=== PATIENT | female | born 1970 | race Caucasian/White ===

== ENCOUNTER → 2017-04-24 | Outpatient (CLI) | payer OTHER, MEDICAID ==
[2015-10-19 09:44] VITALS: BP 140/92
--- NOTE | 2017-04-25 08:03 | MRI ---
MRI abdomen without contrast MRCP Indication: Abnormal liver function tests, autoimmune hepatitis and chronic kidney disease. Technique: Multiplanar, multi sequence imaging of the abdomen without IV contrast administration. 3 dimensional MRCP imaging was performed per departmental protocol. Findings: Liver demonstrates normal morphology. No focal hepatic lesion identified. No intrahepatic or extrahepatic bile duct dilatation. The gallbladder is absent. The spleen, pancreas and pancreatic ducts are normal. Adrenal glands are unremarkable. Both [place] kidneys are severely atrophic with a the exophytic T2 hyperintense lesion within the upper pole left kidney most consistent with cysts. Right lower quadrant transplant kidney is noted without evidence of hydronephrosis or mass. Upper GI tract is without evidence of mass or obstruction. No free fluid identified within the abdomen or pe lvis. Abdominal aorta is normal in caliber. Impression: 1.No acute inflammatory process identified within the abdomen. No evidence of a cirrhotic morphology of the liver or focal hepatic lesion. Bile ducts are normal in caliber with previous cholecystectom y. 2. Severe it atrophy of bilateral [place] kidneys with an exophytic cyst arising from the upper pole f the [place] left kidney. A right lower quadrant transplant kidney demonstrates no evidence of mass or hydronephrosis. Reported By:
== END | disposition home or self-care (01) | DRG 442 ==
LOC: RAD 09:28
PROVIDERS: ATTEND Internal Medicine
DX: K72.90 Hepatic failure, unspecified without coma (principal); Z94.0 Kidney transplant status; R10.11 Right upper quadrant pain; R10.13 Epigastric pain
CPT/HCPCS: 74181

== ENCOUNTER 2017-04-28 11:54 | Emergency (ER) | payer OTHER, MEDICAID ==
--- NOTE | 2017-04-28 12:29 | DR.GENAD ---
HPI - PCP Primary Care Physician: ALTAGRACIA - HPI Comment HPI Comment: SICK FOR SEVERALDAYS NOW AND IS GETTING WORSE. BP UP AND DOWN BUT LOW TODAY ALL THE TIME. PATIENT FEELING WEAK AND NAUSEATED. - Complaint/Symptoms Chief Complaint Doctors Comments: WEAKNESS, NAUSEA AND LOW BP TIMES 5 DAYS. BP LOW TODAY AT HOME. DIZZY. Chief Complaint:: HEART PROBLEMS, HIGH BLOOD PRESSURE BEEN MONITOR SINCE THE 04/23. WEAK AND NAUSEATED - Nurses notes reviewed Nurses Notes Review: Yes - Source History Provided: Patient, Family Member - Mode of Arrival Mode of Arrival: Ambulatory - Timing Onset of Chief Complaint: 04/23/17 Came on: Gradually - Duration Duration: Constant Duration: Days - Severity Severity: Moderate PMH - PMH Past Medical History: Yes Past Medical History: Angina, Anxiety, Hypertension Past Medical History Comment: KIDNEY TRANSPLANT IN 2010 Past Surgical History: Yes Surgical History: Appendectomy, Cholecystectomy, Hysterectomy Past Surgical History Comment: KIDNEY TRANSPLANT 2010 HAD DIALYSIS SHUNT IN LEFT ARM. - Family History History of Family Medical Conditions: Yes Family Medical History: Diabetes Mellitus - Social History Does any household member use tobacco: No Alcohol Use: None Do you use any recreational Drugs:: No Lives With: Family Lives Where: Home - infectious screening In the last 2 months have you had wt loss of >10#?: NO Have you had fever, night sweats or hemotysis?: No Have you traveled outside the country in the last 6 months?: No Isolation: Standard ROS - Review of Systems Constitutional: Weakness, Fatigue Eyes: No Symptoms Reported ENTM: No Symptoms Reported Respiratoy: No Symptoms Reported Cardiovascular: Chest Pain Gastrointestinal/Abdominal: No Symptoms Reported Genitourinary: Dysuria Neurological: Headache Musculoskeletal: No Symptoms Reported Integumentary: No Symptoms Reported Hematologic/Lymphatic: No Symptoms Reported Endocrine: No Symptoms Reported All Other Systems: Reviewed and Negative PE - Vital Signs Vitals: Temperature 98.5 F Pulse Rate 84 Respiratory Rate 20 Blood Pressure 168/76 O2 Sat by Pulse Oximetry 94 - General Limitations: No Limitations General Appearance: Alert - Head Head Exam: Normal Inspection - Eyes Eye exam: Normal Appearance - ENT ENT Exam: Normal External Ear Exam External Ear Exam: Normal External Inspection TM/Canal Exam: Bilateral Normal Mouth Exam: Normal Inspection Throat Exam: Normal Inspection - Neck Neck Exam: Trachea Midline - Chest Chest Inspection: Symmetric Chest Wall Rise - Respiratory Respiratory Exam: Normal Lung Sounds Bilat Respiratory Exam: Bilateral Clear to Auscultation - Cardiovascular Cardiovascular Exam: Regular Rate, Normal Rhythm, Normal Heart Sounds - Abdominal Exam Abdominal Exam: Normal Bowel Sounds, Soft. negative: Tenderness - Extremities Extremities Exam: Normal Inspection - Back Back Exam: Normal Inspection - Neurologic Neurological Exam: Alert, Oriented X3 - Psychiatric Psychiatric Exam: Normal Affect, Normal Mood - Skin Skin Exam: Normal Color MDM - Additional Information Additional Information Obtained From: Family - Differential Diagnosis Differential Diagnosis: HYPERTENSION WITH HYPOTENSIVE EPISODE, UTI, ELECTROLYTE IMBALANCE. Course - Treatment Treatment: SEE ORDERS. - Consultation Consultation Comments: DISCUSS PATIENT WITH DR. FRIAS. HE WILL ADMIT PATIENT. - Education/Counseling Education/Counseling: Patient, Family, Education Educated On: Diagnosis ROR - Labs Reviewed Result Diagrams: 04/30/17 04:03 04/30/17 04:03 Laboratory: 04/28/17 12:54 Urine,Clean Catch Urine Culture - Final WBC 2.8 X10^3/uL (3.6-10.0) L 04/30/17 04:03 RBC 3.59 X10^6/uL (3.5-5.4) 04/30/17 04:03 Hgb 12.0 g/dL (12.0-16.0) 04/30/17 04:03 Hct 35.1 % (36.0-47.0) L 04/30/17 04:03 MCV 97.6 fL (80.0-100.0) 04/30/17 04:03 MCH 33.5 pg (27.0-34.0) 04/30/17 04:03 MCHC 34.3 g/dL (33.0-35.0) 04/30/17 04:03 RDW 16.1 % (11.6-16.5) 04/30/17 04:03 Plt Count 142 X10^3/uL (150.0-450.0) L 04/30/17 04:03 MPV 9.6 fL (7.4-11.0) 04/30/17 04:03 Neut % 67.0 % (42.0-75.0) 04/30/17 04:03 Lymph % 19.5 % (21.0-51.0) L 04/30/17 04:03 [place] % 11.4 % (0.0-13.0) 04/30/17 04:03 Eos % 1.5 % (0.9-2.9) 04/30/17 04:03 Baso % 0.6 % (0.2-1.0) 04/30/17 04:03 Neut # 1.9 x10^3/uL (2.2-4.8) L 04/30/17 04:03 Lymph # 0.5 X10^3/uL (1.3-2.9) L 04/30/17 04:03 [place] # 0.3 x10^3/uL (0.3-0.8) 04/30/17 04:03 Eos # 0.0 x10^3/uL (0.0-0.2) 04/30/17 04:03 Baso # 0.0 X10^3/uL (0.0-0.1) 04/30/17 04:03 Absolute Nucleated RBC 0.2 /100WBC 04/30/17 04:03 Sodium 145 mmol/L (136-145) 04/30/17 04:03 Corrected Sodium TNP 04/30/17 04:03 Potassium 3.8 mmol/L (3.5-5.1) 04/30/17 04:03 Chloride 111 mmol/L (98-107) H 04/30/17 04:03 Carbon Dioxide 28.2 mmol/L (21-32) 04/30/17 04:03 BUN 11 mg/dL (7-18) 04/30/17 04:03 Creatinine 0.83 mg/dL (0.55-1.02) 04/30/17 04:03 Est GFR (MDRD) Af Amer > 60 (>60) 04/30/17 04:03 Est GFR (MDRD) Non-Af > 60 (>60) 04/30/17 04:03 Glucose 87 mg/dL (65-99) 04/30/17 04:03 Calcium 8.1 mg/dL (8.5-10.1) L 04/30/17 04:03 Corrected Calcium 9.0 mg/dL (8.5-10.1) 04/30/17 04:03 Magnesium 1.5 mg/dL (1.7-2.9) L 04/30/17 04:03 Total Bilirubin 0.30 mg/dL (0.2-1.0) 04/30/17 04:03 AST 52 Units/L (15-37) H 04/30/17 04:03 ALT 103 Units/L (12-78) H 04/30/17 04:03 Alkaline Phosphatase 79 Units/L (46-116) 04/30/17 04:03 Creatine Kinase 20 Units/L (26-192) L 04/29/17 01:40 CK-MB (CK-2) < 1.0 ng/mL (0-4.0) 04/29/17 01:40 CK/CKMB % Calc 5.0 % (<4) 04/29/17 01:40 Troponin I < 0.02 ng/mL (0-1.5) 04/29/17 01:40 Total Protein 6.5 g/dL (6.4-8.2) 04/30/17 04:03 Albumin 2.9 g/dL (3.4-5.0) L 04/30/17 04:03 Globulin 3.6 g/dL (2.5-4.5) 04/30/17 04:03 Albumin/Globulin Ratio 0.8 Ratio (1.1-2.1) L 04/30/17 04:03 Amylase 24 Units/L (25-115) L 04/28/17 12:40 Lipase 139 Units/L (73-393) 04/28/17 12:40 Specimen Type Clean catch urine 04/28/17 12:52 Urine Color [place] (YELLOW) 04/28/17 12:52 Urine Appearance Slightly hazy (CLEAR) 04/28/17 12:52 Urine pH 6.0 (5.0 - 8.0) 04/28/17 12:52 Ur Specific [place] 1.020 (1.000-1.030) 04/28/17 12:52 Urine Protein 1+ (NEGATIVE) 04/28/17 12:52 Urine Glucose (UA) Negative (NEGATIVE) 04/28/17 12:52 Urine Ketones Negative (NEGATIVE) 04/28/17 12:52 Urine Occult Blood Negative (NEGATIVE) 04/28/17 12:52 Urine Nitrite Positive (NEGATIVE) 04/28/17 12:52 Urine Bilirubin 2+ (NEGATIVE) 04/28/17 12:52 Urine Urobilinogen 2+ (NORMAL) 04/28/17 12:52 Ur Leukocyte Esterase 2+ (NEGATIVE) 04/28/17 12:52 Urine RBC 0 - 3 /HPF (NEGATIVE) 04/28/17 12:52 Urine WBC 12 - 15 /HPF (NEGATIVE) 04/28/17 12:52 Ur Squamous Epith Cells Few /HPF (NEGATIVE) 04/28/17 12:52 Urine Bacteria 1+ /HPF (NEGATIVE) 04/28/17 12:52 Ur Culture Indicated? Yes/culture set up 04/28/17 12:52 - EKG Rhythm: NSR (EKG NOTED) - Diagnosis Discharge Problem: Hypokalemia UTI (urinary tract infection) Qualifiers: Urinary tract infection type: acute cystitis Hematuria presence: without hematuria Qualified Code(s): N30.00 - Acute cystitis without hematuria HTN (hypertension) Qualifiers: Hypertension type: essential hypertension Qualified Code(s): I10 - Essential ( primary) hypertension - Discharge Plan Disposition: HOME, SELF-CARE Condition: Stable - Follow ups/Referrals - Instructions
[2017-04-28] MEDS ORDERED: ZOFRAN TAB 4 MG ONE (12:33)
[2017-04-28] MEDS ORDERED: ZOFRAN TAB 4 MG PO ONE (12:36)
[2017-04-28 12:54] LABS: BASOPHILS % (AUTO) 0.4 % (0.2-1.0); EOSINOPHILS % (AUTO) 0.3 % (0.9-2.9); HEMATOCRIT 39.6 % (36.0-47.0); HEMOGLOBIN 13.5 g/dL (12.0-16.0); LYMPHOCYTES # (AUTO) 0.4 X10^3/uL (1.3-2.9); LYMPHOCYTES % (AUTO) 5.5 % (21.0-51.0); MEAN CORPUSCULAR HEMOGLOBIN 32.9 pg (27.0-34.0); MEAN CORPUSCULAR HGB CONC 34.1 g/dL (33.0-35.0); MEAN CORPUSCULAR VOLUME 96.5 fL (80.0-100.0); MEAN PLATELET VOLUME 10.1 fL (7.4-11.0); MONOCYTES # (AUTO) 0.3 x10^3/uL (0.3-0.8); MONOCYTES % (AUTO) 5.2 % (0.0-13.0); NEUTROPHILS # (AUTO) 5.7 x10^3/uL (2.2-4.8); NEUTROPHILS % (AUTO) 88.6 % (42.0-75.0); PLATELET COUNT 212 X10^3/uL (150.0-450.0); WHITE BLOOD COUNT 6.5 X10^3/uL (3.6-10.0)
[2017-04-28 13:04] LABS: ALANINE AMINOTRANSFERASE 162 Units/L (12-78); ALBUMIN 3.5 g/dL (3.4-5.0); ALKALINE PHOSPHATASE 97 Units/L (46-116); ASPARTATE AMINO TRANSFERASE 111 Units/L (15-37); BLOOD UREA NITROGEN 17 mg/dL (7-18); CALCIUM 9.5 mg/dL (8.5-10.1); CARBON DIOXIDE 29.8 mmol/L (21-32); CHLORIDE 99 mmol/L (98-107); COR NA(FOR HYPERGLY) 137 mmol/L (136-145); CREATININE 1.23 mg/dL (0.55-1.02); GLUCOSE 149 mg/dL (65-99); SODIUM 136 mmol/L (136-145); TOTAL PROTEIN 7.8 g/dL (6.4-8.2); eGFR BLACK RACES > 60 (>60); eGFR NON BLACK RACES 50 (>60)
[2017-04-28 13:08] LABS: BILIRUBIN,URINE 2+ (NEGATIVE); BLOOD/HEMOGLOBIN,URINE NEGATIVE (NEGATIVE); GLUCOSE, URINE NEGATIVE (NEGATIVE); KETONES,URINE NEGATIVE (NEGATIVE); LEUKOCYTE ESTERASE ,URINE 2+ (NEGATIVE); NITRITES,URINE POSITIVE (NEGATIVE); PROTEIN,URINE 1+ (NEGATIVE); UROBILINOGEN,URINE 2+ (NORMAL)
[2017-04-28 13:16] LABS: COLOR,URINE ORANGE (YELLOW)
[2017-04-28 13:17] LABS: APPEARANCE,URINE SLIGHTLY HAZY (CLEAR)
[2017-04-28 13:18] LABS: AMYLASE 24 Units/L (25-115); LIPASE 139 Units/L (73-393)
[2017-04-28 13:18] LABS: BACTERIA,URINE 1+ /HPF (NEGATIVE); RBC,URINE 0 - 3 /HPF (NEGATIVE); SQUAMOUS EPITHELIAL CELL,UR FEW /HPF (NEGATIVE)
[2017-04-28] MEDS: NS 1000 ML 1,000 ML IV SCH (15:22)
[2017-04-28] MEDS: ROCEPHIN VIAL 1 GM 1 GM in NS 50 ML IV + SPIKE MINIBAG* 50 ML IV SCH (17:29)
[2017-04-28 19:28] LABS: CKMB % 4.4 % (<4); CREATINE KINASE 23 Units/L (26-192); CREATINE KINASE MB < 1.0 ng/mL (0-4.0); TROPONIN I < 0.02 ng/mL (0-1.5)
[2017-04-29 02:32] LABS: CREATINE KINASE 20 Units/L (26-192); CREATINE KINASE MB < 1.0 ng/mL (0-4.0); TROPONIN I < 0.02 ng/mL (0-1.5)
[2017-04-29] MEDS: NS 1000 ML 1,000 ML IV SCH ×4 (02:32→18:33)
[2017-04-29 05:28] LABS: ALANINE AMINOTRANSFERASE 126 Units/L (12-78); ALBUMIN 3.1 g/dL (3.4-5.0); ALKALINE PHOSPHATASE 84 Units/L (46-116); ASPARTATE AMINO TRANSFERASE 68 Units/L (15-37); BLOOD UREA NITROGEN 16 mg/dL (7-18); CALCIUM 8.9 mg/dL (8.5-10.1); CARBON DIOXIDE 27.5 mmol/L (21-32); CHLORIDE 105 mmol/L (98-107); COR CA(FOR HYPOALB) 9.6 mg/dL (8.5-10.1); CREATININE 1.02 mg/dL (0.55-1.02); GLUCOSE 107 mg/dL (65-99); SODIUM 140 mmol/L (136-145); eGFR BLACK RACES > 60 (>60); eGFR NON BLACK RACES > 60 (>60)
[2017-04-29 05:34] LABS: BASOPHILS % (AUTO) 0.4 % (0.2-1.0); EOSINOPHILS % (AUTO) 0.5 % (0.9-2.9); HEMATOCRIT 35.7 % (36.0-47.0); HEMOGLOBIN 12.3 g/dL (12.0-16.0); LYMPHOCYTES # (AUTO) 0.3 X10^3/uL (1.3-2.9); LYMPHOCYTES % (AUTO) 8.6 % (21.0-51.0); MEAN CORPUSCULAR HEMOGLOBIN 33.5 pg (27.0-34.0); MEAN CORPUSCULAR HGB CONC 34.5 g/dL (33.0-35.0); MEAN CORPUSCULAR VOLUME 97.1 fL (80.0-100.0); MEAN PLATELET VOLUME 9.7 fL (7.4-11.0); MONOCYTES # (AUTO) 0.4 x10^3/uL (0.3-0.8); MONOCYTES % (AUTO) 9.4 % (0.0-13.0); NEUTROPHILS # (AUTO) 3.2 x10^3/uL (2.2-4.8); NEUTROPHILS % (AUTO) 81.1 % (42.0-75.0); PLATELET COUNT 165 X10^3/uL (150.0-450.0); RED BLOOD COUNT 3.68 X10^6/uL (3.5-5.4)
[2017-04-29] MEDS: ROCEPHIN VIAL 1 GM 1 GM in NS 50 ML IV + SPIKE MINIBAG* 50 ML IV SCH (08:56)
[2017-04-29] MEDS ORDERED: LASIX PO PRN (10:58)
--- NOTE | 2017-04-29 11:25 | DR.H&P ---
H&P - History & Physical for Day of: H&P Date: 04/28/17 - Chief Complaint Chief Complaint: HYPOTENSION, WEAKNESS, NAUSEA - Allergies Allergies/Adverse Reactions: Allergies Allergy/AdvReac Type Severity Reaction Status Date / Time ciprofloxacin [From Cipro] AdvReac Verified 04/28/17 21:44 phenazopyridine AdvReac Verified 04/28/17 21:44 [From Pyridium] Sulfa (Sulfonamide AdvReac Verified 04/28/17 21:44 Antibiotics) [SULFA] - History of Present Illness History of Present Illness: MS. WATERMAN IS A 47 YEAR OLD PATIENT OF OURS WHO PRESENTED TO THE EMERGENCY ROOM WITH COMPLAINTS OF WEAKNESS, NAUSEA, AND LOW BLOOD PRESSURE. PATIENT REPORTS THAT SHE HAS A HISTORY OF HIGH BLOOD PRESSURE, BUT STATES THAT HER BLOOD PRESSURE HAS RAN LOWER THAN USUAL FOR THE PAST SEVERAL DAYS. ON ARRIVAL TO ER, VITALS WERE 98.5-84-20-94%-168/76. CBC WNL. CMP WNL EXCEPT CREATININE 1.23, GLUCOSE 149, AST 111, ALT 162, AMYLASE 24. CREAKINE KINASE 23. EKG REPORTS SINUS RHYTHM WITH RATE OF 84, LEFT VENTRICULAR HYPERTROPHY. SHE WAS GIVEN ZOFRAN 4MG PO IN ER. WE ADMITTED PATIENT FOR FURTHER TREATMENT AND EVALUATION. WE STARTED HER ON NS @75ML/HR AND ROCEPHIN 1GM IV DAILY. WE PLANNED TO RECHECK LABS AND FOLLOW UP WITH PATIENT IN AM. - Past Medical History Past Medical History: Angina, Anxiety, Arthritis, GERD, Hypertension, Renal Disease Additional Medical History: AUTOIMMUNE HEPATITIS, IBS, DIALYSIS [id number], URETER REPAIR, ENDOMETRIOSIS, OSTEOARTHRITIS - Past Surgical History Surgical History: Appendectomy, Cholecystectomy, Hysterectomy, Organ Transplant , Other Additional Surgical History: URETER REPAIR, DIALYSIS SHURNT PLACEMENT AND REMOVAL, KIDNEY TRANSPLANT - Family History Family Medical History: Diabetes Mellitus - Social History Does patient currently use any type of tobacco product: No Have you used tobacco products in the last 12 months: No Type of Tobacco Use: None Does any household member use tobacco: No Alcohol Use: None Drug Use: None - Medications Home Medications: Azathioprine [Imuran] 50 mg PO TID 04/28/17 [History Confirmed 04/28/17] Citalopram 20 mg Tab [CELEXA 20 MG *] 3 tab PO DAILY 04/28/17 [History Confirmed 04/28/17] Metoclopramide HCl [Metoclopramide HCl] 1 tab PO QID 04/28/17 [History Confirmed 04/28/17] Pramipexole Di-HCl [Pramipexole Dihydrochlori] 0.25 mg PO HS 04/28/17 [History Confirmed 04/28/17] Promethazine HCl [PHENERGAN TAB 25 MG *] 25 mg PO Q6H PRN 04/28/17 [History Confirmed 04/28/17] - Review of Systems Constitutional: See HPI, Weakness. denies: No Symptoms Reported, Fever, Chills , Sweats, Malaise, Other Eyes: No Symptoms Reported. denies: See HPI, Pain, Vision Change, Conjunctivae Inflammation, Eyelid Inflammation, Redness, Other ENT: No Symptoms Reported. denies: See HPI, Ear Pain, Ear Discharge, Nose Pain , Nose Discharge, Nose Congestion, Mouth Pain, Mouth Swelling, Throat Pain, Throat Swelling, Other Respiratory: No Symptoms Reported. denies: See HPI, Cough, Dry, Shortness of Breath, Hemoptysis, SOB with Excertion, Pleuritic Pain, Sputum, Wheezing, Other Cardiovascular: Chest Pain. denies: No Symptoms Reported, See HPI, Palpitations , Orthopnea, Paroxysmal Noc. Dyspnea, Edema, Light Headedness, Other Gastrointestinal: See HPI, Nausea. denies: No Symptoms Reported, Vomiting, Abdominal Pain, Diarrhea, Constipation, Melena, Hematochezia, Other Genitourinary: See HPI, Dysuria. denies: No Symptoms Reported, Frequency, Incontinence, Hematuria, Retention, Other Musculoskeletal: No Symptoms Reported. denies: See HPI, Shoulder Pain, Arm Pain , Back Pain, Hand Pain, Leg Pain, Foot Pain, Neck Pain, Other Skin: No Symptoms Reported. denies: See HPI, Rash, Lesions, Jaundice, Bruising , Wound, Ecchymosis, Other Neurological: Weakness. denies: No Symptoms Reported, See HPI, Numbness, Incoordination, Change in Speech, Confusion, Seizures, Other - Physical Exam Vital Signs: Temperature 98.0 F Pulse Rate [Left Brachial] 92 Respiratory Rate 20 Blood Pressure [Left Arm] 147/88 O2 Sat by Pulse Oximetry 96 Oriented: Normal. negative: Time, Person, Place, Not Oriented, Unable to test, Other Eyes: Normal. negative: Blurred Vision, Diplopia, Discharge, Pain, Redness, Photophobia, Other Ear: Normal. negative: Right, Left, Swelling, Ecchymosis, Hemotypanum, Abrasion , Laceration Nose: Normal. negative: Injected, Discharge, Blood, Other Throat: Normal. negative: Tonsillar Hypertrophy, Red, Exudate, Dry, Other Respiratory: Clear Throughout. negative: Diminished Throughout, Rhonchi Throughout, Rales Throughout, Wheezes Throughout, RUL Clear, RML Clear, RLL Clear, UBALDO Clear, LML Clear, LLL Clear, RUL Diminished, RML Diminished, RLL Diminished, UBALDO Diminished, LML Diminished, LLL Diminished, RUL Absent, RML Absent, RLL Absent, UBALDO Absent, LML Absent, LLL Absent, RUL Rhonchi, RML Rhonchi , RLL Rhonchi, UBALDO Rhonchi, LML Rhonchi, LLL Rhonchi, RUL Insp. Wheeze, RML Insp. Wheeze, RLL Insp. Wheeze, UBALDO Insp.Wheeze, LML Insp.Wheeze, LLL Insp.Wheeze, RUL Exp. Wheeze, RML Exp. Wheeze, RLL Exp. Wheeze, UBALDO Exp. Wheeze , LML Exp. Wheeze, LLL Exp. Wheeze, RUL Rales, RML Rales, RLL Rales, UBALDO Rales, LML Rales, LLL Rales, RUL Rub, RML Rub, RLL Rub, UBALDO Rub, LML Rub, LLL Rub, RUL Squeak, RML Squeak, RLL Squeak, UBALDO Squeak, LML Squeak, LLL Squeak Cardiovascular: Normal. negative: Tachycardia, Bradycardia, Irregular, S3, S4, Systolic, Diastolic, Murmur, Edema, Other : Dysuria. negative: Normal, Hematuria, Frequency, Discharge, Testicular Pain , Bleeding, , Other Auscultation: Bowel Sounds: Normal. negative: Bruit, Absent, Increased, Decreased, High Pitched, Other Palpation: Normal. negative: Spleen Enlarged, Liver Enlarged, Mass Pulsatile, Other Tenderness: Normal. negative: Diffuse, RUQ, RLQ, LUQ, LLQ, Epigastric, Periumbilical, Suprapubic, Mild, Moderate, Severe, Rebound, Guarding, Rigidity, Other Skin: Normal. negative: Decreased Turgur, Rash, Papular, Macular, Maculopapular , Vesicular, Pustular, Petechial, Red, Tender, Hot, Diaphoresis, Wound, Bruising , Ecchymosis, Other Musculoskeletal: Normal. negative: Right, Left, Shoulder, Clavicle, Arm, Elbow , Forearm, Wrist, Hand, Hip, Thigh, Knee, Leg, Ankle, Foot, Back:Thoracic, Back: Lumbar, Back:Midline, Back:Paraspinous, Pelvis, Swelling, Tender, Deformity, Pulse Deficit, Motor Deficit, Sensory Deficit, Instability, Crepitance Psychiatric: Normal. negative: Anxiety, Depression, Agitation, Other Mood Description: Calm. negative: Angry, Apathetic, Depressed, Fearful, Flat, Happy, Hostile, Sad, Suspicious, Withdrawn, Anxious, Appropriate, Labile Affect: Normal. negative: Angry, Anxious, Depressed, Flat, Hysterical, Quiet, Violent Speech Pattern: Clear. negative: Appropriate, Unclear, Inappropriate, Delayed, Slurred, Excessive, Aphasic, Artificially Ventilated - Assessment/Plan (1) Urinary tract infection Qualifiers: Urinary tract infection type: acute cystitis Hematuria presence: without hematuria Indwelling urinary catheter type: I Encounter type: E Qualified Code(s): N30.00 - Acute cystitis without hematuria Status: Acute Plan: IV FLUIDS, ROCEPHIN 1 GM IV DAILY, CONTINUE TO MONITOR (2) Hypotension Qualifiers: Hypotension type: unspecified hypotension type Trimester: T Qualified Code(s): I95.9 - Hypotension, unspecified Status: Acute Plan: IV FLUIDS, CONTINUE TO MONITOR
--- NOTE | 2017-04-29 11:40 | PCM.PROG ---
Progress Note - Progress Note for Day of Date: 04/29/17 - Subjective Subjective: IS ALERT AND ORIENTED, SITTING UP IN BED ON MORNING ROUNDS. SHE IS NOTED WITH COMPLAINTS OF WEAKNESS, SUPRAPUBIC PAIN, AND DYSURIA. VITALS THIS AM ARE 98.4-86-20-97%-124/77. CBC WNL EXCEPT HCT 35.7. CMP WNL EXCEPT GLUCOSE 107, AST 68, ALT 126. ALBUMIN 3.1. PATIENT REPORTS THAT HER OXYGEN SATURATIONS DROPPED DURING THE NIGHT. WE WILL ORDER A OVERNIGHT CONTINUOUS OXYGEN SATURATION TEST. WE WILL CONTINUE WITH CURRENT PLAN OF CARE, RECHECK LABS, AND FOLLOW UP WITH PATIENT IN AM. - Past Medical Family Social History Allergies: Allergies ciprofloxacin [From Cipro] Adverse Reaction (Verified 04/28/17 21:44) phenazopyridine [From Pyridium] Adverse Reaction (Verified 04/28/17 21:44) Sulfa (Sulfonamide Antibiotics) [SULFA] Adverse Reaction (Verified 04/28/17 21: 44) - Review of Systems ROS: No change since H&P - Vital Signs and I&O's Vital Signs: Temperature 98.0 F Pulse Rate [Left Brachial] 92 Respiratory Rate 20 Blood Pressure [Left Arm] 147/88 O2 Sat by Pulse Oximetry 96 Intake and Output: Intake & Output 04/26/17 04/27/17 04/28/17 04/29/17 11:59 11:59 11:59 11:59 Intake Total 506 Output Total 1100 Balance -594 - Physical Exam Oriented: Normal. negative: Time, Person, Place, Not Oriented, Unable to test, Other Eyes: Normal. negative: Blurred Vision, Diplopia, Discharge, Pain, Redness, Photophobia, Other Ear: Normal. negative: Right, Left, Swelling, Ecchymosis, Hemotypanum, Abrasion , Laceration Nose: Normal. negative: Injected, Discharge, Blood, Other Throat: Normal. negative: Tonsillar Hypertrophy, Red, Exudate, Dry, Other Respiratory: Normal Cardiovascular: Normal. negative: Tachycardia, Bradycardia, Irregular, S3, S4, Systolic, Diastolic, Murmur, Edema, Other : Dysuria. negative: Normal, Hematuria, Frequency, Discharge, Testicular Pain , Bleeding, , Other Auscultation: Bowel Sounds: Normal. negative: Bruit, Absent, Increased, Decreased, High Pitched, Other Palpation: Normal Tenderness: Normal. negative: Diffuse, RUQ, RLQ, LUQ, LLQ, Epigastric, Periumbilical, Suprapubic, Mild, Moderate, Severe, Rebound, Guarding, Rigidity, Other Skin: Normal. negative: Decreased Turgur, Rash, Papular, Macular, Maculopapular , Vesicular, Pustular, Petechial, Red, Tender, Hot, Diaphoresis, Wound, Bruising , Ecchymosis, Other Musculoskeletal: Normal. negative: Right, Left, Shoulder, Clavicle, Arm, Elbow , Forearm, Wrist, Hand, Hip, Thigh, Knee, Leg, Ankle, Foot, Back:Thoracic, Back: Lumbar, Back:Midline, Back:Paraspinous, Pelvis, Swelling, Tender, Deformity, Pulse Deficit, Motor Deficit, Sensory Deficit, Instability, Crepitance Psychiatric: Normal. negative: Anxiety, Depression, Agitation, Other Mood Description: Calm. negative: Angry, Apathetic, Depressed, Fearful, Flat, Happy, Hostile, Sad, Suspicious, Withdrawn, Anxious, Appropriate, Labile Affect: Normal. negative: Angry, Anxious, Depressed, Flat, Hysterical, Quiet, Violent Speech Pattern: Clear. negative: Appropriate, Unclear, Inappropriate, Delayed, Slurred, Excessive, Aphasic, Artificially Ventilated - Laboratory and Diagnostics Result Diagrams: 04/29/17 04:10 04/29/17 04:10 Labs: Laboratory WBC 4.0 X10^3/uL (3.6-10.0) 04/29/17 04:10 RBC 3.68 X10^6/uL (3.5-5.4) 04/29/17 04:10 Hgb 12.3 g/dL (12.0-16.0) 04/29/17 04:10 Hct 35.7 % (36.0-47.0) L 04/29/17 04:10 MCV 97.1 fL (80.0-100.0) 04/29/17 04:10 MCH 33.5 pg (27.0-34.0) 04/29/17 04:10 MCHC 34.5 g/dL (33.0-35.0) 04/29/17 04:10 RDW 16.0 % (11.6-16.5) 04/29/17 04:10 Plt Count 165 X10^3/uL (150.0-450.0) 04/29/17 04:10 MPV 9.7 fL (7.4-11.0) 04/29/17 04:10 Neut % 81.1 % (42.0-75.0) H 04/29/17 04:10 Lymph % 8.6 % (21.0-51.0) L 04/29/17 04:10 [place] % 9.4 % (0.0-13.0) 04/29/17 04:10 Eos % 0.5 % (0.9-2.9) L 04/29/17 04:10 Baso % 0.4 % (0.2-1.0) 04/29/17 04:10 Neut # 3.2 x10^3/uL (2.2-4.8) 04/29/17 04:10 Lymph # 0.3 X10^3/uL (1.3-2.9) L 04/29/17 04:10 [place] # 0.4 x10^3/uL (0.3-0.8) 04/29/17 04:10 Eos # 0.0 x10^3/uL (0.0-0.2) 04/29/17 04:10 Baso # 0.0 X10^3/uL (0.0-0.1) 04/29/17 04:10 Absolute Nucleated RBC 0.1 /100WBC 04/29/17 04:10 Sodium 140 mmol/L (136-145) 04/29/17 04:10 Corrected Sodium TNP 04/29/17 04:10 Potassium 4.7 mmol/L (3.5-5.1) 04/29/17 04:10 Chloride 105 mmol/L (98-107) 04/29/17 04:10 Carbon Dioxide 27.5 mmol/L (21-32) 04/29/17 04:10 BUN 16 mg/dL (7-18) 04/29/17 04:10 Creatinine 1.02 mg/dL (0.55-1.02) 04/29/17 04:10 Est GFR (MDRD) Af Amer > 60 (>60) 04/29/17 04:10 Est GFR (MDRD) Non-Af > 60 (>60) 04/29/17 04:10 Glucose 107 mg/dL (65-99) H 04/29/17 04:10 Calcium 8.9 mg/dL (8.5-10.1) 04/29/17 04:10 Corrected Calcium 9.6 mg/dL (8.5-10.1) 04/29/17 04:10 Total Bilirubin 0.30 mg/dL (0.2-1.0) 04/29/17 04:10 AST 68 Units/L (15-37) H 04/29/17 04:10 ALT 126 Units/L (12-78) H 04/29/17 04:10 Alkaline Phosphatase 84 Units/L (46-116) 04/29/17 04:10 Creatine Kinase 20 Units/L (26-192) L 04/29/17 01:40 CK-MB (CK-2) < 1.0 ng/mL (0-4.0) 04/29/17 01:40 CK/CKMB % Calc 5.0 % (<4) 04/29/17 01:40 Troponin I < 0.02 ng/mL (0-1.5) 04/29/17 01:40 Total Protein 7.0 g/dL (6.4-8.2) 04/29/17 04:10 Albumin 3.1 g/dL (3.4-5.0) L 04/29/17 04:10 Globulin 3.9 g/dL (2.5-4.5) 04/29/17 04:10 Albumin/Globulin Ratio 0.8 Ratio (1.1-2.1) L 04/29/17 04:10 Amylase 24 Units/L (25-115) L 04/28/17 12:40 Lipase 139 Units/L (73-393) 04/28/17 12:40 Specimen Type Clean catch urine 04/28/17 12:52 Urine Color [place] (YELLOW) 04/28/17 12:52 Urine Appearance Slightly hazy (CLEAR) 04/28/17 12:52 Urine pH 6.0 (5.0 - 8.0) 04/28/17 12:52 Ur Specific [place] 1.020 (1.000-1.030) 04/28/17 12:52 Urine Protein 1+ (NEGATIVE) 04/28/17 12:52 Urine Glucose (UA) Negative (NEGATIVE) 04/28/17 12:52 Urine Ketones Negative (NEGATIVE) 04/28/17 12:52 Urine Occult Blood Negative (NEGATIVE) 04/28/17 12:52 Urine Nitrite Positive (NEGATIVE) 04/28/17 12:52 Urine Bilirubin 2+ (NEGATIVE) 04/28/17 12:52 Urine Urobilinogen 2+ (NORMAL) 04/28/17 12:52 Ur Leukocyte Esterase 2+ (NEGATIVE) 04/28/17 12:52 Urine RBC 0 - 3 /HPF (NEGATIVE) 04/28/17 12:52 Urine WBC 12 - 15 /HPF (NEGATIVE) 04/28/17 12:52 Ur Squamous Epith Cells Few /HPF (NEGATIVE) 04/28/17 12:52 Urine Bacteria 1+ /HPF (NEGATIVE) 04/28/17 12:52 Ur Culture Indicated? Yes/culture set up 04/28/17 12:52 - Plan (1) Urinary tract infection Status: Acute Qualifiers: Urinary tract infection type: acute cystitis Hematuria presence: without hematuria Indwelling urinary catheter type: I Encounter type: E Qualified Code(s): N30.00 - Acute cystitis without hematuria Plan: IV FLUIDS, ROCEPHIN 1 GM IV DAILY, CONTINUE TO MONITOR (2) Hypotension Status: Acute Qualifiers: Hypotension type: unspecified hypotension type Trimester: T Qualified Code(s): I95.9 - Hypotension, unspecified Plan: IV FLUIDS, CONTINUE TO MONITOR
[2017-04-29] MEDS: IMURAN PO SCH ×3 (12:16→21:37)
[2017-04-29] MEDS: TACROLIMUS PO SCH ×2 (12:17→20:38)
[2017-04-29] MEDS: CELEXA PO SCH (12:25)
[2017-04-29] MEDS: NexIUM PO SCH ×2 (12:25→20:36)
[2017-04-29] MEDS: REGLAN TAB 10 MG PO SCH ×4 (12:25→20:36)
[2017-04-29] MEDS: PHENERGAN INJ 25 MG IV PRN ×2 (14:24→20:36)
[2017-04-29] MEDS: NORTRIPTYLINE HCL 100 MG PO SCH (20:37)
[2017-04-29] MEDS: MIRAPEX TAB 0.25 MG PO SCH (20:39)
[2017-04-29] MEDS ORDERED: PATIENT'S HOME MEDICATION (Ranitidine Hcl [Zantac] 300 MG) PO SCH (21:00)
[2017-04-30 05:39] LABS: BASOPHILS % (AUTO) 0.6 % (0.2-1.0); EOSINOPHILS % (AUTO) 1.5 % (0.9-2.9); HEMATOCRIT 35.1 % (36.0-47.0); LYMPHOCYTES # (AUTO) 0.5 X10^3/uL (1.3-2.9); LYMPHOCYTES % (AUTO) 19.5 % (21.0-51.0); MEAN CORPUSCULAR HEMOGLOBIN 33.5 pg (27.0-34.0); MEAN CORPUSCULAR HGB CONC 34.3 g/dL (33.0-35.0); MEAN CORPUSCULAR VOLUME 97.6 fL (80.0-100.0); MEAN PLATELET VOLUME 9.6 fL (7.4-11.0); MONOCYTES # (AUTO) 0.3 x10^3/uL (0.3-0.8); MONOCYTES % (AUTO) 11.4 % (0.0-13.0); NEUTROPHILS # (AUTO) 1.9 x10^3/uL (2.2-4.8); PLATELET COUNT 142 X10^3/uL (150.0-450.0); RED BLOOD COUNT 3.59 X10^6/uL (3.5-5.4); RED CELL DISTRIBUTION WIDTH 16.1 % (11.6-16.5); WHITE BLOOD COUNT 2.8 X10^3/uL (3.6-10.0)
[2017-04-30 05:41] LABS: ALANINE AMINOTRANSFERASE 103 Units/L (12-78); ALBUMIN 2.9 g/dL (3.4-5.0); ALKALINE PHOSPHATASE 79 Units/L (46-116); ASPARTATE AMINO TRANSFERASE 52 Units/L (15-37); BLOOD UREA NITROGEN 11 mg/dL (7-18); CALCIUM 8.1 mg/dL (8.5-10.1); CARBON DIOXIDE 28.2 mmol/L (21-32); CHLORIDE 111 mmol/L (98-107); CREATININE 0.83 mg/dL (0.55-1.02); GLUCOSE 87 mg/dL (65-99); SODIUM 145 mmol/L (136-145); TOTAL PROTEIN 6.5 g/dL (6.4-8.2); eGFR BLACK RACES > 60 (>60); eGFR NON BLACK RACES > 60 (>60)
[2017-04-30] MEDS: IMURAN PO SCH ×3 (05:45→21:20)
[2017-04-30] MEDS ORDERED: MAGNESIUM SULFATE 1 GM/100 mL PREMIX 1 GM/100 ML BAG IV ONE (07:03)
[2017-04-30 07:29] VITALS: BMI 37.6
[2017-04-30] MEDS: REGLAN TAB 10 MG PO SCH ×4 (08:56→21:16)
[2017-04-30] MEDS: ROCEPHIN VIAL 1 GM 1 GM in NS 50 ML IV + SPIKE MINIBAG* 50 ML IV SCH (08:56)
[2017-04-30] MEDS: CELEXA PO SCH (08:57)
[2017-04-30] MEDS: NexIUM PO SCH ×2 (08:57→21:15)
[2017-04-30] MEDS: NS 1000 ML 1,000 ML IV SCH ×3 (09:02→21:16)
[2017-04-30] MEDS: TACROLIMUS PO SCH ×2 (09:02→21:19)
[2017-04-30] MEDS: PROCARDIA XL PO SCH (10:55)
[2017-04-30] MEDS: ZESTRIL TAB 5 MG PO SCH (10:55)
--- NOTE | 2017-04-30 17:13 | PCM.PROG ---
Progress Note - Progress Note for Day of Date: 04/30/17 - Subjective Subjective: IS ALERT AND ORIENTED, SITTING UP IN BED ON MORNING ROUNDS. SHE REPORTS FEELING BETTER THAN YESTERDAY, BUT STILL WEAK AND PAINFUL URINATION. VITALS THIS AM ARE 97.9-115-18-96%-178/95. CBC WNL EXCEPT WBC 2.8, HCT 35.1. CMP WNL EXCEPT CHLORIDE 111, CALCIUM 8.1, AST 52, ALT 103, ALBUMIN 2.9 , MAGNESIUM 1.5. OVERNIGHT CONTINUOUS OXYGEN SATURATION TEST REPORTED THAT PATIENT'S OXYGEN SATURATION DROPPED TO 89 DURING THE NIGHT. WE WILL PLAN TO SCHEDULE HER FOR AN OUTPATIENT SLEEP STUDY AFTER DISCHARGE. WE WILL START PATIENT ON PROCARDIA XL 30MG DAILY AND LISINOPRIL 5 MG DAILY FOR ELEVATED BLOOD PRESSURE AND CONTINUE WITH CURRENT PLAN OF CARE. WE PLAN TO RECHECK LABS AND FOLLOW UP WITH PATIENT IN AM. - Past Medical Family Social History Past Med/Fam/Surg Hx: No changes since H&P Allergies: Allergies ciprofloxacin [From Cipro] Adverse Reaction (Verified 04/28/17 21:44) phenazopyridine [From Pyridium] Adverse Reaction (Verified 04/28/17 21:44) Sulfa (Sulfonamide Antibiotics) [SULFA] Adverse Reaction (Verified 04/28/17 21: 44) - Review of Systems ROS: No change since H&P - Vital Signs and I&O's Vital Signs: Temperature 99.0 F Pulse Rate [Left Brachial] 131 Respiratory Rate 18 Blood Pressure [Right Arm] 154/71 Blood Pressure [Left Arm] 147/88 O2 Sat by Pulse Oximetry 95 Intake and Output: Intake & Output 04/28/17 04/29/17 04/30/17 05/01/17 11:59 11:59 11:59 11:59 Intake Total 506 2150 1320 Output Total 1100 1525 1100 Balance -594 625 220 - Physical Exam Oriented: Normal. negative: Time, Person, Place, Not Oriented, Unable to test, Other Eyes: Normal. negative: Blurred Vision, Diplopia, Discharge, Pain, Redness, Photophobia, Other Ear: Normal. negative: Right, Left, Swelling, Ecchymosis, Hemotypanum, Abrasion , Laceration Nose: Normal. negative: Injected, Discharge, Blood, Other Throat: Normal. negative: Tonsillar Hypertrophy, Red, Exudate, Dry, Other Respiratory: Normal Cardiovascular: Normal. negative: Tachycardia, Bradycardia, Irregular, S3, S4, Systolic, Diastolic, Murmur, Edema, Other : Dysuria. negative: Normal, Hematuria, Frequency, Discharge, Testicular Pain , Bleeding, , Other Auscultation: Bowel Sounds: Normal. negative: Bruit, Absent, Increased, Decreased, High Pitched, Other Palpation: Normal Tenderness: Normal. negative: Diffuse, RUQ, RLQ, LUQ, LLQ, Epigastric, Periumbilical, Suprapubic, Mild, Moderate, Severe, Rebound, Guarding, Rigidity, Other Skin: Normal. negative: Decreased Turg[place], Rash, Papular, Macular, Maculopapular , Vesicular, Pustular, Petechial, Red, Tender, Hot, Diaphoresis, Wound, Bruising , Ecchymosis, Other Musculoskeletal: Normal. negative: Right, Left, Shoulder, Clavicle, Arm, Elbow , Forearm, Wrist, Hand, Hip, Thigh, Knee, Leg, Ankle, Foot, Back:Thoracic, Back: Lumbar, Back:Midline, Back:Paraspinous, Pelvis, Swelling, Tender, Deformity, Pulse Deficit, Motor Deficit, Sensory Deficit, Instability, Crepitance Psychiatric: Normal. negative: Anxiety, Depression, Agitation, Other Mood Description: Calm. negative: Angry, Apathetic, Depressed, Fearful, Flat, Happy, Hostile, Sad, Suspicious, Withdrawn, Anxious, Appropriate, Labile Affect: Normal. negative: Angry, Anxious, Depressed, Flat, Hysterical, Quiet, Violent Speech Pattern: Clear, Appropriate - Laboratory and Diagnostics Result Diagrams: 04/30/17 04:03 04/30/17 04:03 Labs: Laboratory WBC 2.8 X10^3/uL (3.6-10.0) L 04/30/17 04:03 RBC 3.59 X10^6/uL (3.5-5.4) 04/30/17 04:03 Hgb 12.0 g/dL (12.0-16.0) 04/30/17 04:03 Hct 35.1 % (36.0-47.0) L 04/30/17 04:03 MCV 97.6 fL (80.0-100.0) 04/30/17 04:03 MCH 33.5 pg (27.0-34.0) 04/30/17 04:03 MCHC 34.3 g/dL (33.0-35.0) 04/30/17 04:03 RDW 16.1 % (11.6-16.5) 04/30/17 04:03 Plt Count 142 X10^3/uL (150.0-450.0) L 04/30/17 04:03 MPV 9.6 fL (7.4-11.0) 04/30/17 04:03 Neut % 67.0 % (42.0-75.0) 04/30/17 04:03 Lymph % 19.5 % (21.0-51.0) L 04/30/17 04:03 [place] % 11.4 % (0.0-13.0) 04/30/17 04:03 Eos % 1.5 % (0.9-2.9) 04/30/17 04:03 Baso % 0.6 % (0.2-1.0) 04/30/17 04:03 Neut # 1.9 x10^3/uL (2.2-4.8) L 04/30/17 04:03 Lymph # 0.5 X10^3/uL (1.3-2.9) L 04/30/17 04:03 [place] # 0.3 x10^3/uL (0.3-0.8) 04/30/17 04:03 Eos # 0.0 x10^3/uL (0.0-0.2) 04/30/17 04:03 Baso # 0.0 X10^3/uL (0.0-0.1) 04/30/17 04:03 Absolute Nucleated RBC 0.2 /100WBC 04/30/17 04:03 Sodium 145 mmol/L (136-145) 04/30/17 04:03 Corrected Sodium TNP 04/30/17 04:03 Potassium 3.8 mmol/L (3.5-5.1) 04/30/17 04:03 Chloride 111 mmol/L (98-107) H 04/30/17 04:03 Carbon Dioxide 28.2 mmol/L (21-32) 04/30/17 04:03 BUN 11 mg/dL (7-18) 04/30/17 04:03 Creatinine 0.83 mg/dL (0.55-1.02) 04/30/17 04:03 Est GFR (MDRD) Af Amer > 60 (>60) 04/30/17 04:03 Est GFR (MDRD) Non-Af > 60 (>60) 04/30/17 04:03 Glucose 87 mg/dL (65-99) 04/30/17 04:03 Calcium 8.1 mg/dL (8.5-10.1) L 04/30/17 04:03 Corrected Calcium 9.0 mg/dL (8.5-10.1) 04/30/17 04:03 Magnesium 1.5 mg/dL (1.7-2.9) L 04/30/17 04:03 Total Bilirubin 0.30 mg/dL (0.2-1.0) 04/30/17 04:03 AST 52 Units/L (15-37) H 04/30/17 04:03 ALT 103 Units/L (12-78) H 04/30/17 04:03 Alkaline Phosphatase 79 Units/L (46-116) 04/30/17 04:03 Creatine Kinase 20 Units/L (26-192) L 04/29/17 01:40 CK-MB (CK-2) < 1.0 ng/mL (0-4.0) 04/29/17 01:40 CK/CKMB % Calc 5.0 % (<4) 04/29/17 01:40 Troponin I < 0.02 ng/mL (0-1.5) 04/29/17 01:40 Total Protein 6.5 g/dL (6.4-8.2) 04/30/17 04:03 Albumin 2.9 g/dL (3.4-5.0) L 04/30/17 04:03 Globulin 3.6 g/dL (2.5-4.5) 04/30/17 04:03 Albumin/Globulin Ratio 0.8 Ratio (1.1-2.1) L 04/30/17 04:03 Amylase 24 Units/L (25-115) L 04/28/17 12:40 Lipase 139 Units/L (73-393) 04/28/17 12:40 Specimen Type Clean catch urine 04/28/17 12:52 Urine Color [place] (YELLOW) 04/28/17 12:52 Urine Appearance Slightly hazy (CLEAR) 04/28/17 12:52 Urine pH 6.0 (5.0 - 8.0) 04/28/17 12:52 Ur Specific [place] 1.020 (1.000-1.030) 04/28/17 12:52 Urine Protein 1+ (NEGATIVE) 04/28/17 12:52 Urine Glucose (UA) Negative (NEGATIVE) 04/28/17 12:52 Urine Ketones Negative (NEGATIVE) 04/28/17 12:52 Urine Occult Blood Negative (NEGATIVE) 04/28/17 12:52 Urine Nitrite Positive (NEGATIVE) 04/28/17 12:52 Urine Bilirubin 2+ (NEGATIVE) 04/28/17 12:52 Urine Urobilinogen 2+ (NORMAL) 04/28/17 12:52 Ur Leukocyte Esterase 2+ (NEGATIVE) 04/28/17 12:52 Urine RBC 0 - 3 /HPF (NEGATIVE) 04/28/17 12:52 Urine WBC 12 - 15 /HPF (NEGATIVE) 04/28/17 12:52 Ur Squamous Epith Cells Few /HPF (NEGATIVE) 04/28/17 12:52 Urine Bacteria 1+ /HPF (NEGATIVE) 04/28/17 12:52 Ur Culture Indicated? Yes/culture set up 04/28/17 12:52 - Plan (1) Urinary tract infection Status: Acute Qualifiers: Urinary tract infection type: acute cystitis Hematuria presence: without hematuria Indwelling urinary catheter type: I Encounter type: E Qualified Code(s): N30.00 - Acute cystitis without hematuria Plan: IV FLUIDS, ROCEPHIN 1 GM IV DAILY, CONTINUE TO MONITOR (2) Hypotension Status: Resolved Qualifiers: Hypotension type: unspecified hypotension type Trimester: T Qualified Code(s): I95.9 - Hypotension, unspecified Plan: IV FLUIDS, CONTINUE TO MONITOR (3) HTN (hypertension) Status: Chronic Qualifiers: Hypertension type: essential hypertension Qualified Code(s): I10 - Essential (primary) hypertension Plan: PROCARDIA XL 30MG DAILY, LISINOPRIL 5MG PO DAILY, CONTINUE TO MONITOR
[2017-04-30] MEDS ORDERED: RESTORIL CAP 15 MG PO PRN (20:35)
[2017-04-30] MEDS: MIRAPEX TAB 0.25 MG PO SCH (21:16)
[2017-04-30] MEDS: NORTRIPTYLINE HCL 100 MG PO SCH (21:19)
[2017-05-01] MEDS: IMURAN PO SCH (05:22)
[2017-05-01 06:25] LABS: BASOPHILS % (AUTO) 0.7 % (0.2-1.0); EOSINOPHILS % (AUTO) 1.1 % (0.9-2.9); HEMATOCRIT 37.4 % (36.0-47.0); HEMOGLOBIN 12.7 g/dL (12.0-16.0); LYMPHOCYTES # (AUTO) 0.5 X10^3/uL (1.3-2.9); LYMPHOCYTES % (AUTO) 12.6 % (21.0-51.0); MEAN CORPUSCULAR HEMOGLOBIN 33.5 pg (27.0-34.0); MEAN CORPUSCULAR HGB CONC 34.1 g/dL (33.0-35.0); MEAN CORPUSCULAR VOLUME 98.3 fL (80.0-100.0); MEAN PLATELET VOLUME 9.6 fL (7.4-11.0); MONOCYTES # (AUTO) 0.3 x10^3/uL (0.3-0.8); MONOCYTES % (AUTO) 8.1 % (0.0-13.0); NEUTROPHILS # (AUTO) 2.8 x10^3/uL (2.2-4.8); NEUTROPHILS % (AUTO) 77.5 % (42.0-75.0); PLATELET COUNT 162 X10^3/uL (150.0-450.0); WHITE BLOOD COUNT 3.6 X10^3/uL (3.6-10.0)
[2017-05-01 06:40] LABS: ALANINE AMINOTRANSFERASE 107 Units/L (12-78); ALBUMIN 3.2 g/dL (3.4-5.0); ALKALINE PHOSPHATASE 80 Units/L (46-116); ASPARTATE AMINO TRANSFERASE 58 Units/L (15-37); BLOOD UREA NITROGEN 7 mg/dL (7-18); CALCIUM 8.3 mg/dL (8.5-10.1); CARBON DIOXIDE 24.7 mmol/L (21-32); CHLORIDE 111 mmol/L (98-107); COR CA(FOR HYPOALB) 8.9 mg/dL (8.5-10.1); CREATININE 0.81 mg/dL (0.55-1.02); GLUCOSE 93 mg/dL (65-99); SODIUM 144 mmol/L (136-145); eGFR BLACK RACES > 60 (>60); eGFR NON BLACK RACES > 60 (>60)
[2017-05-01] MEDS: ROCEPHIN VIAL 1 GM 1 GM in NS 50 ML IV + SPIKE MINIBAG* 50 ML IV SCH (08:06)
[2017-05-01] MEDS: ZESTRIL TAB 5 MG PO SCH (08:07)
[2017-05-01] MEDS: NexIUM PO SCH (08:07)
[2017-05-01] MEDS: PROCARDIA XL PO SCH (08:07)
[2017-05-01] MEDS: REGLAN TAB 10 MG PO SCH (08:07)
[2017-05-01] MEDS: CELEXA PO SCH (08:08)
[2017-05-01] MEDS: TACROLIMUS PO SCH (08:10)
[2017-05-01 09:21] VITALS: BP 157/74
--- NOTE | 2017-05-05 00:27 | DR.CARTERD ---
- Discharge Summary for: Discharge Summary for Date of:: 05/01/17 - Admission Date Date of Admission: 04/28/17 - Admission Diagnoses Admission Diagnosis: (1) Hypotension (2) Urinary tract infection - Discharge Date Discharge Date: 05/01/17 - Discharge Diagnoses Discharge Diagnosis: (1) Hypotension (2) Urinary tract infection (3) HTN (hypertension) - Hospital Course Hospital Course: ON DAY ONE OF HOSPITAL STAY, MS. WATERMAN IS A 47 YEAR OLD PATIENT OF OURS WHO PRESENTED TO THE EMERGENCY ROOM WITH COMPLAINTS OF WEAKNESS, NAUSEA, AND LOW BLOOD PRESSURE. PATIENT REPORTED A HISTORY OF HIGH BLOOD PRESSURE, BUT STATED THAT HER BLOOD PRESSURE HAS RAN LOWER THAN USUAL FOR THE PAST SEVERAL DAYS. ON ARRIVAL TO ER, VITALS WERE 98.5-84-20-94%-168/76. CBC WNL. CMP WNL EXCEPT CREATININE 1.23, GLUCOSE 149, AST 111, ALT 162, AMYLASE 24. CREAKINE KINASE 23. EKG REPORTED SINUS RHYTHM WITH RATE OF 84, LEFT VENTRICULAR HYPERTROPHY. SHE WAS GIVEN ZOFRAN 4MG PO IN ER. WE ADMITTED PATIENT FOR FURTHER TREATMENT AND EVALUATION. WE STARTED HER ON NS @75ML/HR AND ROCEPHIN 1GM IV DAILY. ON DAY TWO OF HOSPITAL STAY, WAS ALERT AND ORIENTED, SITTING UP IN BED ON MORNING ROUNDS. SHE WAS NOTED WITH COMPLAINTS OF WEAKNESS, SUPRAPUBIC PAIN, AND DYSURIA. VITALS WERE 98.4-86-20-97%-124/77. CBC WNL EXCEPT HCT 35.7. CMP WNL EXCEPT GLUCOSE 107, AST 68, ALT 126. ALBUMIN 3.1. PATIENT REPORTED THAT HER OXYGEN SATURATIONS DROPPED DURING THE NIGHT. WE PLANNED FOR AN OVERNIGHT CONTINUOUS OXYGEN SATURATION TEST. ON DAY THREE OF HOSPITAL STAY, WAS ALERT AND ORIENTED, SITTING UP IN BED ON MORNING ROUNDS. SHE REPORTED FEELING BETTER THAN YESTERDAY, BUT STILL WEAK AND PAINFUL URINATION. VITALS WERE 97.9-115-18-96%-178/95. CBC WNL EXCEPT WBC 2.8, HCT 35.1. CMP WNL EXCEPT CHLORIDE 111, CALCIUM 8.1, AST 52, ALT 103, ALBUMIN 2.9, MAGNESIUM 1.5. OVERNIGHT CONTINUOUS OXYGEN SATURATION TEST REPORTED THAT PATIENT'S OXYGEN SATURATION DROPPED TO 89 DURING THE NIGHT. WE PLANNED TO SCHEDULE HER FOR AN OUTPATIENT SLEEP STUDY AFTER DISCHARGE. WE STARTED PATIENT ON PROCARDIA XL 30MG DAILY AND LISINOPRIL 5 MG DAILY FOR ELEVATED BLOOD PRESSURE AND CONTINUED TO MONITOR. DAY FOUR OF HOSPITAL STAY, BLOOD PRESSURE WAS 157/74. PATIENT REPORTED SHE FELT BETTER. BLOOD PRESSURE WAS STABLE AFTER ADJUSTMENT OF MEDICATIONS. PATIENT REPORTED WEAKNESS SUBSIDED. WE PLANNED FOR DISCHARGE. INSTRUCTIONS FOR MEDICATIONS AND FOLLOW UP WERE GIVEN TO PATIENT AND FAMILY, BOTH VOICED UNDERSTANDING. PATIENT DISCHARGED HOME IN STABLE CONDITION WITH FAMILY. - Discharge Medications Discharge Medications: Azathioprine [Imuran] 50 mg PO TID 04/28/17 [History] Citalopram 20 mg Tab [CELEXA 20 MG *] 3 tab PO DAILY 04/28/17 [History] Metoclopramide HCl 1 tab PO QID 04/28/17 [History] Pramipexole Di-HCl [Pramipexole Dihydrochloride] 0.25 mg PO HS 04/28/17 [History ] Promethazine HCl [PHENERGAN TAB 25 MG *] 25 mg PO Q6H PRN 04/28/17 [History] Lisinopril 5 mg PO DAILY #30 tab 05/01/17 [Rx] Nifedipine Ext Rel [Procardia Xl] 30 mg PO DAILY #30 tabcr 05/01/17 [Rx] Nitrofurantoin Macro [Macrobid Cap 100 mg Ext Rel] 100 mg PO BID #20 cap [Rx] - Discharge Disposition Discharge Disposition: PATIENT IS TO FOLLOW UP WITH WILFREDO COOK ON 05/08/17.
== END 2017-05-01 11:00 | disposition home or self-care (01) ==
LOC: ER 12:07 → MED/SURG 14:58
PROVIDERS: ADMIT Internal Medicine; ATTEND Internal Medicine
DX: I95.89 Other hypotension (principal); I10 Essential (primary) hypertension; N30.00 Acute cystitis without hematuria; R53.1 Weakness; E87.6 Hypokalemia; R74.8 Abnormal levels of other serum enzymes; R51 Headache; I51.7 Cardiomegaly
CPT/HCPCS: 36415; 80053; 81001; 82150; 82550; 82553; 83690; 83735; 84484; 85025; 87086; 93005; 94760; 94762; 96365; 96367; 99284; A4222; S0181; G0378; J0696; J2550

== ENCOUNTER 2017-06-17 11:03 | Inpatient (IN) | payer OTHER, MEDICAID ==
[2017-06-17] MEDS: ZOSYN VIAL 4.5 GM IV SCH ×3 (12:08→20:59)
[2017-06-17] MEDS ORDERED: SALINE 3% 15 ML NEB TX ONE (12:28)
[2017-06-17] MEDS ORDERED: SALINE 3% 15 ML NEB TX NEB ONE (12:33)
[2017-06-17 12:49] LABS: BASOPHILS % (AUTO) 0.4 % (0.2-1.0); EOSINOPHILS % (AUTO) 0.1 % (0.9-2.9); HEMATOCRIT 38.4 % (36.0-47.0); LYMPHOCYTES # (AUTO) 0.2 X10^3/uL (1.3-2.9); LYMPHOCYTES % (AUTO) 2.9 % (21.0-51.0); MEAN CORPUSCULAR HEMOGLOBIN 33.2 pg (27.0-34.0); MEAN CORPUSCULAR HGB CONC 33.9 g/dL (33.0-35.0); MEAN CORPUSCULAR VOLUME 98.1 fL (80.0-100.0); MEAN PLATELET VOLUME 10.2 fL (7.4-11.0); MONOCYTES # (AUTO) 0.2 x10^3/uL (0.3-0.8); MONOCYTES % (AUTO) 2.6 % (0.0-13.0); NEUTROPHILS # (AUTO) 5.7 x10^3/uL (2.2-4.8); PLATELET COUNT 125 X10^3/uL (150.0-450.0); RED BLOOD COUNT 3.92 X10^6/uL (3.5-5.4); RED CELL DISTRIBUTION WIDTH 15.5 % (11.6-16.5)
[2017-06-17 12:58] LABS: ALANINE AMINOTRANSFERASE 131 Units/L (12-78); ALBUMIN 3.4 g/dL (3.4-5.0); ALKALINE PHOSPHATASE 119 Units/L (46-116); ASPARTATE AMINO TRANSFERASE 117 Units/L (15-37); BLOOD UREA NITROGEN 13 mg/dL (7-18); CALCIUM 9.3 mg/dL (8.5-10.1); CARBON DIOXIDE 26.3 mmol/L (21-32); CHLORIDE 104 mmol/L (98-107); COR NA(FOR HYPERGLY) 140 mmol/L (136-145); CREATININE 1.02 mg/dL (0.55-1.02); SODIUM 138 mmol/L (136-145); TOTAL PROTEIN 7.5 g/dL (6.4-8.2); eGFR BLACK RACES > 60 (>60); eGFR NON BLACK RACES > 60 (>60)
[2017-06-17] MEDS ORDERED: SALINE 3% 15 ML NEB TX NEB NR (13:00)
[2017-06-17 13:01] LABS: LACTIC ACID 1.3 mmol/L (0.4-2.0)
[2017-06-17] MEDS ORDERED: NS 1/2 1000 ML IV 1,000 ML IV ONE (13:07)
[2017-06-17] MEDS ORDERED: NS 100 ML IV + SPIKE MINIBAG* 100 ML IV ONE ×2 (13:09→20:48)
[2017-06-17] MEDS: ROBITUSSIN DM PO SCH ×3 (13:19→21:04)
[2017-06-17] MEDS: NS 1/2 1000 ML IV 1,000 ML IV SCH (13:20)
[2017-06-17 13:25] LABS: BAND NEUTROPHILS % 2 % (0-10); PLATELET MORPHOLOGY COMMENT NORMAL (NORMAL)
[2017-06-17 14:28] VITALS: BMI 42.4
[2017-06-17] MEDS ORDERED: PREVNAR 13 IM ONE (14:28)
[2017-06-17] MEDS ORDERED: FLUVIRIN IM ONE (14:28)
[2017-06-17] MEDS: FIORICET TAB PO PRN (16:21)
[2017-06-17] MEDS: XOPENEX 1.25 MG/3 ML NEBULE NEB SCH ×2 (16:42→20:38)
[2017-06-17 17:01] LABS: BILIRUBIN,URINE NEGATIVE (NEGATIVE); BLOOD/HEMOGLOBIN,URINE NEGATIVE (NEGATIVE); GLUCOSE, URINE NEGATIVE (NEGATIVE); KETONES,URINE NEGATIVE (NEGATIVE); LEUKOCYTE ESTERASE ,URINE 2+ (NEGATIVE); NITRITES,URINE NEGATIVE (NEGATIVE); PROTEIN,URINE NEGATIVE (NEGATIVE); UROBILINOGEN,URINE NORMAL (NORMAL)
[2017-06-17 17:16] LABS: APPEARANCE,URINE HAZY (CLEAR); BACTERIA,URINE TRACE /HPF (NEGATIVE); COLOR,URINE YELLOW (YELLOW); RBC,URINE 0-2 /HPF (NEGATIVE); SQUAMOUS EPITHELIAL CELL,UR RARE /HPF (NEGATIVE)
[2017-06-17] MEDS ORDERED: STERILE WATER IRRIGATION IR ONE (19:44)
[2017-06-17] MEDS: PULMICORT NEB TX 0.5 MG NEB SCH (20:38)
[2017-06-17] MEDS: TUSSIONEX PENNKINETIC SUSP PO PRN (20:59)
[2017-06-18] MEDS ORDERED: NS 1/2 1000 ML IV 1,000 ML IV ONE ×2 (01:53→14:42)
[2017-06-18] MEDS: NS 1/2 1000 ML IV 1,000 ML IV SCH ×3 (03:32→15:58)
[2017-06-18] MEDS ORDERED: NS 100 ML IV + SPIKE MINIBAG* 100 ML IV ONE ×3 (05:07→22:39)
[2017-06-18] MEDS: ZOSYN VIAL 4.5 GM IV SCH ×3 (05:19→22:35)
[2017-06-18 05:28] LABS: BASOPHILS % (AUTO) 0.2 % (0.2-1.0); EOSINOPHILS % (AUTO) 0.3 % (0.9-2.9); HEMATOCRIT 33.2 % (36.0-47.0); HEMOGLOBIN 11.3 g/dL (12.0-16.0); LYMPHOCYTES # (AUTO) 0.4 X10^3/uL (1.3-2.9); LYMPHOCYTES % (AUTO) 7.5 % (21.0-51.0); MEAN CORPUSCULAR HEMOGLOBIN 33.6 pg (27.0-34.0); MEAN CORPUSCULAR VOLUME 98.8 fL (80.0-100.0); MEAN PLATELET VOLUME 10.4 fL (7.4-11.0); MONOCYTES # (AUTO) 0.4 x10^3/uL (0.3-0.8); MONOCYTES % (AUTO) 7.9 % (0.0-13.0); NEUTROPHILS # (AUTO) 4.1 x10^3/uL (2.2-4.8); NEUTROPHILS % (AUTO) 84.1 % (42.0-75.0); PLATELET COUNT 107 X10^3/uL (150.0-450.0); RED BLOOD COUNT 3.36 X10^6/uL (3.5-5.4); RED CELL DISTRIBUTION WIDTH 15.8 % (11.6-16.5); WHITE BLOOD COUNT 4.9 X10^3/uL (3.6-10.0)
[2017-06-18 05:29] LABS: ALANINE AMINOTRANSFERASE 101 Units/L (12-78); ALBUMIN 2.9 g/dL (3.4-5.0); ALKALINE PHOSPHATASE 93 Units/L (46-116); ASPARTATE AMINO TRANSFERASE 75 Units/L (15-37); BLOOD UREA NITROGEN 11 mg/dL (7-18); CALCIUM 8.5 mg/dL (8.5-10.1); CARBON DIOXIDE 29.7 mmol/L (21-32); CHLORIDE 107 mmol/L (98-107); COR CA(FOR HYPOALB) 9.4 mg/dL (8.5-10.1); SODIUM 142 mmol/L (136-145); TOTAL PROTEIN 6.4 g/dL (6.4-8.2); eGFR BLACK RACES > 60 (>60); eGFR NON BLACK RACES > 60 (>60)
--- NOTE | 2017-06-18 08:20 | DR.UPDATE ---
H&P Update History and Physical Update: WAS SEEN IN THE OFFICE ON 06/17/17. A H&P WAS COMPLETED PRIOR TO ADMISSION. PATIENT HAS BEEN SEEN AND EXAMINED WITH NO CHANGES NOTED. Changes noted: NO Yes with the following:
[2017-06-18] MEDS: XOPENEX 1.25 MG/3 ML NEBULE NEB SCH ×4 (08:29→20:22)
[2017-06-18] MEDS: PULMICORT NEB TX 0.5 MG NEB SCH ×2 (08:29→20:21)
[2017-06-18] MEDS: ROBITUSSIN DM PO SCH ×4 (08:48→22:34)
[2017-06-18] MEDS: CHLORASEPTIC SPRAY MT PRN ×2 (09:37→16:49)
[2017-06-18] MEDS: FIORICET TAB PO PRN (09:38)
[2017-06-18] MEDS ORDERED: DIPRIVAN VIAL 20 ML ONE ×2 (09:41→10:04)
[2017-06-18] MEDS ORDERED: EPHEDRINE SULFATE INJ ONE (10:20)
[2017-06-18 13:07] LABS: STOOL FOR WBC POSITIVE (NEGATIVE)
[2017-06-18 13:31] LABS: CRYPTOSPORIDIUM PARVUM ANTIGEN NEGATIVE (NEGATIVE); GIARDIA LAMBLIA ANTIGEN NEGATIVE (NEGATIVE)
[2017-06-18] MEDS ORDERED: HYDROMORPHONE HCL 2 MG PO PRN (14:15)
[2017-06-18] MEDS ORDERED: BENTYL CAP 10 MG PO PRN (14:15)
[2017-06-18] MEDS ORDERED: LASIX PO PRN (14:15)
[2017-06-18] MEDS ORDERED: LEVAQUIN PREMIX IV 500 MG 500 MG/100 ML BAG IV SCH (15:00)
[2017-06-18] MEDS: TUSSIONEX PENNKINETIC SUSP PO PRN (15:52)
[2017-06-18] MEDS: REGLAN TAB 10 MG PO SCH ×2 (16:49→22:31)
[2017-06-18] MEDS: LOMOTIL PO PRN (16:49)
[2017-06-18] MEDS ORDERED: PATIENT'S HOME MEDICATION (Ranitidine Hcl [Zantac] 300 MG) PO SCH (21:00)
[2017-06-18] MEDS ORDERED: PATIENT'S HOME MEDICATION (Gabapentin [Gabapentin] 800 MG) PO SCH (22:00)
[2017-06-18] MEDS: TOPROL XL PO SCH (22:31)
[2017-06-18] MEDS: NexIUM PO SCH (22:31)
[2017-06-18] MEDS: ZANTAC PO SCH (22:32)
[2017-06-18] MEDS: MIRAPEX TAB 0.25 MG PO SCH (22:32)
[2017-06-18] MEDS: NEURONTIN CAP 400 MG PO SCH (22:33)
[2017-06-18] MEDS: NORTRIPTYLINE HCL 100 MG PO SCH (22:34)
[2017-06-18] MEDS: TACROLIMUS PO SCH (22:35)
[2017-06-19] MEDS: TUSSIONEX PENNKINETIC SUSP PO PRN (03:25)
[2017-06-19] MEDS: NS 1/2 1000 ML IV 1,000 ML IV SCH ×3 (03:26→21:37)
[2017-06-19] MEDS ORDERED: NS 1/2 1000 ML IV 1,000 ML IV ONE ×2 (03:28→17:31)
[2017-06-19 04:56] LABS: BASOPHILS % (AUTO) 0.3 % (0.2-1.0); EOSINOPHILS % (AUTO) 0.1 % (0.9-2.9); HEMATOCRIT 32.7 % (36.0-47.0); HEMOGLOBIN 11.4 g/dL (12.0-16.0); LYMPHOCYTES # (AUTO) 0.3 X10^3/uL (1.3-2.9); LYMPHOCYTES % (AUTO) 4.7 % (21.0-51.0); MEAN CORPUSCULAR HEMOGLOBIN 34.1 pg (27.0-34.0); MEAN CORPUSCULAR HGB CONC 34.7 g/dL (33.0-35.0); MEAN CORPUSCULAR VOLUME 98.1 fL (80.0-100.0); MEAN PLATELET VOLUME 10.2 fL (7.4-11.0); MONOCYTES # (AUTO) 0.4 x10^3/uL (0.3-0.8); MONOCYTES % (AUTO) 7.5 % (0.0-13.0); NEUTROPHILS % (AUTO) 87.4 % (42.0-75.0); PLATELET COUNT 119 X10^3/uL (150.0-450.0); RED BLOOD COUNT 3.33 X10^6/uL (3.5-5.4); RED CELL DISTRIBUTION WIDTH 15.6 % (11.6-16.5); WHITE BLOOD COUNT 5.7 X10^3/uL (3.6-10.0)
[2017-06-19 05:08] LABS: ALANINE AMINOTRANSFERASE 100 Units/L (12-78); ALBUMIN 2.9 g/dL (3.4-5.0); ALKALINE PHOSPHATASE 86 Units/L (46-116); ASPARTATE AMINO TRANSFERASE 76 Units/L (15-37); BLOOD UREA NITROGEN 8 mg/dL (7-18); CALCIUM 8.2 mg/dL (8.5-10.1); CARBON DIOXIDE 24.6 mmol/L (21-32); CHLORIDE 108 mmol/L (98-107); COR CA(FOR HYPOALB) 9.1 mg/dL (8.5-10.1); CREATININE 0.92 mg/dL (0.55-1.02); SODIUM 140 mmol/L (136-145); TOTAL PROTEIN 6.6 g/dL (6.4-8.2); eGFR BLACK RACES > 60 (>60); eGFR NON BLACK RACES > 60 (>60)
[2017-06-19] MEDS ORDERED: NS 100 ML IV + SPIKE MINIBAG* 100 ML IV ONE ×3 (05:36→21:40)
[2017-06-19] MEDS: NEURONTIN CAP 400 MG PO SCH ×3 (06:01→21:34)
[2017-06-19] MEDS: ZOSYN VIAL 4.5 GM IV SCH ×3 (06:01→21:38)
[2017-06-19] MEDS: LOMOTIL PO PRN (07:43)
[2017-06-19] MEDS: PULMICORT NEB TX 0.5 MG NEB SCH ×2 (08:26→20:30)
[2017-06-19] MEDS: XOPENEX 1.25 MG/3 ML NEBULE NEB SCH ×4 (08:26→20:30)
[2017-06-19] MEDS: ROBITUSSIN DM PO SCH ×4 (08:52→21:33)
[2017-06-19] MEDS: ZESTRIL TAB 5 MG PO SCH (08:53)
[2017-06-19] MEDS: PREDNISONE TAB 5 MG PO SCH (08:53)
[2017-06-19] MEDS: PROCARDIA XL PO SCH (08:53)
[2017-06-19] MEDS: REGLAN TAB 10 MG PO SCH ×4 (08:53→21:34)
[2017-06-19] MEDS: IMURAN PO SCH (08:53)
[2017-06-19] MEDS: MIRAPEX TAB 0.25 MG PO SCH ×2 (08:53→21:31)
[2017-06-19] MEDS: NexIUM PO SCH ×2 (08:53→21:34)
[2017-06-19] MEDS: TACROLIMUS PO SCH ×2 (08:54→21:35)
[2017-06-19] MEDS: LEVAQUIN PREMIX IV 500 MG 500 MG/100 ML BAG IV SCH (08:54)
[2017-06-19] MEDS: CELEXA PO SCH (08:54)
[2017-06-19] MEDS: SINGULAIR TAB 10 MG PO SCH ×2 (11:10→21:34)
[2017-06-19] MEDS: FIORICET TAB PO PRN (17:37)
--- NOTE | 2017-06-19 20:54 | PCM.PROG ---
Progress Note - Progress Note for Day of Date: 06/18/17 - Subjective Subjective: WAS A DIRECT ADMISSION FOR BRONCHOPNEUMONIA. TODAY, SHE IS ALERT AND ORIENTED, LYING IN BED ON MORNING ROUNDS. SHE IS NOTED WITH COMPLAINTS OF COUGH, SHORTNESS OF BREATH, WEAKNESS, AND DIARRHEA. SHE IS NOTED ON NASAL CANNULA WITH OXYGEN AT 2L/MIN. ON EXAMINATION, LUNGS ARE NOTED WITH WHEEZING BILATERALLY TO AUSCULTATION. LUNG SOUNDS ARE DIMINISHED. THICK, YELLOW SPUTUM IS NOTED AT BEDSIDE. ABDOMEN IS SOFT, ROUND, AND NOTED WITH DIFFUSE TENDERNESS. HYPERACTIVE BOWEL SOUNDS ARE NOTED TO AUSCULTATION. HER VITAL SIGNS THIS MORNING ARE 100.2-97-18-94%-157/90. A CBC, CMP, AND CHEST XRAY WERE OBTAINED. ABNORMAL LAB RESULTS INCLUDE THE FOLLOWING: RBC 3.36, HGB 11.3, HCT 33.2, GLUCOSE 108, AST 75, ALT 101, ALBUMIN 2.9. URINALYSIS WAS OBTAINED YESTERDAY AND REPORTED WBC 0-2, TRACE OF BACTERIA, 2+ LEUKOCYTES. CHEST XRAY READING IS PENDING AT THIS TIME. TODAY, WE PLAN TO OBTAIN STOOL STUDIES, START PROBIOTICS PO DAILY, AND START LOMOTIL 1 TAB QID PRN AFTER STOOL STUDIES ARE OBTAINED. OTHERWISE, WE WILL CONTINUE CURRENT PLAN OF CARE FOR PNEUMONIA. WE WILL FOLLOW UP WITH AM LABS AND CONTINUE TO MONITOR PATIENT. - Past Medical Family Social History Past Med/Fam/Surg Hx: No changes since H&P Allergies: Allergies ciprofloxacin [From Cipro] Adverse Reaction (Verified 04/28/17 21:44) phenazopyridine [From Pyridium] Adverse Reaction (Verified 04/28/17 21:44) Sulfa (Sulfonamide Antibiotics) [SULFA] Adverse Reaction (Verified 04/28/17 21: 44) - Review of Systems ROS: No change since H&P - Vital Signs and I&O's Vital Signs: Temperature 97.9 F Pulse Rate [Right Brachial] 89 Pulse Rate 102 Respiratory Rate 20 Blood Pressure [Right Arm] 125/60 Blood Pressure [Left Arm] 147/88 Blood Pressure 157/74 O2 Sat by Pulse Oximetry 97 Intake and Output: Intake & Output 06/17/17 06/18/17 06/19/17 06/20/17 11:59 11:59 11:59 11:59 Intake Total 2108 3060 440 Output Total 700 Balance 1408 3060 440 - Physical Exam Oriented: Normal Eyes: Normal Ear: Normal Nose: Normal Throat: Normal Respiratory: Generalized, Diminished, Wheezes Cardiovascular: Normal : Normal Auscultation: Bowel Sounds: Normal Palpation: Normal Tenderness: Diffuse. negative: Rebound, Guarding, Rigidity Skin: Normal Musculoskeletal: Normal Psychiatric: Normal Mood Description: Calm Affect: Normal Speech Pattern: Clear, Appropriate - Laboratory and Diagnostics Result Diagrams: 06/21/17 04:45 06/21/17 04:45 Labs: 06/17/17 12:33 Blood Blood Culture - Preliminary 06/17/17 12:30 Blood Blood Culture - Preliminary 06/18/17 12:17 Stool Stool Culture - Preliminary 06/18/17 12:17 Stool - Final 06/17/17 12:46 Sputum - Expectorated Sputum Sputum Culture - Final 06/17/17 12:46 Sputum - Expectorated Sputum - Final 06/17/17 16:48 Urine,Clean Catch Urine Culture - Final Laboratory WBC 5.7 X10^3/uL (3.6-10.0) 06/19/17 03:55 RBC 3.33 X10^6/uL (3.5-5.4) L 06/19/17 03:55 Hgb 11.4 g/dL (12.0-16.0) L 06/19/17 03:55 Hct 32.7 % (36.0-47.0) L 06/19/17 03:55 MCV 98.1 fL (80.0-100.0) 06/19/17 03:55 MCH 34.1 pg (27.0-34.0) H 06/19/17 03:55 MCHC 34.7 g/dL (33.0-35.0) 06/19/17 03:55 RDW 15.6 % (11.6-16.5) 06/19/17 03:55 Plt Count 119 X10^3/uL (150.0-450.0) L 06/19/17 03:55 Plt Count Comment Decreased (ADEQUATE) A 06/17/17 12:30 MPV 10.2 fL (7.4-11.0) 06/19/17 03:55 Neut % 87.4 % (42.0-75.0) H 06/19/17 03:55 Lymph % 4.7 % (21.0-51.0) L 06/19/17 03:55 [place] % 7.5 % (0.0-13.0) 06/19/17 03:55 Eos % 0.1 % (0.9-2.9) L 06/19/17 03:55 Baso % 0.3 % (0.2-1.0) 06/19/17 03:55 Neut # 5.0 x10^3/uL (2.2-4.8) H 06/19/17 03:55 Lymph # 0.3 X10^3/uL (1.3-2.9) L 06/19/17 03:55 [place] # 0.4 x10^3/uL (0.3-0.8) 06/19/17 03:55 Eos # 0.0 x10^3/uL (0.0-0.2) 06/19/17 03:55 Baso # 0.0 X10^3/uL (0.0-0.1) 06/19/17 03:55 Absolute Nucleated RBC 0.3 /100WBC 06/19/17 03:55 Total Counted 100 06/17/17 12:30 Neutrophils % (Manual) 88 % (39-76) H 06/17/17 12:30 Band Neutrophils % 2 % (0-10) 06/17/17 12:30 Lymphocytes % (Manual) 6 % (13-43) L 06/17/17 12:30 Monocytes % (Manual) 3 % (4-9) L 06/17/17 12:30 Eosinophils % (Manual) 1 % (0-6) 06/17/17 12:30 Plt Morphology Comment Normal (NORMAL) 06/17/17 12:30 RBC Morphology Normal (NORMAL) 06/17/17 12:30 Sodium 140 mmol/L (136-145) 06/19/17 03:55 Corrected Sodium TNP 06/19/17 03:55 Potassium 3.8 mmol/L (3.5-5.1) 06/19/17 03:55 Chloride 108 mmol/L (98-107) H 06/19/17 03:55 Carbon Dioxide 24.6 mmol/L (21-32) 06/19/17 03:55 BUN 8 mg/dL (7-18) 06/19/17 03:55 Creatinine 0.92 mg/dL (0.55-1.02) 06/19/17 03:55 Est GFR (MDRD) Af Amer > 60 (>60) 06/19/17 03:55 Est GFR (MDRD) Non-Af > 60 (>60) 06/19/17 03:55 Glucose 102 mg/dL (65-99) H 06/19/17 03:55 Lactic Acid 1.3 mmol/L (0.4-2.0) 06/17/17 12:30 Calcium 8.2 mg/dL (8.5-10.1) L 06/19/17 03:55 Corrected Calcium 9.1 mg/dL (8.5-10.1) 06/19/17 03:55 Total Bilirubin 0.40 mg/dL (0.2-1.0) 06/19/17 03:55 AST 76 Units/L (15-37) H 06/19/17 03:55 ALT 100 Units/L (12-78) H 06/19/17 03:55 Alkaline Phosphatase 86 Units/L (46-116) 06/19/17 03:55 Total Protein 6.6 g/dL (6.4-8.2) 06/19/17 03:55 Albumin 2.9 g/dL (3.4-5.0) L 06/19/17 03:55 Globulin 3.7 g/dL (2.5-4.5) 06/19/17 03:55 Albumin/Globulin Ratio 0.8 Ratio (1.1-2.1) L 06/19/17 03:55 Specimen Type Clean catch urine 06/17/17 16:48 Urine Color [place] (YELLOW) 06/17/17 16:48 Urine Appearance Hazy (CLEAR) 06/17/17 16:48 Urine pH 7.0 (5.0 - 8.0) 06/17/17 16:48 Ur Specific [place] 1.005 (1.000-1.030) 06/17/17 16:48 Urine Protein Negative (NEGATIVE) 06/17/17 16:48 Urine Glucose (UA) Negative (NEGATIVE) 06/17/17 16:48 Urine Ketones Negative (NEGATIVE) 06/17/17 16:48 Urine Occult Blood Negative (NEGATIVE) 06/17/17 16:48 Urine Nitrite Negative (NEGATIVE) 06/17/17 16:48 Urine Bilirubin Negative (NEGATIVE) 06/17/17 16:48 Urine Urobilinogen Normal (NORMAL) 06/17/17 16:48 Ur Leukocyte Esterase 2+ (NEGATIVE) 06/17/17 16:48 Urine RBC 0-2 /HPF (NEGATIVE) 06/17/17 16:48 Urine WBC 0-2 /HPF (NEGATIVE) 06/17/17 16:48 Ur Squamous Epith Cells Rare /HPF (NEGATIVE) 06/17/17 16:48 Urine Bacteria Trace /HPF (NEGATIVE) 06/17/17 16:48 Ur Culture Indicated? Yes/culture set up 06/17/17 16:48 Stool Description 10g unformed brown 06/18/17 12:17 Stl Occult Blood (IFOB) Negative (NEGATIVE) 06/18/17 12:17 Stool for White Cells Positive (NEGATIVE) A 06/18/17 12:17 Stl C. diff Tox B Gene Negative (NEGATIVE) 06/18/17 12:17 Stl C. diff [id number] Negative (NEGATIVE) 06/18/17 12:17 Cryptosporid parvum Ag Negative (NEGATIVE) 06/18/17 12:17 E. histolytica Antigen Negative (NEGATIVE) 06/18/17 12:17 Giardia lamblia Ag Negative (NEGATIVE) 06/18/17 12:17 - Plan (1) Bronchopneumonia Status: Acute Plan: CONTINUE LEVAQUIN 500MG IV DAILY, CONTINUE ZOSYN 4.5GM IV DAILY, CONTINUE DUONEBS, CONTINUE ROBITUSSION AND TUSSIONEX, CONTINUE TO MONITOR (2) Diarrhea Status: Acute Qualifiers: Diarrhea type: unspecified type Qualified Code(s): R19.7 - Diarrhea, unspecified Plan: OBTAIN STOOL STUDIES, THEN START LOMOTIL 1 TAB QID PRN, CONTINUE TO MONITOR (3) Depression Status: Chronic Qualifiers: Depression Type: major depressive disorder Active/Remission status: remission status unspecified Plan: CONTINUE CELEXA, CONTINUE NORTRIPTYLINE, CONTINUE TO MONITOR (4) History of kidney transplant Status: Chronic Plan: CONTINUE IMURAN, CONTINUE ASTAGRAF, CONTINUE TO MONITOR (5) GERD (gastroesophageal reflux disease) Status: Chronic Qualifiers: Esophagitis presence: esophagitis presence not specified Qualified Code(s) : K21.9 - Gastro-esophageal reflux disease without esophagitis Plan: CONTINUE ZANTAC, CONTINUE REGLAN, CONTINUE TO MONITOR (6) Restless leg syndrome Status: Chronic Plan: CONTINUE MIRAPEX, CONTINUE TO MONITOR (7) HTN (hypertension) Status: Chronic Qualifiers: Hypertension type: essential hypertension Qualified Code(s): I10 - Essential (primary) hypertension Plan: CONTINUE LISINOPRIL, CONTINUE TOPROL XL, CONTINUE PROCARDIA, CONTINUE TO MONITOR
[2017-06-19] MEDS: ZANTAC PO SCH (21:33)
[2017-06-19] MEDS: NORTRIPTYLINE HCL 100 MG PO SCH (21:35)
[2017-06-19] MEDS: TOPROL XL PO SCH (21:35)
[2017-06-19] MEDS: FLONASE NASAL SPRAY ENOSTRIL SCH (21:38)
[2017-06-19] MEDS ORDERED: DILAUDID PO ONE (23:15)
[2017-06-19] MEDS: PHENERGAN TAB 25 MG PO PRN (23:18)
[2017-06-19] MEDS: DILAUDID PO PRN (23:18)
[2017-06-20 05:27] LABS: BASOPHILS % (AUTO) 0.3 % (0.2-1.0); EOSINOPHILS % (AUTO) 0.9 % (0.9-2.9); HEMATOCRIT 31.6 % (36.0-47.0); HEMOGLOBIN 10.7 g/dL (12.0-16.0); LYMPHOCYTES # (AUTO) 0.4 X10^3/uL (1.3-2.9); LYMPHOCYTES % (AUTO) 7.5 % (21.0-51.0); MEAN PLATELET VOLUME 10.3 fL (7.4-11.0); MONOCYTES # (AUTO) 0.5 x10^3/uL (0.3-0.8); MONOCYTES % (AUTO) 9.7 % (0.0-13.0); NEUTROPHILS # (AUTO) 4.1 x10^3/uL (2.2-4.8); NEUTROPHILS % (AUTO) 81.6 % (42.0-75.0); PLATELET COUNT 111 X10^3/uL (150.0-450.0); RED BLOOD COUNT 3.16 X10^6/uL (3.5-5.4)
[2017-06-20] MEDS ORDERED: NS 100 ML IV + SPIKE MINIBAG* 100 ML IV ONE ×3 (05:29→21:05)
[2017-06-20] MEDS: ZOSYN VIAL 4.5 GM IV SCH ×3 (05:36→21:00)
[2017-06-20] MEDS: NS 1/2 1000 ML IV 1,000 ML IV SCH ×3 (05:36→20:59)
[2017-06-20] MEDS: NEURONTIN CAP 400 MG PO SCH ×3 (05:37→21:01)
[2017-06-20] MEDS ORDERED: NS 1/2 1000 ML IV 1,000 ML IV ONE ×2 (05:39→20:57)
[2017-06-20 05:42] LABS: ALANINE AMINOTRANSFERASE 118 Units/L (12-78); ALBUMIN 2.7 g/dL (3.4-5.0); ALKALINE PHOSPHATASE 180 Units/L (46-116); ASPARTATE AMINO TRANSFERASE 153 Units/L (15-37); BLOOD UREA NITROGEN 7 mg/dL (7-18); CARBON DIOXIDE 24.3 mmol/L (21-32); CHLORIDE 110 mmol/L (98-107); CREATININE 0.96 mg/dL (0.55-1.02); SODIUM 142 mmol/L (136-145); TOTAL PROTEIN 6.3 g/dL (6.4-8.2); eGFR BLACK RACES > 60 (>60); eGFR NON BLACK RACES > 60 (>60)
[2017-06-20] MEDS: XOPENEX 1.25 MG/3 ML NEBULE NEB SCH ×4 (08:57→20:17)
[2017-06-20] MEDS: PULMICORT NEB TX 0.5 MG NEB SCH ×2 (08:57→20:17)
[2017-06-20] MEDS: MIRAPEX TAB 0.25 MG PO SCH ×2 (09:00→21:02)
[2017-06-20] MEDS: ROBITUSSIN DM PO SCH ×4 (09:00→21:01)
[2017-06-20] MEDS: ZESTRIL TAB 5 MG PO SCH (09:02)
[2017-06-20] MEDS: CELEXA PO SCH (09:02)
[2017-06-20] MEDS: NexIUM PO SCH ×2 (09:03→21:00)
[2017-06-20] MEDS: REGLAN TAB 10 MG PO SCH ×4 (09:03→21:02)
[2017-06-20] MEDS: PROCARDIA XL PO SCH (09:03)
[2017-06-20] MEDS: PREDNISONE TAB 5 MG PO SCH (09:03)
[2017-06-20] MEDS: IMURAN PO SCH (09:03)
[2017-06-20] MEDS: TACROLIMUS PO SCH ×2 (09:04→21:03)
[2017-06-20] MEDS: LEVAQUIN PREMIX IV 500 MG 500 MG/100 ML BAG IV SCH (10:05)
[2017-06-20] MEDS: LOMOTIL PO PRN ×2 (10:11→18:50)
--- NOTE | 2017-06-20 11:44 | PCM.PROG ---
Progress Note - Progress Note for Day of Date: 06/19/17 - Subjective Subjective: WAS A DIRECT ADMISSION FOR BRONCHOPNEUMONIA. TODAY, SHE IS ALERT AND ORIENTED, LYING IN BED ON MORNING ROUNDS. SHE CONTINUES WITH COMPLAINTS OF COUGH, SHORTNESS OF BREATH, WEAKNESS, AND NASAL CONGESTION. SHE IS NOTED ON NASAL CANNULA WITH OXYGEN AT 2L/MIN. ON EXAMINATION, LUNGS CONTINUE WITH SCATTERED WHEEZING BILATERALLY TO AUSCULTATION. LUNG SOUNDS ARE DIMINISHED. ABDOMEN IS SOFT, ROUND, AND NON TENDER WITH NORMAL BOWEL SOUNDS NOTED IN ALL QUADRANTS. HER VITAL SIGNS THIS MORNING ARE 98.4-82-22-98%-110/55. A CBC, CMP, AND CHEST XRAY WERE OBTAINED. ABNORMAL LAB RESULTS INCLUDE THE FOLLOWING: RBC 3.33, HGB 11.4, HCT 32.7, CHLORIDE 108, GLUCOSE 102, CALCIUM 8.2 , AST 76, ALT 100, ALBUMIN 2.9. CHEST XRAY READING IS PENDING AT THIS TIME. BLOOD CUTURES, STOOL CULTURE, AND SPUTUM CULTURE ARE ALL PENDING AT THIS TIME. TODAY WE WILL START FLONASE AT HS AND SINGULAIR PO DAILY. OTHERWISE, WE WILL CONTINUE CURRENT PLAN OF CARE FOR PNEUMONIA. WE WILL FOLLOW UP WITH AM LABS AND CONTINUE TO MONITOR PATIENT. - Past Medical Family Social History Past Med/Fam/Surg Hx: No changes since H&P Allergies: Allergies ciprofloxacin [From Cipro] Adverse Reaction (Verified 04/28/17 21:44) phenazopyridine [From Pyridium] Adverse Reaction (Verified 04/28/17 21:44) Sulfa (Sulfonamide Antibiotics) [SULFA] Adverse Reaction (Verified 04/28/17 21: 44) - Review of Systems ROS: No change since H&P - Vital Signs and I&O's Vital Signs: Temperature 97.8 F Pulse Rate [Right Brachial] 94 Pulse Rate 102 Respiratory Rate 17 Blood Pressure [Right Arm] 135/75 Blood Pressure [Left Arm] 147/88 Blood Pressure 157/74 O2 Sat by Pulse Oximetry 93 Intake and Output: Intake & Output 06/17/17 06/18/17 06/19/17 06/20/17 11:59 11:59 11:59 11:59 Intake Total 2108 3060 1580 Output Total 700 Balance 1408 3060 1580 - Physical Exam Oriented: Normal Eyes: Normal Ear: Normal Nose: Normal Throat: Normal Respiratory: Generalized, Diminished, Wheezes Cardiovascular: Normal : Normal Auscultation: Bowel Sounds: Normal Palpation: Normal Tenderness: Diffuse. negative: Rebound, Guarding, Rigidity Skin: Normal Musculoskeletal: Normal Psychiatric: Normal Mood Description: Calm Affect: Normal Speech Pattern: Clear, Appropriate - Laboratory and Diagnostics Result Diagrams: 06/21/17 04:45 06/21/17 04:45 Labs: 06/18/17 12:17 Stool Stool Culture - Final 06/18/17 12:17 Stool - Final 06/17/17 12:33 Blood Blood Culture - Preliminary 06/17/17 12:30 Blood Blood Culture - Preliminary 06/17/17 12:46 Sputum - Expectorated Sputum Sputum Culture - Final 06/17/17 12:46 Sputum - Expectorated Sputum - Final 06/17/17 16:48 Urine,Clean Catch Urine Culture - Final Laboratory WBC 5.0 X10^3/uL (3.6-10.0) 06/20/17 04:25 RBC 3.16 X10^6/uL (3.5-5.4) L 06/20/17 04:25 Hgb 10.7 g/dL (12.0-16.0) L 06/20/17 04:25 Hct 31.6 % (36.0-47.0) L 06/20/17 04:25 MCV 100.0 fL (80.0-100.0) 06/20/17 04:25 MCH 34.0 pg (27.0-34.0) 06/20/17 04:25 MCHC 34.0 g/dL (33.0-35.0) 06/20/17 04:25 RDW 16.0 % (11.6-16.5) 06/20/17 04:25 Plt Count 111 X10^3/uL (150.0-450.0) L 06/20/17 04:25 Plt Count Comment Decreased (ADEQUATE) A 06/17/17 12:30 MPV 10.3 fL (7.4-11.0) 06/20/17 04:25 Neut % 81.6 % (42.0-75.0) H 06/20/17 04:25 Lymph % 7.5 % (21.0-51.0) L 06/20/17 04:25 [place] % 9.7 % (0.0-13.0) 06/20/17 04:25 Eos % 0.9 % (0.9-2.9) 06/20/17 04:25 Baso % 0.3 % (0.2-1.0) 06/20/17 04:25 Neut # 4.1 x10^3/uL (2.2-4.8) 06/20/17 04:25 Lymph # 0.4 X10^3/uL (1.3-2.9) L 06/20/17 04:25 [place] # 0.5 x10^3/uL (0.3-0.8) 06/20/17 04:25 Eos # 0.0 x10^3/uL (0.0-0.2) 06/20/17 04:25 Baso # 0.0 X10^3/uL (0.0-0.1) 06/20/17 04:25 Absolute Nucleated RBC 0.1 /100WBC 06/20/17 04:25 Total Counted 100 06/17/17 12:30 Neutrophils % (Manual) 88 % (39-76) H 06/17/17 12:30 Band Neutrophils % 2 % (0-10) 06/17/17 12:30 Lymphocytes % (Manual) 6 % (13-43) L 06/17/17 12:30 Monocytes % (Manual) 3 % (4-9) L 06/17/17 12:30 Eosinophils % (Manual) 1 % (0-6) 06/17/17 12:30 Plt Morphology Comment Normal (NORMAL) 06/17/17 12:30 RBC Morphology Normal (NORMAL) 06/17/17 12:30 Sodium 142 mmol/L (136-145) 06/20/17 04:25 Corrected Sodium TNP 06/20/17 04:25 Potassium 4.4 mmol/L (3.5-5.1) 06/20/17 04:25 Chloride 110 mmol/L (98-107) H 06/20/17 04:25 Carbon Dioxide 24.3 mmol/L (21-32) 06/20/17 04:25 BUN 7 mg/dL (7-18) 06/20/17 04:25 Creatinine 0.96 mg/dL (0.55-1.02) 06/20/17 04:25 Est GFR (MDRD) Af Amer > 60 (>60) 06/20/17 04:25 Est GFR (MDRD) Non-Af > 60 (>60) 06/20/17 04:25 Glucose 101 mg/dL (65-99) H 06/20/17 04:25 Lactic Acid 1.3 mmol/L (0.4-2.0) 06/17/17 12:30 Calcium 8.0 mg/dL (8.5-10.1) L 06/20/17 04:25 Corrected Calcium 9.0 mg/dL (8.5-10.1) 06/20/17 04:25 Total Bilirubin 0.50 mg/dL (0.2-1.0) 06/20/17 04:25 AST 153 Units/L (15-37) H 06/20/17 04:25 ALT 118 Units/L (12-78) H 06/20/17 04:25 Alkaline Phosphatase 180 Units/L (46-116) H 06/20/17 04:25 Total Protein 6.3 g/dL (6.4-8.2) L 06/20/17 04:25 Albumin 2.7 g/dL (3.4-5.0) L 06/20/17 04:25 Globulin 3.6 g/dL (2.5-4.5) 06/20/17 04:25 Albumin/Globulin Ratio 0.8 Ratio (1.1-2.1) L 06/20/17 04:25 Specimen Type Clean catch urine 06/17/17 16:48 Urine Color Yellow (YELLOW) 06/17/17 16:48 Urine Appearance Hazy (CLEAR) 06/17/17 16:48 Urine pH 7.0 (5.0 - 8.0) 06/17/17 16:48 Ur Specific [place] 1.005 (1.000-1.030) 06/17/17 16:48 Urine Protein Negative (NEGATIVE) 06/17/17 16:48 Urine Glucose (UA) Negative (NEGATIVE) 06/17/17 16:48 Urine Ketones Negative (NEGATIVE) 06/17/17 16:48 Urine Occult Blood Negative (NEGATIVE) 06/17/17 16:48 Urine Nitrite Negative (NEGATIVE) 06/17/17 16:48 Urine Bilirubin Negative (NEGATIVE) 06/17/17 16:48 Urine Urobilinogen Normal (NORMAL) 06/17/17 16:48 Ur Leukocyte Esterase 2+ (NEGATIVE) 06/17/17 16:48 Urine RBC 0-2 /HPF (NEGATIVE) 06/17/17 16:48 Urine WBC 0-2 /HPF (NEGATIVE) 06/17/17 16:48 Ur Squamous Epith Cells Rare /HPF (NEGATIVE) 06/17/17 16:48 Urine Bacteria Trace /HPF (NEGATIVE) 06/17/17 16:48 Ur Culture Indicated? Yes/culture set up 06/17/17 16:48 Stool Description 10g unformed brown 06/18/17 12:17 Stl Occult Blood (IFOB) Negative (NEGATIVE) 06/18/17 12:17 Stool for White Cells Positive (NEGATIVE) A 06/18/17 12:17 Stl C. diff Tox B Gene Negative (NEGATIVE) 06/18/17 12:17 Stl C. diff [id number] Negative (NEGATIVE) 06/18/17 12:17 Cryptosporid parvum Ag Negative (NEGATIVE) 06/18/17 12:17 E. histolytica Antigen Negative (NEGATIVE) 06/18/17 12:17 Giardia lamblia Ag Negative (NEGATIVE) 06/18/17 12:17 - Plan (1) Bronchopneumonia Status: Acute Plan: CONTINUE LEVAQUIN 500MG IV DAILY, CONTINUE ZOSYN 4.5GM IV DAILY, CONTINUE DUONEBS, CONTINUE ROBITUSSION AND TUSSIONEX, CONTINUE TO MONITOR (2) Diarrhea Status: Acute Qualifiers: Diarrhea type: unspecified type Qualified Code(s): R19.7 - Diarrhea, unspecified Plan: OBTAIN STOOL STUDIES, THEN START LOMOTIL 1 TAB QID PRN, CONTINUE TO MONITOR (3) Depression Status: Chronic Qualifiers: Depression Type: major depressive disorder Active/Remission status: remission status unspecified Plan: CONTINUE CELEXA, CONTINUE NORTRIPTYLINE, CONTINUE TO MONITOR (4) GERD (gastroesophageal reflux disease) Status: Chronic Qualifiers: Esophagitis presence: esophagitis presence not specified Qualified Code(s) : K21.9 - Gastro-esophageal reflux disease without esophagitis Plan: CONTINUE ZANTAC, CONTINUE REGLAN, CONTINUE TO MONITOR (5) HTN (hypertension) Status: Chronic Qualifiers: Hypertension type: essential hypertension Qualified Code(s): I10 - Essential (primary) hypertension Plan: CONTINUE LISINOPRIL, CONTINUE TOPROL XL, CONTINUE PROCARDIA, CONTINUE TO MONITOR (6) History of kidney transplant Status: Chronic Plan: CONTINUE IMURAN, CONTINUE ASTAGRAF, CONTINUE TO MONITOR (7) Restless leg syndrome Status: Chronic Plan: CONTINUE MIRAPEX, CONTINUE TO MONITOR
[2017-06-20] MEDS: PHENERGAN TAB 25 MG PO PRN ×2 (13:16→22:22)
[2017-06-20] MEDS: TOPROL XL PO SCH (21:00)
[2017-06-20] MEDS: ZANTAC PO SCH (21:01)
[2017-06-20] MEDS: SINGULAIR TAB 10 MG PO SCH (21:01)
[2017-06-20] MEDS: NORTRIPTYLINE HCL 100 MG PO SCH (21:03)
[2017-06-20] MEDS: FLONASE NASAL SPRAY ENOSTRIL SCH (21:06)
[2017-06-20] MEDS: DILAUDID PO PRN (22:20)
[2017-06-20] MEDS ORDERED: DILAUDID PO ONE (22:20)
[2017-06-21] MEDS ORDERED: NS 100 ML IV + SPIKE MINIBAG* 100 ML IV ONE (05:33)
[2017-06-21] MEDS: NEURONTIN CAP 400 MG PO SCH (05:45)
[2017-06-21] MEDS: ZOSYN VIAL 4.5 GM IV SCH (05:46)
[2017-06-21 06:11] LABS: BASOPHILS % (AUTO) 0.3 % (0.2-1.0); EOSINOPHILS # (AUTO) 0.1 x10^3/uL (0.0-0.2); EOSINOPHILS % (AUTO) 1.2 % (0.9-2.9); HEMATOCRIT 33.1 % (36.0-47.0); HEMOGLOBIN 11.4 g/dL (12.0-16.0); LYMPHOCYTES # (AUTO) 0.4 X10^3/uL (1.3-2.9); LYMPHOCYTES % (AUTO) 8.9 % (21.0-51.0); MEAN CORPUSCULAR HEMOGLOBIN 33.8 pg (27.0-34.0); MEAN CORPUSCULAR HGB CONC 34.4 g/dL (33.0-35.0); MEAN CORPUSCULAR VOLUME 98.3 fL (80.0-100.0); MEAN PLATELET VOLUME 9.8 fL (7.4-11.0); MONOCYTES # (AUTO) 0.4 x10^3/uL (0.3-0.8); MONOCYTES % (AUTO) 8.3 % (0.0-13.0); NEUTROPHILS # (AUTO) 3.8 x10^3/uL (2.2-4.8); NEUTROPHILS % (AUTO) 81.3 % (42.0-75.0); PLATELET COUNT 131 X10^3/uL (150.0-450.0); RED BLOOD COUNT 3.37 X10^6/uL (3.5-5.4); RED CELL DISTRIBUTION WIDTH 15.7 % (11.6-16.5); WHITE BLOOD COUNT 4.7 X10^3/uL (3.6-10.0)
[2017-06-21 06:16] LABS: ALANINE AMINOTRANSFERASE 103 Units/L (12-78); ALBUMIN 2.8 g/dL (3.4-5.0); ALKALINE PHOSPHATASE 170 Units/L (46-116); ASPARTATE AMINO TRANSFERASE 87 Units/L (15-37); BLOOD UREA NITROGEN 7 mg/dL (7-18); CALCIUM 8.1 mg/dL (8.5-10.1); CARBON DIOXIDE 21.2 mmol/L (21-32); CHLORIDE 110 mmol/L (98-107); COR CA(FOR HYPOALB) 9.1 mg/dL (8.5-10.1); SODIUM 141 mmol/L (136-145); TOTAL PROTEIN 6.6 g/dL (6.4-8.2); eGFR BLACK RACES > 60 (>60); eGFR NON BLACK RACES > 60 (>60)
[2017-06-21] MEDS: LEVAQUIN PREMIX IV 500 MG 500 MG/100 ML BAG IV SCH (07:59)
[2017-06-21] MEDS: ROBITUSSIN DM PO SCH (07:59)
[2017-06-21] MEDS: PROCARDIA XL PO SCH (07:59)
[2017-06-21] MEDS: NexIUM PO SCH (08:00)
[2017-06-21] MEDS: REGLAN TAB 10 MG PO SCH (08:00)
[2017-06-21] MEDS: CELEXA PO SCH (08:00)
[2017-06-21] MEDS: PREDNISONE TAB 5 MG PO SCH (08:00)
[2017-06-21] MEDS: MIRAPEX TAB 0.25 MG PO SCH (08:00)
[2017-06-21] MEDS: ZESTRIL TAB 5 MG PO SCH (08:00)
[2017-06-21] MEDS: IMURAN PO SCH (08:01)
[2017-06-21] MEDS: TACROLIMUS PO SCH (08:06)
[2017-06-21] MEDS: LOMOTIL PO PRN (08:09)
[2017-06-21 08:19] VITALS: BP 127/78
[2017-06-21] MEDS: XOPENEX 1.25 MG/3 ML NEBULE NEB SCH (09:01)
[2017-06-21] MEDS: PULMICORT NEB TX 0.5 MG NEB SCH (09:01)
--- NOTE | 2017-06-23 09:54 | PCM.PROG ---
Progress Note - Progress Note for Day of Date: 06/20/17 - Subjective Subjective: WAS A DIRECT ADMISSION FOR BRONCHOPNEUMONIA. TODAY, SHE IS ALERT AND ORIENTED, LYING IN BED ON MORNING ROUNDS. SHE CONTINUES WITH COMPLAINTS OF COUGH AND SHORTNESS OF BREATH. SHE REPORTS THAT NASAL CONGESTION HAS IMPROVED SINCE STARTING THE FLONASE AND SINGULAIR. SHE REPORTS HAVING MORE LOOSE BOWEL MOVEMENTS YESTERDAY. SHE IS NOTED ON NASAL CANNULA WITH OXYGEN AT 2L /MIN. ON EXAMINATION, LUNGS CONTINUE WITH SCATTERED WHEEZING BILATERALLY TO AUSCULTATION. LUNG SOUNDS ARE DIMINISHED. ABDOMEN IS SOFT, ROUND, AND NON TENDER WITH NORMAL BOWEL SOUNDS NOTED IN ALL QUADRANTS. HER VITAL SIGNS THIS MORNING ARE 97.8-94-17-93%-135/75. A CBC, CMP, AND CHEST XRAY WERE OBTAINED. ABNORMAL LAB RESULTS INCLUDE THE FOLLOWING: RBC 3.16, HGB 10.7, HCT 31.6, CHLORIDE 110, GLUCOSE 101, CALICUM 8.0, AST 153, ALT 118, ALK PHOS 180, TOTAL PROTEIN 6.3, ALBUMIN 2.7 . CHEST XRAY REPORTS NO ACUTE CARDIOPULMONARY DISEASE. BLOOD CUTURES AND STOOL CULTURES ARE NEGATIVE. SPUTUM CULTURE REPORTS GROWTH OF YEAST. WE WILL START DIFLUCAN. OTHERWISE, WE WILL CONTINUE CURRENT PLAN OF CARE FOR PNEUMONIA. WE WILL FOLLOW UP WITH AM LABS AND CONTINUE TO MONITOR PATIENT. - Past Medical Family Social History Past Med/Fam/Surg Hx: No changes since H&P Allergies: Allergies ciprofloxacin [From Cipro] Adverse Reaction (Verified 04/28/17 21:44) phenazopyridine [From Pyridium] Adverse Reaction (Verified 04/28/17 21:44) Sulfa (Sulfonamide Antibiotics) [SULFA] Adverse Reaction (Verified 04/28/17 21: 44) - Review of Systems ROS: No change since H&P - Vital Signs and I&O's Vital Signs: Temperature 97.9 F Pulse Rate [Right Brachial] 93 Pulse Rate 90 Respiratory Rate 18 Blood Pressure [Right Arm] 127/78 Blood Pressure [Left Arm] 147/88 Blood Pressure 157/74 O2 Sat by Pulse Oximetry 96 Intake and Output: Intake & Output 06/20/17 06/21/17 06/22/17 06/23/17 11:59 11:59 11:59 11:59 Intake Total 1580 4086 Balance 1580 4086 - Physical Exam Oriented: Normal Eyes: Normal Ear: Normal Nose: Normal Throat: Normal Respiratory: Generalized, Diminished, Wheezes Cardiovascular: Normal : Normal Auscultation: Bowel Sounds: Normal Palpation: Normal Tenderness: Diffuse. negative: Rebound, Guarding, Rigidity Skin: Normal Musculoskeletal: Normal Psychiatric: Normal Mood Description: Calm Affect: Normal Speech Pattern: Clear, Appropriate - Laboratory and Diagnostics Result Diagrams: 06/21/17 04:45 06/21/17 04:45 Labs: 06/17/17 12:33 Blood Blood Culture - Final 06/17/17 12:30 Blood Blood Culture - Final 06/18/17 12:17 Stool Stool Culture - Final 06/18/17 12:17 Stool - Final 06/17/17 12:46 Sputum - Expectorated Sputum Sputum Culture - Final 06/17/17 12:46 Sputum - Expectorated Sputum - Final 06/17/17 16:48 Urine,Clean Catch Urine Culture - Final Laboratory WBC 4.7 X10^3/uL (3.6-10.0) 06/21/17 04:45 RBC 3.37 X10^6/uL (3.5-5.4) L 06/21/17 04:45 Hgb 11.4 g/dL (12.0-16.0) L 06/21/17 04:45 Hct 33.1 % (36.0-47.0) L 06/21/17 04:45 MCV 98.3 fL (80.0-100.0) 06/21/17 04:45 MCH 33.8 pg (27.0-34.0) 06/21/17 04:45 MCHC 34.4 g/dL (33.0-35.0) 06/21/17 04:45 RDW 15.7 % (11.6-16.5) 06/21/17 04:45 Plt Count 131 X10^3/uL (150.0-450.0) L 06/21/17 04:45 Plt Count Comment Decreased (ADEQUATE) A 06/17/17 12:30 MPV 9.8 fL (7.4-11.0) 06/21/17 04:45 Neut % 81.3 % (42.0-75.0) H 06/21/17 04:45 Lymph % 8.9 % (21.0-51.0) L 06/21/17 04:45 [place] % 8.3 % (0.0-13.0) 06/21/17 04:45 Eos % 1.2 % (0.9-2.9) 06/21/17 04:45 Baso % 0.3 % (0.2-1.0) 06/21/17 04:45 Neut # 3.8 x10^3/uL (2.2-4.8) 06/21/17 04:45 Lymph # 0.4 X10^3/uL (1.3-2.9) L 06/21/17 04:45 [place] # 0.4 x10^3/uL (0.3-0.8) 06/21/17 04:45 Eos # 0.1 x10^3/uL (0.0-0.2) 06/21/17 04:45 Baso # 0.0 X10^3/uL (0.0-0.1) 06/21/17 04:45 Absolute Nucleated RBC 0.2 /100WBC 06/21/17 04:45 Total Counted 100 06/17/17 12:30 Neutrophils % (Manual) 88 % (39-76) H 06/17/17 12:30 Band Neutrophils % 2 % (0-10) 06/17/17 12:30 Lymphocytes % (Manual) 6 % (13-43) L 06/17/17 12:30 Monocytes % (Manual) 3 % (4-9) L 06/17/17 12:30 Eosinophils % (Manual) 1 % (0-6) 06/17/17 12:30 Plt Morphology Comment Normal (NORMAL) 06/17/17 12:30 RBC Morphology Normal (NORMAL) 06/17/17 12:30 Sodium 141 mmol/L (136-145) 06/21/17 04:45 Corrected Sodium TNP 06/21/17 04:45 Potassium 3.9 mmol/L (3.5-5.1) 06/21/17 04:45 Chloride 110 mmol/L (98-107) H 06/21/17 04:45 Carbon Dioxide 21.2 mmol/L (21-32) 06/21/17 04:45 BUN 7 mg/dL (7-18) 06/21/17 04:45 Creatinine 1.00 mg/dL (0.55-1.02) 06/21/17 04:45 Est GFR (MDRD) Af Amer > 60 (>60) 06/21/17 04:45 Est GFR (MDRD) Non-Af > 60 (>60) 06/21/17 04:45 Glucose 87 mg/dL (65-99) 06/21/17 04:45 Lactic Acid 1.3 mmol/L (0.4-2.0) 06/17/17 12:30 Calcium 8.1 mg/dL (8.5-10.1) L 06/21/17 04:45 Corrected Calcium 9.1 mg/dL (8.5-10.1) 06/21/17 04:45 Total Bilirubin 0.40 mg/dL (0.2-1.0) 06/21/17 04:45 AST 87 Units/L (15-37) H 06/21/17 04:45 ALT 103 Units/L (12-78) H 06/21/17 04:45 Alkaline Phosphatase 170 Units/L (46-116) H 06/21/17 04:45 Total Protein 6.6 g/dL (6.4-8.2) 06/21/17 04:45 Albumin 2.8 g/dL (3.4-5.0) L 06/21/17 04:45 Globulin 3.8 g/dL (2.5-4.5) 06/21/17 04:45 Albumin/Globulin Ratio 0.7 Ratio (1.1-2.1) L 06/21/17 04:45 Specimen Type Clean catch urine 06/17/17 16:48 Urine Color Yellow (YELLOW) 06/17/17 16:48 Urine Appearance Hazy (CLEAR) 06/17/17 16:48 Urine pH 7.0 (5.0 - 8.0) 06/17/17 16:48 Ur Specific [place] 1.005 (1.000-1.030) 06/17/17 16:48 Urine Protein Negative (NEGATIVE) 06/17/17 16:48 Urine Glucose (UA) Negative (NEGATIVE) 06/17/17 16:48 Urine Ketones Negative (NEGATIVE) 06/17/17 16:48 Urine Occult Blood Negative (NEGATIVE) 06/17/17 16:48 Urine Nitrite Negative (NEGATIVE) 06/17/17 16:48 Urine Bilirubin Negative (NEGATIVE) 06/17/17 16:48 Urine Urobilinogen Normal (NORMAL) 06/17/17 16:48 Ur Leukocyte Esterase 2+ (NEGATIVE) 06/17/17 16:48 Urine RBC 0-2 /HPF (NEGATIVE) 06/17/17 16:48 Urine WBC 0-2 /HPF (NEGATIVE) 06/17/17 16:48 Ur Squamous Epith Cells Rare /HPF (NEGATIVE) 06/17/17 16:48 Urine Bacteria Trace /HPF (NEGATIVE) 06/17/17 16:48 Ur Culture Indicated? Yes/culture set up 06/17/17 16:48 Stool Description 10g unformed brown 06/18/17 12:17 Stl Occult Blood (IFOB) Negative (NEGATIVE) 06/18/17 12:17 Stool for White Cells Positive (NEGATIVE) A 06/18/17 12:17 Stl C. diff Tox B Gene Negative (NEGATIVE) 06/18/17 12:17 Stl C. diff [id number] Negative (NEGATIVE) 06/18/17 12:17 Cryptosporid parvum Ag Negative (NEGATIVE) 06/18/17 12:17 E. histolytica Antigen Negative (NEGATIVE) 06/18/17 12:17 Giardia lamblia Ag Negative (NEGATIVE) 06/18/17 12:17 - Plan (1) Bronchopneumonia Status: Acute Plan: CONTINUE LEVAQUIN 500MG IV DAILY, CONTINUE ZOSYN 4.5GM IV DAILY, CONTINUE DUONEBS, CONTINUE ROBITUSSION AND TUSSIONEX, CONTINUE TO MONITOR (2) Infection due to yeast Status: Acute Plan: DIFLUCAN 100MG PO DAILY, CONTINUE TO MONITOR (3) Diarrhea Status: Acute Qualifiers: Diarrhea type: unspecified type Qualified Code(s): R19.7 - Diarrhea, unspecified Plan: OBTAIN STOOL STUDIES, THEN START LOMOTIL 1 TAB QID PRN, CONTINUE TO MONITOR (4) Depression Status: Chronic Qualifiers: Depression Type: major depressive disorder Active/Remission status: remission status unspecified Plan: CONTINUE CELEXA, CONTINUE NORTRIPTYLINE, CONTINUE TO MONITOR (5) GERD (gastroesophageal reflux disease) Status: Chronic Qualifiers: Esophagitis presence: esophagitis presence not specified Qualified Code(s) : K21.9 - Gastro-esophageal reflux disease without esophagitis Plan: CONTINUE ZANTAC, CONTINUE REGLAN, CONTINUE TO MONITOR (6) HTN (hypertension) Status: Chronic Qualifiers: Hypertension type: essential hypertension Qualified Code(s): I10 - Essential (primary) hypertension Plan: CONTINUE LISINOPRIL, CONTINUE TOPROL XL, CONTINUE PROCARDIA, CONTINUE TO MONITOR (7) History of kidney transplant Status: Chronic Plan: CONTINUE IMURAN, CONTINUE ASTAGRAF, CONTINUE TO MONITOR (8) Restless leg syndrome Status: Chronic Plan: CONTINUE MIRAPEX, CONTINUE TO MONITOR
== END 2017-06-21 10:25 | disposition home or self-care (01) | DRG 178 ==
LOC: MED/SURG 11:03 → UNDOADMIN 11:03 → MED/SURG 11:50
PROVIDERS: ADMIT Internal Medicine; ATTEND Internal Medicine
DX: J15.8 Pneumonia due to other specified bacteria (principal); N39.0 Urinary tract infection, site not specified; J40 Bronchitis, not specified as acute or chronic; Z94.0 Kidney transplant status; R50.9 Fever, unspecified; R06.02 Shortness of breath; R53.1 Weakness; R19.7 Diarrhea, unspecified; F32.89 Other specified depressive episodes; K21.9 Gastro-esophageal reflux disease without esophagitis; I10 Essential (primary) hypertension; G25.81 Restless legs syndrome; B37.89 Other sites of candidiasis
CPT/HCPCS: 36415; 71010; 71020; 80053; 81001; 82270; 83605; 83630; 85025; 87040; 87045; 87070; 87086; 87205; 87328; 87329; 87336; 87427; 87493; 87899; 90686; 94640; 94760; A4217; A4222; Q0169; 90670; J1956; J2543; J3490; J7506; J7626

== ENCOUNTER → 2017-06-30 | Outpatient (CLI) | payer OTHER, MEDICAID ==
--- NOTE | 2017-06-30 17:26 | MG ---
Examination: Bilateral screening mammogram. Clinical history: Routine screening. Technique: Digital CC and MLO views of both breasts were obtained. Computer aided detection analysis was performed and used during the interpretation. Comparison: 04/23/2016. Findings: The breasts are composed predominantly of adipose tissue. Benign-appearing calcifications are noted in the breasts bilaterally. There is a small oval density present at approximately the 3 o'clock position in the left breast in t he middle depth, with associated calcifications. Additional imaging evaluation is recommended, with spot compression magnification views in the CC and lateral projections, a lateral view of the left br east and a left breast ultrasound. No suspicious mass, area of architectural distortion or suspicious cluster of microcalcifications is noted in the right breast. Impression: 1. Density in the left breast, as described above. BI-RADS category 0 (ZERO) - ASSESSMENT INCOMPLETE; ADDITIONAL IMAGING IS NEEDED. Recommend immediate recall for additional imaging evaluation, as described above. Diagnostic CAD was utilized and reviewed. * 0 (ZERO) - ASSESSMENT INCOMPLETE; ADDITIONAL IMAGING IS NEEDED. * 0C - ASSESSMENT INCOMPLETE, NEEDS ADDITIONAL IMAGING EVALUATION AND/OR PRIOR MAMMOGRAMS FOR COMPARI SON. * 1/1 (ONE) - NEGATIVE. * 2/II (TWO) - BENIGN FINDINGS. * 3/III (THREE) - PROBABLY BENIGN FINDING; SHORT INTERVAL FOLLOW-UP SUGGESTED. * 4/IV (FOUR) - SUSPICIOUS ABNORMALITY; BIOPSY SHOULD BE CONSIDERED. * 5/V - HIGHLY SUSPICIOUS OF MALIGNANCY; BIOPSY SHOULD BE PERFORMED. * 6/IV - KNOWN BIOPSY PROVEN MALIGNANCY-APPROPRIATE ACTION SHOULD BE TAKEN. A NEGATIVE X-RAY REPORT SHOULD NOT DELAY BIOPSY IF A DOMIN[place] OR CLINICALLY SUSPICIOUS MASS IS PRESENT; 4 TO 8 PERCENT OF CANCERS ARE NOT IDENTIFIED BY X-RAY. A NEGATIVE REPORT MAY REINFORCE THE CLINICAL IMPRESSION. ADENOSIS AND DENSE BREASTS MAY OBSCURE AN UNDERLYING NEOPLASM. Reported By:
== END ==
LOC: RAD 10:44
PROVIDERS: ATTEND Specialist
DX: Z12.31 Encounter for screening mammogram for malignant neoplasm of breast (principal); R92.8 Other abnormal and inconclusive findings on diagnostic imaging of breast
CPT/HCPCS: 77067

== ENCOUNTER → 2017-07-10 | Outpatient (CLI) | payer OTHER, MEDICAID ==
[2017-06-21 08:19] VITALS: BP 127/78
--- NOTE | 2017-07-10 16:18 | US ---
HISTORY: Abnormal screening mammography with new calcified left breast nodule Left breast digital diagnostic mammography with CAD and left breast ultrasound. Comparison: April 23, 2016 and June 30, 2017 FINDINGS: Mammogram: Spot magnification and mL views of the left breast were obtained. Scattered fibroglandula r tissue is seen to be present. There are multiple calcified oil cysts, findings of fat necrosis, an d a probable calcified fibroadenoma which are stable. The previously described nodule measures 4 mm with partially obscured and partially circumscribed borders and with associated amorphous and coarse microcalcifications for which primary differential considerations include an additional developing oi l cysts, fibrocystic change, or perhaps calcifying fibroadenoma but which will be correlated with ult rasound. No skin thickening or nipple retraction is appreciated. No pathological lymphadenopathy ca n be identified. Benign-appearing calcifications are noted. Ultrasound: Multiple grayscale and color Doppler images of the lower medial quadrant left breast were obtained. There are numerous benign-appearing simple cysts and peripherally calcified oil cysts [place] at 3 o'clock and 5 o'clock measuring less than 1 cm. Also noted at 3 o'clock approximately 2 cm f rom the nipple is a 4 mm horizontally oriented macro lobulated but predominately smoothly marginated and well circumscribed heterogeneous hypoechoic nodule with posterior acoustical shadowing but no def inite internal vascularity with a few irregular ill-defined borders with a small cystic component whi ch could reflect a complex cyst, degenerating fibroadenoma, or developing oil cyst and which could co rrespond to several of the mammographic lesions. No definite suspicious nodule is seen to warrant bio psy at this time. However, short-term follow-up is recommended. IMPRESSION: Probably benign left breast nodule for which six-month follow-up left breast mammography and ultrasound are recommended. ACR CATEGORY 3 - probably benign findings; short interval follow-up suggested. Diagnostic CAD was utilized and reviewed. * 0 (ZERO) - ASSESSMENT INCOMPLETE; ADDITIONAL IMAGING IS NEEDED. * 1/1 (ONE) - NEGATIVE. * 2/II (TWO) - BENIGN FINDINGS. * 3/III (THREE) - PROBABLY BENIGN FINDING; SHORT INTERVAL FOLLOW-UP SUGGESTED. * 4/IV (FOUR) - SUSPICIOUS ABNORMALITY; BIOPSY SHOULD BE CONSIDERED. * 5/V - HIGHLY SUSPICIOUS OF MALIGNANCY; BIOPSY SHOULD BE PERFORMED. A NEGATIVE X-RAY REPORT SHOULD NOT DELAY BIOPSY IF A DOMINANT OR CLINICALLY SUSPICIOUS MASS IS PRESENT; 4 TO 8 PERCENT OF CANCERS ARE NOT IDENTIFIED BY X-RAY. A NEGA TIVE REPORT MAY REINFORCE THE CLINICAL IMPRESSION. ADENOSIS AND DENSE BREASTS MAY OBSCURE AN UNDERLY ING NEOPLASM. Reported By:
== END ==
LOC: RAD 13:09
PROVIDERS: ATTEND Specialist
DX: R92.8 Other abnormal and inconclusive findings on diagnostic imaging of breast (principal)
CPT/HCPCS: 76642; 77065

== ENCOUNTER 2018-02-04 15:52 | Observation (INO) | payer OTHER, MEDICAID ==
[2018-02-04] MEDS: NS 1000 ML 1,000 ML IV SCH (18:00)
[2018-02-04 18:34] LABS: BASOPHILS % (AUTO) 0.8 % (0.2-1.0); EOSINOPHILS % (AUTO) 0.5 % (0.9-2.9); HEMATOCRIT 36.8 % (36.0-47.0); HEMOGLOBIN 12.8 g/dL (12.0-16.0); LYMPHOCYTES # (AUTO) 0.6 X10^3/uL (1.3-2.9); MEAN CORPUSCULAR HEMOGLOBIN 32.3 pg (27.0-34.0); MEAN CORPUSCULAR HGB CONC 34.9 g/dL (33.0-35.0); MEAN CORPUSCULAR VOLUME 92.7 fL (80.0-100.0); MEAN PLATELET VOLUME 10.3 fL (7.4-11.0); MONOCYTES # (AUTO) 0.4 x10^3/uL (0.3-0.8); MONOCYTES % (AUTO) 10.4 % (0.0-13.0); NEUTROPHILS # (AUTO) 3.1 x10^3/uL (2.2-4.8); NEUTROPHILS % (AUTO) 74.3 % (42.0-75.0); PLATELET COUNT 167 X10^3/uL (150.0-450.0); RED BLOOD COUNT 3.97 X10^6/uL (3.5-5.4); RED CELL DISTRIBUTION WIDTH 16.1 % (11.6-16.5); WHITE BLOOD COUNT 4.2 X10^3/uL (3.6-10.0)
[2018-02-04 18:42] LABS: ALBUMIN 3.2 g/dL (3.4-5.0); CARBON DIOXIDE 22.8 mmol/L (21-32); COR CA(FOR HYPOALB) 9.6 mg/dL (8.5-10.1); CREATININE 1.25 mg/dL (0.55-1.02); TOTAL PROTEIN 7.7 g/dL (6.4-8.2)
[2018-02-04 18:53] VITALS: BMI 38.5
--- NOTE | 2018-02-04 22:08 | CT ---
HISTORY: Abdominal pain with nausea, vomiting and diarrhea Study: CT abdomen and pelvis without contrast Comparison: None Technique: Multiple axial images of the abdomen and pelvis were obtained from the lung bases to the pubic symphy sis without the administration of IV contrast. Findings: The visualized portions of the lung bases are unremarkable. The liver, spleen, pancreas, and adrenal s are grossly unremarkable in appearance given the limitations of this noncontrast exam. Both [place] kidneys are atrophic. A left renal cyst is noted. A transplanted kidney is seen within the right joey pelvis. No CT evidence of hydronephrosis is identified. Surgical clips are noted within the gallbladd er fossa. A small hiatal hernia is also noted. Images demonstrate wall thickening involving portions of the ascending, transverse, descending, and sigmoid colon. These findings may in part be due to lac k of distention and/or colonic peristalsis however colitis or other process cannot entirely be exclud ed. Recommend clinical correlation and continued follow-up as indicated for further evaluation. By hi story the appendix and uterus have been surgically removed. The urinary bladder is grossly unremarkab le. Postsurgical changes of the pelvis are noted. A ventral hernia containing fat is noted. IMPRESSION: Colonic wall thickening as noted above. Atrophic [place] kidneys with a transplanted kidney noted within the right hemipelvis. Appendectomy. Hysterectomy. Reported By:
[2018-02-05] MEDS ORDERED: DILAUDID INJ IVP PRN (01:52)
[2018-02-05 05:01] LABS: CRYPTOSPORIDIUM PARVUM ANTIGEN NEGATIVE (NEGATIVE); GIARDIA LAMBLIA ANTIGEN NEGATIVE (NEGATIVE); STOOL FOR WBC NEGATIVE (NEGATIVE)
[2018-02-05] MEDS: NS 1000 ML 1,000 ML IV SCH ×2 (06:06→21:22)
[2018-02-05 06:23] LABS: BASOPHILS % (AUTO) 0.7 % (0.2-1.0); EOSINOPHILS # (AUTO) 0.1 x10^3/uL (0.0-0.2); HEMATOCRIT 32.4 % (36.0-47.0); HEMOGLOBIN 11.1 g/dL (12.0-16.0); LYMPHOCYTES # (AUTO) 0.6 X10^3/uL (1.3-2.9); LYMPHOCYTES % (AUTO) 18.2 % (21.0-51.0); MEAN CORPUSCULAR HEMOGLOBIN 32.2 pg (27.0-34.0); MEAN CORPUSCULAR HGB CONC 34.1 g/dL (33.0-35.0); MEAN CORPUSCULAR VOLUME 94.4 fL (80.0-100.0); MEAN PLATELET VOLUME 10.2 fL (7.4-11.0); MONOCYTES # (AUTO) 0.4 x10^3/uL (0.3-0.8); MONOCYTES % (AUTO) 12.4 % (0.0-13.0); NEUTROPHILS # (AUTO) 2.1 x10^3/uL (2.2-4.8); NEUTROPHILS % (AUTO) 66.7 % (42.0-75.0); PLATELET COUNT 127 X10^3/uL (150.0-450.0); RED BLOOD COUNT 3.44 X10^6/uL (3.5-5.4); RED CELL DISTRIBUTION WIDTH 16.3 % (11.6-16.5); WHITE BLOOD COUNT 3.2 X10^3/uL (3.6-10.0)
[2018-02-05 06:24] LABS: ALANINE AMINOTRANSFERASE 180 Units/L (12-78); ALBUMIN 2.6 g/dL (3.4-5.0); ALKALINE PHOSPHATASE 171 Units/L (46-116); ASPARTATE AMINO TRANSFERASE 74 Units/L (15-37); BLOOD UREA NITROGEN 12 mg/dL (7-18); CALCIUM 8.5 mg/dL (8.5-10.1); CARBON DIOXIDE 24.5 mmol/L (21-32); CHLORIDE 108 mmol/L (98-107); COR CA(FOR HYPOALB) 9.6 mg/dL (8.5-10.1); CREATININE 0.97 mg/dL (0.55-1.02); SODIUM 142 mmol/L (136-145); TOTAL PROTEIN 6.3 g/dL (6.4-8.2); eGFR BLACK RACES > 60 (>60); eGFR NON BLACK RACES > 60 (>60)
[2018-02-05] MEDS ORDERED: LOMOTIL PO PRN (09:55)
[2018-02-05] MEDS ORDERED: HYDROMORPHONE HCL 2 MG PO PRN (09:55)
[2018-02-05] MEDS ORDERED: PHENERGAN TAB 25 MG PO PRN (09:55)
[2018-02-05] MEDS ORDERED: DILAUDID PO PRN (10:08)
[2018-02-05] MEDS: TACROLIMUS PO SCH ×2 (11:18→20:48)
[2018-02-05] MEDS: CELEXA PO SCH (11:18)
[2018-02-05] MEDS: IMURAN PO SCH ×3 (11:18→21:22)
[2018-02-05] MEDS: PREDNISONE TAB 5 MG PO SCH (11:19)
[2018-02-05] MEDS: NexIUM PO SCH ×2 (11:19→20:44)
[2018-02-05] MEDS: REGLAN TAB 10 MG PO SCH ×3 (13:00→20:45)
[2018-02-05] MEDS ORDERED: PATIENT'S HOME MEDICATION (Gabapentin [Gabapentin] 800 MG) PO SCH (14:00)
[2018-02-05] MEDS: BENTYL CAP 10 MG PO SCH ×2 (15:32→21:22)
[2018-02-05] MEDS: NEURONTIN CAP 400 MG PO SCH ×2 (15:33→21:22)
[2018-02-05] MEDS ORDERED: SINGULAIR TAB 10 MG PO SCH (21:00)
[2018-02-05] MEDS ORDERED: PROCARDIA XL PO SCH (21:00)
[2018-02-05] MEDS ORDERED: MIRAPEX TAB 0.25 MG PO SCH (21:00)
[2018-02-05] MEDS ORDERED: TOPROL XL PO SCH (21:00)
[2018-02-05] MEDS ORDERED: NORTRIPTYLINE HCL 100 MG PO SCH (21:00)
[2018-02-06] MEDS: IMURAN PO SCH (05:49)
[2018-02-06] MEDS: BENTYL CAP 10 MG PO SCH (05:49)
[2018-02-06] MEDS: NEURONTIN CAP 400 MG PO SCH (05:49)
[2018-02-06 05:53] LABS: BASOPHILS % (AUTO) 0.6 % (0.2-1.0); EOSINOPHILS % (AUTO) 1.5 % (0.9-2.9); HEMATOCRIT 33.1 % (36.0-47.0); HEMOGLOBIN 11.3 g/dL (12.0-16.0); LYMPHOCYTES # (AUTO) 0.5 X10^3/uL (1.3-2.9); LYMPHOCYTES % (AUTO) 18.8 % (21.0-51.0); MEAN CORPUSCULAR HEMOGLOBIN 32.2 pg (27.0-34.0); MEAN CORPUSCULAR VOLUME 94.7 fL (80.0-100.0); MEAN PLATELET VOLUME 10.1 fL (7.4-11.0); MONOCYTES # (AUTO) 0.3 x10^3/uL (0.3-0.8); MONOCYTES % (AUTO) 11.6 % (0.0-13.0); NEUTROPHILS # (AUTO) 1.9 x10^3/uL (2.2-4.8); NEUTROPHILS % (AUTO) 67.5 % (42.0-75.0); PLATELET COUNT 139 X10^3/uL (150.0-450.0); RED CELL DISTRIBUTION WIDTH 15.9 % (11.6-16.5); WHITE BLOOD COUNT 2.9 X10^3/uL (3.6-10.0)
[2018-02-06 06:09] LABS: ALANINE AMINOTRANSFERASE 141 Units/L (12-78); ALBUMIN 2.6 g/dL (3.4-5.0); ALKALINE PHOSPHATASE 162 Units/L (46-116); ASPARTATE AMINO TRANSFERASE 66 Units/L (15-37); BLOOD UREA NITROGEN 9 mg/dL (7-18); CALCIUM 8.3 mg/dL (8.5-10.1); CARBON DIOXIDE 25.7 mmol/L (21-32); CHLORIDE 108 mmol/L (98-107); COR CA(FOR HYPOALB) 9.4 mg/dL (8.5-10.1); CREATININE 0.95 mg/dL (0.55-1.02); SODIUM 142 mmol/L (136-145); TOTAL PROTEIN 6.5 g/dL (6.4-8.2); eGFR BLACK RACES > 60 (>60); eGFR NON BLACK RACES > 60 (>60)
[2018-02-06] MEDS: NexIUM PO SCH (08:33)
[2018-02-06] MEDS: REGLAN TAB 10 MG PO SCH (08:33)
[2018-02-06] MEDS: PREDNISONE TAB 5 MG PO SCH (08:33)
[2018-02-06] MEDS: CELEXA PO SCH (08:33)
[2018-02-06] MEDS: TACROLIMUS PO SCH (08:39)
--- NOTE | 2018-02-06 09:22 | DR.UPDATE ---
H&P Update History and Physical Update: WAS SEEN IN THE OFFICE ON 02/04/18. A H&P WAS COMPLETED PRIOR TO ADMISSION. PATIENT HAS BEEN SEEN AND EXAMINED WITH NO CHANGES NOTED TO H&P. Changes noted: NO Yes with the following:
[2018-02-06 09:23] VITALS: BP 118/64
--- NOTE | 2018-02-06 09:32 | PCM.PROG ---
Progress Note - Progress Note for Day of Date: 02/07/18 - Subjective Subjective: WAS ADMITTED FOR N/V/D, AND ACUTE ON CHRONIC LIVER FAILURE. TODAY, SHE IS ALERT AND ORIENTED, LYING IN BED ON MORNING ROUNDS. SHE CONTINUES WITH NAUSEA AND DIARRHEA, BUT REPORTS SLIGHT IMPROVEMENT SINCE ADMISSION. ON EXAMINATION, HEART IS REGULAR IN RATE AND RHYTHM. BILATERAL LUNGS ARE CLEAR TO AUSCULTATION ABDOMEN IS ROUND, SOFT, AND NOTED WITH MILD, DIFFUSE TENDERNESS TO PALPATION. HER VITALS THIS MORNING ARE 97.9-107-20-95%-130/85. LABS WERE OBTAINED. ABNORMAL LAB VALUES INCLUDE THE FOLLOWING: WBC 3.2, RBC 3.44 , HGB 11.1, HCT 32.4, PLT COUNT 127, CHLORIDE 108, AST 74, ALT 180, ALK PHOS 171 , TOTAL PROTEIN 6.3, ALBUMIN 2.6. AN ABD/PELVIS CT WAS OBTAINED ON ADMISSION AND REVEALED COLONIC WALL THICKENING NOTED ABOVE. 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 APPENDECTOMY. HYSTERECTOMY. TODAY, WE WILL CONTINUE WITH IV HYDRATION. OTHERWISE, WE WILL FOLLOW UP WITH AM LABS AND CONTINUE TO MONITOR PATIENT. - Past Medical Family Social History Past Med/Fam/Surg Hx: No changes since H&P Allergies: Allergies ciprofloxacin [From Cipro] Adverse Reaction (Verified 04/28/17 21:44) phenazopyridine [From Pyridium] Adverse Reaction (Verified 04/28/17 21:44) Sulfa (Sulfonamide Antibiotics) [SULFA] Adverse Reaction (Verified 04/28/17 21: 44) - Review of Systems ROS: No change since H&P - Vital Signs and I&O's Vital Signs: Temperature 97.8 F Pulse Rate [Left Brachial] 91 Respiratory Rate 20 Blood Pressure [Right Arm] 118/64 Blood Pressure [Left Arm] 130/85 Blood Pressure 127/78 O2 Sat by Pulse Oximetry 96 Intake and Output: Intake & Output 02/03/18 02/04/18 02/05/18 02/06/18 11:59 11:59 11:59 11:59 Intake Total 1783 2039 Balance 1783 2039 - Physical Exam Oriented: Normal Eyes: Normal Ear: Normal Nose: Normal Throat: Normal Respiratory: Normal Cardiovascular: Normal : Normal Auscultation: Bowel Sounds: Increased Palpation: Normal Tenderness: Diffuse, Mild. negative: Rebound, Guarding, Rigidity Skin: Normal Musculoskeletal: Normal Psychiatric: Normal Mood Description: Calm Affect: Normal Speech Pattern: Clear, Appropriate - Laboratory and Diagnostics Result Diagrams: 02/06/18 05:07 02/06/18 05:07 Labs: 02/05/18 02:03 Stool - Final Laboratory WBC 2.9 X10^3/uL (3.6-10.0) L 02/06/18 05:07 RBC 3.50 X10^6/uL (3.5-5.4) 02/06/18 05:07 Hgb 11.3 g/dL (12.0-16.0) L 02/06/18 05:07 Hct 33.1 % (36.0-47.0) L 02/06/18 05:07 MCV 94.7 fL (80.0-100.0) 02/06/18 05:07 MCH 32.2 pg (27.0-34.0) 02/06/18 05:07 MCHC 34.0 g/dL (33.0-35.0) 02/06/18 05:07 RDW 15.9 % (11.6-16.5) 02/06/18 05:07 Plt Count 139 X10^3/uL (150.0-450.0) L 02/06/18 05:07 MPV 10.1 fL (7.4-11.0) 02/06/18 05:07 Neut % (Auto) 67.5 % (42.0-75.0) 02/06/18 05:07 Lymph % (Auto) 18.8 % (21.0-51.0) L 02/06/18 05:07 [place] % (Auto) 11.6 % (0.0-13.0) 02/06/18 05:07 Eos % (Auto) 1.5 % (0.9-2.9) 02/06/18 05:07 Baso % (Auto) 0.6 % (0.2-1.0) 02/06/18 05:07 Neut # (Auto) 1.9 x10^3/uL (2.2-4.8) L 02/06/18 05:07 Lymph # (Auto) 0.5 X10^3/uL (1.3-2.9) L 02/06/18 05:07 [place] # (Auto) 0.3 x10^3/uL (0.3-0.8) 02/06/18 05:07 Eos # (Auto) 0.0 x10^3/uL (0.0-0.2) 02/06/18 05:07 Baso # (Auto) 0.0 X10^3/uL (0.0-0.1) 02/06/18 05:07 Absolute Nucleated RBC 0.2 /100WBC 02/06/18 05:07 Sodium 142 mmol/L (136-145) 02/06/18 05:07 Corrected Sodium TNP 02/06/18 05:07 Potassium 4.0 mmol/L (3.5-5.1) 02/06/18 05:07 Chloride 108 mmol/L (98-107) H 02/06/18 05:07 Carbon Dioxide 25.7 mmol/L (21-32) 02/06/18 05:07 BUN 9 mg/dL (7-18) 02/06/18 05:07 Creatinine 0.95 mg/dL (0.55-1.02) 02/06/18 05:07 Est GFR (MDRD) Af Amer > 60 (>60) 02/06/18 05:07 Est GFR (MDRD) Non-Af > 60 (>60) 02/06/18 05:07 Glucose 93 mg/dL (65-99) 02/06/18 05:07 Calcium 8.3 mg/dL (8.5-10.1) L 02/06/18 05:07 Corrected Calcium 9.4 mg/dL (8.5-10.1) 02/06/18 05:07 Total Bilirubin 0.30 mg/dL (0.2-1.0) 02/06/18 05:07 AST 66 Units/L (15-37) H 02/06/18 05:07 ALT 141 Units/L (12-78) H 02/06/18 05:07 Alkaline Phosphatase 162 Units/L (46-116) H 02/06/18 05:07 Total Protein 6.5 g/dL (6.4-8.2) 02/06/18 05:07 Albumin 2.6 g/dL (3.4-5.0) L 02/06/18 05:07 Globulin 3.9 g/dL (2.5-4.5) 02/06/18 05:07 Albumin/Globulin Ratio 0.7 Ratio (1.1-2.1) L 02/06/18 05:07 Amylase 22 Units/L (25-115) L 02/04/18 18:20 Lipase 264 Units/L (73-393) 02/04/18 18:20 Stool Description 10g lqd green stool 02/05/18 02:03 Stl Occult Blood (IFOB) Negative (NEGATIVE) 02/05/18 02:03 Stool for White Cells Negative (NEGATIVE) 02/05/18 02:03 Stl C. diff Tox B Gene Negative (NEGATIVE) 02/05/18 02:03 Stl C. diff [id number] Negative (NEGATIVE) 02/05/18 02:03 Cryptosporid parvum Ag Negative (NEGATIVE) 02/05/18 02:03 E. histolytica Antigen Negative (NEGATIVE) 02/05/18 02:03 Giardia lamblia Ag Negative (NEGATIVE) 02/05/18 02:03 H. pylori IgG Antibody Negative (NEGATIVE) 02/04/18 18:20 - Plan (1) Nausea & vomiting Status: Acute Qualifiers: Vomiting type: unspecified Vomiting Intractability: intractable Qualified Code(s): R11.2 - Nausea with vomiting, unspecified Plan: CONTINUE IV FLUIDS, CONTINUE PHENERGAN, CONTINUE TO MONITOR (2) Diarrhea Status: Acute Qualifiers: Diarrhea type: presumed infectious Qualified Code(s): R19.7 - Diarrhea, unspecified Plan: CONTINUE TO MONITOR (3) Liver failure Status: Acute Qualifiers: Liver failure chronicity: subacute Hepatic coma status: without hepatic coma Qualified Code(s): K72.00 - Acute and subacute hepatic failure without coma Plan: MONITOR LIVER ENZYMES
[2018-02-06] MEDS: NS 1000 ML 1,000 ML IV SCH (10:17)
== END 2018-02-06 11:15 | disposition home or self-care (01) ==
LOC: MED/SURG 15:52
PROVIDERS: ADMIT Internal Medicine; ATTEND Internal Medicine
DX: R11.2 Nausea with vomiting, unspecified (principal); R19.7 Diarrhea, unspecified; K72.00 Acute and subacute hepatic failure without coma; R94.4 Abnormal results of kidney function studies; E86.0 Dehydration; R50.9 Fever, unspecified
CPT/HCPCS: 36415; 74176; 80053; 82150; 82274; 83630; 83690; 85025; 86677; 87045; 87328; 87329; 87336; 87427; 87449; 87493; A4216; A4222; G0378; J1170; J7506

== ENCOUNTER 2018-04-08 14:56 | Inpatient (IN) ==
[2018-04-08] MEDS ORDERED: ROCEPHIN VIAL 1 GRAM ONE (16:32)
[2018-04-08] MEDS ORDERED: NS 100 ML IV + SPIKE MINIBAG* 100 ML IV ONE (16:32)
[2018-04-08] MEDS: ROCEPHIN VIAL 1 GRAM 1 G in NS 100 ML IV + SPIKE MINIBAG* 100 ML IV SCH (16:44)
[2018-04-08] MEDS: NS 1000 ML 1,000 ML IV SCH (16:44)
[2018-04-08] MEDS ORDERED: NORMODYNE INJ 20 MG VIAL IVP PRN (16:54)
[2018-04-08] MEDS ORDERED: DILAUDID PO ONE ×2 (16:57→21:07)
[2018-04-08] MEDS: DILAUDID PO PRN ×2 (17:02→21:07)
[2018-04-08 17:11] LABS: BASOPHILS % (AUTO) 0.6 % (0.2-1.0); EOSINOPHILS % (AUTO) 0.3 % (0.9-2.9); HEMATOCRIT 38.5 % (36.0-47.0); HEMOGLOBIN 13.1 g/dL (12.0-16.0); LYMPHOCYTES # (AUTO) 0.5 X10^3/uL (1.3-2.9); MEAN CORPUSCULAR HEMOGLOBIN 32.3 pg (27.0-34.0); MEAN CORPUSCULAR HGB CONC 33.9 g/dL (33.0-35.0); MEAN PLATELET VOLUME 9.2 fL (7.4-11.0); MONOCYTES # (AUTO) 0.3 x10^3/uL (0.3-0.8); NEUTROPHILS # (AUTO) 3.6 x10^3/uL (2.2-4.8); NEUTROPHILS % (AUTO) 80.1 % (42.0-75.0); PLATELET COUNT 231 X10^3/uL (150.0-450.0); RED BLOOD COUNT 4.06 X10^6/uL (3.5-5.4); RED CELL DISTRIBUTION WIDTH 15.8 % (11.6-16.5); WHITE BLOOD COUNT 4.4 X10^3/uL (3.6-10.0)
[2018-04-08 17:22] VITALS: BMI 37.8
[2018-04-08 17:32] LABS: ALANINE AMINOTRANSFERASE 53 Units/L (12-78); ALBUMIN 3.5 g/dL (3.4-5.0); ALKALINE PHOSPHATASE 152 Units/L (46-116); AMYLASE 26 Units/L (25-115); ASPARTATE AMINO TRANSFERASE 36 Units/L (15-37); BLOOD UREA NITROGEN 11 mg/dL (7-18); CALCIUM 9.5 mg/dL (8.5-10.1); CARBON DIOXIDE 27.5 mmol/L (21-32); CHLORIDE 105 mmol/L (98-107); CKMB % 2.7 % (<4); COR NA(FOR HYPERGLY) 141 mmol/L (136-145); CREATINE KINASE 37 Units/L (26-192); CREATINE KINASE MB < 1.0 ng/mL (0-4.0); CREATININE 0.99 mg/dL (0.55-1.02); LIPASE 190 Units/L (73-393); SODIUM 141 mmol/L (136-145); TOTAL PROTEIN 7.8 g/dL (6.4-8.2); TROPONIN I < 0.02 ng/mL (0-1.5); eGFR NON BLACK RACES > 60 (>60)
[2018-04-08] MEDS ORDERED: PHENERGAN TAB 25 MG PO PRN (17:42)
[2018-04-08 17:45] LABS: BILIRUBIN,URINE NEGATIVE (NEGATIVE); BLOOD/HEMOGLOBIN,URINE NEGATIVE (NEGATIVE); GLUCOSE, URINE NEGATIVE (NEGATIVE); KETONES,URINE NEGATIVE (NEGATIVE); LEUKOCYTE ESTERASE ,URINE 1+ (NEGATIVE); NITRITES,URINE NEGATIVE (NEGATIVE); PROTEIN,URINE 1+ (NEGATIVE); UROBILINOGEN,URINE NORMAL (NORMAL)
[2018-04-08 17:49] LABS: APPEARANCE,URINE CLEAR (CLEAR); COLOR,URINE YELLOW (YELLOW)
[2018-04-08 17:53] LABS: BACTERIA,URINE TRACE /HPF (NEGATIVE); RBC,URINE 0-2 /HPF (NONE SEEN); SQUAMOUS EPITHELIAL CELL,UR FEW /HPF (NEGATIVE)
[2018-04-08] MEDS: PATIENT'S HOME MEDICATION PO SCH ×2 (18:06→21:04)
--- NOTE | 2018-04-08 19:08 | RAD ---
Chest two views Indication: Shortness of breath Comparison June 20, 2017 Findings: This heart and mediastinum are stable. There is no focal infiltrate, effusion or pneumothor ax. The skeleton is unremarkable. Impression: Negative exam for acute pathology Reported By:
[2018-04-08 20:57] LABS: CKMB % 2.9 % (<4); CREATINE KINASE 34 Units/L (26-192); CREATINE KINASE MB < 1.0 ng/mL (0-4.0); TROPONIN I < 0.02 ng/mL (0-1.5)
[2018-04-08] MEDS: MIRAPEX TAB 1 MG PO SCH (21:00)
[2018-04-08] MEDS: TOPROL XL PO SCH (21:01)
[2018-04-08] MEDS: NEURONTIN TAB 600 MG PO SCH (21:01)
[2018-04-08] MEDS: REGLAN TAB 10 MG PO SCH (21:02)
[2018-04-08] MEDS: BENTYL CAP 10 MG PO SCH (21:02)
[2018-04-08] MEDS: NexIUM PO SCH (21:02)
[2018-04-08] MEDS: SINGULAIR TAB 10 MG PO SCH (21:02)
[2018-04-08] MEDS: PROCARDIA XL PO SCH (21:03)
[2018-04-08] MEDS: IMURAN PO SCH (21:05)
[2018-04-09] MEDS ORDERED: DILAUDID PO ONE ×2 (00:57→10:01)
[2018-04-09] MEDS: DILAUDID PO PRN ×2 (01:08→10:05)
[2018-04-09 01:30] LABS: CREATINE KINASE 33 Units/L (26-192); CREATINE KINASE MB < 1.0 ng/mL (0-4.0); TROPONIN I < 0.02 ng/mL (0-1.5)
[2018-04-09] MEDS: PATIENT'S HOME MEDICATION PO SCH ×3 (05:21→20:25)
[2018-04-09] MEDS: BENTYL CAP 10 MG PO SCH ×3 (05:21→22:27)
[2018-04-09] MEDS: NEURONTIN TAB 600 MG PO SCH ×3 (05:21→22:27)
[2018-04-09] MEDS: IMURAN PO SCH ×3 (05:21→22:27)
[2018-04-09] MEDS: REGLAN TAB 10 MG PO SCH ×4 (05:40→20:26)
[2018-04-09 06:09] LABS: BASOPHILS % (AUTO) 0.9 % (0.2-1.0); EOSINOPHILS # (AUTO) 0.1 x10^3/uL (0.0-0.2); EOSINOPHILS % (AUTO) 1.6 % (0.9-2.9); HEMATOCRIT 35.8 % (36.0-47.0); LYMPHOCYTES # (AUTO) 0.8 X10^3/uL (1.3-2.9); LYMPHOCYTES % (AUTO) 17.1 % (21.0-51.0); MEAN CORPUSCULAR HEMOGLOBIN 31.9 pg (27.0-34.0); MEAN CORPUSCULAR HGB CONC 33.5 g/dL (33.0-35.0); MEAN CORPUSCULAR VOLUME 95.4 fL (80.0-100.0); MONOCYTES # (AUTO) 0.3 x10^3/uL (0.3-0.8); MONOCYTES % (AUTO) 7.6 % (0.0-13.0); NEUTROPHILS # (AUTO) 3.3 x10^3/uL (2.2-4.8); NEUTROPHILS % (AUTO) 72.8 % (42.0-75.0); PLATELET COUNT 199 X10^3/uL (150.0-450.0); RED BLOOD COUNT 3.75 X10^6/uL (3.5-5.4); RED CELL DISTRIBUTION WIDTH 15.8 % (11.6-16.5); WHITE BLOOD COUNT 4.6 X10^3/uL (3.6-10.0)
[2018-04-09 06:38] LABS: ALANINE AMINOTRANSFERASE 56 Units/L (12-78); ALBUMIN 2.9 g/dL (3.4-5.0); ALKALINE PHOSPHATASE 146 Units/L (46-116); ASPARTATE AMINO TRANSFERASE 66 Units/L (15-37); BLOOD UREA NITROGEN 9 mg/dL (7-18); CALCIUM 9.2 mg/dL (8.5-10.1); CHLORIDE 106 mmol/L (98-107); COR CA(FOR HYPOALB) 10.1 mg/dL (8.5-10.1); CREATININE 0.94 mg/dL (0.55-1.02); SODIUM 141 mmol/L (136-145); TOTAL PROTEIN 6.6 g/dL (6.4-8.2); eGFR NON BLACK RACES > 60 (>60)
[2018-04-09] MEDS ORDERED: PREDNISONE TAB 5 MG PO ONE (08:09)
[2018-04-09] MEDS: CELEXA PO SCH (08:41)
[2018-04-09] MEDS: NexIUM PO SCH ×2 (08:41→20:25)
[2018-04-09] MEDS: ROCEPHIN VIAL 1 GRAM 1 G in NS 100 ML IV + SPIKE MINIBAG* 100 ML IV SCH (08:41)
[2018-04-09] MEDS: PREDNISONE TAB 5 MG PO SCH (08:43)
[2018-04-09] MEDS ORDERED: PREDNISONE TAB 20 MG PO SCH (09:00)
[2018-04-09] MEDS ORDERED: MACROBID CAP 100 MG EXT REL PO SCH (09:00)
[2018-04-09] MEDS ORDERED: CHLORASEPTIC SPRAY MT PRN (10:07)
[2018-04-09] MEDS: NS 1000 ML 1,000 ML IV SCH (17:01)
--- NOTE | 2018-04-09 18:41 | DR.UPDATE ---
H&P Update History and Physical Update: WAS SEEN IN THE OFFICE TODAY. SHE WAS ADMITTED TO THE HOSPITAL FOR FURTHER EVALUATION AND TREATMENT. A H&P WAS COMPLETED PRIOR TO ADMISSION. PATIENT HAS BEEN SEEN AND EXAMINED WITH NO CHANGES NOTED TO H&P. Changes noted: NO Yes with the following:
[2018-04-09] MEDS: PROCARDIA XL PO SCH (20:25)
[2018-04-09] MEDS: MIRAPEX TAB 1 MG PO SCH (20:25)
[2018-04-09] MEDS: TOPROL XL PO SCH (20:26)
[2018-04-09] MEDS: SINGULAIR TAB 10 MG PO SCH (20:26)
--- NOTE | 2018-04-09 21:28 | PCM.PROG ---
Progress Note - Progress Note for Day of Date of Exam: 04/09/18 - Subjective Subjective: WAS ADMITTED FOR SHORTNESS OF BREATH AND A URINARY TRACT INFECTION. TODAY, SHE IS ALERT AND ORIENTED, LYING IN BED ON MORNING ROUNDS. SHE DENIES CHEST PAIN TODAY, BUT CONTINUES WITH COMPLAINTS OF SUPRAPUBIC PAIN. ON EXAMINATION, HEART IS REGULAR IN RATE AND RHYTHM. BILATERAL LUNGS ARE CLEAR TO AUSCULTATION. ABDOMEN IS ROUND, SOFT, AND NOTED WITH MILD SUPRAPUBIC PAIN TO PALPATION. NORMAL BOWEL SOUNDS ARE NOTED IN ALL QUADRANTS. HER VITALS TODAY ARE 98.0-94-20-95%-120/71. LABS WERE OBTAINED TODAY. ABNORMAL LAB VALUES INCLUDE THE FOLLOWING: HCT 35.8, GLUCOSE 105, AST 66, ALK PHOS 146, ALBUMIN 2.9. URINALYSIS REVEALED: WBC 5-10, RBC 0-2, LEUKOCYTES 1+, BACTERIA TRACE. CARDIAC ENZYMES AND EKGS WITHIN NORMAL LIMITS. PATIENT REPORTS BEING ON MACROBID FOR OVER A YEAR DUE TO RECURRENT UTIs. TODAY, WE WILL DISCONTINUE THE MACROBID. WE WILL CONTINUE WITH ROCEPHIN 1GM IV DAILY. OTHERWISE, WE WILL FOLLOW UP WITH AM LABS AND CONTINUE TO MONITOR PATIENT. - Past Medical Family Social History Past Med/Fam/Surg Hx: No changes since H&P Allergies: Allergies adhesive tape Adverse Reaction (Verified 04/08/18 17:19) ciprofloxacin [From Cipro] Adverse Reaction (Verified 04/28/17 21:44) phenazopyridine [From Pyridium] Adverse Reaction (Verified 04/28/17 21:44) Sulfa (Sulfonamide Antibiotics) [SULFA] Adverse Reaction (Verified 04/28/17 21: 44) - Review of Systems ROS: No change since H&P - Vital Signs and I&O's Vital Signs: Temperature 97.5 F Pulse Rate [Left Radial] 99 Respiratory Rate 20 Blood Pressure [Right Arm] 138/96 Blood Pressure [Left Arm] 130/85 Blood Pressure 118/64 O2 Sat by Pulse Oximetry 98 Intake and Output: Intake & Output 04/07/18 04/08/18 04/09/18 04/10/18 11:59 11:59 11:59 11:59 Intake Total 2540 / 2540 1700 / 1700 Balance 2540 / 2540 1700 / 1700 - Physical Exam Oriented: Normal Eyes: Normal Ear: Normal Nose: Normal Throat: Normal Respiratory: Normal Cardiovascular: Normal : Normal Auscultation: Bowel Sounds: Normal Palpation: Normal Tenderness: Suprapubic, Mild. negative: Rebound, Guarding, Rigidity Skin: Normal Musculoskeletal: Normal Psychiatric: Normal Mood Description: Calm Affect: Normal Speech Pattern: Clear, Appropriate - Laboratory and Diagnostics Result Diagrams: 04/09/18 05:49 04/09/18 05:49 Labs: 04/08/18 17:37 Urine,Clean Catch Urine Culture - Preliminary Laboratory WBC 4.6 X10^3/uL (3.6-10.0) 04/09/18 05:49 RBC 3.75 X10^6/uL (3.5-5.4) 04/09/18 05:49 Hgb 12.0 g/dL (12.0-16.0) 04/09/18 05:49 Hct 35.8 % (36.0-47.0) L 04/09/18 05:49 MCV 95.4 fL (80.0-100.0) 04/09/18 05:49 MCH 31.9 pg (27.0-34.0) 04/09/18 05:49 MCHC 33.5 g/dL (33.0-35.0) 04/09/18 05:49 RDW 15.8 % (11.6-16.5) 04/09/18 05:49 Plt Count 199 X10^3/uL (150.0-450.0) 04/09/18 05:49 MPV 9.0 fL (7.4-11.0) 04/09/18 05:49 Neut % (Auto) 72.8 % (42.0-75.0) 04/09/18 05:49 Lymph % (Auto) 17.1 % (21.0-51.0) L 04/09/18 05:49 [place] % (Auto) 7.6 % (0.0-13.0) 04/09/18 05:49 Eos % (Auto) 1.6 % (0.9-2.9) 04/09/18 05:49 Baso % (Auto) 0.9 % (0.2-1.0) 04/09/18 05:49 Neut # (Auto) 3.3 x10^3/uL (2.2-4.8) 04/09/18 05:49 Lymph # (Auto) 0.8 X10^3/uL (1.3-2.9) L 04/09/18 05:49 [place] # (Auto) 0.3 x10^3/uL (0.3-0.8) 04/09/18 05:49 Eos # (Auto) 0.1 x10^3/uL (0.0-0.2) 04/09/18 05:49 Baso # (Auto) 0.0 X10^3/uL (0.0-0.1) 04/09/18 05:49 Absolute Nucleated RBC 0.1 /100WBC 04/09/18 05:49 Sodium 141 mmol/L (136-145) 04/09/18 05:49 Corrected Sodium TNP 04/09/18 05:49 Potassium 4.2 mmol/L (3.5-5.1) 04/09/18 05:49 Chloride 106 mmol/L (98-107) 04/09/18 05:49 Carbon Dioxide 26.0 mmol/L (21-32) 04/09/18 05:49 BUN 9 mg/dL (7-18) 04/09/18 05:49 Creatinine 0.94 mg/dL (0.55-1.02) 04/09/18 05:49 Est GFR (MDRD) Af Amer > 60 (>60) 04/09/18 05:49 Est GFR (MDRD) Non-Af > 60 (>60) 04/09/18 05:49 Glucose 105 mg/dL (65-99) H 04/09/18 05:49 Lactic Acid 0.6 mmol/L (0.4-2.0) 04/08/18 16:42 Calcium 9.2 mg/dL (8.5-10.1) 04/09/18 05:49 Corrected Calcium 10.1 mg/dL (8.5-10.1) 04/09/18 05:49 Total Bilirubin 0.30 mg/dL (0.2-1.0) 04/09/18 05:49 AST 66 Units/L (15-37) H 04/09/18 05:49 ALT 56 Units/L (12-78) 04/09/18 05:49 Alkaline Phosphatase 146 Units/L (46-116) H 04/09/18 05:49 Creatine Kinase 33 Units/L (26-192) 04/09/18 00:35 CK-MB (CK-2) < 1.0 ng/mL (0-4.0) 04/09/18 00:35 CK/CKMB % Calc 3.0 % (<4) 04/09/18 00:35 Troponin I < 0.02 ng/mL (0-1.5) 04/09/18 00:35 Total Protein 6.6 g/dL (6.4-8.2) 04/09/18 05:49 Albumin 2.9 g/dL (3.4-5.0) L 04/09/18 05:49 Globulin 3.7 g/dL (2.5-4.5) 04/09/18 05:49 Albumin/Globulin Ratio 0.8 Ratio (1.1-2.1) L 04/09/18 05:49 Amylase 26 Units/L (25-115) 04/08/18 16:42 Lipase 190 Units/L (73-393) 04/08/18 16:42 Specimen Type Clean catch urine 04/08/18 17:37 Urine Color Yellow (YELLOW) 04/08/18 17:37 Urine Appearance Clear (CLEAR) 04/08/18 17:37 Urine pH 6.0 (5.0 - 8.0) 04/08/18 17:37 Ur Specific [place] 1.010 (1.000-1.030) 04/08/18 17:37 Urine Protein 1+ (NEGATIVE) 04/08/18 17:37 Urine Glucose (UA) Negative (NEGATIVE) 04/08/18 17:37 Urine Ketones Negative (NEGATIVE) 04/08/18 17:37 Urine Occult Blood Negative (NEGATIVE) 04/08/18 17:37 Urine Nitrite Negative (NEGATIVE) 04/08/18 17:37 Urine Bilirubin Negative (NEGATIVE) 04/08/18 17:37 Urine Urobilinogen Normal (NORMAL) 04/08/18 17:37 Ur Leukocyte Esterase 1+ (NEGATIVE) 04/08/18 17:37 Urine RBC 0-2 /HPF (NONE SEEN) 04/08/18 17:37 Urine WBC 5-10 /HPF (NONE SEEN) 04/08/18 17:37 Ur Squamous Epith Cells Few /HPF (NEGATIVE) 04/08/18 17:37 Urine Bacteria Trace /HPF (NEGATIVE) 04/08/18 17:37 Ur Culture Indicated? Yes/culture set up 04/08/18 17:37 - Plan (1) UTI (urinary tract infection) Status: Acute Qualifiers: Urinary tract infection type: acute cystitis Hematuria presence: without hematuria Qualified Code(s): N30.00 - Acute cystitis without hematuria Plan: ROCEPHIN 1GM IV DAILY, CONTINUE TO MONITOR
[2018-04-10] MEDS: IMURAN PO SCH (05:15)
[2018-04-10] MEDS: BENTYL CAP 10 MG PO SCH (05:15)
[2018-04-10] MEDS: PATIENT'S HOME MEDICATION PO SCH (05:16)
[2018-04-10] MEDS: NEURONTIN TAB 600 MG PO SCH (05:16)
[2018-04-10] MEDS: REGLAN TAB 10 MG PO SCH ×2 (05:33→12:00)
[2018-04-10 06:34] LABS: BASOPHILS % (AUTO) 0.6 % (0.2-1.0); EOSINOPHILS % (AUTO) 1.3 % (0.9-2.9); HEMATOCRIT 32.9 % (36.0-47.0); HEMOGLOBIN 11.4 g/dL (12.0-16.0); LYMPHOCYTES # (AUTO) 0.7 X10^3/uL (1.3-2.9); LYMPHOCYTES % (AUTO) 17.9 % (21.0-51.0); MEAN CORPUSCULAR HEMOGLOBIN 32.9 pg (27.0-34.0); MEAN CORPUSCULAR HGB CONC 34.6 g/dL (33.0-35.0); MEAN CORPUSCULAR VOLUME 95.1 fL (80.0-100.0); MEAN PLATELET VOLUME 9.2 fL (7.4-11.0); MONOCYTES # (AUTO) 0.3 x10^3/uL (0.3-0.8); MONOCYTES % (AUTO) 8.6 % (0.0-13.0); NEUTROPHILS # (AUTO) 2.7 x10^3/uL (2.2-4.8); NEUTROPHILS % (AUTO) 71.6 % (42.0-75.0); PLATELET COUNT 176 X10^3/uL (150.0-450.0); RED BLOOD COUNT 3.46 X10^6/uL (3.5-5.4); WHITE BLOOD COUNT 3.7 X10^3/uL (3.6-10.0)
[2018-04-10 06:51] LABS: ALANINE AMINOTRANSFERASE 74 Units/L (12-78); ALKALINE PHOSPHATASE 171 Units/L (46-116); ASPARTATE AMINO TRANSFERASE 69 Units/L (15-37); BLOOD UREA NITROGEN 11 mg/dL (7-18); CALCIUM 9.2 mg/dL (8.5-10.1); CARBON DIOXIDE 30.6 mmol/L (21-32); CHLORIDE 105 mmol/L (98-107); CREATININE 0.96 mg/dL (0.55-1.02); SODIUM 142 mmol/L (136-145); TOTAL PROTEIN 6.7 g/dL (6.4-8.2); eGFR NON BLACK RACES > 60 (>60)
[2018-04-10] MEDS: CELEXA PO SCH (08:47)
[2018-04-10] MEDS: ROCEPHIN VIAL 1 GRAM 1 G in NS 100 ML IV + SPIKE MINIBAG* 100 ML IV SCH (08:48)
[2018-04-10] MEDS: NexIUM PO SCH (08:48)
[2018-04-10] MEDS: PREDNISONE TAB 5 MG PO SCH (08:48)
[2018-04-10 12:44] VITALS: BP 140/60
--- NOTE | 2018-05-09 13:21 | DR.CARTERD ---
- Discharge Summary for: Discharge Summary for Date of:: 04/10/18 - Admission Date Date of Admission: 04/08/18 - Admission Diagnoses Admission Diagnosis: 1. Chest pain 2. Shortness of breath 3. UTI - Discharge Date Discharge Date: 04/10/18 - Discharge Diagnoses Discharge Diagnosis: 1. Chest pain 2. Shortness of breath 3. UTI - Hospital Course Hospital Course: Day one, Ms. Smith presented to MD office complaining of chest pain and shortness of breath with associated symptoms of fatigue and malaise with dizziness and headache. Upon assessment patient noted to be tachycardic @ 111 beats per min as well as hypertensive @ 180/130. EKG performed with tachycardia at 111 beats per min. Patient had failed outpatient treatment @ [facility] office of IV Rocephin X 4 doses for UTI as well as failed outpatient treatment to Macrobid prophylactic treatment. Patient has history of Kidney transplant. Patient complained of suprapubic pain and headache rated 10 on scale of 0-10. Patient received Dilaudid 2mg X 2. Urine collected reveled WBC 5-10 with trace of bacteria. Urine culture obtained. Blood cultures X 2 pending. Patient was admitted to hospital and placed on IVF with gentle hydration at 20 mls/hr with IV Rocephin 1 gm daily. We continued to treat and monitor pain. Day two, Ms. Smith was admitted for shortness of breath and a urinary tract infection. She was alert and oriented. She denied chest pain, but continued with complaints of suprapubic pain. On examination, heart was regular in rate and rhythm. Bilateral lungs were clear to auscultation. Abdomen was round, soft, and noted with mild suprapubic tenderness to palpation. Normal bowel sounds were noted in all quadrants. Vitals were 98.0-94-20-95%-120/71. Abnormal labs included: Hct 35.8, glucose 105, AST 66, Alk Phos 146, Albumin 2.9. Urinalysis abnormals: WBC 5-10, RBC 0-2, Leukocytes 1+, Bacteria trace. Cardiac enzymes and ekgs within normal limits. Patient reported being on Macrobid for over a year due to recurrent UTIs. We discontinued Macrobid. We continued with Rocephin 1gm IV daily. We continued to monitor. On day three, patient denied chest pain or shortness of breath. No acute distress noted. On examination, lungs were clear. Vital signs stable. Labs wnl. We planned for discharge. Instructions for medications and follow up were discussed with patient and family, both voiced understanding. Patient discharged home in stable condition with family. - Discharge Medications Discharge Medications: Prescriptions: Home medications hydromorphone [Dilaudid] 4 mg PO Q4H PRN 07/06/15 nortriptyline 100 mg PO HS 07/06/15 tacrolimus [Astagraf XL] 4 cap PO DAILY 07/06/15 esomeprazole magnesium [Nexium] 40 mg PO BID 10/19/15 azathioprine [Imuran] 50 mg PO TID 04/28/17 citalopram 40 mg PO DAILY 04/28/17 metoclopramide HCl 1 tab PO ACHS 04/28/17 pramipexole 1 mg PO BID 04/28/17 promethazine 25 mg PO Q6H 04/28/17 dicyclomine 20 mg PO TID 06/17/17 gabapentin 800 mg PO TID 06/17/17 metoprolol succinate 25 mg PO HS 06/17/17 montelukast 10 mg PO HS #30 tab 06/21/17 nifedipine 30 mg PO HS 02/04/18 nitrofurantoin monohyd/m-cryst 100 mg PO DAILY 04/20/18 pramipexole 0.25 mg PO QHS 04/20/18 prednisone 5 mg PO DAILYWB 04/20/18 ascorbic acid (vitamin C) [Vitamin C] 500 mg PO DAILY #30 cap 04/22/18 gentamicin in NaCl (iso-osm) 160 mg IV DAILY #7 ml 04/23/18 cyclobenzaprine 10 mg PO TID PRN #14 tab 04/25/18 - Discharge Disposition Discharge Disposition: Patient is to follow up with WILFREDO Mccoy in one week.
== END 2018-04-10 12:45 | disposition home or self-care (01) | DRG 690 ==
LOC: MED/SURG 15:45
PROVIDERS: ADMIT Internal Medicine; ATTEND Internal Medicine
DX: N30.00 Acute cystitis without hematuria; R00.0 Tachycardia, unspecified; R06.02 Shortness of breath; R53.83 Other fatigue
CPT/HCPCS: 36415; 71020; 71046; 80053; 81001; 82150; 82550; 82553; 83605; 83690; 84484; 85025; 87040; 87086; 93005; A4222; J0696; J7030; J7050; J7500; J7512

== ENCOUNTER 2018-04-20 14:45 | Observation (INO) ==
[2018-04-20] MEDS ORDERED: PHARMACY CONSULT - DOSE _____ XX SCH (17:00)
[2018-04-20 17:24] LABS: BASOPHILS % (AUTO) 0.8 % (0.2-1.0); EOSINOPHILS % (AUTO) 0.4 % (0.9-2.9); HEMATOCRIT 36.2 % (36.0-47.0); HEMOGLOBIN 12.4 g/dL (12.0-16.0); LYMPHOCYTES # (AUTO) 0.6 X10^3/uL (1.3-2.9); LYMPHOCYTES % (AUTO) 11.6 % (21.0-51.0); MEAN CORPUSCULAR HEMOGLOBIN 32.1 pg (27.0-34.0); MEAN CORPUSCULAR HGB CONC 34.2 g/dL (33.0-35.0); MEAN CORPUSCULAR VOLUME 93.8 fL (80.0-100.0); MEAN PLATELET VOLUME 9.1 fL (7.4-11.0); MONOCYTES # (AUTO) 0.4 x10^3/uL (0.3-0.8); MONOCYTES % (AUTO) 8.2 % (0.0-13.0); NEUTROPHILS # (AUTO) 3.9 x10^3/uL (2.2-4.8); PLATELET COUNT 212 X10^3/uL (150.0-450.0); RED BLOOD COUNT 3.86 X10^6/uL (3.5-5.4); RED CELL DISTRIBUTION WIDTH 16.1 % (11.6-16.5)
[2018-04-20 17:30] LABS: ALANINE AMINOTRANSFERASE 54 Units/L (12-78); ALBUMIN 3.4 g/dL (3.4-5.0); ALKALINE PHOSPHATASE 168 Units/L (46-116); ASPARTATE AMINO TRANSFERASE 39 Units/L (15-37); BLOOD UREA NITROGEN 16 mg/dL (7-18); CALCIUM 9.1 mg/dL (8.5-10.1); CARBON DIOXIDE 28.9 mmol/L (21-32); CHLORIDE 104 mmol/L (98-107); SODIUM 140 mmol/L (136-145); TOTAL PROTEIN 7.4 g/dL (6.4-8.2); eGFR NON BLACK RACES 57 (>60)
[2018-04-20 17:50] VITALS: BMI 38.7
[2018-04-20] MEDS: NS 1000 ML 1,000 ML IV SCH (18:13)
[2018-04-20] MEDS ORDERED: DILAUDID PO PRN (18:28)
[2018-04-20] MEDS ORDERED: DILAUDID PO ONE ×2 (18:39→22:42)
[2018-04-20 18:49] LABS: BILIRUBIN,URINE NEGATIVE (NEGATIVE); BLOOD/HEMOGLOBIN,URINE NEGATIVE (NEGATIVE); GLUCOSE, URINE NEGATIVE (NEGATIVE); KETONES,URINE NEGATIVE (NEGATIVE); LEUKOCYTE ESTERASE ,URINE 1+ (NEGATIVE); NITRITES,URINE NEGATIVE (NEGATIVE); PH,URINE 6.5 (5.0 - 8.0); PROTEIN,URINE 1+ (NEGATIVE); UROBILINOGEN,URINE NORMAL (NORMAL)
[2018-04-20 18:56] LABS: APPEARANCE,URINE CLEAR (CLEAR); BACTERIA,URINE NEGATIVE /HPF (NEGATIVE); COLOR,URINE YELLOW (YELLOW); RBC,URINE 0-2 /HPF (NONE SEEN); SQUAMOUS EPITHELIAL CELL,UR RARE /HPF (NEGATIVE)
[2018-04-20] MEDS ORDERED: GENTAMICIN INJ 120 MG in NS 100 ML IV 100 ML IV SCH (20:00)
[2018-04-20] MEDS: MIRAPEX TAB 1 MG PO SCH (21:08)
[2018-04-20] MEDS: MIRAPEX TAB 0.25 MG PO SCH (21:08)
[2018-04-20] MEDS: NexIUM PO SCH (21:09)
[2018-04-20] MEDS: BENTYL CAP 10 MG PO SCH (21:09)
[2018-04-20] MEDS: PHENERGAN TAB 25 MG PO SCH (21:10)
[2018-04-20] MEDS: NEURONTIN CAP 400 MG PO SCH (21:10)
[2018-04-20] MEDS: SINGULAIR TAB 10 MG PO SCH (21:10)
[2018-04-20] MEDS: TOPROL XL PO SCH (21:11)
[2018-04-20] MEDS: REGLAN TAB 10 MG PO SCH (21:11)
[2018-04-20] MEDS: PROCARDIA XL PO SCH (21:11)
[2018-04-20] MEDS: PATIENT'S HOME MEDICATION PO SCH (21:12)
[2018-04-20] MEDS: IMURAN PO SCH (21:13)
[2018-04-20] MEDS ORDERED: NS 100 ML IV 100 ML IV ONE (22:10)
[2018-04-20] MEDS ORDERED: GENTAMICIN INJ ONE (22:10)
[2018-04-20] MEDS: DILAUDID PO PRN (22:45)
[2018-04-21] MEDS: PHENERGAN TAB 25 MG PO SCH ×4 (02:57→21:22)
[2018-04-21 05:18] LABS: BASOPHILS % (AUTO) 1.1 % (0.2-1.0); EOSINOPHILS % (AUTO) 1.2 % (0.9-2.9); HEMATOCRIT 32.9 % (36.0-47.0); HEMOGLOBIN 11.4 g/dL (12.0-16.0); LYMPHOCYTES # (AUTO) 0.9 X10^3/uL (1.3-2.9); LYMPHOCYTES % (AUTO) 23.6 % (21.0-51.0); MEAN CORPUSCULAR HEMOGLOBIN 32.8 pg (27.0-34.0); MEAN CORPUSCULAR HGB CONC 34.7 g/dL (33.0-35.0); MEAN CORPUSCULAR VOLUME 94.8 fL (80.0-100.0); MEAN PLATELET VOLUME 9.1 fL (7.4-11.0); MONOCYTES # (AUTO) 0.3 x10^3/uL (0.3-0.8); MONOCYTES % (AUTO) 7.7 % (0.0-13.0); NEUTROPHILS # (AUTO) 2.4 x10^3/uL (2.2-4.8); NEUTROPHILS % (AUTO) 66.4 % (42.0-75.0); PLATELET COUNT 174 X10^3/uL (150.0-450.0); RED BLOOD COUNT 3.47 X10^6/uL (3.5-5.4); WHITE BLOOD COUNT 3.6 X10^3/uL (3.6-10.0)
[2018-04-21 05:29] LABS: ALANINE AMINOTRANSFERASE 49 Units/L (12-78); ALBUMIN 2.9 g/dL (3.4-5.0); ALKALINE PHOSPHATASE 149 Units/L (46-116); ASPARTATE AMINO TRANSFERASE 35 Units/L (15-37); BLOOD UREA NITROGEN 14 mg/dL (7-18); CALCIUM 8.9 mg/dL (8.5-10.1); CARBON DIOXIDE 31.7 mmol/L (21-32); CHLORIDE 107 mmol/L (98-107); COR CA(FOR HYPOALB) 9.8 mg/dL (8.5-10.1); CREATININE 1.11 mg/dL (0.55-1.02); SODIUM 143 mmol/L (136-145); TOTAL PROTEIN 6.7 g/dL (6.4-8.2); eGFR NON BLACK RACES 56 (>60)
[2018-04-21] MEDS: BENTYL CAP 10 MG PO SCH ×3 (05:51→21:24)
[2018-04-21] MEDS: IMURAN PO SCH ×3 (05:52→21:24)
[2018-04-21] MEDS: NEURONTIN CAP 400 MG PO SCH ×3 (05:52→21:24)
[2018-04-21] MEDS: REGLAN TAB 10 MG PO SCH ×4 (05:52→21:22)
[2018-04-21] MEDS: NS 1000 ML 1,000 ML IV SCH ×3 (05:52→21:22)
[2018-04-21] MEDS: PREDNISONE TAB 5 MG PO SCH (06:21)
[2018-04-21] MEDS: CELEXA PO SCH (08:35)
[2018-04-21] MEDS: NexIUM PO SCH ×2 (08:36→21:22)
[2018-04-21] MEDS: PATIENT'S HOME MEDICATION PO SCH ×2 (08:36→21:23)
[2018-04-21] MEDS: MIRAPEX TAB 1 MG PO SCH ×2 (08:36→21:23)
[2018-04-21] MEDS: MACROBID CAP 100 MG EXT REL PO SCH (08:36)
[2018-04-21] MEDS ORDERED: TACROLIMUS PO SCH (09:45)
[2018-04-21] MEDS ORDERED: GENTAMICIN INJ 160 MG in NS 100 ML IV 100 ML IV SCH (10:00)
[2018-04-21] MEDS ORDERED: BENADRYL CAP/TAB 25 MG PO PRN (14:39)
[2018-04-21] MEDS ORDERED: PHARMACY COMMENT IV NR (20:45)
[2018-04-21] MEDS: MIRAPEX TAB 0.25 MG PO SCH (21:22)
[2018-04-21] MEDS: SINGULAIR TAB 10 MG PO SCH (21:23)
[2018-04-21] MEDS: TOPROL XL PO SCH (21:23)
[2018-04-21] MEDS: PROCARDIA XL PO SCH (21:24)
[2018-04-21 21:39] LABS: CREATININE 1.22 mg/dL (0.55-1.02)
[2018-04-21 21:40] LABS: GENTAMICIN,TROUGH 3.1 ug/mL (0-1.9)
[2018-04-22] MEDS: PHENERGAN TAB 25 MG PO SCH ×4 (03:31→21:45)
[2018-04-22 05:26] LABS: BASOPHILS % (AUTO) 0.7 % (0.2-1.0); EOSINOPHILS # (AUTO) 0.1 x10^3/uL (0.0-0.2); EOSINOPHILS % (AUTO) 2.1 % (0.9-2.9); HEMATOCRIT 32.2 % (36.0-47.0); HEMOGLOBIN 11.3 g/dL (12.0-16.0); LYMPHOCYTES # (AUTO) 0.6 X10^3/uL (1.3-2.9); LYMPHOCYTES % (AUTO) 16.3 % (21.0-51.0); MEAN CORPUSCULAR HEMOGLOBIN 32.9 pg (27.0-34.0); MEAN CORPUSCULAR VOLUME 93.9 fL (80.0-100.0); MEAN PLATELET VOLUME 9.4 fL (7.4-11.0); MONOCYTES # (AUTO) 0.3 x10^3/uL (0.3-0.8); NEUTROPHILS # (AUTO) 2.5 x10^3/uL (2.2-4.8); NEUTROPHILS % (AUTO) 71.9 % (42.0-75.0); PLATELET COUNT 158 X10^3/uL (150.0-450.0); RED BLOOD COUNT 3.43 X10^6/uL (3.5-5.4); RED CELL DISTRIBUTION WIDTH 15.9 % (11.6-16.5); WHITE BLOOD COUNT 3.4 X10^3/uL (3.6-10.0)
[2018-04-22 05:40] LABS: ALANINE AMINOTRANSFERASE 64 Units/L (12-78); ALBUMIN 2.8 g/dL (3.4-5.0); ALKALINE PHOSPHATASE 167 Units/L (46-116); ASPARTATE AMINO TRANSFERASE 48 Units/L (15-37); BLOOD UREA NITROGEN 14 mg/dL (7-18); CALCIUM 8.8 mg/dL (8.5-10.1); CARBON DIOXIDE 31.6 mmol/L (21-32); CHLORIDE 106 mmol/L (98-107); COR CA(FOR HYPOALB) 9.8 mg/dL (8.5-10.1); CREATININE 1.08 mg/dL (0.55-1.02); SODIUM 141 mmol/L (136-145); TOTAL PROTEIN 6.4 g/dL (6.4-8.2); eGFR NON BLACK RACES 58 (>60)
[2018-04-22] MEDS: IMURAN PO SCH ×3 (06:04→21:48)
[2018-04-22] MEDS: BENTYL CAP 10 MG PO SCH ×3 (06:04→21:44)
[2018-04-22] MEDS: PREDNISONE TAB 5 MG PO SCH (06:05)
[2018-04-22] MEDS: REGLAN TAB 10 MG PO SCH ×4 (06:05→21:43)
[2018-04-22] MEDS: NEURONTIN CAP 400 MG PO SCH ×3 (06:05→21:44)
[2018-04-22] MEDS: CELEXA PO SCH (09:45)
[2018-04-22] MEDS: MACROBID CAP 100 MG EXT REL PO SCH (09:46)
[2018-04-22] MEDS: PATIENT'S HOME MEDICATION PO SCH ×2 (09:47→21:47)
[2018-04-22] MEDS: MIRAPEX TAB 1 MG PO SCH ×2 (09:47→21:44)
[2018-04-22] MEDS: PHARMACY COMMENT IV SCH ×2 (09:47→10:47)
[2018-04-22] MEDS: NexIUM PO SCH ×2 (09:48→21:43)
--- NOTE | 2018-04-22 10:22 | PCM.PROG ---
Progress Note - Progress Note for Day of Date of Exam: 04/21/18 - Subjective Subjective: WAS ADMITTED FOR ABDOMINAL PAIN AND GROWTH OF PSUEDOMONAS IN STOOL. TODAY, SHE IS ALERT AND ORIENTED, LYING IN BED ON MORNING ROUNDS. SHE CONTINUES WITH COMLAINTS OF ABDOMINAL CRAMPING AND NAUSEA. ON EXAMINATION, HEART IS REGULAR IN RATE AND RHYTHM. BILATERAL LUNGS ARE NOTED WITH DIMINISHED LUNG SOUNDS THROUGHOUT. ABDOMEN IS ROUND, SOFT, AND NOTED WITH MILD, DIFFUSE ABDOMINAL PAIN. NORMAL BOWEL SOUNDS ARE NOTED IN ALL QUADRANTS. HER VITALS TODAY ARE 98.2-87-20-94%RA-129/71. ABNORMAL LAB VALUES INCLUDE THE FOLLOWING: RBC 3.47, HGB 11.4, HCT 32.9, CREATININE 1.11, GLUCOSE 103, ALK PHOS 149, ALBUMIN 2.9. SHE IS CURRENTLY RECEIVING GENTAMYCIN IV. WE WILL CONTINUE WITH CURRENT PLAN OF CARE TODAY. OTHERWISE, WE WILL FOLLOW UP WITH AM LABS AND CONTINUE TO MONITOR PATIENT. - Past Medical Family Social History Past Med/Fam/Surg Hx: No changes since H&P Allergies: Allergies levofloxacin [From Levaquin] Allergy (Verified 04/20/18 17:17) adhesive tape Adverse Reaction (Verified 04/08/18 17:19) ciprofloxacin [From Cipro] Adverse Reaction (Verified 04/28/17 21:44) phenazopyridine [From Pyridium] Adverse Reaction (Verified 04/28/17 21:44) Sulfa (Sulfonamide Antibiotics) [SULFA] Adverse Reaction (Verified 04/28/17 21: 44) - Review of Systems ROS: No change since H&P - Vital Signs and I&O's Vital Signs: Temperature 97.8 F Pulse Rate [Left] 88 Pulse Rate [Right Radial] 88 Respiratory Rate 18 Blood Pressure [Right Arm] 135/83 Blood Pressure [Left Arm] 122/74 Blood Pressure 140/60 O2 Sat by Pulse Oximetry 96 Intake and Output: Intake & Output 04/19/18 04/20/18 04/21/18 04/22/18 11:59 11:59 11:59 11:59 Intake Total 1740 / 1740 2409 / 2409 Balance 1740 / 1740 2409 / 2409 - Physical Exam Oriented: Normal Eyes: Normal Ear: Normal Nose: Normal Throat: Normal Respiratory: Generalized, Diminished Cardiovascular: Normal. negative: S3, S4, Murmur : Normal Auscultation: Bowel Sounds: Normal Palpation: Normal Tenderness: Diffuse, Mild. negative: Rebound, Guarding, Rigidity Skin: Normal Musculoskeletal: Normal Psychiatric: Normal Mood Description: Calm Affect: Normal Speech Pattern: Clear, Appropriate - Laboratory and Diagnostics Result Diagrams: 04/22/18 04:53 04/22/18 04:53 Labs: 04/20/18 18:28 Urine,Clean Catch Urine Culture - Final Laboratory WBC 3.4 X10^3/uL (3.6-10.0) L 04/22/18 04:53 RBC 3.43 X10^6/uL (3.5-5.4) L 04/22/18 04:53 Hgb 11.3 g/dL (12.0-16.0) L 04/22/18 04:53 Hct 32.2 % (36.0-47.0) L 04/22/18 04:53 MCV 93.9 fL (80.0-100.0) 04/22/18 04:53 MCH 32.9 pg (27.0-34.0) 04/22/18 04:53 MCHC 35.0 g/dL (33.0-35.0) 04/22/18 04:53 RDW 15.9 % (11.6-16.5) 04/22/18 04:53 Plt Count 158 X10^3/uL (150.0-450.0) 04/22/18 04:53 MPV 9.4 fL (7.4-11.0) 04/22/18 04:53 Neut % (Auto) 71.9 % (42.0-75.0) 04/22/18 04:53 Lymph % (Auto) 16.3 % (21.0-51.0) L 04/22/18 04:53 [place] % (Auto) 9.0 % (0.0-13.0) 04/22/18 04:53 Eos % (Auto) 2.1 % (0.9-2.9) 04/22/18 04:53 Baso % (Auto) 0.7 % (0.2-1.0) 04/22/18 04:53 Neut # (Auto) 2.5 x10^3/uL (2.2-4.8) 04/22/18 04:53 Lymph # (Auto) 0.6 X10^3/uL (1.3-2.9) L 04/22/18 04:53 [place] # (Auto) 0.3 x10^3/uL (0.3-0.8) 04/22/18 04:53 Eos # (Auto) 0.1 x10^3/uL (0.0-0.2) 04/22/18 04:53 Baso # (Auto) 0.0 X10^3/uL (0.0-0.1) 04/22/18 04:53 Absolute Nucleated RBC 0.2 /100WBC 04/22/18 04:53 Sodium 141 mmol/L (136-145) 04/22/18 04:53 Corrected Sodium TNP 04/22/18 04:53 Potassium 4.1 mmol/L (3.5-5.1) 04/22/18 04:53 Chloride 106 mmol/L (98-107) 04/22/18 04:53 Carbon Dioxide 31.6 mmol/L (21-32) 04/22/18 04:53 BUN 14 mg/dL (7-18) 04/22/18 04:53 Creatinine 1.08 mg/dL (0.55-1.02) H 04/22/18 04:53 Est GFR (MDRD) Af Amer > 60 (>60) 04/22/18 04:53 Est GFR (MDRD) Non-Af 58 (>60) L 04/22/18 04:53 Glucose 100 mg/dL (65-99) H 04/22/18 04:53 Calcium 8.8 mg/dL (8.5-10.1) 04/22/18 04:53 Corrected Calcium 9.8 mg/dL (8.5-10.1) 04/22/18 04:53 Total Bilirubin 0.20 mg/dL (0.2-1.0) 04/22/18 04:53 AST 48 Units/L (15-37) H 04/22/18 04:53 ALT 64 Units/L (12-78) 04/22/18 04:53 Alkaline Phosphatase 167 Units/L (46-116) H 04/22/18 04:53 Total Protein 6.4 g/dL (6.4-8.2) 04/22/18 04:53 Albumin 2.8 g/dL (3.4-5.0) L 04/22/18 04:53 Globulin 3.6 g/dL (2.5-4.5) 04/22/18 04:53 Albumin/Globulin Ratio 0.8 Ratio (1.1-2.1) L 04/22/18 04:53 Specimen Type Clean catch urine 04/20/18 18:28 Urine Color Yellow (YELLOW) 04/20/18 18:28 Urine Appearance Clear (CLEAR) 04/20/18 18:28 Urine pH 6.5 (5.0 - 8.0) 04/20/18 18:28 Ur Specific [place] 1.020 (1.000-1.030) 04/20/18 18:28 Urine Protein 1+ (NEGATIVE) 04/20/18 18:28 Urine Glucose (UA) Negative (NEGATIVE) 04/20/18 18:28 Urine Ketones Negative (NEGATIVE) 04/20/18 18:28 Urine Occult Blood Negative (NEGATIVE) 04/20/18 18:28 Urine Nitrite Negative (NEGATIVE) 04/20/18 18:28 Urine Bilirubin Negative (NEGATIVE) 04/20/18 18:28 Urine Urobilinogen Normal (NORMAL) 04/20/18 18:28 Ur Leukocyte Esterase 1+ (NEGATIVE) 04/20/18 18:28 Urine RBC 0-2 /HPF (NONE SEEN) 04/20/18 18:28 Urine WBC 0-2 /HPF (NONE SEEN) 04/20/18 18:28 Ur Squamous Epith Cells Rare /HPF (NEGATIVE) 04/20/18 18:28 Urine Bacteria Negative /HPF (NEGATIVE) 04/20/18 18:28 Ur Culture Indicated? No/not indicated 04/20/18 18:28 Gentamicin Trough 3.1 ug/mL (0-1.9) H 04/21/18 20:25 - Plan (1) Pseudomonas aeruginosa infection Status: Acute Plan: GENTAMYCIN IV, CONTINUE TO MONITOR
[2018-04-22] MEDS: NS 1000 ML 1,000 ML IV SCH ×2 (10:56→21:47)
[2018-04-22] MEDS ORDERED: GENTAMICIN INJ 160 MG in NS 100 ML IV 100 ML IV NR (11:00)
[2018-04-22] MEDS ORDERED: DILAUDID PO ONE (15:27)
[2018-04-22] MEDS: DILAUDID PO PRN (15:29)
[2018-04-22] MEDS: MIRAPEX TAB 0.25 MG PO SCH (21:44)
[2018-04-22] MEDS: SINGULAIR TAB 10 MG PO SCH (21:44)
[2018-04-22] MEDS: PROCARDIA XL PO SCH (21:44)
[2018-04-22] MEDS: TOPROL XL PO SCH (21:45)
[2018-04-22] MEDS ORDERED: PHARMACY COMMENT IV NR (22:00)
[2018-04-23] MEDS: PHENERGAN TAB 25 MG PO SCH ×3 (04:21→14:35)
[2018-04-23 05:22] LABS: BASOPHILS % (AUTO) 0.8 % (0.2-1.0); EOSINOPHILS # (AUTO) 0.1 x10^3/uL (0.0-0.2); EOSINOPHILS % (AUTO) 2.6 % (0.9-2.9); HEMATOCRIT 32.1 % (36.0-47.0); HEMOGLOBIN 11.1 g/dL (12.0-16.0); LYMPHOCYTES # (AUTO) 0.7 X10^3/uL (1.3-2.9); LYMPHOCYTES % (AUTO) 18.3 % (21.0-51.0); MEAN CORPUSCULAR HEMOGLOBIN 32.4 pg (27.0-34.0); MEAN CORPUSCULAR HGB CONC 34.5 g/dL (33.0-35.0); MEAN CORPUSCULAR VOLUME 93.6 fL (80.0-100.0); MEAN PLATELET VOLUME 9.2 fL (7.4-11.0); MONOCYTES # (AUTO) 0.4 x10^3/uL (0.3-0.8); MONOCYTES % (AUTO) 8.8 % (0.0-13.0); NEUTROPHILS # (AUTO) 2.8 x10^3/uL (2.2-4.8); NEUTROPHILS % (AUTO) 69.5 % (42.0-75.0); PLATELET COUNT 179 X10^3/uL (150.0-450.0); RED BLOOD COUNT 3.43 X10^6/uL (3.5-5.4); RED CELL DISTRIBUTION WIDTH 16.2 % (11.6-16.5)
[2018-04-23 05:36] LABS: ALANINE AMINOTRANSFERASE 53 Units/L (12-78); ALBUMIN 2.8 g/dL (3.4-5.0); ALKALINE PHOSPHATASE 147 Units/L (46-116); ASPARTATE AMINO TRANSFERASE 37 Units/L (15-37); BLOOD UREA NITROGEN 12 mg/dL (7-18); CALCIUM 8.8 mg/dL (8.5-10.1); CHLORIDE 105 mmol/L (98-107); COR CA(FOR HYPOALB) 9.8 mg/dL (8.5-10.1); CREATININE 0.95 mg/dL (0.55-1.02); SODIUM 140 mmol/L (136-145); TOTAL PROTEIN 6.4 g/dL (6.4-8.2); eGFR NON BLACK RACES > 60 (>60)
[2018-04-23] MEDS: NEURONTIN CAP 400 MG PO SCH ×2 (06:14→13:45)
[2018-04-23] MEDS: BENTYL CAP 10 MG PO SCH ×2 (06:14→13:46)
[2018-04-23] MEDS: IMURAN PO SCH ×2 (06:14→14:34)
[2018-04-23] MEDS: REGLAN TAB 10 MG PO SCH ×3 (06:15→17:07)
[2018-04-23] MEDS: PREDNISONE TAB 5 MG PO SCH (06:15)
--- NOTE | 2018-04-23 08:13 | PCM.PROG ---
Progress Note - Progress Note for Day of Date of Exam: 04/22/18 - Subjective Subjective: WAS ADMITTED FOR ABDOMINAL PAIN AND GROWTH OF PSUEDOMONAS IN STOOL. TODAY, SHE IS ALERT AND ORIENTED, LYING IN BED ON MORNING ROUNDS. SHE CONTINUES WITH COMLAINTS OF ABDOMINAL CRAMPING AND NAUSEA. ON EXAMINATION, HEART IS REGULAR IN RATE AND RHYTHM. BILATERAL LUNGS ARE NOTED WITH DIMINISHED LUNG SOUNDS THROUGHOUT. ABDOMEN IS ROUND, SOFT, AND NOTED WITH MILD, DIFFUSE ABDOMINAL PAIN. NORMAL BOWEL SOUNDS ARE NOTED IN ALL QUADRANTS. HER VITALS TODAY ARE 97.8-88-18-96%-135/83. ABNORMAL LAB VALUES INCLUDE THE FOLLOWING: WBC 3.4, RBC 3.43, HGB 11.3, HCT 32.2, CREATININE 1.08, GLUCOSE 100, AST 48, ALK PHOS 167, ALBUMIN 2.8. SHE IS CURRENTLY RECEIVING GENTAMYCIN IV. DUE TO ALLERGIES TO CIPRO AND LEVAQUIN, PATIENT WILL BE SET UP WITH IV ANTIBIOTICS AT HOME. SHE WILL HAVE A PICC LINE INSERTED TOMORROW. OTHERWISE, WE WILL CONTINUE WITH CURRENT PLAN OF CARE TODAY. OTHERWISE, WE WILL FOLLOW UP WITH AM LABS AND CONTINUE TO MONITOR PATIENT. - Past Medical Family Social History Past Med/Fam/Surg Hx: No changes since H&P Allergies: Allergies levofloxacin [From Levaquin] Allergy (Verified 04/20/18 17:17) adhesive tape Adverse Reaction (Verified 04/08/18 17:19) ciprofloxacin [From Cipro] Adverse Reaction (Verified 04/28/17 21:44) phenazopyridine [From Pyridium] Adverse Reaction (Verified 04/28/17 21:44) Sulfa (Sulfonamide Antibiotics) [SULFA] Adverse Reaction (Verified 04/28/17 21: 44) - Review of Systems ROS: No change since H&P - Vital Signs and I&O's Vital Signs: Temperature 98.0 F Pulse Rate [Left] 81 Pulse Rate [Right Radial] 88 Respiratory Rate 20 Blood Pressure [Right Arm] 137/73 Blood Pressure [Left Arm] 122/74 Blood Pressure 140/60 O2 Sat by Pulse Oximetry 90 Intake and Output: Intake & Output 04/20/18 04/21/18 04/22/18 04/23/18 11:59 11:59 11:59 11:59 Intake Total 1740 / 1740 2409 / 2409 4365 / 4365 Balance 1740 / 1740 2409 / 2409 4365 / 4365 - Physical Exam Oriented: Normal Eyes: Normal Ear: Normal Nose: Normal Throat: Normal Respiratory: Generalized, Diminished Cardiovascular: Normal. negative: S3, S4, Murmur : Normal Auscultation: Bowel Sounds: Normal Palpation: Normal Tenderness: Diffuse, Mild. negative: Rebound, Guarding, Rigidity Skin: Normal Musculoskeletal: Normal Psychiatric: Normal Mood Description: Calm Affect: Normal Speech Pattern: Clear, Appropriate - Laboratory and Diagnostics Result Diagrams: 04/23/18 05:03 04/23/18 05:03 Labs: 04/20/18 18:28 Urine,Clean Catch Urine Culture - Final Laboratory WBC 4.0 X10^3/uL (3.6-10.0) 04/23/18 05:03 RBC 3.43 X10^6/uL (3.5-5.4) L 04/23/18 05:03 Hgb 11.1 g/dL (12.0-16.0) L 04/23/18 05:03 Hct 32.1 % (36.0-47.0) L 04/23/18 05:03 MCV 93.6 fL (80.0-100.0) 04/23/18 05:03 MCH 32.4 pg (27.0-34.0) 04/23/18 05:03 MCHC 34.5 g/dL (33.0-35.0) 04/23/18 05:03 RDW 16.2 % (11.6-16.5) 04/23/18 05:03 Plt Count 179 X10^3/uL (150.0-450.0) 04/23/18 05:03 MPV 9.2 fL (7.4-11.0) 04/23/18 05:03 Neut % (Auto) 69.5 % (42.0-75.0) 04/23/18 05:03 Lymph % (Auto) 18.3 % (21.0-51.0) L 04/23/18 05:03 [place] % (Auto) 8.8 % (0.0-13.0) 04/23/18 05:03 Eos % (Auto) 2.6 % (0.9-2.9) 04/23/18 05:03 Baso % (Auto) 0.8 % (0.2-1.0) 04/23/18 05:03 Neut # (Auto) 2.8 x10^3/uL (2.2-4.8) 04/23/18 05:03 Lymph # (Auto) 0.7 X10^3/uL (1.3-2.9) L 04/23/18 05:03 [place] # (Auto) 0.4 x10^3/uL (0.3-0.8) 04/23/18 05:03 Eos # (Auto) 0.1 x10^3/uL (0.0-0.2) 04/23/18 05:03 Baso # (Auto) 0.0 X10^3/uL (0.0-0.1) 04/23/18 05:03 Absolute Nucleated RBC 0.4 /100WBC 04/23/18 05:03 Sodium 140 mmol/L (136-145) 04/23/18 05:03 Corrected Sodium TNP 04/23/18 05:03 Potassium 4.1 mmol/L (3.5-5.1) 04/23/18 05:03 Chloride 105 mmol/L (98-107) 04/23/18 05:03 Carbon Dioxide 32.0 mmol/L (21-32) 04/23/18 05:03 BUN 12 mg/dL (7-18) 04/23/18 05:03 Creatinine 0.95 mg/dL (0.55-1.02) 04/23/18 05:03 Est GFR (MDRD) Af Amer > 60 (>60) 04/23/18 05:03 Est GFR (MDRD) Non-Af > 60 (>60) 04/23/18 05:03 Glucose 100 mg/dL (65-99) H 04/23/18 05:03 Calcium 8.8 mg/dL (8.5-10.1) 04/23/18 05:03 Corrected Calcium 9.8 mg/dL (8.5-10.1) 04/23/18 05:03 Total Bilirubin 0.30 mg/dL (0.2-1.0) 04/23/18 05:03 AST 37 Units/L (15-37) 04/23/18 05:03 ALT 53 Units/L (12-78) 04/23/18 05:03 Alkaline Phosphatase 147 Units/L (46-116) H 04/23/18 05:03 Total Protein 6.4 g/dL (6.4-8.2) 04/23/18 05:03 Albumin 2.8 g/dL (3.4-5.0) L 04/23/18 05:03 Globulin 3.6 g/dL (2.5-4.5) 04/23/18 05:03 Albumin/Globulin Ratio 0.8 Ratio (1.1-2.1) L 04/23/18 05:03 Specimen Type Clean catch urine 04/20/18 18:28 Urine Color Yellow (YELLOW) 04/20/18 18:28 Urine Appearance Clear (CLEAR) 04/20/18 18:28 Urine pH 6.5 (5.0 - 8.0) 04/20/18 18:28 Ur Specific [place] 1.020 (1.000-1.030) 04/20/18 18:28 Urine Protein 1+ (NEGATIVE) 04/20/18 18:28 Urine Glucose (UA) Negative (NEGATIVE) 04/20/18 18:28 Urine Ketones Negative (NEGATIVE) 04/20/18 18:28 Urine Occult Blood Negative (NEGATIVE) 04/20/18 18:28 Urine Nitrite Negative (NEGATIVE) 04/20/18 18:28 Urine Bilirubin Negative (NEGATIVE) 04/20/18 18:28 Urine Urobilinogen Normal (NORMAL) 04/20/18 18:28 Ur Leukocyte Esterase 1+ (NEGATIVE) 04/20/18 18:28 Urine RBC 0-2 /HPF (NONE SEEN) 04/20/18 18:28 Urine WBC 0-2 /HPF (NONE SEEN) 04/20/18 18:28 Ur Squamous Epith Cells Rare /HPF (NEGATIVE) 04/20/18 18:28 Urine Bacteria Negative /HPF (NEGATIVE) 04/20/18 18:28 Ur Culture Indicated? No/not indicated 04/20/18 18:28 Gentamicin Trough 3.1 ug/mL (0-1.9) H 04/21/18 20:25 Random Gentamicin 0.7 ug/mL 04/23/18 05:03 - Plan (1) Pseudomonas aeruginosa infection Status: Acute Plan: GENTAMYCIN IV, CONTINUE TO MONITOR
[2018-04-23] MEDS: CELEXA PO SCH (09:07)
[2018-04-23] MEDS: MIRAPEX TAB 1 MG PO SCH (09:08)
[2018-04-23] MEDS: MACROBID CAP 100 MG EXT REL PO SCH (09:08)
[2018-04-23] MEDS: NexIUM PO SCH (09:08)
[2018-04-23] MEDS: PATIENT'S HOME MEDICATION PO SCH (09:09)
[2018-04-23] MEDS ORDERED: GENTAMICIN INJ 160 MG in NS 100 ML IV 100 ML IV ONE (10:00)
[2018-04-23 10:02] LABS: STOOL FOR WBC NEGATIVE (NEGATIVE)
[2018-04-23 10:28] LABS: CRYPTOSPORIDIUM PARVUM ANTIGEN NEGATIVE (NEGATIVE); GIARDIA LAMBLIA ANTIGEN NEGATIVE (NEGATIVE)
[2018-04-23] MEDS ORDERED: XYLOCAINE 2 % (PLAIN) ONE (10:34)
--- NOTE | 2018-04-23 11:10 | RAD ---
Exam: Portable chest History: 48-year-old female, status post PICC line placement Comparison: Previous chest radiograph from 06/20/2017. Findings: PICC line has been placed via the right upper extremity. The catheter extends into the right subclavi an vein with the tip directed toward the proximal aspect of the right internal jugular vein.. Degree of inspiration is limited. Cardiomediastinal structures are accentuated by the shallow inspiration. N o infiltrate or significant effusion is seen on this exam. Impression: Right-sided PICC line is identified with the tip located near the proximal aspect of the right product managent intern al jugular vein Reported By:
--- NOTE | 2018-04-23 14:30 | RAD ---
Exam: Portable chest History: 48-year-old female, status post PICC line readjustment Comparison: Previous chest radiograph performed earlier on the same day. Findings: Since the previous exam, the right-sided PICC line has been readjusted such that the tip is now locat ed in the proximal right subclavian vein. Remainder the exam is unremarkable with no acute abnormality seen Impression: The right-sided PICC line has been readjusted such that the tip is now located in the pro ximal right subclavian vein. Reported By:
[2018-04-23 16:57] VITALS: BP 158/95
[2018-04-23] MEDS ORDERED: PHARMACY COMMENT IV NR (22:00)
--- NOTE | 2018-04-24 08:12 | DR.UPDATE ---
H&P Update History and Physical Update: History and Physical reviewed and patient examined. Changes noted: NO Yes with the following:agree with H&P from Dr Iraheta. will place picc Procedures (ALL) - Central Line Placement PCM.CLCO: written consent Time out performed: Yes Patient placed pm monitor/pulse ox: Yes prep: mask, gown, gloves, other Centrial line prep: chlorhexidine scrub Local anesthsia used: lidocane 1% Ultrasound used for placement: Yes (right basillic id'd) Central line lumen ininserted: double Post procedure: sutured in place, good blood return, all ports aspirated, flushed,capped, sterile dressing applied Post procedure xray: other (tip in subclavian. consulted with dr iraheta. agrees that picc good to use for her 7 day abx therapy) Patient tolerated procedure: Yes Complications: none
--- NOTE | 2018-05-27 20:20 | DR.UPDATE ---
H&P Update History and Physical Update: WAS SEEN IN THE OFFICE TODAY. A H&P WAS COMPLETED PRIOR TO ADMISSION. PATIENT HAS BEEN SEEN AND EXAMINED WITH NO CHANGES NOTED TO H&P. Changes noted: NO Yes with the following:
--- NOTE | 2018-06-07 17:06 | DR.CARTERD ---
- Discharge Summary for: Discharge Summary for Date of:: 04/23/18 - Admission Date Date of Admission: 04/20/18 - Admission Diagnoses Admission Diagnosis: (1) Pseudomonas aeruginosa infection (2) Abdonal pain (3) Nausea - Discharge Date Discharge Date: 04/23/18 - Discharge Diagnoses Discharge Diagnosis: (1) Pseudomonas aeruginosa infection (2) Abdonal pain (3) Nausea - Hospital Course Hospital Course: DAY ONE, MS. WATERMAN WAS A DIRECT ADMIT FROM OUR OFFICE WITH POSITIVE STOOL CULTURES REVEALING PSEUDOMONAS AERUGINOSA. SHE REPORTED SEVERE ABDOMINAL PAIN. UPON EXAMINATION, ABDOMEN WAS NOTED WITH SEVERE, DIFFUSE TENDERNESS. PATIENT WAS STARTED ON AGGRESSIVE IV ANTIBIOTICS TO TREAT INFECTION. VITAL SIGNS WERE: 99, 80, 18, 95% RA, 150/89. WE CONTINUED TO MONITOR. DAY TWO, MS. WATERMAN WAS ADMITTED FOR ABDOMINAL PAIN AND GROWTH OF PSUEDOMONAS IN STOOL. SHE WAS ALERT AND ORIENTED, LYING IN BED ON MORNING ROUNDS. SHE CONTINUED WITH COMPLAINTS OF ABDOMINAL CRAMPING AND NAUSEA. ON EXAMINATION, HEART WAS REGULAR IN RATE AND RHYTHM. BILATERAL LUNGS WERE NOTED WITH DIMINISHED LUNG SOUNDS THROUGHOUT. ABDOMEN WAS ROUND, SOFT, AND NOTED WITH MILD , DIFFUSE ABDOMINAL PAIN. NORMAL BOWEL SOUNDS WERE NOTED IN ALL QUADRANTS. HER VITALS WERE 98.2-87-20-94%RA-129/71. ABNORMAL LAB VALUES INCLUDED THE FOLLOWING : RBC 3.47, HGB 11.4, HCT 32.9, CREATININE 1.11, GLUCOSE 103, ALK PHOS 149, ALBUMIN 2.9. SHE CONTINUED RECEIVING GENTAMYCIN IV. WE CONTINUED TO MONITOR PATIENT. DAY THREE, SHE CONTINUED WITH COMPLAINTS OF ABDOMINAL CRAMPING AND NAUSEA. ON EXAMINATION, HEART WAS REGULAR IN RATE AND RHYTHM. BILATERAL LUNGS WERE NOTED WITH DIMINISHED LUNG SOUNDS THROUGHOUT. ABDOMEN WAS ROUND, SOFT, AND NOTED WITH MILD, DIFFUSE ABDOMINAL PAIN. NORMAL BOWEL SOUNDS WERE NOTED IN ALL QUADRANTS. HER VITALS WERE 97.8-88-18-96%-135/83. ABNORMAL LAB VALUES INCLUDED THE FOLLOWING: WBC 3.4, RBC 3.43, HGB 11.3, HCT 32.2, CREATININE 1.08, GLUCOSE 100, AST 48, ALK PHOS 167, ALBUMIN 2.8. SHE CONTINUED RECEIVING GENTAMYCIN IV. DUE TO ALLERGIES TO CIPRO AND LEVAQUIN, PATIENT WAS SET UP WITH IV ANTIBIOTICS AT HOME. A PICC LINE WAS PLANNED FOR THE FOLLOWING DAY. WE CONTINUED TO MONITOR PATIENT. DAY FOUR, PATIENT REPORTED SHE WAS FEELING BETTER. SHE DENIED ABDOMINAL PAIN OR DIARRHEA. APPETITE WAS IMPROVING WITH LESS NAUSEA REPORTED. VITAL SIGNS STABLE. LABS WNL. WE PLANNED FOR DISCHARGE. INSTRUCTIONS FOR MEDICATIONS AND FOLLOW UP WERE DISCUSSED WITH PATIENT AND FAMILY, BOTH VOICED UNDERSTANDING. PATIENT DISCHARGED HOME IN STABLE CONDITION WITH FAMILY. - Discharge Medications Discharge Medications: Home Medication List nitrofurantoin monohyd/m-cryst 100 mg PO DAILY 04/20/18 [History] pramipexole 0.25 mg PO QHS 04/20/18 [History] prednisone 5 mg PO DAILYWB 04/20/18 [History] ascorbic acid (vitamin C) [Vitamin C] 500 mg PO DAILY #30 cap 04/22/18 [Rx] gentamicin in NaCl (iso-osm) 160 mg IV DAILY #7 ml 04/23/18 [Rx] Prescriptions: ascorbic acid (vitamin C) [Vitamin C] Александр Guevara gentamicin in NaCl (iso-osm) Александр Guevara Home medications hydromorphone [Dilaudid] 4 mg PO Q4H PRN 07/06/15 nortriptyline 100 mg PO HS 07/06/15 tacrolimus [Astagraf XL] 4 cap PO DAILY 07/06/15 esomeprazole magnesium [Nexium] 40 mg PO BID 10/19/15 azathioprine [Imuran] 50 mg PO TID 04/28/17 citalopram 40 mg PO DAILY 04/28/17 metoclopramide HCl 1 tab PO ACHS 04/28/17 pramipexole 1 mg PO BID 04/28/17 promethazine 25 mg PO Q6H 04/28/17 dicyclomine 20 mg PO TID 06/17/17 gabapentin 800 mg PO TID 06/17/17 metoprolol succinate 25 mg PO HS 06/17/17 montelukast 10 mg PO HS #30 tab 06/21/17 nifedipine 30 mg PO HS 02/04/18 cyclobenzaprine 10 mg PO TID PRN #14 tab 04/25/18 - Discharge Disposition Discharge Disposition: PATIENT IS TO FOLLOW UP IN OUR OFFICE IN ONE WEEK.
== END 2018-04-23 18:25 | disposition home health service (06) ==
LOC: MED/SURG
PROVIDERS: ADMIT Internal Medicine; ATTEND Internal Medicine
DX: R94.4 Abnormal results of kidney function studies; R06.02 Shortness of breath; B96.5 Pseudomonas (aeruginosa) (mallei) (pseudomallei) as the cause of diseases classified elsewhere; A04.8 Other specified bacterial intestinal infections; Z94.0 Kidney transplant status
CPT/HCPCS: 36415; 36569; 71010; 71045; 80053; 80170; 81001; 82270; 82565; 83630; 85025; 87045; 87086; 87328; 87329; 87427; 87449; 87493; 87899; 94760; A4216; A4222; Q0169; G0378; J1580; J7030; J7050; J7500; J7512

== ENCOUNTER 2021-03-19 17:16 | Inpatient (IN) ==
[2021-03-19] MEDS ORDERED: TORADOL 15 MG VIAL IVP PRN (20:32)
[2021-03-19] MEDS: ZOSYN VIAL 2.25 GRAMS 2.25 G in NS 100 ML IV + SPIKE MINIBAG* 100 ML IV SCH ×2 (20:45→23:11)
[2021-03-19] MEDS: NS 1000 ML 1,000 ML IV SCH (20:45)
[2021-03-19] MEDS: TORADOL 15 MG VIAL IVP PRN (21:25)
[2021-03-19] MEDS: DILAUDID INJ IVP PRN (23:00)
[2021-03-20 04:57] LABS: EOSINOPHILS # (AUTO) 0.1 x10^3/uL (0.0-0.2); HEMATOCRIT 32.5 % (36.0-47.0); LYMPHOCYTES # (AUTO) 0.4 X10^3/uL (1.3-2.9); LYMPHOCYTES % (AUTO) 16.9 % (21.0-51.0); MEAN CORPUSCULAR HEMOGLOBIN 32.2 pg (27.0-34.0); MEAN CORPUSCULAR HGB CONC 33.9 g/dL (33.0-35.0); MEAN CORPUSCULAR VOLUME 94.9 fL (80.0-100.0); MEAN PLATELET VOLUME 9.3 fL (7.4-11.0); MONOCYTES # (AUTO) 0.2 x10^3/uL (0.3-0.8); MONOCYTES % (AUTO) 9.3 % (0.0-13.0); NEUTROPHILS # (AUTO) 1.6 x10^3/uL (2.2-4.8); NEUTROPHILS % (AUTO) 68.8 % (42.0-75.0); PLATELET COUNT 110 X10^3/uL (150.0-450.0); RED BLOOD COUNT 3.43 X10^6/uL (3.5-5.4); RED CELL DISTRIBUTION WIDTH 15.8 % (11.6-16.5); WHITE BLOOD COUNT 2.4 X10^3/uL (3.6-10.0)
[2021-03-20 05:14] LABS: ALANINE AMINOTRANSFERASE 211 Units/L (12-78); ALBUMIN 2.8 g/dL (3.4-5.0); ASPARTATE AMINO TRANSFERASE 176 Units/L (15-37); BLOOD UREA NITROGEN 24 mg/dL (7-18); CALCIUM 9.2 mg/dL (8.5-10.1); CHLORIDE 107 mmol/L (98-107); COR CA(FOR HYPOALB) 10.2 mg/dL (8.5-10.1); CREATININE 1.27 mg/dL (0.55-1.02); SODIUM 144 mmol/L (136-145); eGFR NON BLACK RACES 47 (>60)
[2021-03-20 05:31] LABS: ALKALINE PHOSPHATASE 1108 Units/L (46-116)
[2021-03-20 05:32] LABS: PLATELET MORPHOLOGY COMMENT NORMAL (NORMAL)
[2021-03-20] MEDS: ZOSYN VIAL 2.25 GRAMS 2.25 G in NS 100 ML IV + SPIKE MINIBAG* 100 ML IV SCH ×3 (05:56→21:41)
[2021-03-20] MEDS: DILAUDID INJ IVP PRN (07:40)
[2021-03-20] MEDS ORDERED: TACROLIMUS PO SCH ×2 (09:00→10:00)
[2021-03-20] MEDS ORDERED: PREDNISONE TAB 5 MG PO SCH (09:00)
[2021-03-20] MEDS ORDERED: TOPROL XL PO SCH (09:00)
[2021-03-20] MEDS ORDERED: ZOLOFT ONE (09:02)
[2021-03-20] MEDS: NORTRIPTYLINE 75 MG PO SCH ×3 (09:14→20:36)
[2021-03-20] MEDS: BENTYL CAP 10 MG PO SCH ×3 (09:15→21:40)
[2021-03-20] MEDS: MICRO K EXTEN CAP 10 MEQ PO SCH (09:15)
[2021-03-20] MEDS: PROTONIX TAB 40 MG PO SCH ×2 (09:16→20:37)
[2021-03-20] MEDS: ZOLOFT PO SCH (09:16)
[2021-03-20] MEDS: TOPROL XL PO SCH ×2 (09:16→20:38)
[2021-03-20] MEDS: PROCARDIA XL PO SCH (09:16)
[2021-03-20] MEDS: VITAMIN D3 125 mcg (5,000 UNITS) PO SCH (09:16)
[2021-03-20] MEDS: NS 1000 ML 1,000 ML IV SCH ×2 (09:21→20:36)
[2021-03-20] MEDS ORDERED: PATIENT'S HOME MEDICATION PO SCH (10:00)
[2021-03-20] MEDS: PATIENT'S HOME MEDICATION PO SCH (10:44)
[2021-03-20] MEDS: SOLU-Medrol 40 MG VIAL IVP SCH ×3 (10:47→21:41)
[2021-03-20] MEDS: REGLAN TAB 10 MG PO SCH ×3 (10:48→20:37)
--- NOTE | 2021-03-20 11:01 | DR.H&P ---
H&P - History & Physical for Day of: H&P Date: 03/19/21 - Chief Complaint Chief Complaint: ABDOMINAL PAIN, NAUSEA, DIARRHEA - History of Present Illness History of Present Illness: IS A 51 YEAR OLD PATIENT OF OURS WHO HAS BEEN SEEN AND TREATED IN THE OFFICE X 1 WE FOR CDIFF. SHE RETURNED TO THE OFFICE ON 03/19 WITH REPORTS OF PERSISTENT LOWER ABDOMINAL PAIN, NAUSEA, AND DIARRHEA. ABDOMINAL PAIN IS DESCRIBED SHARP/CRAMPING AND WAS RATED A 7/10. SHE HAS BEEN ON DOXYCYCLINE 100MG PO BID AND DICYCLOMINE 20MG PO TID FOR A UTI SINCE 03/12/21 AND FLAGYL FOR TREATMENT OF C.DIFF. SHE HAS ALSO BEEN TAKING PO PHENERGAN AT HOME WITHOUT IMPROVEMENT IN SYMPTOMS. PATIENT HAS A PMH OF HEPATITIS, HTN, RENAL FAILURE, AND IS S/P RENAL TRANSPLANT. AN OUTPATIENT ABDOMEN/PELVIS WITHOUT CONTRAST WAS OBTAINED AND REVEALED: 1. Mildly thick-wal led ascending colon, cecum, with adjacent stranding. An acute colitis is possible. Correlate clinically for signs of inflammatory infectious enterocolitis. Correlate clinically also to exclude any possibility of ischemia 2. Grossly normal appearing transplant kidney within limits of a noncontrast study with atrophic [place] kidneys, ventral fat containing hernias. OUTPATIENT LABS REVEALED: BUN 24, CREATININE 1.58, GLUCOSE 133, AST 264, ALT 302, ALK PHOS 1379, ALBUMIN 3.3, GLOBULIN 4.8, AMYLASE 13. SHE WAS ADMITTED TO THE HOSPITAL FOR FURTHER EVALUATION AND TREATMENT OF ABDOMINAL PAIN, COLITIS, ABNORMAL LFTs. SHE WAS STARTED ON NORMAL SALINE AT 75 ML/HR, ZOSYN 2.25G IV TID, SOLU-MEDROL 40MG IV Q8H, TORADOL 15MG IV Q8H PRN, AND HER HOME MEDICATIONS WERE RESUMED. WE WILL CONSULT WITH , GENERAL SURGEON. OTHERWISE, WE PLAN TO FOLLOW UP WITH AM LABS AND CONTINUE TO MONITOR. TIME SPENT ON CLINICAL ASSESSMENT, REVIEWING LABS AND IMAGING, DECISION MAKING, AND DOCUMENTATION GREATER THAN 75 MINUTES. - Past Medical History Past Medical History: Angina, Hypertension, Renal Disease, Anxiety Additional Medical History: AUTOIMMUNE HEPATITIS, IBS, DIALYSIS [id number], URETER REPAIR, ENDOMETRIOSIS, OSTEOARTHRITIS - Past Surgical History Surgical History: Appendectomy, Cholecystectomy, Hysterectomy, Organ Transplant, Other Additional Surgical History: URETER REPAIR, DIALYSIS SHURNT PLACEMENT AND REMOVAL, KIDNEY TRANSPLANT - Family History Family Medical History: Diabetes Mellitus, [place], Hypertension - Social History Does any household member use tobacco: No Alcohol Use: None Drug Use: None - Medications Home Medications: levofloxacin [From Levaquin] Allergy (Verified 09/29/20 15:06) adhesive tape Adverse Reaction (Verified 09/29/20 15:06) ciprofloxacin [From Cipro] Adverse Reaction (Verified 09/29/20 15:06) phenazopyridine [From Pyridium] Adverse Reaction (Verified 09/29/20 15:06) Sulfa (Sulfonamide Antibiotics) [SULFA] Adverse Reaction (Verified 09/29/20 15:06) CONTINUE taking the following medications cephalexin 250 mg PO QHS 03/19/21 [History] cholecalciferol (vitamin D3) [Vitamin D3] 125 mcg PO DAILY 03/19/21 [History] furosemide 40 mg PO BID 03/19/21 [History] hydromorphone [Dilaudid] 2 mg PO Q4H PRN 03/19/21 [History] loperamide 2 mg PO TID PRN 03/19/21 [History] metoprolol succinate 50 mg PO BID 03/19/21 [History] nifedipine 30 mg PO DAILY 03/19/21 [History] nifedipine 60 mg PO DAILY 03/19/21 [History] nortriptyline 75 mg PO QHS 03/19/21 [History] pantoprazole 40 mg PO BID 03/19/21 [History] phenazopyridine [Pyridium] 100 mg PO BID 03/19/21 [History] potassium chloride 10 meq PO DAILY 03/19/21 [History] sertraline [Zoloft] 100 mg PO DAILY 03/19/21 [History] tacrolimus [Envarsus XR] 3 mg PO QAM 03/19/21 [History] - Review of Systems Constitutional: Weakness Eyes: No Symptoms Reported ENT: No Symptoms Reported Respiratory: No Symptoms Reported Cardiovascular: No Symptoms Reported Gastrointestinal: See HPI, Nausea, Abdominal Pain, Diarrhea Genitourinary: No Symptoms Reported Musculoskeletal: No Symptoms Reported Skin: No Symptoms Reported Neurological: Weakness - Physical Exam Vital Signs: Temperature 98.2 F Pulse Rate [Right Brachial] 98 Respiratory Rate 20 Blood Pressure [Right Arm] 137/61 Blood Pressure [Left Arm] 169/109 O2 Sat by Pulse Oximetry 95 Oriented: Normal Eyes: Normal Ear: Normal Nose: Normal Throat: Normal Respiratory: Diminished Throughout Cardiovascular: Normal : Normal Auscultation: Bowel Sounds: Normal Palpation: Normal Tenderness: Normal Skin: Normal Musculoskeletal: Normal Psychiatric: Normal Mood Description: Calm Affect: Normal Speech Pattern: Clear - Assessment/Plan (1) Colitis Status: Acute Plan: ADMIT, NORMAL SALINE AT 75 ML/HR, ZOSYN 2.25G IV TID, SOLU-MEDROL 40MG IV Q8H, TORADOL 15MG IV Q8H PRN, AND HER HOME MEDICATIONS WERE RESUMED. CONSULT GENERAL SURGERY (2) Abnormal LFTs Status: Acute (3) Abdominal pain Qualifiers: Abdominal location: generalized Qualified Code(s): R10.84 - Generalized abdominal pain Status: Acute - Allergies Allergies/Adverse Reactions: Allergies Allergy/AdvReac Type Severity Reaction Status Date / Time levofloxacin [From Levaquin] Allergy Verified 09/29/20 15:06 adhesive tape AdvReac Verified 09/29/20 15:06 ciprofloxacin [From Cipro] AdvReac Verified 09/29/20 15:06 phenazopyridine AdvReac Verified 09/29/20 15:06 [From Pyridium] Sulfa (Sulfonamide AdvReac Verified 09/29/20 15:06 Antibiotics) [SULFA]
[2021-03-20] MEDS ORDERED: ZOFRAN INJ 4 MG VIAL IVP PRN (13:26)
[2021-03-20] MEDS: TORADOL 15 MG VIAL IVP PRN (13:40)
[2021-03-20] MEDS ORDERED: ZOSYN VIAL 2.25 GRAMS ONE (14:28)
[2021-03-20] MEDS ORDERED: NS 100 ML IV 100 ML ONE (14:29)
[2021-03-20] MEDS ORDERED: DILAUDID ONE ×2 (14:32→21:28)
[2021-03-20] MEDS: NEURONTIN TAB 600 MG PO SCH ×2 (14:37→21:40)
[2021-03-20] MEDS: DILAUDID PO PRN ×2 (14:38→21:39)
--- NOTE | 2021-03-20 16:29 | RAD ---
HISTORYABD PAIN, COLITIS HTN, GB, APPENDIX, HYSTERECTOMYSTUDYKUBCOMPARISONCT yesterdayFINDINGSEvaluation of the abdomen demonstrates a normal bowel gas pattern. No pathological soft tissue mass or calcification can be observed. The bony structures are grossly intact.IMPRESSIONNo evidence for acute abdominal pathology identified.Electronically signed by: MAYCOL RAMOS (Mar 20, 2021 16:26:29)
[2021-03-20] MEDS: FLAGYL IV PREMIX 500 MG BAG 500 MG/100 ML BAG IV SCH ×2 (17:28→21:40)
[2021-03-20] MEDS: SINGULAIR TAB 10 MG PO SCH (20:37)
[2021-03-20 21:47] VITALS: BMI 40.4
[2021-03-21 04:58] LABS: BASOPHILS % (AUTO) 0.2 % (0.2-1.0); HEMATOCRIT 33.5 % (36.0-47.0); HEMOGLOBIN 11.2 g/dL (12.0-16.0); LYMPHOCYTES # (AUTO) 0.1 X10^3/uL (1.3-2.9); LYMPHOCYTES % (AUTO) 4.7 % (21.0-51.0); MEAN CORPUSCULAR HEMOGLOBIN 31.9 pg (27.0-34.0); MEAN CORPUSCULAR HGB CONC 33.3 g/dL (33.0-35.0); MEAN PLATELET VOLUME 9.5 fL (7.4-11.0); MONOCYTES # (AUTO) 0.1 x10^3/uL (0.3-0.8); MONOCYTES % (AUTO) 2.7 % (0.0-13.0); NEUTROPHILS # (AUTO) 2.7 x10^3/uL (2.2-4.8); NEUTROPHILS % (AUTO) 92.4 % (42.0-75.0); PLATELET COUNT 118 X10^3/uL (150.0-450.0); RED BLOOD COUNT 3.49 X10^6/uL (3.5-5.4); RED CELL DISTRIBUTION WIDTH 15.8 % (11.6-16.5); WHITE BLOOD COUNT 2.9 X10^3/uL (3.6-10.0)
[2021-03-21 05:18] LABS: ALANINE AMINOTRANSFERASE 191 Units/L (12-78); ALBUMIN 2.7 g/dL (3.4-5.0); ASPARTATE AMINO TRANSFERASE 125 Units/L (15-37); BLOOD UREA NITROGEN 16 mg/dL (7-18); CALCIUM 8.7 mg/dL (8.5-10.1); CARBON DIOXIDE 28.3 mmol/L (21-32); CHLORIDE 108 mmol/L (98-107); COR CA(FOR HYPOALB) 9.7 mg/dL (8.5-10.1); COR NA(FOR HYPERGLY) 144 mmol/L (136-145); CREATININE 0.96 mg/dL (0.55-1.02); SODIUM 142 mmol/L (136-145); TOTAL PROTEIN 6.9 g/dL (6.4-8.2); eGFR NON BLACK RACES > 60 (>60)
[2021-03-21] MEDS: NEURONTIN TAB 600 MG PO SCH ×3 (05:19→21:12)
[2021-03-21] MEDS: FLAGYL IV PREMIX 500 MG BAG 500 MG/100 ML BAG IV SCH ×3 (05:19→21:12)
[2021-03-21] MEDS: BENTYL CAP 10 MG PO SCH ×3 (05:19→21:11)
[2021-03-21] MEDS: ZOSYN VIAL 2.25 GRAMS 2.25 G in NS 100 ML IV + SPIKE MINIBAG* 100 ML IV SCH ×3 (05:20→21:12)
[2021-03-21] MEDS: SOLU-Medrol 40 MG VIAL IVP SCH ×3 (05:20→21:12)
[2021-03-21 05:33] LABS: PLATELET MORPHOLOGY COMMENT NORMAL (NORMAL)
[2021-03-21 05:35] LABS: ALKALINE PHOSPHATASE 1057 Units/L (46-116)
[2021-03-21] MEDS: REGLAN TAB 10 MG PO SCH ×4 (05:40→21:11)
[2021-03-21] MEDS ORDERED: DILAUDID ONE ×3 (06:07→22:28)
[2021-03-21] MEDS: DILAUDID PO PRN ×3 (06:16→22:31)
[2021-03-21] MEDS ORDERED: ZOLOFT ONE (09:09)
[2021-03-21] MEDS: PATIENT'S HOME MEDICATION PO SCH (09:39)
[2021-03-21] MEDS: MICRO K EXTEN CAP 10 MEQ PO SCH (09:39)
[2021-03-21] MEDS: PROCARDIA XL PO SCH (09:40)
[2021-03-21] MEDS: PROTONIX TAB 40 MG PO SCH ×2 (09:40→21:11)
[2021-03-21] MEDS: ZOLOFT PO SCH (09:41)
[2021-03-21] MEDS: VITAMIN D3 125 mcg (5,000 UNITS) PO SCH (09:41)
[2021-03-21] MEDS: TOPROL XL PO SCH ×2 (09:41→21:11)
--- NOTE | 2021-03-21 10:30 | PCM.PROG ---
Progress Note - Progress Note for Day of Date of Exam: 03/21/21 - Subjective Subjective: WAS ADMITTED FOR TREATMENT OF ACUTE COLITIS, ABDOMINAL PAIN, AND ABNORMAL LFTs. PATIENT DOES HAVE A HISTORY OF AUTOIMMUNE HEPATITIS AND RENAL DISEASE. SHE IS A TRANSPLANT RECIPIENT. TODAY, SHE IS ALERT AND ORIENTED, LYING IN BED ON MORNING ROUNDS. SHE CONTINUES WITH COMPLAINTS OF DIFFUSE ABDOMINAL CRAMPING AND NAUSEA. ON EXAMINATION, HEART IS REGULAR IN RATE AND RHYTHM. BILATERAL LUNGS ARE NOTED WITH DIMINISHED LUNG SOUNDS THROUGHOUT. ABDOMEN IS ROUND, SOFT, AND NOTED WITH DIFFUSE TENDERNESS NOT PALPATION. INCREASED BOWEL SOUNDS NOTED. HER VITALS THIS MORNING ARE: 97.-100-12 -95%-141/74. LABS WERE OBTAINED. ABNORMAL LAB VALUES INCLUDE THE FOLLOWING: WBC 2.9, RBC 3.49, HGB 11.2, HCT 33.5, PLT COUNT 118, CHLORIDE 108, GLUCOSE 166, AST 125, ALT 191, ALK PHOS 1057, CRP 21.70, ALBUMIN 2.7. SHE IS CURRENTLY RECEIVING NORMAL SALINE AT 75 ML/HR, ZOSYN 2.25G IV TID, SOLU-MEDROL 40MG IV Q8H, TORADOL 15MG IV Q8H PRN, AND HER HOME MEDICATIONS WERE RESUMED. WE CONSULTED AND RECOMMENDED TO CONTINUE TREATMENT WITH IV FLUIDS AT THIS TIME. WE ARE IN AGREEMENT WITH PLANS. WE WILL CONTINUE WITH CURRENT PLAN OF CARE TODAY. WE WILL ADVANCE HER TO A CLEAR LIQUID DIET. OTHERWISE, WE WILL FOLLOW UP WITH AM LABS AND CONTINUE TO MONITOR. TIME SPENT ON CLINICAL ASSESSMENT, REVIEWING LABS AND IMAGING, DECISION MAKING, AND DOCUMENTATION GREATER THAN 45 MINUTES. - Past Medical Family Social History Past Med/Fam/Surg Hx: No changes since H&P Allergies: Allergies levofloxacin [From Levaquin] Allergy (Verified 09/29/20 15:06) adhesive tape Adverse Reaction (Verified 09/29/20 15:06) ciprofloxacin [From Cipro] Adverse Reaction (Verified 09/29/20 15:06) phenazopyridine [From Pyridium] Adverse Reaction (Verified 09/29/20 15:06) Sulfa (Sulfonamide Antibiotics) [SULFA] Adverse Reaction (Verified 09/29/20 15:06) - Review of Systems ROS: No change since H&P - Vital Signs and I&O's Vital Signs: Temperature 97.9 F Pulse Rate [Right Brachial] 102 Respiratory Rate 18 Blood Pressure [Right Arm] 141/74 Blood Pressure [Left Arm] 169/109 O2 Sat by Pulse Oximetry 95 Intake and Output: Intake & Output 03/18/21 03/19/21 03/20/21 03/21/21 11:59 11:59 11:59 11:59 Intake Total 441 / 441 2650 / 2650 Balance 441 / 441 2650 / 2650 - Physical Exam Oriented: Normal Eyes: Normal Ear: Normal Nose: Normal Throat: Normal Respiratory: Generalized, Diminished Cardiovascular: Normal : Normal Auscultation: Bowel Sounds: Increased Palpation: Normal Tenderness: Normal Skin: Normal Musculoskeletal: Normal Psychiatric: Normal Mood Description: Calm Affect: Normal Speech Pattern: Clear, Appropriate - Laboratory and Diagnostics Result Diagrams: 03/21/21 04:21 03/21/21 04:21 Labs: Laboratory WBC 2.9 X10^3/uL (3.6-10.0) L 03/21/21 04:21 RBC 3.49 X10^6/uL (3.5-5.4) L 03/21/21 04:21 Hgb 11.2 g/dL (12.0-16.0) L 03/21/21 04:21 Hct 33.5 % (36.0-47.0) L 03/21/21 04:21 MCV 96.0 fL (80.0-100.0) 03/21/21 04:21 MCH 31.9 pg (27.0-34.0) 03/21/21 04:21 MCHC 33.3 g/dL (33.0-35.0) 03/21/21 04:21 RDW 15.8 % (11.6-16.5) 03/21/21 04:21 Plt Count 118 X10^3/uL (150.0-450.0) L 03/21/21 04:21 Plt Count Comment Decreased (ADEQUATE) A 03/21/21 04:21 MPV 9.5 fL (7.4-11.0) 03/21/21 04:21 Neut % (Auto) 92.4 % (42.0-75.0) H 03/21/21 04:21 Lymph % (Auto) 4.7 % (21.0-51.0) L 03/21/21 04:21 [place] % (Auto) 2.7 % (0.0-13.0) 03/21/21 04:21 Eos % (Auto) 0.0 % (0.9-2.9) L 03/21/21 04:21 Baso % (Auto) 0.2 % (0.2-1.0) 03/21/21 04:21 Neut # (Auto) 2.7 x10^3/uL (2.2-4.8) 03/21/21 04:21 Lymph # (Auto) 0.1 X10^3/uL (1.3-2.9) L 03/21/21 04:21 [place] # (Auto) 0.1 x10^3/uL (0.3-0.8) L 03/21/21 04:21 Eos # (Auto) 0.0 x10^3/uL (0.0-0.2) 03/21/21 04:21 Baso # (Auto) 0.0 X10^3/uL (0.0-0.1) 03/21/21 04:21 Absolute Nucleated RBC 0.0 /100WBC 03/21/21 04:21 Total Counted 100 03/21/21 04:21 Neutrophils % (Manual) 90 % (39-76) H 03/21/21 04:21 Lymphocytes % (Manual) 6 % (13-43) L 03/21/21 04:21 Monocytes % (Manual) 4 % (4-9) 03/21/21 04:21 Eosinophils % (Manual) 2 % (0-6) 03/20/21 04:26 Plt Morphology Comment Normal (NORMAL) 03/21/21 04:21 RBC Morphology Normal (NORMAL) 03/21/21 04:21 ESR 70 MM/HOUR (0-20) H 03/20/21 04:26 Sodium 142 mmol/L (136-145) 03/21/21 04:21 Corrected Sodium 144 mmol/L (136-145) 03/21/21 04:21 Potassium 4.8 mmol/L (3.5-5.1) 03/21/21 04:21 Chloride 108 mmol/L (98-107) H 03/21/21 04:21 Carbon Dioxide 28.3 mmol/L (21-32) 03/21/21 04:21 BUN 16 mg/dL (7-18) 03/21/21 04:21 Creatinine 0.96 mg/dL (0.55-1.02) 03/21/21 04:21 Est GFR (MDRD) Af Amer > 60 (>60) 03/21/21 04:21 Est GFR (MDRD) Non-Af > 60 (>60) 03/21/21 04:21 Glucose 166 mg/dL (65-99) H 03/21/21 04:21 Calcium 8.7 mg/dL (8.5-10.1) 03/21/21 04:21 Corrected Calcium 9.7 mg/dL (8.5-10.1) 03/21/21 04:21 Total Bilirubin 0.50 mg/dL (0.2-1.0) 03/21/21 04:21 AST 125 Units/L (15-37) H 03/21/21 04:21 ALT 191 Units/L (12-78) H 03/21/21 04:21 Alkaline Phosphatase 1057 Units/L (46-116) H 03/21/21 04:21 C-Reactive Protein 21.70 mg/L (0-3.0) H 03/20/21 04:26 Total Protein 6.9 g/dL (6.4-8.2) 03/21/21 04:21 Albumin 2.7 g/dL (3.4-5.0) L 03/21/21 04:21 Globulin 4.2 g/dL (2.5-4.5) 03/21/21 04:21 Albumin/Globulin Ratio 0.6 Ratio (1.1-2.1) L 03/21/21 04:21 - Plan (1) Colitis Status: Acute Plan: CLEAR LIQUID DIET, NORMAL SALINE AT 75 ML/HR, ZOSYN 2.25G IV TID, SOLU- MEDROL 40MG IV Q8H, TORADOL 15MG IV Q8H PRN, AND HER HOME MEDICATIONS WERE RESUMED. (2) Abnormal LFTs Status: Acute (3) Abdominal pain Status: Acute Qualifiers: Abdominal location: generalized Qualified Code(s): R10.84 - Generalized abdominal pain
--- NOTE | 2021-03-21 14:50 | DR.PROGNOT ---
Hospital Progress Notes - Progress Note for Day of: Progress Note Date: 03/21/21 - Chief Complaint Chief Complaint: no more diarrhea today .. moderate lower abdominal cramps . C Dif is not available yet . WBC low 2.9 ..Al Ph 1057 .. Sed Rate 70. afebrile . - Past Medical Family Social History Past Med/Fam/Surg Hx: No changes since H&P Allergies: Allergies levofloxacin [From Levaquin] Allergy (Verified 09/29/20 15:06) adhesive tape Adverse Reaction (Verified 09/29/20 15:06) ciprofloxacin [From Cipro] Adverse Reaction (Verified 09/29/20 15:06) phenazopyridine [From Pyridium] Adverse Reaction (Verified 09/29/20 15:06) Sulfa (Sulfonamide Antibiotics) [SULFA] Adverse Reaction (Verified 09/29/20 15:06) - Review Of Systems ROS: No change since H&P - Vital Signs Vital Signs: Temperature 98.8 F Pulse Rate [Right Brachial] 106 Respiratory Rate 20 Blood Pressure [Right Arm] 114/58 Blood Pressure [Left Arm] 169/109 O2 Sat by Pulse Oximetry 94 - Physical Exam Oriented: Normal Eyes: Normal Ear: Normal Nose: Normal Throat: Normal Respiratory: Generalized, Diminished Cardiovascular: Normal : Normal GI:Auscultation: Normal GI:Palpation: Normal GI: Tenderness: Diffuse (soft abdomen with diffuse tenderness .. more on the lower abdomen . no rebound . BS+) Skin: Normal Musculoskeletal: Normal Psychiatric: Normal Mood Description: Calm Affect: Normal Speech Pattern: Clear, Appropriate - Laboratory and Diagnostics Result Diagrams: 03/21/21 04:21 03/21/21 04:21 Labs: Laboratory WBC 2.9 X10^3/uL (3.6-10.0) L 03/21/21 04:21 RBC 3.49 X10^6/uL (3.5-5.4) L 03/21/21 04:21 Hgb 11.2 g/dL (12.0-16.0) L 03/21/21 04:21 Hct 33.5 % (36.0-47.0) L 03/21/21 04:21 MCV 96.0 fL (80.0-100.0) 03/21/21 04:21 MCH 31.9 pg (27.0-34.0) 03/21/21 04:21 MCHC 33.3 g/dL (33.0-35.0) 03/21/21 04:21 RDW 15.8 % (11.6-16.5) 03/21/21 04:21 Plt Count 118 X10^3/uL (150.0-450.0) L 03/21/21 04:21 Plt Count Comment Decreased (ADEQUATE) A 03/21/21 04:21 MPV 9.5 fL (7.4-11.0) 03/21/21 04:21 Neut % (Auto) 92.4 % (42.0-75.0) H 03/21/21 04:21 Lymph % (Auto) 4.7 % (21.0-51.0) L 03/21/21 04:21 [place] % (Auto) 2.7 % (0.0-13.0) 03/21/21 04:21 Eos % (Auto) 0.0 % (0.9-2.9) L 03/21/21 04:21 Baso % (Auto) 0.2 % (0.2-1.0) 03/21/21 04:21 Neut # (Auto) 2.7 x10^3/uL (2.2-4.8) 03/21/21 04:21 Lymph # (Auto) 0.1 X10^3/uL (1.3-2.9) L 03/21/21 04:21 [place] # (Auto) 0.1 x10^3/uL (0.3-0.8) L 03/21/21 04:21 Eos # (Auto) 0.0 x10^3/uL (0.0-0.2) 03/21/21 04:21 Baso # (Auto) 0.0 X10^3/uL (0.0-0.1) 03/21/21 04:21 Absolute Nucleated RBC 0.0 /100WBC 03/21/21 04:21 Total Counted 100 03/21/21 04:21 Neutrophils % (Manual) 90 % (39-76) H 03/21/21 04:21 Lymphocytes % (Manual) 6 % (13-43) L 03/21/21 04:21 Monocytes % (Manual) 4 % (4-9) 03/21/21 04:21 Eosinophils % (Manual) 2 % (0-6) 03/20/21 04:26 Plt Morphology Comment Normal (NORMAL) 03/21/21 04:21 RBC Morphology Normal (NORMAL) 03/21/21 04:21 ESR 70 MM/HOUR (0-20) H 03/20/21 04:26 Sodium 142 mmol/L (136-145) 03/21/21 04:21 Corrected Sodium 144 mmol/L (136-145) 03/21/21 04:21 Potassium 4.8 mmol/L (3.5-5.1) 03/21/21 04:21 Chloride 108 mmol/L (98-107) H 03/21/21 04:21 Carbon Dioxide 28.3 mmol/L (21-32) 03/21/21 04:21 BUN 16 mg/dL (7-18) 03/21/21 04:21 Creatinine 0.96 mg/dL (0.55-1.02) 03/21/21 04:21 Est GFR (MDRD) Af Amer > 60 (>60) 03/21/21 04:21 Est GFR (MDRD) Non-Af > 60 (>60) 03/21/21 04:21 Glucose 166 mg/dL (65-99) H 03/21/21 04:21 Calcium 8.7 mg/dL (8.5-10.1) 03/21/21 04:21 Corrected Calcium 9.7 mg/dL (8.5-10.1) 03/21/21 04:21 Total Bilirubin 0.50 mg/dL (0.2-1.0) 03/21/21 04:21 AST 125 Units/L (15-37) H 03/21/21 04:21 ALT 191 Units/L (12-78) H 03/21/21 04:21 Alkaline Phosphatase 1057 Units/L (46-116) H 03/21/21 04:21 C-Reactive Protein 21.70 mg/L (0-3.0) H 03/20/21 04:26 Total Protein 6.9 g/dL (6.4-8.2) 03/21/21 04:21 Albumin 2.7 g/dL (3.4-5.0) L 03/21/21 04:21 Globulin 4.2 g/dL (2.5-4.5) 03/21/21 04:21 Albumin/Globulin Ratio 0.6 Ratio (1.1-2.1) L 03/21/21 04:21 - Assessment and Plan 1: acute abdominal pain and diarrhea . recurrent C Dif colitis . dehydration . same IVF , Flagyl ,. repeat abdominal Xray . future colonoscopy .. - Problem Patient Problems: Patient Problems Colitis (Acute) K52.9 Abnormal LFTs (Acute) R94.5 Abdominal pain (Acute) R10.9
[2021-03-21] MEDS: NS 1000 ML 1,000 ML IV SCH ×2 (16:41→23:30)
[2021-03-21] MEDS: NORTRIPTYLINE 75 MG PO SCH (21:11)
[2021-03-21] MEDS: SINGULAIR TAB 10 MG PO SCH (21:11)
[2021-03-22 05:18] LABS: BASOPHILS % (AUTO) 0.2 % (0.2-1.0); HEMATOCRIT 35.5 % (36.0-47.0); HEMOGLOBIN 11.8 g/dL (12.0-16.0); LYMPHOCYTES # (AUTO) 0.2 X10^3/uL (1.3-2.9); LYMPHOCYTES % (AUTO) 3.7 % (21.0-51.0); MEAN CORPUSCULAR HGB CONC 33.2 g/dL (33.0-35.0); MEAN CORPUSCULAR VOLUME 96.5 fL (80.0-100.0); MEAN PLATELET VOLUME 9.3 fL (7.4-11.0); MONOCYTES # (AUTO) 0.2 x10^3/uL (0.3-0.8); MONOCYTES % (AUTO) 4.8 % (0.0-13.0); NEUTROPHILS # (AUTO) 4.6 x10^3/uL (2.2-4.8); NEUTROPHILS % (AUTO) 91.3 % (42.0-75.0); PLATELET COUNT 168 X10^3/uL (150.0-450.0); RED BLOOD COUNT 3.68 X10^6/uL (3.5-5.4); WHITE BLOOD COUNT 5.1 X10^3/uL (3.6-10.0)
[2021-03-22 05:38] LABS: ALANINE AMINOTRANSFERASE 199 Units/L (12-78); ALBUMIN 3.1 g/dL (3.4-5.0); ASPARTATE AMINO TRANSFERASE 163 Units/L (15-37); BLOOD UREA NITROGEN 12 mg/dL (7-18); CALCIUM 8.6 mg/dL (8.5-10.1); CHLORIDE 109 mmol/L (98-107); COR CA(FOR HYPOALB) 9.3 mg/dL (8.5-10.1); COR NA(FOR HYPERGLY) 145 mmol/L (136-145); CREATININE 0.96 mg/dL (0.55-1.02); SODIUM 144 mmol/L (136-145); TOTAL PROTEIN 7.4 g/dL (6.4-8.2); eGFR NON BLACK RACES > 60 (>60)
[2021-03-22] MEDS: FLAGYL IV PREMIX 500 MG BAG 500 MG/100 ML BAG IV SCH ×3 (05:50→21:30)
[2021-03-22] MEDS: BENTYL CAP 10 MG PO SCH ×3 (05:50→21:31)
[2021-03-22] MEDS: SOLU-Medrol 40 MG VIAL IVP SCH ×3 (05:51→21:33)
[2021-03-22] MEDS: NEURONTIN TAB 600 MG PO SCH ×3 (05:51→21:31)
[2021-03-22] MEDS: NS 1000 ML 1,000 ML IV SCH ×2 (05:51→18:38)
[2021-03-22] MEDS: REGLAN TAB 10 MG PO SCH ×4 (05:51→21:32)
[2021-03-22] MEDS: ZOSYN VIAL 2.25 GRAMS 2.25 G in NS 100 ML IV + SPIKE MINIBAG* 100 ML IV SCH ×3 (05:51→21:29)
[2021-03-22 05:53] LABS: ALKALINE PHOSPHATASE 1170 Units/L (46-116)
[2021-03-22 06:01] LABS: PLATELET MORPHOLOGY COMMENT NORMAL (NORMAL)
--- NOTE | 2021-03-22 08:45 | RAD ---
HISTORYABD PAIN, COLITISSTUDYKUB x-ray abdomen one viewCOMPARISONX-ray 03/20/2021FINDINGSSurgical clips are seen in the pelvis. Phlebolith is seen in the pelvis. Mild small and large bowel air is seen, unchanged. No suggestion of constipation. Likely prior cholecystectomy.IMPRESSIONNo abnormalities are seen with the bowel gas pattern.Electronically signed by: Brown Oliveira (Mar 22, 2021 08:42:31)
[2021-03-22] MEDS ORDERED: ZOLOFT ONE (09:18)
[2021-03-22] MEDS ORDERED: MILK OF MAGNESIA PO PRN (09:18)
[2021-03-22] MEDS: PATIENT'S HOME MEDICATION PO SCH (09:28)
[2021-03-22] MEDS: MICRO K EXTEN CAP 10 MEQ PO SCH (09:29)
[2021-03-22] MEDS: VITAMIN D3 125 mcg (5,000 UNITS) PO SCH (09:30)
[2021-03-22] MEDS: TOPROL XL PO SCH ×2 (09:30→21:32)
[2021-03-22] MEDS: PROTONIX TAB 40 MG PO SCH ×2 (09:30→21:31)
[2021-03-22] MEDS: PROCARDIA XL PO SCH (09:30)
[2021-03-22] MEDS: ZOLOFT PO SCH (09:30)
[2021-03-22 10:47] LABS: CRYPTOSPORIDIUM PARVUM ANTIGEN NEGATIVE (NEGATIVE); GIARDIA LAMBLIA ANTIGEN NEGATIVE (NEGATIVE)
[2021-03-22] MEDS: VSL#3 PO SCH (11:00)
[2021-03-22] MEDS ORDERED: DILAUDID ONE ×2 (12:48→21:41)
[2021-03-22] MEDS: DILAUDID PO PRN ×2 (13:01→21:45)
--- NOTE | 2021-03-22 17:15 | DR.PROGNOT ---
Hospital Progress Notes - Progress Note for Day of: Progress Note Date: 03/22/21 - Chief Complaint Chief Complaint: c/o lower abdominal pain more in the LLQ and Lt side .. no nausea or vomiting . no more diarrhea . WBC 5.1 but 91.3 seg .. C Dif - so far HP + in stool. Alk Phos still high 1170 with normal Bilirub . BUN/Crea normal - Past Medical Family Social History Past Med/Fam/Surg Hx: No changes since H&P Allergies: Allergies levofloxacin [From Levaquin] Allergy (Verified 09/29/20 15:06) adhesive tape Adverse Reaction (Verified 09/29/20 15:06) ciprofloxacin [From Cipro] Adverse Reaction (Verified 09/29/20 15:06) phenazopyridine [From Pyridium] Adverse Reaction (Verified 09/29/20 15:06) Sulfa (Sulfonamide Antibiotics) [SULFA] Adverse Reaction (Verified 09/29/20 15:06) - Review Of Systems ROS: No change since H&P - Vital Signs Vital Signs: Temperature 98.5 F Pulse Rate [Right Brachial] 103 Respiratory Rate 18 Blood Pressure [Right Arm] 124/69 Blood Pressure [Left Arm] 169/109 O2 Sat by Pulse Oximetry 96 - Physical Exam Oriented: Normal Eyes: Normal Ear: Normal Nose: Normal Throat: Normal Respiratory: Generalized, Diminished Cardiovascular: Normal : Normal GI:Auscultation: Normal GI:Palpation: Normal GI: Tenderness: Diffuse (soft andomen with LLQ tenderness , no rebound .. BS+) Skin: Normal Musculoskeletal: Normal Psychiatric: Normal Mood Description: Calm Affect: Normal Speech Pattern: Clear, Appropriate - Laboratory and Diagnostics Result Diagrams: 03/22/21 04:29 03/22/21 04:29 Labs: Laboratory WBC 5.1 X10^3/uL (3.6-10.0) 03/22/21 04:29 RBC 3.68 X10^6/uL (3.5-5.4) 03/22/21 04:29 Hgb 11.8 g/dL (12.0-16.0) L 03/22/21 04:29 Hct 35.5 % (36.0-47.0) L 03/22/21 04:29 MCV 96.5 fL (80.0-100.0) 03/22/21 04:29 MCH 32.0 pg (27.0-34.0) 03/22/21 04:29 MCHC 33.2 g/dL (33.0-35.0) 03/22/21 04: RDW 16.0 % (11.6-16.5) 03/22/21 04:29 Plt Count 168 X10^3/uL (150.0-450.0) 03/22/21 04:29 Plt Count Comment Adequate (ADEQUATE) 03/22/21 04:29 MPV 9.3 fL (7.4-11.0) 03/22/21 04:29 Neut % (Auto) 91.3 % (42.0-75.0) H 03/22/21 04: Lymph % (Auto) 3.7 % (21.0-51.0) L 03/22/21 04:29 [place] % (Auto) 4.8 % (0.0-13.0) 03/22/21 04:29 Eos % (Auto) 0.0 % (0.9-2.9) L 03/22/21 04:29 Baso % (Auto) 0.2 % (0.2-1.0) 03/22/21 04: Neut # (Auto) 4.6 x10^3/uL (2.2-4.8) 03/22/21 04:29 Lymph # (Auto) 0.2 X10^3/uL (1.3-2.9) L 03/22/21 04:29 [place] # (Auto) 0.2 x10^3/uL (0.3-0.8) L 03/22/21 04:29 Eos # (Auto) 0.0 x10^3/uL (0.0-0.2) 03/22/21 04:29 Baso # (Auto) 0.0 X10^3/uL (0.0-0.1) 03/22/21 04:29 Absolute Nucleated RBC 0.2 /100WBC 03/22/21 04:29 Total Counted 100 03/22/21 04:29 Neutrophils % (Manual) 94 % (39-76) H 03/22/21 04:29 Lymphocytes % (Manual) 4 % (13-43) L 03/22/21 04:29 Monocytes % (Manual) 2 % (4-9) L 03/22/21 04:29 Eosinophils % (Manual) 2 % (0-6) 03/20/21 04:26 Plt Morphology Comment Normal (NORMAL) 03/22/21 04:29 RBC Morphology Normal (NORMAL) 03/22/21 04:29 ESR 70 MM/HOUR (0-20) H 03/20/21 04:26 Sodium 144 mmol/L (136-145) 03/22/21 04:29 Corrected Sodium 145 mmol/L (136-145) 03/22/21 04:29 Potassium 4.4 mmol/L (3.5-5.1) 03/22/21 04:29 Chloride 109 mmol/L (98-107) H 03/22/21 04:29 Carbon Dioxide 28.0 mmol/L (21-32) 03/22/21 04:29 BUN 12 mg/dL (7-18) 03/22/21 04:29 Creatinine 0.96 mg/dL (0.55-1.02) 03/22/21 04:29 Est GFR (MDRD) Af Amer > 60 (>60) 03/22/21 04:29 Est GFR (MDRD) Non-Af > 60 (>60) 03/22/21 04:29 Glucose 141 mg/dL (65-99) H 03/22/21 04:29 Calcium 8.6 mg/dL (8.5-10.1) 03/22/21 04:29 Corrected Calcium 9.3 mg/dL (8.5-10.1) 03/22/21 04:29 Total Bilirubin 0.50 mg/dL (0.2-1.0) 03/22/21 04:29 AST 163 Units/L (15-37) H 03/22/21 04:29 ALT 199 Units/L (12-78) H 03/22/21 04:29 Alkaline Phosphatase 1170 Units/L (46-116) H 03/22/21 04:29 C-Reactive Protein 21.70 mg/L (0-3.0) H 03/20/21 04:26 Total Protein 7.4 g/dL (6.4-8.2) 03/22/21 04:29 Albumin 3.1 g/dL (3.4-5.0) L 03/22/21 04:29 Globulin 4.3 g/dL (2.5-4.5) 03/22/21 04:29 Albumin/Globulin Ratio 0.7 Ratio (1.1-2.1) L 03/22/21 04:29 Stool Description 100g unformed brown 03/22/21 09:10 Stool Description 100g unformed brown 03/22/21 09:10 Stl Occult Blood (IFOB) Negative (NEGATIVE) 03/22/21 09:10 Stool for White Cells Negative (NEGATIVE) 03/22/21 09:10 Stl C. diff Tox B Gene Negative (NEGATIVE) 03/22/21 09:10 Stl C. diff [id number] Presumptive negative (NEGATIVE) 03/22/21 09:10 Stool H. pylori Ag Positive (NEGATIVE) A 03/22/21 09:10 Cryptosporid parvum Ag Negative (NEGATIVE) 03/22/21 09:10 Giardia lamblia Ag Negative (NEGATIVE) 03/22/21 09:10 - Assessment and Plan 1: subsiding acute colitis . recurrent C Dif colitis .( negative stool test so far ). liver dysfunction . dehydration ( improved ). same IVF , Flagyl ,. future colonoscopy .. - Problem Patient Problems: Patient Problems Colitis (Acute) K52.9 Abnormal LFTs (Acute) R94.5 Abdominal pain (Acute) R10.9
[2021-03-22] MEDS: NORTRIPTYLINE 75 MG PO SCH (21:27)
[2021-03-22] MEDS: SINGULAIR TAB 10 MG PO SCH (21:31)
[2021-03-23] MEDS: NS 1000 ML 1,000 ML IV SCH (03:15)
[2021-03-23] MEDS: REGLAN TAB 10 MG PO SCH ×2 (05:30→11:44)
[2021-03-23] MEDS: FLAGYL IV PREMIX 500 MG BAG 500 MG/100 ML BAG IV SCH (05:30)
[2021-03-23] MEDS: BENTYL CAP 10 MG PO SCH (05:30)
[2021-03-23] MEDS: NEURONTIN TAB 600 MG PO SCH (05:30)
[2021-03-23] MEDS: SOLU-Medrol 40 MG VIAL IVP SCH (05:35)
[2021-03-23] MEDS: ZOSYN VIAL 2.25 GRAMS 2.25 G in NS 100 ML IV + SPIKE MINIBAG* 100 ML IV SCH (05:57)
[2021-03-23 06:14] LABS: BASOPHILS % (AUTO) 0 % (0.2-1.0); HEMATOCRIT 33.1 % (36.0-47.0); LYMPHOCYTES # (AUTO) 0.2 X10^3/uL (1.3-2.9); LYMPHOCYTES % (AUTO) 5.4 % (21.0-51.0); MEAN CORPUSCULAR HEMOGLOBIN 31.7 pg (27.0-34.0); MEAN CORPUSCULAR HGB CONC 33.4 g/dL (33.0-35.0); MEAN PLATELET VOLUME 8.6 fL (7.4-11.0); MONOCYTES # (AUTO) 0.2 x10^3/uL (0.3-0.8); MONOCYTES % (AUTO) 4.1 % (0.0-13.0); NEUTROPHILS # (AUTO) 3.3 x10^3/uL (2.2-4.8); NEUTROPHILS % (AUTO) 90.5 % (42.0-75.0); PLATELET COUNT 146 X10^3/uL (150.0-450.0); RED BLOOD COUNT 3.49 X10^6/uL (3.5-5.4); RED CELL DISTRIBUTION WIDTH 15.9 % (11.6-16.5); WHITE BLOOD COUNT 3.7 X10^3/uL (3.6-10.0)
[2021-03-23 06:22] LABS: ALANINE AMINOTRANSFERASE 131 Units/L (12-78); ALBUMIN 2.8 g/dL (3.4-5.0); ALKALINE PHOSPHATASE 925 Units/L (46-116); ASPARTATE AMINO TRANSFERASE 60 Units/L (15-37); BLOOD UREA NITROGEN 11 mg/dL (7-18); CALCIUM 8.5 mg/dL (8.5-10.1); CARBON DIOXIDE 25.9 mmol/L (21-32); CHLORIDE 110 mmol/L (98-107); COR CA(FOR HYPOALB) 9.5 mg/dL (8.5-10.1); COR NA(FOR HYPERGLY) 147 mmol/L (136-145); CREATININE 0.84 mg/dL (0.55-1.02); SODIUM 146 mmol/L (136-145); TOTAL PROTEIN 6.6 g/dL (6.4-8.2); eGFR NON BLACK RACES > 60 (>60)
[2021-03-23 07:03] LABS: BAND NEUTROPHILS % 4 % (0-10)
[2021-03-23 07:04] LABS: PLATELET MORPHOLOGY COMMENT NORMAL (NORMAL)
[2021-03-23 07:51] VITALS: BP 153/77
[2021-03-23] MEDS ORDERED: ZOLOFT ONE (08:48)
[2021-03-23] MEDS ORDERED: PEPCID 20 MG IV PREMIX* 20 MG/50 ML BAG IV SCH (09:00)
[2021-03-23] MEDS ORDERED: LEVSIN/MAALOX/LIDOC VISC PO SCH (09:00)
[2021-03-23] MEDS: VSL#3 PO SCH (09:47)
[2021-03-23] MEDS: TOPROL XL PO SCH (09:48)
[2021-03-23] MEDS: VITAMIN D3 125 mcg (5,000 UNITS) PO SCH (09:48)
[2021-03-23] MEDS: PROCARDIA XL PO SCH (09:48)
[2021-03-23] MEDS: MICRO K EXTEN CAP 10 MEQ PO SCH (09:48)
[2021-03-23] MEDS: PROTONIX TAB 40 MG PO SCH (09:48)
[2021-03-23] MEDS: PATIENT'S HOME MEDICATION PO SCH (09:49)
[2021-03-23] MEDS: ZOLOFT PO SCH (09:49)
== END 2021-03-23 12:40 | disposition home or self-care (01) | DRG 372 ==
LOC: MED/SURG → OBSVTOIN 17:25 → INTOOBSV 03-21 09:00 → MED/SURG 03-21 14:27
PROVIDERS: ADMIT Internal Medicine; ATTEND Internal Medicine
DX: R79.82 Elevated C-reactive protein (CRP); B96.81 Helicobacter pylori [H. pylori] as the cause of diseases classified elsewhere; R94.5 Abnormal results of liver function studies; R10.84 Generalized abdominal pain; N39.0 Urinary tract infection, site not specified; I10 Essential (primary) hypertension; A04.71 Enterocolitis due to Clostridium difficile, recurrent; R70.0 Elevated erythrocyte sedimentation rate

== ENCOUNTER 2021-11-12 13:05 | Inpatient (IN) ==
--- NOTE | 2021-11-12 13:51 | DR.GENAD ---
HPI Time Seen Time Seen by Provider: 11/12/21 13:50 PCP Primary Care Physician: Ismael HPI Comment HPI Comment: PATIENT IS 51YR OLD FEMALE IN ER WITH INCREASING JAUNDICE THIS AM. PATIENTHAVE HISTORY OF LIVER DISEASE. INCREASING ABDOMINAL PAIN AND ASCITIS. PATIENT HAVE HAD KIDNEY TRANSPLANT IN THE PAST. Complaint/Symptoms Chief Complaint Doctors Comments: WOKE UP JAUDICE TODAY. Chief Complaint:: Pt states " I'm yellow and my liver doctor told me to come get a work up." She states she noticed the color change this morning. COVID-19 Coronavirus risk:travel/contact w/high risk person: No Has patient experienced Coronavirus symptoms: No Nurses notes reviewed Nurses Notes Review: Yes Source History Provided: Patient Mode of Arrival Mode of Arrival: Ambulatory Timing Onset of Chief Complaint: 11/12/21 Came on: Gradually Duration Duration: Constant Duration: Days Location Location: [facility]. Severity Severity: Moderate Modifying Factors Worsens:: EXERTION Improves:: REST Associated Signs and Symptoms Associated Signs and Symptoms: WEAKNESS. Other History Other History: LIVER DISEASE. PMH PMH Past Medical History: Yes Past Medical History: CHF, Depression, Migraines, GERD, Hypertension, Liver Disease, Renal Disease and Sleep Apnea Past Surgical History: Yes Surgical History: Abdominal Surgery, Cholecystectomy and Hysterectomy Family History History of Family Medical Conditions: Yes Family Medical History: Diabetes Mellitus, [place], Coronary Artery Disease and Hypertension Social History Does patient currently use any type of tobacco product: No Have you used tobacco products in the last 12 months: No Type of Tobacco Use: None Does any household member use tobacco: No Alcohol Use: None Do you use any recreational Drugs:: No Lives With: Family Lives Where: Home Travel Risk Coronavirus risk:travel/contact w/high risk person: No Has patient experienced Coronavirus symptoms: No Infectious screening In the last 2 months have you had wt loss of >10#?: NO Have you had fever, night sweats or hemotysis?: No Have you traveled outside the country in the last 6 months?: No Isolation: Standard ROS Review of Systems Constitutional: See HPI, Weakness and Fatigue; negative Fever Eyes: See HPI and Other (JAUDICE) ENTM: No Symptoms Reported and See HPI; negative Nose Discharge and Nose Congestion Respiratoy: See HPI and Short of Breath; negative Wheezing Cardiovascular: No Symptoms Reported and See HPI; negative Chest Pain Gastrointestinal/Abdominal: See HPI, Abdominal Pain and Nausea; negative Diarrhea and Vomiting Genitourinary: No Symptoms Reported and See HPI; negative Dysuria Neurological: See HPI and Weakness; negative Headache and Dizziness Musculoskeletal: No Symptoms Reported and See HPI; negative Back Pain Integumentary: See HPI, Itching and Juandice Hematologic/Lymphatic: No Symptoms Reported, See HPI and Easy Bruising Endocrine: No Symptoms Reported and See HPI; negative Increased Thirst and Increased Urine Psychiatric: No Symptoms Reported and See HPI All Other Systems: Reviewed and Negative PE Vital Signs Vitals: Temperature 98.7 F Pulse Rate [Right Brachial] 93 Pulse Rate 94 Respiratory Rate 18 Blood Pressure [Right Arm] 125/67 Blood Pressure [Left Arm] 136/68 Blood Pressure 116/58 O2 Sat by Pulse Oximetry 94 General Limitations: No Limitations General Appearance: Alert and In No Apparent Distress Head Head Exam: Normal Inspection Eyes Eye exam: Scleral Icterus; negative Conjunctival Injection ENT ENT Exam: Normal Exam, Normal Oropharynx, Normal External Ear Exam and TM's Normal Bilaterally External Ear Exam: Normal External Inspection; negative Mastoid Tenderness TM/Canal Exam: Bilateral: Normal Nose Exam: Normal Nose Exam Mouth Exam: Normal Inspection Throat Exam: Normal Inspection; negative Tonsillar Erythema and Tonsillar Exudate Neck Neck Exam: Normal Inspection and Trachea Midline Chest Chest Inspection: Normal Inspection and Symmetric Chest Wall Rise; negative Tenderness Respiratory Respiratory Exam: Normal Lung Sounds Bilat; negative Accessory Muscle Use, Chest Wall Tenderness and Respiratory Distress Respiratory Exam: Bilateral: Rhonchi Cardiovascular Cardiovascular Exam: Regular Rate, Normal Rhythm and Normal Heart Sounds; negati ve Systolic Murmur and Diastolic Murmur Abdominal Exam Abdominal Exam: Normal Inspection, Normal Bowel Sounds, Soft, Tenderness and Ascites Abdominal Tenderness: Diffuse Extremities Extremities Exam: Edema Back Back Exam: Normal Inspection; negative (R) CVA Tenderness and (L) CVA Tenderness Neurologic Neurological Exam: Alert and Oriented X3 Psychiatric Psychiatric Exam: Normal Affect and Normal Mood Skin Skin Exam: Warm, Dry, Intact and Normal Color MDM Additional Information Additional Information Obtained From: Old Records Differential Diagnosis Differential Diagnosis: LIVER DISEASE, JAUDICE, ABDOMINAL PAIN, CIRRHOSIS, COURSE Treatment Treatment: SEE ORDERS DONE WHILE PATIENT IN ER. LABS AND CT REPORT DISCUSSED WITH PATIENT, SHE WILL BE ADMITTTED TO HOSPITAL. Consultation Consultation Comments: DISCUSSED PATIENT WITH DR. FRIAS WHILE SHE WAS IN ER AND HE WILL ADMIT PATIENT. ROR Labs Reviewed Laboratory Results Reviewed?: Yes Result Diagrams: 11/19/21 18:17 11/19/21 05:43 Laboratory: WBC 5.9 X10^3/uL (3.6-10.0) 11/12/21 14:08 RBC 2.74 X10^6/uL (3.5-5.4) L 11/12/21 14:08 Hgb 9.1 g/dL (12.0-16.0) L 11/12/21 14:08 Hct 26.5 % (36.0-47.0) L 11/12/21 14:08 MCV 96.8 fL (80.0-100.0) 11/12/21 14:08 MCH 33.1 pg (27.0-34.0) 11/12/21 14:08 MCHC 34.2 g/dL (33.0-35.0) 11/12/21 14:08 RDW 20.1 % (11.6-16.5) H 11/12/21 14:08 Plt Count 156 X10^3/uL (150.0-450.0) 11/12/21 14:08 Plt Count Comment Adequate (ADEQUATE) 11/12/21 14:08 MPV 8.5 fL (7.4-11.0) 11/12/21 14:08 Neut % (Auto) 88.7 % (42.0-75.0) H 11/12/21 14:08 Lymph % (Auto) 2.8 % (21.0-51.0) L 11/12/21 14:08 [place] % (Auto) 7.3 % (0.0-13.0) 11/12/21 14:08 Eos % (Auto) 0.6 % (0.9-2.9) L 11/12/21 14:08 Baso % (Auto) 0.6 % (0.2-1.0) 11/12/21 14:08 Neut # (Auto) 5.2 x10^3/uL (2.2-4.8) H 11/12/21 14:08 Lymph # (Auto) 0.2 X10^3/uL (1.3-2.9) L 11/12/21 14:08 [place] # (Auto) 0.4 x10^3/uL (0.3-0.8) 11/12/21 14:08 Eos # (Auto) 0.0 x10^3/uL (0.0-0.2) 11/12/21 14:08 Baso # (Auto) 0.0 X10^3/uL (0.0-0.1) 11/12/21 14:08 Absolute Nucleated RBC 0.1 /100WBC 11/12/21 14:08 Plt Morphology Comment Normal (NORMAL) 11/12/21 14:08 RBC Morphology Abnormal (NORMAL) A 11/12/21 14:08 Anisocytosis Slight A 11/12/21 14:08 PT 13.6 SECONDS (11.8-14.3) 11/12/21 14:08 INR Target Range - 11/12/21 14:08 INR 1.09 (0.8-1.3) 11/12/21 14:08 APTT 27.9 SECONDS (22.9-36.5) 11/12/21 14:08 PTT Comment - 11/12/21 14:08 Sodium 134 mmol/L (136-145) L 11/12/21 14:08 Corrected Sodium 135 mmol/L (136-145) L 11/12/21 14:08 Potassium 3.9 mmol/L (3.5-5.1) 11/12/21 14:08 Chloride 98 mmol/L (98-107) 11/12/21 14:08 Carbon Dioxide 30.3 mmol/L (21-32) 11/12/21 14:08 BUN 32 mg/dL (7-18) H 11/12/21 14:08 Creatinine 1.91 mg/dL (0.55-1.02) H 11/12/21 14:08 Est GFR (MDRD) Af Amer 36 (>60) L 11/12/21 14:08 Est GFR (MDRD) Non-Af 30 (>60) L 11/12/21 14:08 Glucose 154 mg/dL (65-99) H 11/12/21 14:08 Calcium 8.6 mg/dL (8.5-10.1) 11/12/21 14:08 Corrected Calcium 9.7 mg/dL (8.5-10.1) 11/12/21 14:08 Total Bilirubin 4.10 mg/dL (0.2-1.0) H 11/12/21 14:08 AST 456 Units/L (15-37) H 11/12/21 14:08 ALT 245 Units/L (12-78) H 11/12/21 14:08 Alkaline Phosphatase 1447 Units/L (46-116) H 11/12/21 14:08 Total Protein 7.2 g/dL (6.4-8.2) 11/12/21 14:08 Albumin 2.6 g/dL (3.4-5.0) L 11/12/21 14:08 Globulin 4.6 g/dL (2.5-4.5) H 11/12/21 14:08 Albumin/Globulin Ratio 0.6 Ratio (1.1-2.1) L 11/12/21 14:08 Amylase 7 Units/L (25-115) L 11/12/21 14:08 Lipase 45 Units/L (73-393) L 11/12/21 14:08 Specimen Type Clean catch urine 11/12/21 16:28 Urine Color Dark yellow (YELLOW) 11/12/21 16: Urine Appearance Hazy (CLEAR) 11/12/21 16: Urine pH 6.0 (5.0 - 8.0) 11/12/21 16:28 Ur Specific [place] 1.010 (1.000-1.030) 11/12/21 16: Urine Protein 1+ (NEGATIVE) 11/12/21 16: Urine Glucose (UA) Negative (NEGATIVE) 11/12/21 16: Urine Ketones Negative (NEGATIVE) 11/12/21 16: Urine Occult Blood Negative (NEGATIVE) 11/12/21 16: Urine Nitrite Negative (NEGATIVE) 11/12/21 16: Urine Bilirubin 1+ (NEGATIVE) 11/12/21 16: Urine Urobilinogen 2+ (NORMAL) 11/12/21 16: Ur Leukocyte Esterase Negative (NEGATIVE) 11/12/21 16: Urine RBC 0-2 /HPF (0-3) 11/12/21 16:28 Urine WBC 0-2 /HPF (0-5) 11/12/21 16:28 Ur Squamous Epith Cells Numerous /HPF (NEGATIVE) 11/12/21 16:28 Ur Renal Epithelial Cell Few /HPF (NEGATIVE) 11/12/21 16:28 Urine Bacteria Trace /HPF (NEGATIVE) 11/12/21 16:28 Ur Culture Indicated? No/not indicated 11/12/21 16:28 SARS CoV-2 RNA Rapid TOMER Negative (NEGATIVE) 11/12/21 16:26 XRAY XRAY Interpreted by: Radiologist (REPORT NOTED.) and Self Opioid Opioid Risk Tool Age (James box if 16-45): No History of Preadolescent Sexual Abuse: No Total: 0 Total Score Risk Category: Low Risk Copyright: Geoff ROE predicting aberrant behaviors Diagnosis Discharge Problem: Respiratory distress, Liver disease, Status post kidney transplant Abdominal pain Qualifiers: Abdominal location: generalized Qualified Code(s): R10.84 - Generalized abdominal pain Abdominal ascites Qualifiers: Ascites type: other type Qualified Code(s): R18.8 - Other ascites Instructions Instructions: Blood Transfusion, Adult, [id number] Ascites Abdominal Pain, Adult, [id number] Acute Kidney Injury, Adult Heart Failure, Self Care Liver Failure Cirrhosis Upper Endoscopy Blood Transfusion, Adult, Care After, [id number] Forms: Excuse From Work or School Precautions for COVID19 [facility] Social Distancing
[2021-11-12 14:17] LABS: BASOPHILS % (AUTO) 0.6 % (0.2-1.0); EOSINOPHILS % (AUTO) 0.6 % (0.9-2.9); HEMATOCRIT 26.5 % (36.0-47.0); HEMOGLOBIN 9.1 g/dL (12.0-16.0); LYMPHOCYTES # (AUTO) 0.2 X10^3/uL (1.3-2.9); LYMPHOCYTES % (AUTO) 2.8 % (21.0-51.0); MEAN CORPUSCULAR HEMOGLOBIN 33.1 pg (27.0-34.0); MEAN CORPUSCULAR HGB CONC 34.2 g/dL (33.0-35.0); MEAN CORPUSCULAR VOLUME 96.8 fL (80.0-100.0); MEAN PLATELET VOLUME 8.5 fL (7.4-11.0); MONOCYTES # (AUTO) 0.4 x10^3/uL (0.3-0.8); MONOCYTES % (AUTO) 7.3 % (0.0-13.0); NEUTROPHILS # (AUTO) 5.2 x10^3/uL (2.2-4.8); NEUTROPHILS % (AUTO) 88.7 % (42.0-75.0); RED BLOOD COUNT 2.74 X10^6/uL (3.5-5.4); RED CELL DISTRIBUTION WIDTH 20.1 % (11.6-16.5); WHITE BLOOD COUNT 5.9 X10^3/uL (3.6-10.0)
[2021-11-12 14:35] LABS: PLATELET MORPHOLOGY COMMENT NORMAL (NORMAL)
[2021-11-12 14:36] LABS: ANISOCYTOSIS SLIGHT
[2021-11-12 14:38] LABS: ALBUMIN 2.6 g/dL (3.4-5.0); CALCIUM 8.6 mg/dL (8.5-10.1); CARBON DIOXIDE 30.3 mmol/L (21-32); COR CA(FOR HYPOALB) 9.7 mg/dL (8.5-10.1); CREATININE 1.91 mg/dL (0.55-1.02); TOTAL PROTEIN 7.2 g/dL (6.4-8.2)
--- NOTE | 2021-11-12 15:47 | CT ---
HISTORYAscitesSTUDYABDOMEN/PELVIS W/O CONCOMPARISONFebruary 2021TECHNIQUENon-contrasted axial CT images of the abdomen and pelvis were obtained and reformatted into coronal and sagittal planes for further evaluation.Radiation dose: 1010.30 mGy-cm total DLPFINDINGSLung bases are clear.Small nonspecific left layering pleural effusion with adjacent atelectasis; as seen on the previous exam.Moderate ascites throughout the abdomen.Stomach appears normal.Mildly lobulated margin of the liver.Splenomegaly.Pancreas and adrenal glands are unremarkable.Gallbladder appears normal.No intra or extrahepatic biliary dilatation.Bilateral severe renal atrophy of the [place] kidneys.Renal transplant in the right lower quadrant with no significant hydronephrosis.No hydronephrosis, hydroureter or ureteral calculus.Unremarkable appearance of the urinary bladder.Colonic wall thickening, with low-attenuation density, from the cecum to the proximal descending colon.Otherwise, unremarkable appearance of the large and small bowel.Reproductive structures are unremarkable.No evidence of acute appendicitis.No pneumoperitoneum.No adenopathy.No acute osseous abnormality.Small fat containing umbilical hernia.IMPRESSION1. Small right pleural effusion and moderate ascites; likely secondary to the patient's cirrhosis.2. Splenomegaly; likely related to portal hypertension as a result of the patient's cirrhosis.3. Colonic wall thickening from the cecum to the proximal descending colon likely represents a combination of lipomatous infiltration and hepatic enteropathy; as seen on the previous exam.Electronically signed by: Rodriguez Mrecado (Nov 12, 2021 15:46:12)
[2021-11-12 16:40] LABS: BILIRUBIN,URINE 1+ (NEGATIVE); BLOOD/HEMOGLOBIN,URINE NEGATIVE (NEGATIVE); GLUCOSE, URINE NEGATIVE (NEGATIVE); KETONES,URINE NEGATIVE (NEGATIVE); LEUKOCYTE ESTERASE ,URINE NEGATIVE (NEGATIVE); NITRITES,URINE NEGATIVE (NEGATIVE); PROTEIN,URINE 1+ (NEGATIVE); UROBILINOGEN,URINE 2+ (NORMAL)
[2021-11-12 16:44] LABS: APPEARANCE,URINE HAZY (CLEAR); COLOR,URINE DARK YELLOW (YELLOW)
[2021-11-12 16:51] LABS: BACTERIA,URINE TRACE /HPF (NEGATIVE); RBC,URINE 0-2 /HPF (0-3); SQUAMOUS EPITHELIAL CELL,UR NUMEROUS /HPF (NEGATIVE)
[2021-11-12 16:52] LABS: RENAL EPITHELIAL CELLS,URINE FEW /HPF (NEGATIVE)
[2021-11-12] MEDS ORDERED: LASIX IVP ONE (17:05)
[2021-11-12] MEDS: LASIX IVP SCH (17:12)
[2021-11-12] MEDS ORDERED: MAALOX or MYLANTA PO PRN (19:27)
[2021-11-13 06:01] LABS: BASOPHILS # (AUTO) 0.1 X10^3/uL (0.0-0.1); EOSINOPHILS # (AUTO) 0.1 x10^3/uL (0.0-0.2); EOSINOPHILS % (AUTO) 1.5 % (0.9-2.9); HEMATOCRIT 26.9 % (36.0-47.0); HEMOGLOBIN 9.1 g/dL (12.0-16.0); LYMPHOCYTES # (AUTO) 0.4 X10^3/uL (1.3-2.9); LYMPHOCYTES % (AUTO) 6.1 % (21.0-51.0); MEAN CORPUSCULAR HEMOGLOBIN 32.7 pg (27.0-34.0); MEAN CORPUSCULAR HGB CONC 33.8 g/dL (33.0-35.0); MEAN CORPUSCULAR VOLUME 96.8 fL (80.0-100.0); MEAN PLATELET VOLUME 9.3 fL (7.4-11.0); MONOCYTES # (AUTO) 0.6 x10^3/uL (0.3-0.8); MONOCYTES % (AUTO) 9.3 % (0.0-13.0); NEUTROPHILS # (AUTO) 5.4 x10^3/uL (2.2-4.8); NEUTROPHILS % (AUTO) 82.1 % (42.0-75.0); RED BLOOD COUNT 2.78 X10^6/uL (3.5-5.4); RED CELL DISTRIBUTION WIDTH 20.8 % (11.6-16.5); WHITE BLOOD COUNT 6.5 X10^3/uL (3.6-10.0)
[2021-11-13 06:16] LABS: ALBUMIN 2.7 g/dL (3.4-5.0); CALCIUM 8.8 mg/dL (8.5-10.1); CARBON DIOXIDE 27.2 mmol/L (21-32); COR CA(FOR HYPOALB) 9.8 mg/dL (8.5-10.1); CREATININE 1.75 mg/dL (0.55-1.02); TOTAL PROTEIN 7.3 g/dL (6.4-8.2)
[2021-11-13 07:01] LABS: ANISOCYTOSIS 1+; PLATELET MORPHOLOGY COMMENT NORMAL (NORMAL)
[2021-11-13] MEDS: LASIX IVP SCH (08:56)
--- NOTE | 2021-11-13 11:04 | DR.H&P ---
H&P - History & Physical for Day of: H&P Date: 11/12/21 - Chief Complaint Chief Complaint: JAUNDICE, ABDOMINAL PAIN, DIARRHEA - History of Present Illness History of Present Illness: IS A 51 YEAR OLD PATIENT OF OURS. SHE PRESENTED TO THE ER WITH COMPLAINTS OF YELLOWING OF SKIN AND EYES, ABDOMINAL PAIN, AND DIARRHEA. PATIENT REPORTS NOTICING CHANGE OF SKIN COLOR THE MORNING OF ARRIVAL. SHE CONSULTED WITH HER LIVER SPECIALIST WHO ADVISED HER TO PRESENT TO THE ER FOR EVALUATION. SHE DESCRIBES ABDOMINAL PAIN DIFFUSE, CRAMPING, AND WAS RATED A 4/10 ON ARRIVAL. SHE HAS A PMH OF HEPATITIS, HTN, CHF, GERD, LIVER DISEASE, SLEEP APNEA, RENAL FAILURE, AND IS S/P RENAL TRANSPLANT. EXAMINATION DID REVEAL SWELLING OF THE ABDOMEN AND LOWER EXTREMITIES. ON ARRIVAL TO THE HOSPITAL, VITALS WERE: 97.9-86-16-96%-116/58. LABS WERE OBTAINED. WBC 5.9, RBC 2.74, HGB 9.1, HCT 26.5, SODIUM 134, BUN 32, CREATININE 1.91, GLUCOSE 154, TOTAL BILI 4.10, AST 456, ALT 245, ALK PHOS 1447, ALBUMIN 2.6, GLOBULIN 4.6, AMYLASE 7, LIPASE 45. URINALYSIS OBTAINED AND IS UNREMARKABLE. RAPID COVID NEGATIVE. AN ABDOMEN/PELVIS CT WITHOUT CONTRAST WAS RESUMED AND REVEALED: 1. Small right pleural effusion and moderate ascites; likely secondary to the patient's cirrhosis. 2.Splenomegaly; likely related to portal hypertension as a result of the patient's cirrhosis. 3. Colonic wall thickening from the cecum to the proximal descending colon likely represents a combination of lipomatous infiltration and hepatic enteropathy; as seen on the previous exam. Gallbladder appears normal. No intra or extrahepatic biliary dilatation. Bilateral severe renal atrophy of the [place] kidneys. Renal transplant in the right lower quadrant with no significant hydronephrosis. SHE WAS ADMITTED TO THE HOSPITAL FOR FURTHER EVAUATION AND TREATMENT OF ABDOMINAL PAIN, ASCITES, ELEVATED BILIRUBIN, LIVER DISEASE, RENAL DISEASE. SHE WAS STARTED ON NORMAL SALINE AT 50 ML/HR, ALBUMIN 25% IV DAILY, ZOFRAN 4MG IV Q4H PRN, MORPHINE 2MG IV Q4H PRN, AND MAALOX 30ML PO Q4H PRN. WE WILL REVIEW HER HOME MEDICATIONS AND RESUME APPROPRIATE. WE WILL OBTAIN AN ABDOMINAL ULTRASOUND AND OBTAIN STOOL STUDIES. OTHERWISE, WE PLAN TO FOLLOW UP WITH AM LABS AND CONTINUE TO MONITOR. TIME SPENT ON CLINICAL ASSESSMENT, REVIEWING LABS AND IMAGING, DECISION MAKING, AND DOCUMENTATION GREATER THAN 75 MINUTES. - Past Medical History Past Medical History: Hypertension, Renal Disease, Liver Disease, Depression, GERD, Migraines, Sleep Apnea, CHF Additional Medical History: AUTOIMMUNE HEPATITIS, IBS, DIALYSIS [id number], [place] ER REPAIR, ENDOMETRIOSIS, OSTEOARTHRITIS - Past Surgical History Surgical History: Appendectomy, Hysterectomy, Organ Transplant Additional Surgical History: URETER REPAIR, DIALYSIS SHURNT PLACEMENT AND REMOVAL, KIDNEY TRANSPLANT - Family History Family Medical History: Coronary Artery Disease - Social History Does patient currently use any type of tobacco product: No Have you used tobacco products in the last 12 months: No Type of Tobacco Use: None Does any household member use tobacco: No Alcohol Use: None Drug Use: None - Medications Home Medications: levofloxacin [From Levaquin] Allergy (Verified 09/29/20 15:06) metronidazole [From Flagyl] Allergy (Verified 11/12/21 13:11) adhesive tape Adverse Reaction (Verified 09/29/20 15:06) ciprofloxacin [From Cipro] Adverse Reaction (Verified 09/29/20 15:06) phenazopyridine [From Pyridium] Adverse Reaction (Verified 09/29/20 15:06) Sulfa (Sulfonamide Antibiotics) [SULFA] Adverse Reaction (Verified 09/29/20 15:06) - Review of Systems Constitutional: Weakness Eyes: No Symptoms Reported ENT: No Symptoms Reported Respiratory: Shortness of Breath Cardiovascular: No Symptoms Reported Gastrointestinal: See HPI, Nausea, Abdominal Pain, Diarrhea Genitourinary: No Symptoms Reported Musculoskeletal: No Symptoms Reported Skin: Jaundice Neurological: Weakness - Physical Exam Vital Signs: Temperature 98.2 F Pulse Rate [Left Brachial] 95 Pulse Rate [Right Brachial] 89 Pulse Rate 94 Respiratory Rate 20 Blood Pressure [Right Arm] 104/60 Blood Pressure [Left Arm] 122/76 Blood Pressure 116/58 O2 Sat by Pulse Oximetry 96 Oriented: Normal Eyes: Normal Ear: Normal Nose: Normal Throat: Normal Respiratory: Diminished Throughout Cardiovascular: Normal : Normal Auscultation: Bowel Sounds: Normal Palpation: Normal, Other (SWELLING OF ABDOMEN) Tenderness: Diffuse, Mild Skin: Other (JAUNDICE) Musculoskeletal: Normal Psychiatric: Normal Mood Description: Calm Affect: Normal Speech Pattern: Clear - Assessment/Plan (1) Abdominal pain Qualifiers: Abdominal location: generalized Qualified Code(s): R10.84 - Generalized abdominal pain Status: Acute Plan: ADMIT, OBTAIN ABDOMEN ULTRASOUND, NORMAL SALINE AT 50 ML/HR, ALBUMIN 25% IV DAILY, ZOFRAN 4MG IV Q4H PRN, MORPHINE 2MG IV Q4H PRN, AND MAALOX 30ML PO Q4H PRN. (2) Abdominal ascites Qualifiers: Ascites type: other type Qualified Code(s): R18.8 - Other ascites Status: Acute (3) Abnormal LFTs Status: Acute (4) Total bilirubin, elevated Status: Acute (5) Diarrhea Qualifiers: Diarrhea type: unspecified type Qualified Code(s): R19.7 - Diarrhea, unspecified Status: Acute (6) Hypoalbuminemia Status: Acute (7) Liver disease Status: Chronic (8) Renal disease Status: Chronic (9) Status post kidney transplant Status: Chronic (10) CHF (congestive heart failure) Qualifiers: Heart failure type: unspecified Heart failure chronicity: chronic Qualified Code(s): I50.9 - Heart failure, unspecified Status: Chronic (11) HTN (hypertension) Qualifiers: Hypertension type: primary hypertension Qualified Code(s): I10 - Essential (primary) hypertension Status: Chronic (12) GERD (gastroesophageal reflux disease) Qualifiers: Esophagitis presence: esophagitis presence not specified Qualified Code(s): K21.9 - Gastro-esophageal reflux disease without esophagitis Status: Chronic - Allergies Allergies/Adverse Reactions: Allergies Allergy/AdvReac Type Severity Reaction Status Date / Time levofloxacin [From Levaquin] Allergy Verified 09/29/20 15:06 metronidazole [From Flagyl] Allergy Verified 11/12/21 13:11 adhesive tape AdvReac Verified 09/29/20 15:06 ciprofloxacin [From Cipro] AdvReac Verified 09/29/20 15:06 phenazopyridine AdvReac Verified 09/29/20 15:06 [From Pyridium] Sulfa (Sulfonamide AdvReac Verified 09/29/20 15:06 Antibiotics) [SULFA]
[2021-11-13] MEDS: NS 1,000 ML IV 1,000 ML IV SCH (11:17)
[2021-11-13] MEDS: ALBUMIN HUMAN 25%- 100 ML 100 ML IV SCH (11:22)
[2021-11-13] MEDS: MORPHINE SULFATE INJ 2 MG INJ IVP PRN (17:52)
[2021-11-13 23:13] LABS: CRYPTOSPORIDIUM PARVUM ANTIGEN NEGATIVE (NEGATIVE); GIARDIA LAMBLIA ANTIGEN NEGATIVE (NEGATIVE)
[2021-11-14] MEDS: NS 1,000 ML IV 1,000 ML IV SCH ×2 (01:12→17:30)
[2021-11-14] MEDS: ZOFRAN INJ 4 MG VIAL IVP PRN (03:30)
[2021-11-14] MEDS: MORPHINE SULFATE INJ 2 MG INJ IVP PRN ×3 (03:30→18:15)
[2021-11-14 06:40] LABS: BASOPHILS % (AUTO) 0.6 % (0.2-1.0); EOSINOPHILS # (AUTO) 0.1 x10^3/uL (0.0-0.2); EOSINOPHILS % (AUTO) 1.8 % (0.9-2.9); HEMATOCRIT 23.5 % (36.0-47.0); LYMPHOCYTES # (AUTO) 0.3 X10^3/uL (1.3-2.9); LYMPHOCYTES % (AUTO) 6.2 % (21.0-51.0); MEAN CORPUSCULAR HEMOGLOBIN 33.4 pg (27.0-34.0); MEAN CORPUSCULAR HGB CONC 33.9 g/dL (33.0-35.0); MEAN CORPUSCULAR VOLUME 98.5 fL (80.0-100.0); MEAN PLATELET VOLUME 8.9 fL (7.4-11.0); MONOCYTES # (AUTO) 0.5 x10^3/uL (0.3-0.8); MONOCYTES % (AUTO) 10.3 % (0.0-13.0); NEUTROPHILS # (AUTO) 3.5 x10^3/uL (2.2-4.8); NEUTROPHILS % (AUTO) 81.1 % (42.0-75.0); RED BLOOD COUNT 2.38 X10^6/uL (3.5-5.4); RED CELL DISTRIBUTION WIDTH 21.1 % (11.6-16.5); WHITE BLOOD COUNT 4.4 X10^3/uL (3.6-10.0)
[2021-11-14 07:13] LABS: ALANINE AMINOTRANSFERASE 129 Units/L (12-78); ALBUMIN 2.8 g/dL (3.4-5.0); ALKALINE PHOSPHATASE 998 Units/L (46-116); ASPARTATE AMINO TRANSFERASE 118 Units/L (15-37); BLOOD UREA NITROGEN 25 mg/dL (7-18); CALCIUM 8.4 mg/dL (8.5-10.1); CARBON DIOXIDE 25.1 mmol/L (21-32); CHLORIDE 101 mmol/L (98-107); COR CA(FOR HYPOALB) 9.4 mg/dL (8.5-10.1); CREATININE 1.03 mg/dL (0.55-1.02); SODIUM 137 mmol/L (136-145); TOTAL PROTEIN 6.9 g/dL (6.4-8.2); eGFR NON BLACK RACES > 60 (>60)
[2021-11-14 07:34] LABS: ANISOCYTOSIS 1+; PLATELET MORPHOLOGY COMMENT NORMAL (NORMAL); STOMATOCYTES SLIGHT
[2021-11-14] MEDS ORDERED: RIMEGEPANT 75 MG PO PRN (08:17)
[2021-11-14] MEDS: IMURAN PO SCH ×3 (09:00→21:00)
[2021-11-14] MEDS ORDERED: ZOLOFT ONE (09:06)
[2021-11-14] MEDS: ALBUMIN HUMAN 25%- 100 ML 100 ML IV SCH (09:10)
[2021-11-14] MEDS: NEURONTIN CAP 400 MG PO SCH ×3 (09:12→21:00)
[2021-11-14] MEDS: BENTYL CAP 10 MG PO SCH ×3 (09:12→21:00)
[2021-11-14] MEDS: PROCARDIA XL PO SCH (09:12)
[2021-11-14] MEDS: SINGULAIR TAB 10 MG PO SCH (09:13)
[2021-11-14] MEDS: ZOLOFT PO SCH (09:13)
[2021-11-14] MEDS: VITAMIN D3 125 mcg (5,000 UNITS) PO SCH (09:14)
[2021-11-14] MEDS: PROTONIX TAB 40 MG PO SCH ×2 (09:21→20:41)
[2021-11-14] MEDS: PREDNISONE TAB 5 MG PO SCH (09:21)
[2021-11-14] MEDS: TACROLIMUS 1 MG PO SCH (10:00)
[2021-11-14] MEDS: NEBIVOLOL 5 MG PO SCH (10:00)
[2021-11-14] MEDS: PEPCID TAB 40 MG PO SCH ×2 (10:00→20:41)
--- NOTE | 2021-11-14 11:45 | US ---
HISTORYRENAL TRANSPLANT, GB REMOVED, ELEVATED LFTs, ABD PAINSTUDYABDOMEN USCOMPARISONCT 11/12/2021TECHNIQUEMultiple abdalla scale and color flow Doppler images of the abdomen were obtained with image documentation.FINDINGSLiver echogenicity is heterogeneous. Consider possible cirrhosis. Hepatopetal portal venous flow is seen on Doppler ultrasound.Prominent ascites.Prior cholecystectomy. No biliary ductal dilation.Pancreas is obscured due to bowel gas.Mild splenomegaly.Transplanted right kidney is seen in the pelvis measuring 11.8 cm in length. It appears normal. [place] left kidney is echogenic. [place] right kidney is not seen.Visualized portions of the IVC appear normal. Bowel gas obscures the aorta.IMPRESSIONPossible cirrhosis changes with prominent ascites and mild splenomegaly.No abnormalities are seen with the right renal transplant.Electronically signed by: Brown Oliveira (Nov 14, 2021 10:47:52)
[2021-11-14] MEDS: REGLAN TAB 10 MG PO SCH ×3 (13:34→20:41)
[2021-11-14] MEDS: NORTRIPTYLINE 75 MG PO SCH (20:41)
[2021-11-15] MEDS: NS 1,000 ML IV 1,000 ML IV SCH ×2 (05:17→20:41)
[2021-11-15] MEDS: BENTYL CAP 10 MG PO SCH ×3 (05:17→21:00)
[2021-11-15] MEDS: NEURONTIN CAP 400 MG PO SCH ×3 (05:17→21:00)
[2021-11-15] MEDS: IMURAN PO SCH ×3 (05:17→21:00)
[2021-11-15] MEDS: REGLAN TAB 10 MG PO SCH ×4 (05:46→20:44)
[2021-11-15 06:55] LABS: BASOPHILS % (AUTO) 0.7 % (0.2-1.0); EOSINOPHILS # (AUTO) 0.1 x10^3/uL (0.0-0.2); EOSINOPHILS % (AUTO) 1.8 % (0.9-2.9); HEMATOCRIT 21.7 % (36.0-47.0); HEMOGLOBIN 7.5 g/dL (12.0-16.0); LYMPHOCYTES # (AUTO) 0.3 X10^3/uL (1.3-2.9); LYMPHOCYTES % (AUTO) 8.5 % (21.0-51.0); MEAN CORPUSCULAR HGB CONC 34.6 g/dL (33.0-35.0); MEAN CORPUSCULAR VOLUME 98.2 fL (80.0-100.0); MEAN PLATELET VOLUME 8.9 fL (7.4-11.0); MONOCYTES # (AUTO) 0.3 x10^3/uL (0.3-0.8); MONOCYTES % (AUTO) 9.5 % (0.0-13.0); NEUTROPHILS # (AUTO) 2.9 x10^3/uL (2.2-4.8); NEUTROPHILS % (AUTO) 79.5 % (42.0-75.0); RED BLOOD COUNT 2.21 X10^6/uL (3.5-5.4); RED CELL DISTRIBUTION WIDTH 20.9 % (11.6-16.5); WHITE BLOOD COUNT 3.6 X10^3/uL (3.6-10.0)
[2021-11-15 07:03] LABS: ALANINE AMINOTRANSFERASE 85 Units/L (12-78); ALBUMIN 2.8 g/dL (3.4-5.0); ALKALINE PHOSPHATASE 797 Units/L (46-116); ASPARTATE AMINO TRANSFERASE 60 Units/L (15-37); BLOOD UREA NITROGEN 18 mg/dL (7-18); CALCIUM 8.6 mg/dL (8.5-10.1); CARBON DIOXIDE 27.3 mmol/L (21-32); CHLORIDE 104 mmol/L (98-107); COR CA(FOR HYPOALB) 9.6 mg/dL (8.5-10.1); CREATININE 0.77 mg/dL (0.55-1.02); MAGNESIUM 1.7 mg/dL (1.7-2.9); SODIUM 138 mmol/L (136-145); TOTAL PROTEIN 6.7 g/dL (6.4-8.2); eGFR NON BLACK RACES > 60 (>60)
[2021-11-15 07:40] LABS: PLATELET MORPHOLOGY COMMENT NORMAL (NORMAL)
[2021-11-15 07:41] LABS: ANISOCYTOSIS 1+; HELMET CELLS SLIGHT; STOMATOCYTES SLIGHT
[2021-11-15] MEDS ORDERED: ZOLOFT ONE (08:08)
--- NOTE | 2021-11-15 08:41 | PCM.PROG ---
Progress Note - Progress Note for Day of Date of Exam: 11/14/21 - Subjective Subjective: WAS ADMITTED FOR TREATMENT OF ABDOMINAL PAIN, ASCITES, ABNORMAL LFTs, DIARRHEA, HYPOALBUMINEMIA. SHE HAS A PMH OF LIVER DISEASE, RENAL DISEAS, KIDNEY TRANSPLANT, CHF, HTN, GERD, AUTOIMMUNE HEPATITIS. TODAY, SHE IS ALERT AND ORIENTED, LYING IN BED ON MORNING ROUNDS. SHE CONTINUES WITH DIFFUSE ABDOMINAL PAIN AND WEAKNESS TODAY. SKIN DOES NOT APPEAR TO BE JAUNDICE TODAY IT WAS ON ADMISSION. ON EXAMINATION, HEART IS REGULAR IN RATE AND RHYTHM. BILATERAL LUNGS NOTED WITH DIMINISHED LUNG SOUNDS THROUHGOUT. ABDOMEN IS ROUND, SOFT, AND NOTED WITH DIFFUSE TENDERNESS. NORMAL BOWEL SOUNDS NOTED IN ALL QUADRANTS. HER VITALS THIS MORNING ARE: 98.1-100-16-95%-171/78. LABS WERE OBT AINED. ABNORMAL LAB VALUES INCLUDE THE FOLLOWING: WBC 3.6, RBC 2.21, HGB 7.5, HCT 21.7, PLT COUNT 102, GLUCOSE 104, TOTAL BILI 1.30, AST 60, ALT 85, ALK PHOS 797, ALBUMIN 2.8. STOOL STUDIES WERE POSITIVE FOR OCCULT BLOOD AND H.PYLORI. STOOL CULTURE IS PENDING. SHE IS CURRENTLY RECEIVING NORMAL SALINE AT 50 ML/HR, ALBUMIN 25% IV DAILY, ZOFRAN 4MG IV Q4H PRN, MORPHINE 2MG IV Q4H PRN, AND MAALOX 30ML PO Q4H PRN. HER HOME MEDICATIONS OF IMURAN, NEURONTIN, REGLAN, SINGULAIR, PROCARDIA, PREDNISONE, ZOLOFT, BYSTOLIC, ENVARSUS, AND AZATHIOPRINE WERE ALSO RESUMED. WE WILL OBTAIN AN ABDOMEN ULTRASOUND TODAY AND CONSULT WITH , PATIENTS ALLEY CLEANER. OTHERWISE, WE WILL CONTINUE WITH CURRENT PLAN OF CARE. WE WILL FOLLOW UP WITH AM LABS AND CONTINUE TO MONITOR. TIME SPENT ON CLINICAL ASSESSMENT, REVIEWING LABS AND IMAGING, DECISION MAKING, AND DOCUMENTATION GREATER THAN 45 MINUTES. - Past Medical Family Social History Past Med/Fam/Surg Hx: No changes since H&P Allergies: Allergies levofloxacin [From Levaquin] Allergy (Verified 09/29/20 15:06) metronidazole [From Flagyl] Allergy (Verified 11/12/21 13:11) adhesive tape Adverse Reaction (Verified 09/29/20 15:06) ciprofloxacin [From Cipro] Adverse Reaction (Verified 09/29/20 15:06) phenazopyridine [From Pyridium] Adverse Reaction (Verified 09/29/20 15:06) Sulfa (Sulfonamide Antibiotics) [SULFA] Adverse Reaction (Verified 09/29/20 15:06) - Vital Signs and I&O's Vital Signs: Temperature 98.3 F Pulse Rate [Left Brachial] 116 Pulse Rate [Right Brachial] 103 Pulse Rate 108 Respiratory Rate 24 Blood Pressure [Right Arm] 134/65 Blood Pressure [Left Arm] 122/76 Blood Pressure 116/58 O2 Sat by Pulse Oximetry 95 Intake and Output: Intake & Output 11/12/21 11/13/21 11/14/21 11/15/21 11:59 11:59 11:59 11:59 Intake Total 500 / 500 1970 1341 / 1341 Output Total 900 / 900 Balance 500 / 500 1071 / 1071 1341 / 1341 - Physical Exam Oriented: Normal Eyes: Normal Ear: Normal Nose: Normal Throat: Normal Respiratory: Generalized, Diminished Cardiovascular: Normal : Normal Auscultation: Bowel Sounds: Normal Palpation: Normal Tenderness: Diffuse, Mild Skin: Other (JAUNDICE) Musculoskeletal: Normal Psychiatric: Normal Mood Description: Calm Affect: Normal Speech Pattern: Clear, Appropriate - Laboratory and Diagnostics Result Diagrams: 11/15/21 05:54 11/15/21 05:54 Labs: 11/13/21 22:20 Stool - Final Laboratory WBC 3.6 X10^3/uL (3.6-10.0) 11/15/21 05:54 RBC 2.21 X10^6/uL (3.5-5.4) L 11/15/21 05:54 Hgb 7.5 g/dL (12.0-16.0) L 11/15/21 05:54 Hct 21.7 % (36.0-47.0) L 11/15/21 05:54 MCV 98.2 fL (80.0-100.0) 11/15/21 05:54 MCH 34.0 pg (27.0-34.0) 11/15/21 05:54 MCHC 34.6 g/dL (33.0-35.0) 11/15/21 05:54 RDW 20.9 % (11.6-16.5) H 11/15/21 05:54 Plt Count 102 X10^3/uL (150.0-450.0) L 11/15/21 05:54 Plt Count Comment Decreased (ADEQUATE) A 11/15/21 05:54 MPV 8.9 fL (7.4-11.0) 11/15/21 05:54 Neut % (Auto) 79.5 % (42.0-75.0) H 11/15/21 05:54 Lymph % (Auto) 8.5 % (21.0-51.0) L 11/15/21 05:54 [place] % (Auto) 9.5 % (0.0-13.0) 11/15/21 05:54 Eos % (Auto) 1.8 % (0.9-2.9) 11/15/21 05:54 Baso % (Auto) 0.7 % (0.2-1.0) 11/15/21 05:54 Neut # (Auto) 2.9 x10^3/uL (2.2-4.8) 11/15/21 05:54 Lymph # (Auto) 0.3 X10^3/uL (1.3-2.9) L 11/15/21 05:54 [place] # (Auto) 0.3 x10^3/uL (0.3-0.8) 11/15/21 05:54 Eos # (Auto) 0.1 x10^3/uL (0.0-0.2) 11/15/21 05:54 Baso # (Auto) 0.0 X10^3/uL (0.0-0.1) 11/15/21 05:54 Absolute Nucleated RBC 0.1 /100WBC 11/15/21 05:54 Plt Morphology Comment Normal (NORMAL) 11/15/21 05:54 RBC Morphology Abnormal (NORMAL) A 11/15/21 05:54 Anisocytosis 1+ A 11/15/21 05:54 Stomatocytes Slight A 11/15/21 05:54 Helmet Cells Slight A 11/15/21 05:54 PT 13.6 SECONDS (11.8-14.3) 11/12/21 14:08 INR Target Range - 11/12/21 14:08 INR 1.09 (0.8-1.3) 11/12/21 14:08 APTT 27.9 SECONDS (22.9-36.5) 11/12/21 14:08 PTT Comment - 11/12/21 14:08 Sodium 138 mmol/L (136-145) 11/15/21 05:54 Corrected Sodium TNP 11/15/21 05:54 Potassium 3.6 mmol/L (3.5-5.1) 11/15/21 05:54 Chloride 104 mmol/L (98-107) 11/15/21 05:54 Carbon Dioxide 27.3 mmol/L (21-32) 11/15/21 05:54 BUN 18 mg/dL (7-18) 11/15/21 05:54 Creatinine 0.77 mg/dL (0.55-1.02) 11/15/21 05:54 Est GFR (MDRD) Af Amer > 60 (>60) 11/15/21 05:54 Est GFR (MDRD) Non-Af > 60 (>60) 11/15/21 05:54 Glucose 104 mg/dL (65-99) H 11/15/21 05:54 Calcium 8.6 mg/dL (8.5-10.1) 11/15/21 05:54 Corrected Calcium 9.6 mg/dL (8.5-10.1) 11/15/21 05:54 Magnesium 1.7 mg/dL (1.7-2.9) 11/15/21 05:54 Total Bilirubin 1.30 mg/dL (0.2-1.0) H 11/15/21 05:54 AST 60 Units/L (15-37) H 11/15/21 05:54 ALT 85 Units/L (12-78) H 11/15/21 05:54 Alkaline Phosphatase 797 Units/L (46-116) H 11/15/21 05:54 Total Protein 6.7 g/dL (6.4-8.2) 11/15/21 05:54 Albumin 2.8 g/dL (3.4-5.0) L 11/15/21 05:54 Globulin 3.9 g/dL (2.5-4.5) 11/15/21 05:54 Albumin/Globulin Ratio 0.7 Ratio (1.1-2.1) L 11/15/21 05:54 Amylase 7 Units/L (25-115) L 11/13/21 05:28 Lipase 46 Units/L (73-393) L 11/13/21 05:28 Specimen Type Clean catch urine 11/12/21 16:28 Urine Color Dark yellow (YELLOW) 11/12/21 16:28 Urine Appearance Hazy (CLEAR) 11/12/21 16:28 Urine pH 6.0 (5.0 - 8.0) 11/12/21 16:28 Ur Specific [place] 1.010 (1.000-1.030) 11/12/21 16:28 Urine Protein 1+ (NEGATIVE) 11/12/21 16:28 Urine Glucose (UA) Negative (NEGATIVE) 11/12/21 16: Urine Ketones Negative (NEGATIVE) 11/12/21 16: Urine Occult Blood Negative (NEGATIVE) 11/12/21 16: Urine Nitrite Negative (NEGATIVE) 11/12/21 16: Urine Bilirubin 1+ (NEGATIVE) 11/12/21 16: Urine Urobilinogen 2+ (NORMAL) 11/12/21 16:28 Ur Leukocyte Esterase Negative (NEGATIVE) 11/12/21 16:28 Urine RBC 0-2 /HPF (0-3) 11/12/21 16:28 Urine WBC 0-2 /HPF (0-5) 11/12/21 16:28 Ur Squamous Epith Cells Numerous /HPF (NEGATIVE) 11/12/21 16:28 Ur Renal Epithelial Cell Few /HPF (NEGATIVE) 11/12/21 16:28 Urine Bacteria Trace /HPF (NEGATIVE) 11/12/21 16:28 Ur Culture Indicated? No/not indicated 11/12/21 16:28 Stool Description 15g liquid brown 11/13/21 22:20 Stool Description 15g liquid brown 11/13/21 22:20 Stl Occult Blood (IFOB) Positive (NEGATIVE) A 11/13/21 22:20 Stool for White Cells Negative (NEGATIVE) 11/13/21 22:20 Stl C. diff Tox B Gene Negative (NEGATIVE) 11/13/21 22:20 Stl C. diff [id number] Presumptive negative (NEGATIVE) 11/13/21 22:20 Stool H. pylori Ag Positive (NEGATIVE) A 11/13/21 22:20 Cryptosporid parvum Ag Negative (NEGATIVE) 11/13/21 22:20 Giardia lamblia Ag Negative (NEGATIVE) 11/13/21 22:20 SARS CoV-2 RNA Rapid TOMER Negative (NEGATIVE) 11/12/21 16:26 - Plan (1) Abdominal pain Status: Acute Qualifiers: Abdominal location: generalized Qualified Code(s): R10.84 - Generalized abdominal pain Plan: OBTAIN ABDOMEN ULTRASOUND, NORMAL SALINE AT 50 ML/HR, ALBUMIN 25% IV DAILY, ZOFRAN 4MG IV Q4H PRN, MORPHINE 2MG IV Q4H PRN, AND MAALOX 30ML PO Q4H PRN. RESUMED HOME MEDS. CONSULT (2) Abdominal ascites Status: Acute Qualifiers: Ascites type: other type Qualified Code(s): R18.8 - Other ascites (3) Abnormal LFTs Status: Acute (4) Total bilirubin, elevated Status: Acute (5) Diarrhea Status: Acute Qualifiers: Diarrhea type: unspecified type Qualified Code(s): R19.7 - Diarrhea, unspecified (6) Hypoalbuminemia Status: Acute (7) Liver disease Status: Chronic (8) Renal disease Status: Chronic (9) Status post kidney transplant Status: Chronic (10) CHF (congestive heart failure) Status: Chronic Qualifiers: Heart failure type: unspecified Heart failure chronicity: chronic Qualified Code(s): I50.9 - Heart failure, unspecified (11) HTN (hypertension) Status: Chronic Qualifiers: Hypertension type: primary hypertension Qualified Code(s): I10 - Essential (primary) hypertension (12) GERD (gastroesophageal reflux disease) Status: Chronic Qualifiers: Esophagitis presence: esophagitis presence not specified Qualified Code(s): K21.9 - Gastro-esophageal reflux disease without esophagitis
[2021-11-15] MEDS ORDERED: STERILE WATER IRRIGATION IR ONE (09:02)
[2021-11-15] MEDS: ALBUMIN HUMAN 25%- 100 ML 100 ML IV SCH (09:21)
--- NOTE | 2021-11-15 09:23 | RAD ---
HISTORYPreop EGDSTUDYChest AP [id number]/11/2022FINDINGSHear t size is normal. Graciela are normal. Lungs are hypoinflated but free of acute infiltrates. No pleural effusion or pneumothorax is identified. Bony thorax is unremarkable.IMPRESSIONLungs hypoinflated but clearElectronically signed by: JOSE LEBLANC (Nov 15, 2021 09:21:07)
--- NOTE | 2021-11-15 09:45 | PCM.PROG ---
Progress Note - Progress Note for Day of Date of Exam: 11/15/21 - Subjective Subjective: WAS ADMITTED FOR TREATMENT OF ABDOMINAL PAIN, ASCITES, ABNORMAL LFTs, ANEMIA, DIARRHEA, HYPOALBUMINEMIA. SHE HAS A PMH OF LIVER DISEASE, RENAL DISEAS, KIDNEY TRANSPLANT, CHF, HTN, GERD, AUTOIMMUNE HEPATITIS. TODAY, SHE IS ALERT AND ORIENTED, LYING IN BED ON MORNING ROUNDS. SHE CONTINUES WITH DIFFUSE, MILD ABDOMINAL PAIN AND WEAKNESS TODAY. SKIN DOES NOT APPEAR TO BE JAUNDICE TODAY IT WAS ON ADMISSION. ON EXAMINATION, HEART IS REGULAR IN RATE AND RHYTHM. BILATERAL LUNGS NOTED WITH DIMINISHED LUNG SOUNDS THROUHGOUT. ABDOMEN IS ROUND, SOFT, AND NOTED WITH DIFFUSE TENDERNESS TO PALPATION. NORMAL BOWEL SOUNDS NOTED IN ALL QUADRANTS. HER VITALS THIS MORNING ARE: 98.3-100-2 4-95%-134/65. LABS WERE OBTAINED. ABNORMAL LAB VALUES INCLUDE THE FOLLOWING: RBC 2.21, HGB 7.5, HCT 21.7, PLT COUNT 102, GLUCOSE 104, TOTAL BILI 1.30, AST 60, ALT 85, ALK PHOS 797, ALBUMIN 2.8. STOOL STUDIES WERE POSITIVE FOR OCCULT BLOOD AND H.PYLORI. STOOL CULTURE IS PENDING. WE OBTAINED AN ABDOMEN ULTRASOUND YESTERDAY. IT REVEALED: Possible cirrhosis changes with prominent ascites and mild splenomegaly. No abnormalities are seen with the right renal transplant. SHE IS CURRENTLY RECEIVING NORMAL SALINE AT 50 ML/HR, ALBUMIN 25% IV DAILY, ZOFRAN 4MG IV Q4H PRN, MORPHINE 2MG IV Q4H PRN, AND MAALOX 30ML PO Q4H PRN. HER HOME MEDICATIONS OF IMURAN, NEURONTIN, REGLAN, SINGULAIR, PROCARDIA, PREDNISONE, ZOLOFT, BYSTOLIC, ENVARSUS, AND AZATHIOPRINE WERE ALSO RESUMED. , PATIENTS IP LITIGATION ASSOCIATE, CONSULTED WITH HER THIS MORNING AND PLANS FOR AN EGD. WE ARE IN AGREEMENT WITH PLANS. OTHERWISE, WE WILL CONTINUE WITH CURRENT PLAN OF CARE. WE WILL FOLLOW UP WITH AM LABS AND CONTINUE TO MONITOR. TIME SPENT ON CLINICAL ASSESSMENT, REVIEWING LABS AND IMAGING, DECISION MAKING, AND DOCUMENTATION GREATER THAN 45 MINUTES. - Past Medical Family Social History Past Med/Fam/Surg Hx: No changes since H&P Allergies: Allergies levofloxacin [From Levaquin] Allergy (Verified 09/29/20 15:06) metronidazole [From Flagyl] Allergy (Verified 11/12/21 13:11) adhesive tape Adverse Reaction (Verified 09/29/20 15:06) ciprofloxacin [From Cipro] Adverse Reaction (Verified 09/29/20 15:06) phenazopyridine [From Pyridium] Adverse Reaction (Verified 09/29/20 15:06) Sulfa (Sulfonamide Antibiotics) [SULFA] Adverse Reaction (Verified 09/29/20 15:06) - Vital Signs and I&O's Vital Signs: Temperature 98.3 F Pulse Rate [Left Brachial] 116 Pulse Rate [Right Brachial] 103 Pulse Rate 108 Respiratory Rate 24 Blood Pressure [Right Arm] 134/65 Blood Pressure [Left Arm] 122/76 Blood Pressure 116/58 O2 Sat by Pulse Oximetry 95 Intake and Output: Intake & Output 11/12/21 11/13/21 11/14/21 11/15/21 11:59 11:59 11:59 11:59 Intake Total 500 / 500 1970 / 1970 1341 / 1341 Output Total 900 / 900 Balance 500 / 500 1071 / 1071 1341 / 1341 - Physical Exam Oriented: Normal Eyes: Normal Ear: Normal Nose: Normal Throat: Normal Respiratory: Generalized, Diminished Cardiovascular: Normal : Normal Auscultation: Bowel Sounds: Normal Palpation: Normal Tenderness: Diffuse, Mild Skin: Other (JAUNDICE) Musculoskeletal: Normal Psychiatric: Normal Mood Description: Calm Affect: Normal Speech Pattern: Clear, Appropriate - Laboratory and Diagnostics Result Diagrams: 11/15/21 05:54 11/15/21 05:54 Labs: 11/13/21 22:20 Stool - Final Laboratory WBC 3.6 X10^3/uL (3.6-10.0) 11/15/21 05:54 RBC 2.21 X10^6/uL (3.5-5.4) L 11/15/21 05:54 Hgb 7.5 g/dL (12.0-16.0) L 11/15/21 05:54 Hct 21.7 % (36.0-47.0) L 11/15/21 05:54 MCV 98.2 fL (80.0-100.0) 11/15/21 05:54 MCH 34.0 pg (27.0-34.0) 11/15/21 05:54 MCHC 34.6 g/dL (33.0-35.0) 11/15/21 05:54 RDW 20.9 % (11.6-16.5) H 11/15/21 05:54 Plt Count 102 X10^3/uL (150.0-450.0) L 11/15/21 05:54 Plt Count Comment Decreased (ADEQUATE) A 11/15/21 05:54 MPV 8.9 fL (7.4-11.0) 11/15/21 05:54 Neut % (Auto) 79.5 % (42.0-75.0) H 11/15/21 05:54 Lymph % (Auto) 8.5 % (21.0-51.0) L 11/15/21 05:54 [place] % (Auto) 9.5 % (0.0-13.0) 11/15/21 05:54 Eos % (Auto) 1.8 % (0.9-2.9) 11/15/21 05:54 Baso % (Auto) 0.7 % (0.2-1.0) 11/15/21 05:54 Neut # (Auto) 2.9 x10^3/uL (2.2-4.8) 11/15/21 05:54 Lymph # (Auto) 0.3 X10^3/uL (1.3-2.9) L 11/15/21 05:54 [place] # (Auto) 0.3 x10^3/uL (0.3-0.8) 11/15/21 05:54 Eos # (Auto) 0.1 x10^3/uL (0.0-0.2) 11/15/21 05:54 Baso # (Auto) 0.0 X10^3/uL (0.0-0.1) 11/15/21 05:54 Absolute Nucleated RBC 0.1 /100WBC 11/15/21 05:54 Plt Morphology Comment Normal (NORMAL) 11/15/21 05:54 RBC Morphology Abnormal (NORMAL) A 11/15/21 05:54 Anisocytosis 1+ A 11/15/21 05:54 Stomatocytes Slight A 11/15/21 05:54 Helmet Cells Slight A 11/15/21 05:54 PT 13.6 SECONDS (11.8-14.3) 11/12/21 14:08 INR Target Range - 11/12/21 14:08 INR 1.09 (0.8-1.3) 11/12/21 14:08 APTT 27.9 SECONDS (22.9-36.5) 11/12/21 14:08 PTT Comment - 11/12/21 14:08 Sodium 138 mmol/L (136-145) 11/15/21 05:54 Corrected Sodium TNP 11/15/21 05:54 Potassium 3.6 mmol/L (3.5-5.1) 11/15/21 05:54 Chloride 104 mmol/L (98-107) 11/15/21 05:54 Carbon Dioxide 27.3 mmol/L (21-32) 11/15/21 05:54 BUN 18 mg/dL (7-18) 11/15/21 05:54 Creatinine 0.77 mg/dL (0.55-1.02) 11/15/21 05:54 Est GFR (MDRD) Af Amer > 60 (>60) 11/15/21 05:54 Est GFR (MDRD) Non-Af > 60 (>60) 11/15/21 05:54 Glucose 104 mg/dL (65-99) H 11/15/21 05:54 Calcium 8.6 mg/dL (8.5-10.1) 11/15/21 05:54 Corrected Calcium 9.6 mg/dL (8.5-10.1) 11/15/21 05:54 Magnesium 1.7 mg/dL (1.7-2.9) 11/15/21 05:54 Total Bilirubin 1.30 mg/dL (0.2-1.0) H 11/15/21 05:54 AST 60 Units/L (15-37) H 11/15/21 05:54 ALT 85 Units/L (12-78) H 11/15/21 05:54 Alkaline Phosphatase 797 Units/L (46-116) H 11/15/21 05:54 Total Protein 6.7 g/dL (6.4-8.2) 11/15/21 05:54 Albumin 2.8 g/dL (3.4-5.0) L 11/15/21 05:54 Globulin 3.9 g/dL (2.5-4.5) 11/15/21 05:54 Albumin/Globulin Ratio 0.7 Ratio (1.1-2.1) L 11/15/21 05:54 Amylase 7 Units/L (25-115) L 11/13/21 05:28 Lipase 46 Units/L (73-393) L 11/13/21 05:28 Specimen Type Clean catch urine 11/12/21 16:28 Urine Color Dark yellow (YELLOW) 11/12/21 16:28 Urine Appearance Hazy (CLEAR) 11/12/21 16:28 Urine pH 6.0 (5.0 - 8.0) 11/12/21 16:28 Ur Specific [place] 1.010 (1.000-1.030) 11/12/21 16:28 Urine Protein 1+ (NEGATIVE) 11/12/21 16:28 Urine Glucose (UA) Negative (NEGATIVE) 11/12/21 16:28 Urine Ketones Negative (NEGATIVE) 11/12/21 16:28 Urine Occult Blood Negative (NEGATIVE) 11/12/21 16:28 Urine Nitrite Negative (NEGATIVE) 11/12/21 16:28 Urine Bilirubin 1+ (NEGATIVE) 11/12/21 16:28 Urine Urobilinogen 2+ (NORMAL) 11/12/21 16:28 Ur Leukocyte Esterase Negative (NEGATIVE) 11/12/21 16:28 Urine RBC 0-2 /HPF (0-3) 11/12/21 16:28 Urine WBC 0-2 /HPF (0-5) 11/12/21 16:28 Ur Squamous Epith Cells Numerous /HPF (NEGATIVE) 11/12/21 16:28 Ur Renal Epithelial Cell Few /HPF (NEGATIVE) 11/12/21 16:28 Urine Bacteria Trace /HPF (NEGATIVE) 11/12/21 16:28 Ur Culture Indicated? No/not indicated 11/12/21 16:28 Stool Description 15g liquid brown 11/13/21 22:20 Stool Description 15g liquid brown 11/13/21 22:20 Stl Occult Blood (IFOB) Positive (NEGATIVE) A 11/13/21 22:20 Stool for White Cells Negative (NEGATIVE) 11/13/21 22:20 Stl C. diff Tox B Gene Negative (NEGATIVE) 11/13/21 22:20 Stl C. diff [id number] Presumptive negative (NEGATIVE) 11/13/21 22:20 Stool H. pylori Ag Positive (NEGATIVE) A 11/13/21 22:20 Cryptosporid parvum Ag Negative (NEGATIVE) 11/13/21 22:20 Giardia lamblia Ag Negative (NEGATIVE) 11/13/21 22:20 SARS CoV-2 RNA Rapid TOMER Negative (NEGATIVE) 11/12/21 16:26 - Plan (1) Abdominal pain Status: Acute Qualifiers: Abdominal location: generalized Qualified Code(s): R10.84 - Generalized abdominal pain Plan: NORMAL SALINE AT 50 ML/HR, ALBUMIN 25% IV DAILY, ZOFRAN 4MG IV Q4H PRN, MORPHINE 2MG IV Q4H PRN, AND MAALOX 30ML PO Q4H PRN. RESUMED HOME MEDS. EGD TODAY (2) Abdominal ascites Status: Acute Qualifiers: Ascites type: other type Qualified Code(s): R18.8 - Other ascites (3) Abnormal LFTs Status: Acute (4) Total bilirubin, elevated Status: Acute (5) Diarrhea Status: Acute Qualifiers: Diarrhea type: unspecified type Qualified Code(s): R19.7 - Diarrhea, unspecified (6) Hypoalbuminemia Status: Acute (7) Liver disease Status: Chronic (8) Renal disease Status: Chronic (9) Status post kidney transplant Status: Chronic (10) CHF (congestive heart failure) Status: Chronic Qualifiers: Heart failure type: unspecified Heart failure chronicity: chronic Qualified Code(s): I50.9 - Heart failure, unspecified (11) HTN (hypertension) Status: Chronic Qualifiers: Hypertension type: primary hypertension Qualified Code(s): I10 - Essential (primary) hypertension (12) GERD (gastroesophageal reflux disease) Status: Chronic Qualifiers: Esophagitis presence: esophagitis presence not specified Qualified Code(s): K21.9 - Gastro-esophageal reflux disease without esophagitis
[2021-11-15] MEDS ORDERED: DIPRIVAN VIAL 20 ML ONE (13:32)
[2021-11-15] MEDS: ZOLOFT PO SCH (14:00)
[2021-11-15] MEDS: PREDNISONE TAB 5 MG PO SCH (14:00)
[2021-11-15] MEDS: SINGULAIR TAB 10 MG PO SCH (14:00)
[2021-11-15] MEDS: VITAMIN D3 125 mcg (5,000 UNITS) PO SCH (14:10)
[2021-11-15] MEDS: PROCARDIA XL PO SCH (14:15)
[2021-11-15] MEDS: NEBIVOLOL 5 MG PO SCH (14:30)
[2021-11-15] MEDS: TACROLIMUS 1 MG PO SCH (14:30)
[2021-11-15] MEDS: PEPCID TAB 40 MG PO SCH ×2 (15:10→20:44)
[2021-11-15] MEDS: PROTONIX TAB 40 MG PO SCH ×2 (15:11→20:44)
[2021-11-15] MEDS: MORPHINE SULFATE INJ 2 MG INJ IVP PRN ×2 (15:39→20:46)
[2021-11-15] MEDS ORDERED: K-DUR TAB 20 MEQ PO PRN (19:31)
[2021-11-15] MEDS ORDERED: MICRO K EXTEN CAP 10 MEQ PO PRN (19:31)
[2021-11-15] MEDS ORDERED: K-RIDER 10 MEQ/NS 100 ML 10 MEQ/100 ML BAG IV PRN (19:31)
[2021-11-15] MEDS ORDERED: KLOR-CON PO PRN (19:31)
[2021-11-15] MEDS ORDERED: POTASSIUM CHLORIDE LIQ 20 MEQ UDC PO PRN (19:31)
[2021-11-15] MEDS ORDERED: POTASSIUM CHL 60 MEQ/NS 0.45% 500 ML IV PRN (19:31)
[2021-11-15] MEDS ORDERED: POTASSIUM CHL 40 MEQ/NS 0.45% 500 ML IV PRN (19:31)
[2021-11-15] MEDS: MAGNESIUM SULFATE 1 GRAM/100 mL PREMIX 1 G/100 ML BAG IV PRN ×2 (20:43→21:41)
[2021-11-15] MEDS: NORTRIPTYLINE 75 MG PO SCH (20:44)
[2021-11-15] MEDS: ZOFRAN INJ 4 MG VIAL IVP PRN (20:47)
[2021-11-16] MEDS: ZOFRAN INJ 4 MG VIAL IVP PRN (03:13)
[2021-11-16] MEDS: MORPHINE SULFATE INJ 2 MG INJ IVP PRN ×2 (03:13→19:47)
[2021-11-16] MEDS: IMURAN PO SCH ×3 (05:03→21:27)
[2021-11-16] MEDS: BENTYL CAP 10 MG PO SCH ×3 (05:03→21:27)
[2021-11-16] MEDS: NEURONTIN CAP 400 MG PO SCH ×3 (05:03→21:27)
[2021-11-16] MEDS: REGLAN TAB 10 MG PO SCH ×3 (05:30→21:25)
[2021-11-16 07:11] LABS: AMMONIA 11 umol/L (11-32)
[2021-11-16 07:15] LABS: ALANINE AMINOTRANSFERASE 72 Units/L (12-78); ALBUMIN 3.3 g/dL (3.4-5.0); ALKALINE PHOSPHATASE 776 Units/L (46-116); ASPARTATE AMINO TRANSFERASE 50 Units/L (15-37); BLOOD UREA NITROGEN 12 mg/dL (7-18); CALCIUM 8.8 mg/dL (8.5-10.1); CARBON DIOXIDE 25.8 mmol/L (21-32); CHLORIDE 102 mmol/L (98-107); COR CA(FOR HYPOALB) 9.4 mg/dL (8.5-10.1); COR NA(FOR HYPERGLY) 136 mmol/L (136-145); CREATININE 0.71 mg/dL (0.55-1.02); MAGNESIUM 2.3 mg/dL (1.7-2.9); SODIUM 136 mmol/L (136-145); TOTAL PROTEIN 7.3 g/dL (6.4-8.2); eGFR NON BLACK RACES > 60 (>60)
[2021-11-16 08:18] LABS: BASOPHILS % (AUTO) 0.7 % (0.2-1.0); EOSINOPHILS # (AUTO) 0.1 x10^3/uL (0.0-0.2); EOSINOPHILS % (AUTO) 1.7 % (0.9-2.9); HEMATOCRIT 22.4 % (36.0-47.0); HEMOGLOBIN 7.5 g/dL (12.0-16.0); LYMPHOCYTES # (AUTO) 0.3 X10^3/uL (1.3-2.9); LYMPHOCYTES % (AUTO) 6.5 % (21.0-51.0); MEAN CORPUSCULAR HEMOGLOBIN 33.3 pg (27.0-34.0); MEAN CORPUSCULAR HGB CONC 33.3 g/dL (33.0-35.0); MEAN PLATELET VOLUME 9.1 fL (7.4-11.0); MONOCYTES # (AUTO) 0.4 x10^3/uL (0.3-0.8); MONOCYTES % (AUTO) 9.1 % (0.0-13.0); NEUTROPHILS # (AUTO) 3.2 x10^3/uL (2.2-4.8); RED BLOOD COUNT 2.24 X10^6/uL (3.5-5.4); RED CELL DISTRIBUTION WIDTH 20.6 % (11.6-16.5); WHITE BLOOD COUNT 3.9 X10^3/uL (3.6-10.0)
[2021-11-16 08:49] LABS: ANISOCYTOSIS 1+; PLATELET MORPHOLOGY COMMENT NORMAL (NORMAL)
[2021-11-16 08:50] LABS: ROULEAUX 1+; STOMATOCYTES SLIGHT; TEAR DROP CELLS SLIGHT
[2021-11-16] MEDS ORDERED: ZOLOFT ONE (08:54)
[2021-11-16] MEDS: ALBUMIN HUMAN 25%- 100 ML 100 ML IV SCH (08:57)
[2021-11-16] MEDS: ZOLOFT PO SCH (08:59)
[2021-11-16] MEDS: NEBIVOLOL 5 MG PO SCH (08:59)
[2021-11-16] MEDS: PREDNISONE TAB 5 MG PO SCH (09:00)
[2021-11-16] MEDS: PROCARDIA XL PO SCH (09:00)
[2021-11-16] MEDS: PEPCID TAB 40 MG PO SCH ×2 (09:00→21:27)
[2021-11-16] MEDS: SINGULAIR TAB 10 MG PO SCH (09:01)
[2021-11-16] MEDS: VITAMIN D3 125 mcg (5,000 UNITS) PO SCH (09:01)
[2021-11-16] MEDS: PROTONIX TAB 40 MG PO SCH ×2 (09:01→21:27)
[2021-11-16] MEDS: TACROLIMUS 1 MG PO SCH (09:01)
--- NOTE | 2021-11-16 10:07 | PCM.PROG ---
Progress Note - Progress Note for Day of Date of Exam: 11/16/21 - Subjective Subjective: WAS ADMITTED FOR TREATMENT OF ABDOMINAL PAIN, ASCITES, ABNORMAL LFTs, ANEMIA, DIARRHEA, HYPOALBUMINEMIA. SHE HAS A PMH OF LIVER DISEASE, RENAL DISEASE, KIDNEY TRANSPLANT, CHF, HTN, GERD, AUTOIMMUNE HEPATITIS. TODAY, SHE IS ALERT AND ORIENTED, LYING IN BED ON MORNING ROUNDS. SHE CONTINUES WITH DIFFUSE, MILD ABDOMINAL PAIN AND WEAKNESS TODAY. ON EXAMINATION, HEART IS REGULAR IN RATE AND RHYTHM. BILATERAL LUNGS NOTED WITH DIMINISHED LUNG SOUNDS THROUHGOUT. ABDOMEN IS ROUND, SOFT, AND NOTED WITH DIFFUSE TENDERNESS TO PALPATION. NORMAL BOWEL SOUNDS NOTED IN ALL QUADRANTS. HER VITALS THIS MORNING ARE: 97.7-91-18-96%-128/67. LABS WERE OBTAINED. ABNORMAL LAB VALUES INCLUDE THE FOLLOWING: RBC 2.24, HGB 7.5, HCT 22.4, PLT COUNT 100, GLUCOSE 113, TOTAL BILI 1.30, AST 50, ALT 776, ALBUMIN 3.3. STOOL STUDIES WERE POSITIVE FOR OCCULT BLOOD AND H.PYLORI. STOOL CULTURE IS PENDING. AN EGD WAS DONE BY YESTERDAY. POST OF DIAGNOSES INCLUDE: GRADE 1 NONBLEEDING DISTAL ESOPHAGEAL VARICIES, MODERATELY SEVERE PORTAL HYPERTENSIVE GASTROPATHY, EROSIVE GASTRITIS. HE PLANS FOR AN OUTPATIENT COLONOSCOPY. HE ALSO RECOMMENDS AN ULTRASOUND GUIDED PARACENTESIS. SHE IS CURRENTLY RECEIVING NORMAL SALINE AT 50 ML/HR, ALBUMIN 25% IV DAILY, ZOFRAN 4MG IV Q4H PRN, MORPHINE 2MG IV Q4H PRN, AND MAALOX 30ML PO Q4H PRN. HER HOME MEDICATIONS OF IMURAN, NEURONTIN, REGLAN, SINGULAIR, PROCARDIA, PREDNISONE, ZOLOFT, BYSTOLIC, ENVARSUS, AND AZATHIOPRINE WERE ALSO RESUMED. WE WILL CONSULT WITH RADIOLOGY FOR PARACENTESIS. OTHERWISE, WE WILL CONTINUE WITH CURRENT PLAN OF CARE. WE WILL FOLLOW UP WITH AM LABS AND CONTINUE TO MONITOR. TIME SPENT ON CLINICAL ASSESSMENT, REVIEWING LABS AND IMAGING, DECISION MAKING, AND DOCUMENTATION GREATER THAN 45 MINUTES. - Past Medical Family Social History Past Med/Fam/Surg Hx: No changes since H&P Allergies: Allergies levofloxacin [From Levaquin] Allergy (Verified 09/29/20 15:06) metronidazole [From Flagyl] Allergy (Verified 11/12/21 13:11) adhesive tape Adverse Reaction (Verified 09/29/20 15:06) ciprofloxacin [From Cipro] Adverse Reaction (Verified 09/29/20 15:06) phenazopyridine [From Pyridium] Adverse Reaction (Verified 09/29/20 15:06) Sulfa (Sulfonamide Antibiotics) [SULFA] Adverse Reaction (Verified 09/29/20 15:06) - Vital Signs and I&O's Vital Signs: Temperature 97.7 F Pulse Rate [Left Brachial] 116 Pulse Rate [Right Brachial] 91 Pulse Rate 104 Respiratory Rate 18 Blood Pressure [Right Arm] 128/67 Blood Pressure [Left Arm] 122/76 Blood Pressure 116/58 O2 Sat by Pulse Oximetry 96 Intake and Output: Intake & Output 11/13/21 11/14/21 11/15/21 11/16/21 11:59 11:59 11:59 11:59 Intake Total 500 / 500 1970 1341 / 1341 2136 / 2136 Output Total 900 / 900 Balance 500 / 500 1071 / 1071 1341 / 1341 2136 / 213 - Physical Exam Oriented: Normal Eyes: Normal Ear: Normal Nose: Normal Throat: Normal Respiratory: Generalized, Diminished Cardiovascular: Normal : Normal Auscultation: Bowel Sounds: Normal Palpation: Normal Tenderness: Diffuse, Mild Skin: Other (JAUNDICE) Musculoskeletal: Normal Psychiatric: Normal Mood Description: Calm Affect: Normal Speech Pattern: Clear, Appropriate - Laboratory and Diagnostics Result Diagrams: 11/16/21 06:06 11/16/21 06:06 Labs: 11/13/21 22:20 Stool Stool Culture - Preliminary 11/13/21 22:20 Stool - Final Laboratory WBC 3.9 X10^3/uL (3.6-10.0) 11/16/21 06:06 RBC 2.24 X10^6/uL (3.5-5.4) L 11/16/21 06:06 Hgb 7.5 g/dL (12.0-16.0) L 11/16/21 06:06 Hct 22.4 % (36.0-47.0) L 11/16/21 06:06 MCV 100.0 fL (80.0-100.0) 11/16/21 06:06 MCH 33.3 pg (27.0-34.0) 11/16/21 06:06 MCHC 33.3 g/dL (33.0-35.0) 11/16/21 06:06 RDW 20.6 % (11.6-16.5) H 11/16/21 06:06 Plt Count 100 X10^3/uL (150.0-450.0) L 11/16/21 06:06 Plt Count Comment Decreased (ADEQUATE) A 11/16/21 06:06 MPV 9.1 fL (7.4-11.0) 11/16/21 06:06 Neut % (Auto) 82.0 % (42.0-75.0) H 11/16/21 06:06 Lymph % (Auto) 6.5 % (21.0-51.0) L 11/16/21 06:06 [place] % (Auto) 9.1 % (0.0-13.0) 11/16/21 06:06 Eos % (Auto) 1.7 % (0.9-2.9) 11/16/21 06:06 Baso % (Auto) 0.7 % (0.2-1.0) 11/16/21 06:06 Neut # (Auto) 3.2 x10^3/uL (2.2-4.8) 11/16/21 06:06 Lymph # (Auto) 0.3 X10^3/uL (1.3-2.9) L 11/16/21 06:06 [place] # (Auto) 0.4 x10^3/uL (0.3-0.8) 11/16/21 06:06 Eos # (Auto) 0.1 x10^3/uL (0.0-0.2) 11/16/21 06:06 Baso # (Auto) 0.0 X10^3/uL (0.0-0.1) 11/16/21 06:06 Absolute Nucleated RBC 0.2 /100WBC 11/16/21 06:06 Plt Morphology Comment Normal (NORMAL) 11/16/21 06:06 RBC Morphology Abnormal (NORMAL) A 11/16/21 06:06 Anisocytosis 1+ A 11/16/21 06:06 Tear Drop Cells Slight A 11/16/21 06:06 Stomatocytes Slight A 11/16/21 06:06 Helmet Cells Slight A 11/15/21 05:54 [place] 1+ A 11/16/21 06:06 PT 14.0 SECONDS (11.8-14.3) 11/16/21 06:06 INR Target Range - 11/16/21 06:06 INR 1.13 (0.8-1.3) 11/16/21 06:06 APTT 40.7 SECONDS (22.9-36.5) H 11/16/21 06:06 PTT Comment - 11/16/21 06:06 Sodium 136 mmol/L (136-145) 11/16/21 06:06 Corrected Sodium 136 mmol/L (136-145) 11/16/21 06:06 Potassium 3.7 mmol/L (3.5-5.1) 11/16/21 06:06 Chloride 102 mmol/L (98-107) 11/16/21 06:06 Carbon Dioxide 25.8 mmol/L (21-32) 11/16/21 06:06 BUN 12 mg/dL (7-18) 11/16/21 06:06 Creatinine 0.71 mg/dL (0.55-1.02) 11/16/21 06:06 Est GFR (MDRD) Af Amer > 60 (>60) 11/16/21 06:06 Est GFR (MDRD) Non-Af > 60 (>60) 11/16/21 06:06 Glucose 113 mg/dL (65-99) H 11/16/21 06:06 Calcium 8.8 mg/dL (8.5-10.1) 11/16/21 06:06 Corrected Calcium 9.4 mg/dL (8.5-10.1) 11/16/21 06:06 Magnesium 2.3 mg/dL (1.7-2.9) 11/16/21 06:06 Total Bilirubin 1.30 mg/dL (0.2-1.0) H 11/16/21 06:06 AST 50 Units/L (15-37) H 11/16/21 06:06 ALT 72 Units/L (12-78) 11/16/21 06:06 Alkaline Phosphatase 776 Units/L (46-116) H 11/16/21 06:06 Ammonia 11 umol/L (11-32) 11/16/21 06:06 Total Protein 7.3 g/dL (6.4-8.2) 11/16/21 06:06 Albumin 3.3 g/dL (3.4-5.0) L 11/16/21 06:06 Globulin 4.0 g/dL (2.5-4.5) 11/16/21 06:06 Albumin/Globulin Ratio 0.8 Ratio (1.1-2.1) L 11/16/21 06:06 Amylase 7 Units/L (25-115) L 11/13/21 05:28 Lipase 46 Units/L (73-393) L 11/13/21 05:28 Specimen Type Clean catch urine 11/12/21 16:28 Urine Color Dark yellow (YELLOW) 11/12/21 16: Urine Appearance Hazy (CLEAR) 11/12/21 16: Urine pH 6.0 (5.0 - 8.0) 11/12/21 16:28 Ur Specific [place] 1.010 (1.000-1.030) 11/12/21 16:28 Urine Protein 1+ (NEGATIVE) 11/12/21 16:28 Urine Glucose (UA) Negative (NEGATIVE) 11/12/21 16:28 Urine Ketones Negative (NEGATIVE) 11/12/21 16:28 Urine Occult Blood Negative (NEGATIVE) 11/12/21 16: Urine Nitrite Negative (NEGATIVE) 11/12/21 16:28 Urine Bilirubin 1+ (NEGATIVE) 11/12/21 16:28 Urine Urobilinogen 2+ (NORMAL) 11/12/21 16:28 Ur Leukocyte Esterase Negative (NEGATIVE) 11/12/21 16:28 Urine RBC 0-2 /HPF (0-3) 11/12/21 16:28 Urine WBC 0-2 /HPF (0-5) 11/12/21 16:28 Ur Squamous Epith Cells Numerous /HPF (NEGATIVE) 11/12/21 16:28 Ur Renal Epithelial Cell Few /HPF (NEGATIVE) 11/12/21 16:28 Urine Bacteria Trace /HPF (NEGATIVE) 11/12/21 16:28 Ur Culture Indicated? No/not indicated 11/12/21 16:28 Stool Description 15g liquid brown 11/13/21 22:20 Stool Description 15g liquid brown 11/13/21 22:20 Stl Occult Blood (IFOB) Positive (NEGATIVE) A 11/13/21 22:20 Stool for White Cells Negative (NEGATIVE) 11/13/21 22:20 Stl C. diff Tox B Gene Negative (NEGATIVE) 11/13/21 22:20 Stl C. diff [id number] Presumptive negative (NEGATIVE) 11/13/21 22:20 Stool H. pylori Ag Positive (NEGATIVE) A 11/13/21 22:20 Cryptosporid parvum Ag Negative (NEGATIVE) 11/13/21 22:20 Giardia lamblia Ag Negative (NEGATIVE) 11/13/21 22:20 SARS CoV-2 RNA Rapid TOMER Negative (NEGATIVE) 11/12/21 16:26 - Plan (1) Abdominal pain Status: Acute Qualifiers: Abdominal location: generalized Qualified Code(s): R10.84 - Generalized abdominal pain Plan: NORMAL SALINE AT 50 ML/HR, ALBUMIN 25% IV DAILY, ZOFRAN 4MG IV Q4H PRN, MORPHINE 2MG IV Q4H PRN, AND MAALOX 30ML PO Q4H PRN. RESUMED HOME MEDS. EGD TODAY (2) Abdominal ascites Status: Acute Qualifiers: Ascites type: other type Qualified Code(s): R18.8 - Other ascites (3) Abnormal LFTs Status: Acute (4) Total bilirubin, elevated Status: Acute (5) Anemia Status: Acute Qualifiers: Anemia type: unspecified type Qualified Code(s): D64.9 - Anemia, unspecified (6) Diarrhea Status: Acute Qualifiers: Diarrhea type: unspecified type Qualified Code(s): R19.7 - Diarrhea, unspecified (7) Hypoalbuminemia Status: Acute (8) Liver disease Status: Chronic (9) Renal disease Status: Chronic (10) Status post kidney transplant Status: Chronic (11) CHF (congestive heart failure) Status: Chronic Qualifiers: Heart failure type: unspecified Heart failure chronicity: chronic Qualified Code(s): I50.9 - Heart failure, unspecified (12) HTN (hypertension) Status: Chronic Qualifiers: Hypertension type: primary hypertension Qualified Code(s): I10 - Essential (primary) hypertension (13) GERD (gastroesophageal reflux disease) Status: Chronic Qualifiers: Esophagitis presence: esophagitis presence not specified Qualified Code(s): K21.9 - Gastro-esophageal reflux disease without esophagitis
[2021-11-16] MEDS ORDERED: LOMOTIL PO PRN (11:46)
[2021-11-16] MEDS: NS 1,000 ML IV 1,000 ML IV SCH ×2 (12:01→21:23)
[2021-11-16] MEDS: NORTRIPTYLINE 75 MG PO SCH (21:26)
[2021-11-17] MEDS: MORPHINE SULFATE INJ 2 MG INJ IVP PRN ×3 (00:15→19:31)
[2021-11-17] MEDS: NS 1,000 ML IV 1,000 ML IV SCH ×2 (04:27→14:47)
[2021-11-17 05:20] LABS: BASOPHILS % (AUTO) 0.5 % (0.2-1.0); EOSINOPHILS # (AUTO) 0.1 x10^3/uL (0.0-0.2); EOSINOPHILS % (AUTO) 2.5 % (0.9-2.9); HEMATOCRIT 21.8 % (36.0-47.0); HEMOGLOBIN 7.3 g/dL (12.0-16.0); LYMPHOCYTES # (AUTO) 0.3 X10^3/uL (1.3-2.9); MEAN CORPUSCULAR HEMOGLOBIN 33.4 pg (27.0-34.0); MEAN CORPUSCULAR HGB CONC 33.6 g/dL (33.0-35.0); MEAN CORPUSCULAR VOLUME 99.2 fL (80.0-100.0); MEAN PLATELET VOLUME 8.7 fL (7.4-11.0); MONOCYTES # (AUTO) 0.3 x10^3/uL (0.3-0.8); NEUTROPHILS # (AUTO) 2.6 x10^3/uL (2.2-4.8); RED CELL DISTRIBUTION WIDTH 20.4 % (11.6-16.5); WHITE BLOOD COUNT 3.4 X10^3/uL (3.6-10.0)
[2021-11-17] MEDS: BENTYL CAP 10 MG PO SCH ×3 (05:26→21:13)
[2021-11-17] MEDS: IMURAN PO SCH ×3 (05:27→21:12)
[2021-11-17] MEDS: NEURONTIN CAP 400 MG PO SCH ×3 (05:27→21:13)
[2021-11-17] MEDS: REGLAN TAB 10 MG PO SCH ×4 (05:31→21:13)
[2021-11-17 05:36] LABS: ALANINE AMINOTRANSFERASE 52 Units/L (12-78); ALBUMIN 3.2 g/dL (3.4-5.0); ALKALINE PHOSPHATASE 657 Units/L (46-116); ASPARTATE AMINO TRANSFERASE 35 Units/L (15-37); BLOOD UREA NITROGEN 12 mg/dL (7-18); CALCIUM 9.1 mg/dL (8.5-10.1); CARBON DIOXIDE 25.5 mmol/L (21-32); CHLORIDE 105 mmol/L (98-107); COR CA(FOR HYPOALB) 9.7 mg/dL (8.5-10.1); COR NA(FOR HYPERGLY) 139 mmol/L (136-145); CREATININE 0.73 mg/dL (0.55-1.02); SODIUM 139 mmol/L (136-145); TOTAL PROTEIN 6.9 g/dL (6.4-8.2); eGFR NON BLACK RACES > 60 (>60)
[2021-11-17 05:57] LABS: ANISOCYTOSIS 1+; PLATELET MORPHOLOGY COMMENT NORMAL (NORMAL)
[2021-11-17] MEDS ORDERED: ZOLOFT ONE (08:58)
[2021-11-17] MEDS: ALBUMIN HUMAN 25%- 100 ML 100 ML IV SCH (09:36)
[2021-11-17] MEDS: PEPCID TAB 40 MG PO SCH ×2 (09:38→21:14)
[2021-11-17] MEDS: PREDNISONE TAB 5 MG PO SCH (09:39)
[2021-11-17] MEDS: PROCARDIA XL PO SCH (09:39)
[2021-11-17] MEDS: ZOLOFT PO SCH (09:40)
[2021-11-17] MEDS: VITAMIN D3 125 mcg (5,000 UNITS) PO SCH (09:40)
[2021-11-17] MEDS: SINGULAIR TAB 10 MG PO SCH (09:40)
[2021-11-17] MEDS: PROTONIX TAB 40 MG PO SCH ×2 (09:41→21:13)
[2021-11-17] MEDS: NEBIVOLOL 5 MG PO SCH (09:43)
[2021-11-17] MEDS: TACROLIMUS 1 MG PO SCH (09:44)
[2021-11-17] MEDS: NORTRIPTYLINE 75 MG PO SCH (21:11)
[2021-11-18] MEDS: MORPHINE SULFATE INJ 2 MG INJ IVP PRN ×4 (01:57→20:23)
[2021-11-18] MEDS: NS 1,000 ML IV 1,000 ML IV SCH ×2 (04:46→16:57)
[2021-11-18] MEDS: BENTYL CAP 10 MG PO SCH ×3 (05:07→21:55)
[2021-11-18] MEDS: NEURONTIN CAP 400 MG PO SCH ×3 (05:07→21:54)
[2021-11-18] MEDS: IMURAN PO SCH ×3 (05:08→21:54)
[2021-11-18] MEDS: REGLAN TAB 10 MG PO SCH ×4 (05:30→21:54)
[2021-11-18 05:31] LABS: BASOPHILS % (AUTO) 0.8 % (0.2-1.0); EOSINOPHILS # (AUTO) 0.1 x10^3/uL (0.0-0.2); EOSINOPHILS % (AUTO) 3.1 % (0.9-2.9); HEMATOCRIT 21.9 % (36.0-47.0); HEMOGLOBIN 7.4 g/dL (12.0-16.0); LYMPHOCYTES # (AUTO) 0.2 X10^3/uL (1.3-2.9); LYMPHOCYTES % (AUTO) 7.1 % (21.0-51.0); MEAN CORPUSCULAR HEMOGLOBIN 33.5 pg (27.0-34.0); MEAN CORPUSCULAR HGB CONC 33.9 g/dL (33.0-35.0); MEAN CORPUSCULAR VOLUME 98.9 fL (80.0-100.0); MEAN PLATELET VOLUME 8.8 fL (7.4-11.0); MONOCYTES # (AUTO) 0.3 x10^3/uL (0.3-0.8); MONOCYTES % (AUTO) 9.6 % (0.0-13.0); NEUTROPHILS # (AUTO) 2.7 x10^3/uL (2.2-4.8); NEUTROPHILS % (AUTO) 79.4 % (42.0-75.0); RED BLOOD COUNT 2.21 X10^6/uL (3.5-5.4); RED CELL DISTRIBUTION WIDTH 20.5 % (11.6-16.5); WHITE BLOOD COUNT 3.4 X10^3/uL (3.6-10.0)
[2021-11-18 05:42] LABS: ALANINE AMINOTRANSFERASE 42 Units/L (12-78); ALBUMIN 3.4 g/dL (3.4-5.0); ALKALINE PHOSPHATASE 586 Units/L (46-116); ASPARTATE AMINO TRANSFERASE 36 Units/L (15-37); BLOOD UREA NITROGEN 11 mg/dL (7-18); CALCIUM 9.4 mg/dL (8.5-10.1); CARBON DIOXIDE 24.9 mmol/L (21-32); CHLORIDE 103 mmol/L (98-107); COR NA(FOR HYPERGLY) 138 mmol/L (136-145); CREATININE 0.76 mg/dL (0.55-1.02); SODIUM 138 mmol/L (136-145); TOTAL PROTEIN 6.9 g/dL (6.4-8.2); eGFR NON BLACK RACES > 60 (>60)
[2021-11-18 05:45] LABS: ANISOCYTOSIS 1+; PLATELET MORPHOLOGY COMMENT NORMAL (NORMAL)
[2021-11-18] MEDS ORDERED: ZOLOFT ONE (08:01)
[2021-11-18] MEDS: ZOLOFT PO SCH (08:34)
[2021-11-18] MEDS: PROTONIX TAB 40 MG PO SCH ×2 (08:34→21:54)
[2021-11-18] MEDS: SINGULAIR TAB 10 MG PO SCH (08:34)
[2021-11-18] MEDS: PROCARDIA XL PO SCH (08:34)
[2021-11-18] MEDS: PREDNISONE TAB 5 MG PO SCH (08:35)
[2021-11-18] MEDS: PEPCID TAB 40 MG PO SCH ×2 (08:35→21:55)
[2021-11-18] MEDS: ALBUMIN HUMAN 25%- 100 ML 100 ML IV SCH (08:35)
[2021-11-18] MEDS: NEBIVOLOL 5 MG PO SCH (08:38)
[2021-11-18] MEDS: TACROLIMUS 1 MG PO SCH (08:40)
[2021-11-18] MEDS: VITAMIN D3 125 mcg (5,000 UNITS) PO SCH (08:41)
[2021-11-18] MEDS: NORTRIPTYLINE 75 MG PO SCH (21:54)
[2021-11-19] MEDS: MORPHINE SULFATE INJ 2 MG INJ IVP PRN (00:54)
[2021-11-19] MEDS: IMURAN PO SCH ×2 (05:23→15:00)
[2021-11-19] MEDS: BENTYL CAP 10 MG PO SCH ×2 (05:23→15:00)
[2021-11-19] MEDS: NEURONTIN CAP 400 MG PO SCH ×2 (05:24→15:00)
[2021-11-19] MEDS: REGLAN TAB 10 MG PO SCH ×3 (05:31→18:37)
[2021-11-19 06:03] LABS: EOSINOPHILS # (AUTO) 0.1 x10^3/uL (0.0-0.2); LYMPHOCYTES # (AUTO) 0.2 X10^3/uL (1.3-2.9); LYMPHOCYTES % (AUTO) 7.8 % (21.0-51.0); MONOCYTES # (AUTO) 0.3 x10^3/uL (0.3-0.8); MONOCYTES % (AUTO) 9.3 % (0.0-13.0); NEUTROPHILS # (AUTO) 2.4 x10^3/uL (2.2-4.8)
[2021-11-19 06:07] LABS: BASOPHILS % (AUTO) 0.7 % (0.2-1.0); EOSINOPHILS % (AUTO) 3.4 % (0.9-2.9); MEAN CORPUSCULAR HEMOGLOBIN 34.1 pg (27.0-34.0); MEAN CORPUSCULAR HGB CONC 34.1 g/dL (33.0-35.0); MEAN PLATELET VOLUME 8.6 fL (7.4-11.0); NEUTROPHILS % (AUTO) 78.8 % (42.0-75.0); RED CELL DISTRIBUTION WIDTH 21.1 % (11.6-16.5)
[2021-11-19 06:14] LABS: HEMOGLOBIN 6.8 g/dL (12.0-16.0)
[2021-11-19 06:18] LABS: ALANINE AMINOTRANSFERASE 35 Units/L (12-78); ALBUMIN 3.2 g/dL (3.4-5.0); ALKALINE PHOSPHATASE 502 Units/L (46-116); ASPARTATE AMINO TRANSFERASE 26 Units/L (15-37); BLOOD UREA NITROGEN 10 mg/dL (7-18); CALCIUM 9.5 mg/dL (8.5-10.1); CHLORIDE 105 mmol/L (98-107); COR CA(FOR HYPOALB) 10.1 mg/dL (8.5-10.1); CREATININE 0.66 mg/dL (0.55-1.02); SODIUM 137 mmol/L (136-145); TOTAL PROTEIN 6.5 g/dL (6.4-8.2); eGFR NON BLACK RACES > 60 (>60)
[2021-11-19 06:28] LABS: ANISOCYTOSIS 1+; PLATELET MORPHOLOGY COMMENT NORMAL (NORMAL)
[2021-11-19 09:20] VITALS: BMI 35.8
[2021-11-19] MEDS: NS 1,000 ML IV 1,000 ML IV SCH (09:46)
[2021-11-19] MEDS ORDERED: BENADRYL INJ 50 MG VIAL IVP ONE (09:48)
[2021-11-19] MEDS: SINGULAIR TAB 10 MG PO SCH (10:00)
[2021-11-19] MEDS: NEBIVOLOL 5 MG PO SCH (10:00)
[2021-11-19] MEDS: VITAMIN D3 125 mcg (5,000 UNITS) PO SCH (10:00)
[2021-11-19] MEDS: ZOLOFT PO SCH (10:00)
[2021-11-19] MEDS: TACROLIMUS 1 MG PO SCH (10:00)
[2021-11-19] MEDS: PREDNISONE TAB 5 MG PO SCH (10:00)
[2021-11-19] MEDS: PROCARDIA XL PO SCH (10:00)
[2021-11-19] MEDS: PROTONIX TAB 40 MG PO SCH (10:00)
[2021-11-19] MEDS: ALBUMIN HUMAN 25%- 100 ML 100 ML IV SCH (10:00)
[2021-11-19] MEDS ORDERED: ZOLOFT ONE (10:10)
[2021-11-19] MEDS: PEPCID TAB 40 MG PO SCH (10:47)
[2021-11-19] MEDS ORDERED: NS 500 ML IV 500 ML IV ONE (11:01)
--- NOTE | 2021-11-19 12:49 | PCM.PROG ---
Progress Note - Progress Note for Day of Date of Exam: 11/18/21 - Subjective Subjective: WAS ADMITTED FOR TREATMENT OF ABDOMINAL PAIN, ASCITES, ABNORMAL LFTs, ANEMIA, DIARRHEA, HYPOALBUMINEMIA. SHE HAS A PMH OF LIVER DISEASE, RENAL DISEASE, KIDNEY TRANSPLANT, CHF, HTN, GERD, AUTOIMMUNE HEPATITIS. TODAY, SHE IS ALERT AND ORIENTED, LYING IN BED ON MORNING ROUNDS. She did have a paracentesis per Radiologist earlier on this admission. She does have a history of some anemia and thrombocytopenia due to liver disease. She would get repeat CBC as well as an occult stool. Her hemoglobin was at 7.4 today and platelets were at 88 from 95 on Friday. She denies any bleeding gums, nosebleeds, denies any nausea, vomiting, or diarrhea. This morning on exam patient's blood pressure was stable at 121/58. He was on 2L nasal cannula, satting 97%. She says she normally does not use oxygen at home. She does use a CPAP and she has it present. Renal function is fine with BUN within normal range. Liver Enzymes are significantly improved, Alkaline phosphatase is down to 502. She also had a positive Helicobacter pylori stool. - Past Medical Family Social History Past Med/Fam/Surg Hx: No changes since H&P Allergies: Allergies levofloxacin [From Levaquin] Allergy (Verified 09/29/20 15:06) metronidazole [From Flagyl] Allergy (Verified 11/12/21 13:11) adhesive tape Adverse Reaction (Verified 09/29/20 15:06) ciprofloxacin [From Cipro] Adverse Reaction (Verified 09/29/20 15:06) phenazopyridine [From Pyridium] Adverse Reaction (Verified 09/29/20 15:06) Sulfa (Sulfonamide Antibiotics) [SULFA] Adverse Reaction (Verified 09/29/20 15:06) - Vital Signs and I&O's Vital Signs: Temperature 98.2 F Pulse Rate [Left Brachial] 94 Pulse Rate [Right Brachial] 96 Pulse Rate 89 Respiratory Rate 18 Blood Pressure [Right Arm] 131/66 Blood Pressure [Left Arm] 115/74 Blood Pressure 116/58 O2 Sat by Pulse Oximetry 96 Intake and Output: Intake & Output 11/17/21 11/18/21 11/19/21 11/20/21 11:59 11:59 11:59 11:59 Intake Total 1760 / 1760 3908 / 3908 3711 / 3711 Balance 1759 3908 / 3908 3711 / 3711 - Physical Exam Oriented: Normal Eyes: Normal Ear: Normal Nose: Normal Throat: Normal Respiratory: Generalized, Diminished Cardiovascular: Normal : Normal Auscultation: Bowel Sounds: Normal Palpation: Liver Enlarged Tenderness: Diffuse, Mild Skin: Other (JAUNDICE) Musculoskeletal: Normal Psychiatric: Normal Mood Description: Calm Affect: Normal Speech Pattern: Clear, Appropriate - Laboratory and Diagnostics Result Diagrams: 11/19/21 05:43 11/19/21 05:43 Labs: 11/16/21 14:15 Paracentesis - Final 11/16/21 14:15 Paracentesis Gram Stain - Final 11/13/21 22:20 Stool Stool Culture - Final 11/13/21 22:20 Stool - Final Laboratory WBC 3.0 X10^3/uL (3.6-10.0) L 11/19/21 05:43 RBC 2.00 X10^6/uL (3.5-5.4) L 11/19/21 05:43 Hgb 6.8 g/dL (12.0-16.0) L* 11/19/21 05:43 Hct 20.0 % (36.0-47.0) L* 11/19/21 05:43 MCV 100.0 fL (80.0-100.0) 11/19/21 05:43 MCH 34.1 pg (27.0-34.0) H 11/19/21 05:43 MCHC 34.1 g/dL (33.0-35.0) 11/19/21 05:43 RDW 21.1 % (11.6-16.5) H 11/19/21 05:43 Plt Count 86 X10^3/uL (150.0-450.0) L 11/19/21 05:43 Plt Count Comment Decreased (ADEQUATE) A 11/19/21 05:43 MPV 8.6 fL (7.4-11.0) 11/19/21 05:43 Neut % (Auto) 78.8 % (42.0-75.0) H 11/19/21 05:43 Lymph % (Auto) 7.8 % (21.0-51.0) L 11/19/21 05:43 [place] % (Auto) 9.3 % (0.0-13.0) 11/19/21 05:43 Eos % (Auto) 3.4 % (0.9-2.9) H 11/19/21 05:43 Baso % (Auto) 0.7 % (0.2-1.0) 11/19/21 05:43 Neut # (Auto) 2.4 x10^3/uL (2.2-4.8) 11/19/21 05:43 Lymph # (Auto) 0.2 X10^3/uL (1.3-2.9) L 11/19/21 05:43 [place] # (Auto) 0.3 x10^3/uL (0.3-0.8) 11/19/21 05:43 Eos # (Auto) 0.1 x10^3/uL (0.0-0.2) 11/19/21 05:43 Baso # (Auto) 0.0 X10^3/uL (0.0-0.1) 11/19/21 05:43 Absolute Nucleated RBC 0.0 /100WBC 11/19/21 05:43 Plt Morphology Comment Normal (NORMAL) 11/19/21 05:43 RBC Morphology Abnormal (NORMAL) A 11/19/21 05:43 Anisocytosis 1+ A 11/19/21 05:43 Tear Drop Cells Slight A 11/16/21 06:06 Stomatocytes Slight A 11/16/21 06:06 Helmet Cells Slight A 11/15/21 05:54 Rouleaux 1+ A 11/16/21 06:06 PT 14.0 SECONDS (11.8-14.3) 11/16/21 06:06 INR Target Range - 11/16/21 06:06 INR 1.13 (0.8-1.3) 11/16/21 06:06 APTT 40.7 SECONDS (22.9-36.5) H 11/16/21 06:06 PTT Comment - 11/16/21 06:06 Sodium 137 mmol/L (136-145) 11/19/21 05:43 Corrected Sodium TNP 11/19/21 05:43 Potassium 4.3 mmol/L (3.5-5.1) 11/19/21 05:43 Chloride 105 mmol/L (98-107) 11/19/21 05:43 Carbon Dioxide 23.0 mmol/L (21-32) 11/19/21 05:43 BUN 10 mg/dL (7-18) 11/19/21 05:43 Creatinine 0.66 mg/dL (0.55-1.02) 11/19/21 05:43 Est GFR (MDRD) Af Amer > 60 (>60) 11/19/21 05:43 Est GFR (MDRD) Non-Af > 60 (>60) 11/19/21 05:43 Glucose 106 mg/dL (65-99) H 11/19/21 05:43 Calcium 9.5 mg/dL (8.5-10.1) 11/19/21 05:43 Corrected Calcium 10.1 mg/dL (8.5-10.1) 11/19/21 05:43 Magnesium 2.3 mg/dL (1.7-2.9) 11/16/21 06:06 Total Bilirubin 0.70 mg/dL (0.2-1.0) 11/19/21 05:43 AST 26 Units/L (15-37) 11/19/21 05:43 ALT 35 Units/L (12-78) 11/19/21 05:43 Alkaline Phosphatase 502 Units/L (46-116) H 11/19/21 05:43 Ammonia 11 umol/L (11-32) 11/16/21 06:06 Total Protein 6.5 g/dL (6.4-8.2) 11/19/21 05:43 Albumin 3.2 g/dL (3.4-5.0) L 11/19/21 05:43 Globulin 3.3 g/dL (2.5-4.5) 11/19/21 05:43 Albumin/Globulin Ratio 1.0 Ratio (1.1-2.1) L 11/19/21 05:43 Amylase 7 Units/L (25-115) L 11/13/21 05:28 Lipase 46 Units/L (73-393) L 11/13/21 05:28 Specimen Type Clean catch urine 11/12/21 16:28 Urine Color Dark yellow (YELLOW) 11/12/21 16:28 Urine Appearance Hazy (CLEAR) 11/12/21 16:28 Urine pH 6.0 (5.0 - 8.0) 11/12/21 16:28 Ur Specific [place] 1.010 (1.000-1.030) 11/12/21 16:28 Urine Protein 1+ (NEGATIVE) 11/12/21 16:28 Urine Glucose (UA) Negative (NEGATIVE) 11/12/21 16:28 Urine Ketones Negative (NEGATIVE) 11/12/21 16:28 Urine Occult Blood Negative (NEGATIVE) 11/12/21 16:28 Urine Nitrite Negative (NEGATIVE) 11/12/21 16:28 Urine Bilirubin 1+ (NEGATIVE) 11/12/21 16:28 Urine Urobilinogen 2+ (NORMAL) 11/12/21 16:28 Ur Leukocyte Esterase Negative (NEGATIVE) 11/12/21 16:28 Urine RBC 0-2 /HPF (0-3) 11/12/21 16:28 Urine WBC 0-2 /HPF (0-5) 11/12/21 16:28 Ur Squamous Epith Cells Numerous /HPF (NEGATIVE) 11/12/21 16:28 Ur Renal Epithelial Cell Few /HPF (NEGATIVE) 11/12/21 16:28 Urine Bacteria Trace /HPF (NEGATIVE) 11/12/21 16:28 Ur Culture Indicated? No/not indicated 11/12/21 16:28 Stool Description 15g liquid brown 11/13/21 22:20 Stool Description 15g liquid brown 11/13/21 22:20 Stl Occult Blood (IFOB) Positive (NEGATIVE) A 11/13/21 22:20 Stool for White Cells Negative (NEGATIVE) 11/13/21 22:20 Stl C. diff Tox B Gene Negative (NEGATIVE) 11/13/21 22:20 Stl C. diff [id number] Presumptive negative (NEGATIVE) 11/13/21 22:20 Stool H. pylori Ag Positive (NEGATIVE) A 11/13/21 22:20 Cryptosporid parvum Ag Negative (NEGATIVE) 11/13/21 22:20 Giardia lamblia Ag Negative (NEGATIVE) 11/13/21 22:20 SARS CoV-2 RNA Rapid TOMER Negative (NEGATIVE) 11/12/21 16:26 Miscellaneous Test Cancelled 11/16/21 14:15 Blood Type O POSITIVE 11/19/21 08:40 Antibody Screen Negative 11/19/21 08:40 Crossmatch See Detail 11/19/21 08:40 - Plan (1) Ascites of liver Status: Acute Plan: SHE IS CURRENTLY RECEIVING NORMAL SALINE AT 50 ML/HR, ALBUMIN 25% IV DAILY, ZOFRAN 4MG IV Q4H PRN, MORPHINE 2MG IV Q4H PRN, AND MAALOX 30ML PO Q4H PRN. HER HOME MEDICATIONS OF IMURAN, NEURONTIN, REGLAN, SINGULAIR, PROCARDIA, PREDNISONE, ZOLOFT, BYSTOLIC, ENVARSUS, AND AZATHIOPRINE WERE ALSO RESUMED. WE WILL CONSULT WITH RADIOLOGY FOR PARACENTESIS. OTHERWISE, WE WILL CONTINUE WITH CURRENT PLAN OF CARE. WE WILL FOLLOW UP WITH AM LABS AND CONTINUE TO MONITOR. (2) Colitis Status: Acute (3) CHF (congestive heart failure) Status: Chronic Qualifiers: Heart failure type: unspecified Heart failure chronicity: chronic Qualified Code(s): I50.9 - Heart failure, unspecified (4) Status post kidney transplant Status: Chronic (5) Renal disease Status: Chronic (6) GERD (gastroesophageal reflux disease) Status: Chronic Qualifiers: Esophagitis presence: esophagitis presence not specified Qualified Code(s): K21.9 - Gastro-esophageal reflux disease without esophagitis
[2021-11-19 18:25] LABS: HEMOGLOBIN 9.9 g/dL (12.0-16.0)
[2021-11-19 18:37] VITALS: BP 130/70
--- NOTE | 2021-11-21 10:43 | US ---
HISTORYAscitesSTUDYPARACENTESISCOMPARISO NMarch 2021TECHNIQUEMultiple abdalla scale images were obtained of the abdomen were obtained.FINDINGSSimple appearing abdominal ascites is observed throughout the abdomen.Procedure:After the risks and benefits of the procedure were explained to the patient, including infection, bleeding, and a possible enteric injury, informed consent was obtained. Utilizing ultrasound guidance the skin entry site was marked. A time-out was taken. Patient was then prepped and draped in normal sterile fashion. 1% lidocaine without epinephrine was utilized to anesthetize the skin and underlying soft tissues. An 8 Urdu catheter was inserted over 18-gauge needle until abdominal ascites was obtained. Approximately 4100 cc was obtained from the left lower quadrant. The patient tolerated procedure well and left the department in stable in unchanged condition.IMPRESSIONSuccessful ultrasound-guided paracentesisElectronically signed by: MAZIN CASAS (Nov 21, 2021 10:42:51)
== END 2021-11-19 18:55 | disposition home health service (06) | DRG 442 ==
LOC: MED/SURG 13:05 → ER 13:05 → MED/SURG 17:44
PROVIDERS: ADMIT Internal Medicine; ATTEND Internal Medicine
DX: K76.6 Portal hypertension; K72.10 Chronic hepatic failure without coma; R94.5 Abnormal results of liver function studies; K29.00 Acute gastritis without bleeding; Z94.0 Kidney transplant status; I85.00 Esophageal varices without bleeding; R10.84 Generalized abdominal pain; R18.8 Other ascites; I50.9 Heart failure, unspecified; Z20.822 Contact with and (suspected) exposure to COVID-19; K31.89 Other diseases of stomach and duodenum; R26.89 Other abnormalities of gait and mobility; I13.0 Hypertensive heart and chronic kidney disease with heart failure and stage 1 through stage 4 chronic kidney disease, or unspecified chronic kidney disease; R19.7 Diarrhea, unspecified; B96.81 Helicobacter pylori [H. pylori] as the cause of diseases classified elsewhere; K21.9 Gastro-esophageal reflux disease without esophagitis; K72.00 Acute and subacute hepatic failure without coma; K74.69 Other cirrhosis of liver; N18.9 Chronic kidney disease, unspecified

== ENCOUNTER 2022-02-04 11:10 | Inpatient (IN) ==
--- NOTE | 2022-02-04 11:22 | DR.SOBA ---
HPI Time Seen Time Seen by Provider: 02/04/22 11:21 HPI Comment HPI Comment: PATIENT IS 52YR OLD FEMALE WITH HISTORY OF LIVER FAILURE/AUTOIMMUNE HEPATITIS, IN ER WITH TENSE ASCITIS WITH INCREASING SOB TIMES ONE WEEK. PATIENT IS WEAK AND FATIGUE. NO FEVER OR DYSURIA. DENIES CONFUSION. HAVING 8/10 ABDOMIAL PAIN RADIATING TO THE BACK. PATIENT HAVE HAD PARACENTHESIS FOR SIMILAR DISTENSION ONE YEAR AGO. SHE IS REQUIRING INCREASING OXYGEN AT HOME. Complaints Chief Complaint Doctors Comments: ABDOMINAL PAIN, ASCITIS AND DISTENSION WITH INCREASING SOB TIMES ONE WEEK. COVID-19 Coronavirus risk:travel/contact w/high risk person: No Has patient experienced Coronavirus symptoms: No Reviewed Nurses Notes Reviewed: Yes Source History Provided: Patient Mode of Arrival Mode of Arrival: EMS Duration Duration: Days Context Onset:: At Rest PE Risk Factors:: Immobilization History of:: None Currently on:: Steroids Prehospital Care:: O2 Modifying Factors Worsens:: Exertion and Lying Flat Improves:: Rest and Sitting Up Associated Signs and Symptoms Associated Signs and Symptoms: Wheeze, Cough and Chest Pain If Chest Pain Quality: Sharp Location: Substernal If Cough Cough: Nonproductive Other History Other History: LIVER FAILURE, HISTORY KIDNEY TRANSPLANT. PMH PMH Past Medical History: CHF, Depression, Migraines, GERD, Hypertension, Kidney Stones, Liver Disease, Renal Disease and Sleep Apnea Past Surgical History: Yes Surgical History: Appendectomy, Cholecystectomy, Hysterectomy and Lithotripsy Family History Family Medical History: Diabetes Mellitus, [place], Coronary Artery Disease and Hypertension Social History Do you use any recreational Drugs:: No ROS Review of Systems Constitutional: See HPI, Weakness and Fatigue; negative Fever Eyes: No Symptoms Reported ENTM: No Symptoms Reported; negative Nose Discharge and Nose Congestion Respiratoy: See HPI and Short of Breath; negative Moist Cough and Wheezing Cardiovascular: See HPI, Chest Pain and Edema Gastrointestinal/Abdominal: See HPI, Abdominal Pain and Nausea; negative Diarrhea and Vomiting Genitourinary: No Symptoms Reported and See HPI; negative Dysuria Neurological: See HPI and Weakness; negative Headache and Dizziness Musculoskeletal: No Symptoms Reported and See HPI; negative Back Pain and Muscle Pain Integumentary: No Symptoms Reported and See HPI; negative Rash and Juandice Hematologic/Lymphatic: No Symptoms Reported, See HPI, Easy Bleeding and Easy Bruising Endocrine: See HPI and Decreased Appetite; negative Increased Thirst and Increased Urine Psychiatric: No Symptoms Reported and See HPI All Other Systems: Reviewed and Negative PE Vital Signs Vitals: Temperature 97.6 F Pulse Rate 116 Respiratory Rate 24 Blood Pressure [Right Arm] 154/78 Blood Pressure [Left Arm] 130/70 Blood Pressure 119/63 O2 Sat by Pulse Oximetry 97 General Limitations: No Limitations General Appearance: Alert and In Distress Head Head Exam: Normal Inspection and Atraumatic Eyes Eye exam: Normal Appearance and PERRL; negative Scleral Icterus and Conjunctival Injection ENT ENT Exam: Normal Exam, Normal Oropharynx, Normal External Ear Exam and TM's Normal Bilaterally Neck Neck Exam: Normal Inspection and Trachea Midline; negative Tenderness Chest Chest Inspection: Normal Inspection and Symmetric Chest Wall Rise Respiratory Respiratory Exam: Normal Lung Sounds Bilat and Respiratory Distress; negative Accessory Muscle Use and Chest Wall Tenderness Respiratory Exam: Bilateral: Rhonchi and Lower: Rhonchi Cardiovascular Cardiovascular Exam: Normal Rhythm, Tachycardia and Normal Heart Sounds; negative Systolic Murmur and Diastolic Murmur Abdominal Exam Abdominal Exam: Normal Bowel Sounds, Distention, Tenderness and Ascites (TENSE.) Abdominal Tenderness: Diffuse and Moderate Extremities Extremities Exam: Normal Inspection, Normal Capillary Refill and Edema Back Back Exam: Normal Inspection; negative (R) CVA Tenderness and (L) CVA Tenderness Neurologic Neurological Exam: Alert and Oriented X3 Psychiatric Psychiatric Exam: Normal Affect and Normal Mood Skin Skin Exam: Dry MDM Additional Information Obtained Additional Information Obtained From: Old Records Differential Diagnosis Differential Diagnosis: CHF, Hyponatremia, Mycardial Infarction, Pneumonia, P neumothorax, Respiratory Insufficiency and URI Differential Diagnosis Comment:: UTI, ASCITIS, LIVER FAILUTURE. COURSE Treatment Treatment: SEE ORDERS DONE WHILE PATIENT WAS IN ER. LABS, EKG AND XRAY REPORT DISCUSSED WITH PATIENT. PATIENT WAS ADMITTED FOR FURTHER MANAGEMENT. Consultation Consultation Comments: DISCUSSED PATIENT WITH DR. FRIAS. HE WILL ADMIT PATIENT. Education/Counseling Education/Counseling: Patient Educated On: Diagnosis ROR Labs Reviewed Laboratory Results Reviewed?: Yes Result Diagrams: 02/04/22 12:20 02/04/22 12:20 Laboratory: WBC 19.4 X10^3/uL (3.6-10.0) H 02/04/22 12:20 RBC 3.59 X10^6/uL (3.5-5.4) 02/04/22 12:20 Hgb 10.5 g/dL (12.0-16.0) L 02/04/22 12:20 Hct 31.7 % (36.0-47.0) L 02/04/22 12:20 MCV 88.3 fL (80.0-100.0) 02/04/22 12:20 MCH 29.3 pg (27.0-34.0) 02/04/22 12:20 MCHC 33.1 g/dL (33.0-35.0) 02/04/22 12:20 RDW 26.1 % (11.6-16.5) H 02/04/22 12:20 Plt Count 275 X10^3/uL (150.0-450.0) 02/04/22 12:20 Plt Count Comment Adequate (ADEQUATE) 02/04/22 12:20 MPV 9.4 fL (7.4-11.0) 02/04/22 12:20 Neut % (Auto) 74.0 % (42.0-75.0) 02/04/22 12:20 Lymph % (Auto) 5.2 % (21.0-51.0) L 02/04/22 12:20 [place] % (Auto) 18.8 % (0.0-13.0) H 02/04/22 12:20 Eos % (Auto) 0.1 % (0.9-2.9) L 02/04/22 12:20 Baso % (Auto) 1.9 % (0.2-1.0) H 02/04/22 12:20 Neut # (Auto) 14.4 x10^3/uL (2.2-4.8) H 02/04/22 12:20 Lymph # (Auto) 1.0 X10^3/uL (1.3-2.9) L 02/04/22 12:20 [place] # (Auto) 3.7 x10^3/uL (0.3-0.8) H 02/04/22 12:20 Eos # (Auto) 0.0 x10^3/uL (0.0-0.2) 02/04/22 12:20 Baso # (Auto) 0.4 X10^3/uL (0.0-0.1) H 02/04/22 12:20 Absolute Nucleated RBC 0.6 /100WBC 02/04/22 12:20 Total Counted 100 02/04/22 12:20 Neutrophils % (Manual) 73 % (39-76) 02/04/22 12:20 Band Neutrophils % 6 % (0-10) 02/04/22 12:20 Lymphocytes % (Manual) 9 % (13-43) L 02/04/22 12:20 Monocytes % (Manual) 12 % (4-9) H 02/04/22 12:20 Plt Morphology Comment Normal (NORMAL) 02/04/22 12:20 RBC Morphology Abnormal (NORMAL) A 02/04/22 12:20 Dimorphic RBCs Slight 02/04/22 12:20 Anisocytosis 3+ A 02/04/22 12:20 PT 15.7 SECONDS (11.8-14.3) 02/04/22 12:20 INR Target Range - 02/04/22 12:20 INR 1.29 (0.8-1.3) 02/04/22 12:20 APTT 30.1 SECONDS (22.9-36.5) 02/04/22 12:20 PTT Comment - 02/04/22 12:20 Sodium 128 mmol/L (136-145) L 02/04/22 12:20 Corrected Sodium 129 mmol/L (136-145) L 02/04/22 12:20 Potassium 5.7 mmol/L (3.5-5.1) H 02/04/22 12:20 Chloride 96 mmol/L (98-107) L 02/04/22 12:20 Carbon Dioxide 21.1 mmol/L (21-32) 02/04/22 12:20 BUN 33 mg/dL (7-18) H 02/04/22 12:20 Creatinine 1.94 mg/dL (0.55-1.02) H 02/04/22 12:20 Est GFR (MDRD) Af Amer 35 (>60) L 02/04/22 12:20 Est GFR (MDRD) Non-Af 29 (>60) L 02/04/22 12:20 Glucose 152 mg/dL (65-99) H 02/04/22 12:20 Lactic Acid 1.4 mmol/L (0.4-2.0) 02/04/22 12:20 Calcium 11.2 mg/dL (8.5-10.1) H 02/04/22 12:20 Corrected Calcium 11.8 mg/dL (8.5-10.1) H 02/04/22 12:20 Total Bilirubin 0.80 mg/dL (0.2-1.0) 02/04/22 12:20 AST 35 Units/L (15-37) 02/04/22 12:20 ALT 26 Units/L (12-78) 02/04/22 12:20 Alkaline Phosphatase 584 Units/L (46-116) H 02/04/22 12:20 Ammonia 16 umol/L (11-32) 02/04/22 12:20 Creatine Kinase 8 Units/L (26-192) L 02/04/22 12:20 CK-MB (CK-2) < 1.0 ng/mL (0-4.0) 02/04/22 12:20 CK/CKMB % Calc 12.5 % (<4) 02/04/22 12:20 Troponin I High Sens 5.9 ng/L (4.0-60.0) 02/04/22 12:20 Total Protein 8.4 g/dL (6.4-8.2) H 02/04/22 12:20 Albumin 3.3 g/dL (3.4-5.0) L 02/04/22 12:20 Globulin 5.1 g/dL (2.5-4.5) H 02/04/22 12:20 Albumin/Globulin Ratio 0.6 Ratio (1.1-2.1) L 02/04/22 12:20 Specimen Type Clean catch urine 02/04/22 12:34 Urine Color Dark yellow (YELLOW) 02/04/22 12:34 Urine Appearance Cloudy (CLEAR) 02/04/22 12:34 Urine pH 5.0 (5.0 - 8.0) 02/04/22 12:34 Ur Specific [place] 1.020 (1.000-1.030) 02/04/22 12:34 Urine Protein 1+ (NEGATIVE) 02/04/22 12:34 Urine Glucose (UA) Negative (NEGATIVE) 02/04/22 12:34 Urine Ketones Negative (NEGATIVE) 02/04/22 12:34 Urine Blood 1+ (NEGATIVE) 02/04/22 12:34 Urine Nitrite Negative (NEGATIVE) 02/04/22 12:34 Urine Bilirubin Negative (NEGATIVE) 02/04/22 12:34 Urine Urobilinogen Normal (NORMAL) 02/04/22 12:34 Ur Leukocyte Esterase 3+ (NEGATIVE) 02/04/22 12:34 Urine RBC 5-10 /HPF (0-3) A 02/04/22 12:34 Urine WBC 10-20 /HPF (0-5) A 02/04/22 12:34 Ur Squamous Epith Cells Moderate /HPF (NEGATIVE) 02/04/22 12:34 Urine Bacteria 3+ /HPF (NEGATIVE) 02/04/22 12:34 Urine Yeast Few /HPF (NEGATIVE) 02/04/22 12:34 Ur Culture Indicated? Yes/culture set up 02/04/22 12:34 XRAY XRAY Interpreted by: Radiologist (REPORT NOTED) and Self EKG Rate: 121 [place]: Normal Rhythm: ST Block: None Hypertrophy: None ST: Old, Inf, Ant, Infarct and Nonsp Opioid Opioid Risk Tool Age (James box if 16-45): No History of Preadolescent Sexual Abuse: No Total: 0 Total Score Risk Category: Low Risk Copyright: [facility] predicting aberrant behaviors Diagnosis Discharge Problem: Tense ascites, History of kidney transplant, Acute hyponatremia Acute liver failure Qualifiers: Hepatic coma status: without hepatic coma Qualified Code(s): K72.00 - Acute and subacute hepatic failure without coma UTI (urinary tract infection) Qualifiers: Urinary tract infection type: acute cystitis Hematuria presence: with hematuria Qualified Code(s): N30.01 - Acute cystitis with hematuria
--- NOTE | 2022-02-04 12:29 | RAD ---
HISTORYShortness of breath, abdominal distensionSTUDYChest AP [id number] t size is normal. Graciela are normal. Lungs are markedly hypoinflated but free of acute infiltrates. No pleural effusions or pneumothoraces identified. Bony thorax is unremarkable.IMPRESSIONLungs markedly hypoinflated but free of acute infiltratesElectronically signed by: JOSE LEBLANC (February 04, 2022 12:28:36)
[2022-02-04 12:36] LABS: BASOPHILS # (AUTO) 0.4 X10^3/uL (0.0-0.1); BASOPHILS % (AUTO) 1.9 % (0.2-1.0); EOSINOPHILS % (AUTO) 0.1 % (0.9-2.9); HEMATOCRIT 31.7 % (36.0-47.0); HEMOGLOBIN 10.5 g/dL (12.0-16.0); LYMPHOCYTES % (AUTO) 5.2 % (21.0-51.0); MEAN CORPUSCULAR HEMOGLOBIN 29.3 pg (27.0-34.0); MEAN CORPUSCULAR HGB CONC 33.1 g/dL (33.0-35.0); MEAN CORPUSCULAR VOLUME 88.3 fL (80.0-100.0); MEAN PLATELET VOLUME 9.4 fL (7.4-11.0); MONOCYTES # (AUTO) 3.7 x10^3/uL (0.3-0.8); MONOCYTES % (AUTO) 18.8 % (0.0-13.0); NEUTROPHILS # (AUTO) 14.4 x10^3/uL (2.2-4.8); RED BLOOD COUNT 3.59 X10^6/uL (3.5-5.4); RED CELL DISTRIBUTION WIDTH 26.1 % (11.6-16.5); WHITE BLOOD COUNT 19.4 X10^3/uL (3.6-10.0)
[2022-02-04 12:45] LABS: AMMONIA 16 umol/L (11-32)
[2022-02-04 12:49] LABS: BILIRUBIN,URINE NEGATIVE (NEGATIVE); BLOOD/HEMOGLOBIN,URINE 1+ (NEGATIVE); GLUCOSE, URINE NEGATIVE (NEGATIVE); KETONES,URINE NEGATIVE (NEGATIVE); LEUKOCYTE ESTERASE ,URINE 3+ (NEGATIVE); NITRITES,URINE NEGATIVE (NEGATIVE); PROTEIN,URINE 1+ (NEGATIVE); UROBILINOGEN,URINE NORMAL (NORMAL)
[2022-02-04 12:52] LABS: LACTIC ACID 1.4 mmol/L (0.4-2.0)
[2022-02-04 12:53] LABS: BAND NEUTROPHILS % 6 % (0-10); PLATELET MORPHOLOGY COMMENT NORMAL (NORMAL)
[2022-02-04 12:54] LABS: ANISOCYTOSIS 3+
[2022-02-04 12:57] LABS: APPEARANCE,URINE CLOUDY (CLEAR); COLOR,URINE DARK YELLOW (YELLOW)
[2022-02-04 12:58] LABS: ALANINE AMINOTRANSFERASE 26 Units/L (12-78); ALBUMIN 3.3 g/dL (3.4-5.0); ALKALINE PHOSPHATASE 584 Units/L (46-116); ASPARTATE AMINO TRANSFERASE 35 Units/L (15-37); BLOOD UREA NITROGEN 33 mg/dL (7-18); CALCIUM 11.2 mg/dL (8.5-10.1); CARBON DIOXIDE 21.1 mmol/L (21-32); CHLORIDE 96 mmol/L (98-107); CKMB % 12.5 % (<4); COR CA(FOR HYPOALB) 11.8 mg/dL (8.5-10.1); COR NA(FOR HYPERGLY) 129 mmol/L (136-145); CREATINE KINASE 8 Units/L (26-192); CREATINE KINASE MB < 1.0 ng/mL (0-4.0); CREATININE 1.94 mg/dL (0.55-1.02); SODIUM 128 mmol/L (136-145); TOTAL PROTEIN 8.4 g/dL (6.4-8.2); eGFR NON BLACK RACES 29 (>60)
[2022-02-04 12:58] LABS: BACTERIA,URINE 3+ /HPF (NEGATIVE); SQUAMOUS EPITHELIAL CELL,UR MODERATE /HPF (NEGATIVE); YEAST,URINE FEW /HPF (NEGATIVE)
[2022-02-04 17:46] VITALS: BMI 29.9
[2022-02-04] MEDS: NS 1,000 ML IV 1,000 ML IV SCH (18:00)
[2022-02-04] MEDS ORDERED: ROCEPHIN 1 GRAM IV PREMIX 1 G/50 ML IV.SOLN. IV ONE (18:05)
[2022-02-04 19:31] LABS: CKMB % 4.6 % (<4); CREATINE KINASE 22 Units/L (26-192); CREATINE KINASE MB < 1.0 ng/mL (0-4.0)
[2022-02-04] MEDS: NEURONTIN CAP 400 MG PO SCH (20:40)
[2022-02-04] MEDS: NORTRIPTYLINE 75 MG PO SCH (20:41)
[2022-02-04] MEDS: XIFAXAN PO SCH (20:41)
[2022-02-04] MEDS: PROTONIX TAB 40 MG PO SCH (20:41)
[2022-02-04] MEDS: TACROLIMUS PO SCH (20:41)
[2022-02-04] MEDS: PROCARDIA XL PO SCH (20:41)
[2022-02-04] MEDS: ROCEPHIN 1 GRAM IV PREMIX 1 G/50 ML IV.SOLN. IV SCH (20:42)
[2022-02-04] MEDS ORDERED: NORTRIPTYLINE 75 MG PO SCH (21:00)
[2022-02-05 01:53] LABS: CKMB % 6.3 % (<4); CREATINE KINASE 16 Units/L (26-192); CREATINE KINASE MB < 1.0 ng/mL (0-4.0)
[2022-02-05] MEDS: NS 1,000 ML IV 1,000 ML IV SCH ×3 (05:51→20:20)
[2022-02-05 05:54] LABS: BILIRUBIN,URINE NEGATIVE (NEGATIVE); BLOOD/HEMOGLOBIN,URINE 1+ (NEGATIVE); GLUCOSE, URINE NEGATIVE (NEGATIVE); KETONES,URINE NEGATIVE (NEGATIVE); LEUKOCYTE ESTERASE ,URINE 3+ (NEGATIVE); NITRITES,URINE NEGATIVE (NEGATIVE); PROTEIN,URINE 1+ (NEGATIVE); UROBILINOGEN,URINE NORMAL (NORMAL)
[2022-02-05 06:07] LABS: APPEARANCE,URINE CLOUDY (CLEAR); BACTERIA,URINE 4+ /HPF (NEGATIVE); COLOR,URINE YELLOW (YELLOW); SQUAMOUS EPITHELIAL CELL,UR RARE /HPF (NEGATIVE)
[2022-02-05 06:22] LABS: BASOPHILS # (AUTO) 0.2 X10^3/uL (0.0-0.1); BASOPHILS % (AUTO) 1.3 % (0.2-1.0); EOSINOPHILS % (AUTO) 0.1 % (0.9-2.9); HEMATOCRIT 27.3 % (36.0-47.0); HEMOGLOBIN 9.2 g/dL (12.0-16.0); LYMPHOCYTES # (AUTO) 0.8 X10^3/uL (1.3-2.9); LYMPHOCYTES % (AUTO) 5.7 % (21.0-51.0); MEAN CORPUSCULAR HEMOGLOBIN 29.8 pg (27.0-34.0); MEAN CORPUSCULAR HGB CONC 33.8 g/dL (33.0-35.0); MEAN CORPUSCULAR VOLUME 88.4 fL (80.0-100.0); MEAN PLATELET VOLUME 9.2 fL (7.4-11.0); MONOCYTES # (AUTO) 2.7 x10^3/uL (0.3-0.8); MONOCYTES % (AUTO) 20.5 % (0.0-13.0); NEUTROPHILS # (AUTO) 9.7 x10^3/uL (2.2-4.8); NEUTROPHILS % (AUTO) 72.4 % (42.0-75.0); RED BLOOD COUNT 3.09 X10^6/uL (3.5-5.4); RED CELL DISTRIBUTION WIDTH 27.2 % (11.6-16.5); WHITE BLOOD COUNT 13.4 X10^3/uL (3.6-10.0)
[2022-02-05 06:35] LABS: ALBUMIN 2.7 g/dL (3.4-5.0); CARBON DIOXIDE 19.9 mmol/L (21-32); CREATININE 1.88 mg/dL (0.55-1.02); MAGNESIUM 1.6 mg/dL (1.7-2.9); TOTAL PROTEIN 7.2 g/dL (6.4-8.2)
[2022-02-05 06:46] LABS: ANISOCYTOSIS 3+; BAND NEUTROPHILS % 2 % (0-10); METAMYELOCYTES % 4; PLATELET MORPHOLOGY COMMENT NORMAL (NORMAL)
[2022-02-05] MEDS ORDERED: LACTULOSE PO SCH (09:00)
[2022-02-05] MEDS ORDERED: ZOLOFT ONE (09:24)
[2022-02-05] MEDS: MAGNESIUM SULFATE 1 GRAM/100 mL PREMIX 1 G/100 ML BAG IV PRN ×2 (09:26→10:47)
[2022-02-05] MEDS: CHRONULAC PO SCH (09:30)
[2022-02-05] MEDS: PROCARDIA XL PO SCH ×2 (09:31→20:20)
[2022-02-05] MEDS: FOLIC ACID TAB 1 MG PO SCH (09:31)
[2022-02-05] MEDS: PREDNISONE TAB 5 MG PO SCH (09:31)
[2022-02-05] MEDS: PROTONIX TAB 40 MG PO SCH ×2 (09:32→20:20)
[2022-02-05] MEDS: TACROLIMUS PO SCH ×2 (09:32→20:20)
[2022-02-05] MEDS: ROCEPHIN 1 GRAM IV PREMIX 1 G/50 ML IV.SOLN. IV SCH (09:32)
[2022-02-05] MEDS: XIFAXAN PO SCH ×2 (09:32→20:20)
[2022-02-05] MEDS: ZINC SULFATE PO SCH (09:33)
[2022-02-05] MEDS: ZOLOFT PO SCH (09:33)
[2022-02-05] MEDS: ALBUMIN HUMAN 25%- 100 ML 100 ML IV SCH (11:00)
--- NOTE | 2022-02-05 12:30 | DR.PROGNOT ---
Hospital Progress Notes - Progress Note for Day of: Progress Note Date: 02/05/22 - Chief Complaint Chief Complaint: feeling better after paracentesis .. drained about 5 L and some drainage on the dressings .. moderate abdominal pain .. no N/V . urine output was poor last night .. Albumin 2.7 .. Hgb 9.2.. BUN/Creat 37/1.8 - Past Medical Family Social History Past Med/Fam/Surg Hx: No changes since H&P Allergies: Allergies levofloxacin [From Levaquin] Allergy (Verified 09/29/20 15:06) metronidazole [From Flagyl] Allergy (Verified 11/12/21 13:11) adhesive tape Adverse Reaction (Verified 09/29/20 15:06) ciprofloxacin [From Cipro] Adverse Reaction (Verified 09/29/20 15:06) phenazopyridine [From Pyridium] Adverse Reaction (Verified 09/29/20 15:06) Sulfa (Sulfonamide Antibiotics) [SULFA] Adverse Reaction (Verified 09/29/20 15:06) - Review Of Systems ROS: No change since H&P - Vital Signs Vital Signs: Temperature 97.6 F Pulse Rate [Left Radial] 110 Pulse Rate 117 Respiratory Rate 18 Blood Pressure [Right Arm] 121/69 Blood Pressure [Left Arm] 130/70 Blood Pressure 119/63 O2 Sat by Pulse Oximetry 94 - Physical Exam Oriented: Normal Eyes: Normal Ear: Normal Nose: Normal Throat: Normal Respiratory: Normal Cardiovascular: Normal : Normal GI:Auscultation: Normal GI:Palpation: Other (ascites with dilated abdominal wall vessels.. . catheter in place .. non tender abdomen .) Speech Pattern: Clear, Appropriate - Laboratory and Diagnostics Result Diagrams: 02/05/22 06:12 02/05/22 06:12 Labs: 02/04/22 12:34 Urine,Clean Catch Urine Culture - Preliminary Laboratory WBC 13.4 X10^3/uL (3.6-10.0) H 02/05/22 06:12 RBC 3.09 X10^6/uL (3.5-5.4) L 02/05/22 06:12 Hgb 9.2 g/dL (12.0-16.0) L 02/05/22 06:12 Hct 27.3 % (36.0-47.0) L 02/05/22 06:12 MCV 88.4 fL (80.0-100.0) 02/05/22 06:12 MCH 29.8 pg (27.0-34.0) 02/05/22 06:12 MCHC 33.8 g/dL (33.0-35.0) 02/05/22 06:12 RDW 27.2 % (11.6-16.5) H 02/05/22 06:12 Plt Count 165 X10^3/uL (150.0-450.0) 02/05/22 06:12 Plt Count Comment Adequate (ADEQUATE) 02/05/22 06:12 MPV 9.2 fL (7.4-11.0) 02/05/22 06:12 Neut % (Auto) 72.4 % (42.0-75.0) 02/05/22 06:12 Lymph % (Auto) 5.7 % (21.0-51.0) L 02/05/22 06:12 [place] % (Auto) 20.5 % (0.0-13.0) H 02/05/22 06:12 Eos % (Auto) 0.1 % (0.9-2.9) L 02/05/22 06:12 Baso % (Auto) 1.3 % (0.2-1.0) H 02/05/22 06:12 Neut # (Auto) 9.7 x10^3/uL (2.2-4.8) H 02/05/22 06:12 Lymph # (Auto) 0.8 X10^3/uL (1.3-2.9) L 02/05/22 06:12 [place] # (Auto) 2.7 x10^3/uL (0.3-0.8) H 02/05/22 06:12 Eos # (Auto) 0.0 x10^3/uL (0.0-0.2) 02/05/22 06:12 Baso # (Auto) 0.2 X10^3/uL (0.0-0.1) H 02/05/22 06:12 Absolute Nucleated RBC 0.5 /100WBC 02/05/22 06:12 Total Counted 100 02/05/22 06:12 Neutrophils % (Manual) 68 % (39-76) 02/05/22 06:12 Band Neutrophils % 2 % (0-10) 02/05/22 06:12 Lymphocytes % (Manual) 10 % (13-43) L 02/05/22 06:12 Monocytes % (Manual) 16 % (4-9) H 02/05/22 06:12 Metamyelocytes % 4 02/05/22 06:12 Nucleated RBCs 1 02/05/22 06:12 Plt Morphology Comment Normal (NORMAL) 02/05/22 06:12 RBC Morphology Abnormal (NORMAL) A 02/05/22 06:12 Dimorphic RBCs Slight 02/04/22 12:20 Anisocytosis 3+ A 02/05/22 06:12 PT 16.1 SECONDS (11.8-14.3) 02/05/22 06:12 INR Target Range - 02/05/22 06:12 INR 1.33 (0.8-1.3) H 02/05/22 06:12 APTT 37.1 SECONDS (22.9-36.5) H 02/05/22 06:12 PTT Comment - 02/05/22 06:12 Sodium 131 mmol/L (136-145) L 02/05/22 06:12 Corrected Sodium 132 mmol/L (136-145) L 02/05/22 06:12 Potassium 5.0 mmol/L (3.5-5.1) 02/05/22 06:12 Chloride 100 mmol/L (98-107) 02/05/22 06:12 Carbon Dioxide 19.9 mmol/L (21-32) L 02/05/22 06:12 BUN 36 mg/dL (7-18) H 02/05/22 06:12 Creatinine 1.88 mg/dL (0.55-1.02) H 02/05/22 06:12 Est GFR (MDRD) Af Amer 36 (>60) L 02/05/22 06:12 Est GFR (MDRD) Non-Af 30 (>60) L 02/05/22 06:12 Glucose 130 mg/dL (65-99) H 02/05/22 06:12 Lactic Acid 1.4 mmol/L (0.4-2.0) 02/04/22 12:20 Calcium 10.0 mg/dL (8.5-10.1) 02/05/22 06:12 Corrected Calcium 11.0 mg/dL (8.5-10.1) H 02/05/22 06:12 Magnesium 1.6 mg/dL (1.7-2.9) L 02/05/22 06:12 Total Bilirubin 0.50 mg/dL (0.2-1.0) 02/05/22 06:12 AST 29 Units/L (15-37) 02/05/22 06:12 ALT 19 Units/L (12-78) 02/05/22 06:12 Alkaline Phosphatase 472 Units/L (46-116) H 02/05/22 06:12 Ammonia 41 umol/L (11-32) H 02/05/22 06:12 Creatine Kinase 16 Units/L (26-192) L 02/05/22 01:08 CK-MB (CK-2) < 1.0 ng/mL (0-4.0) 02/05/22 01:08 CK/CKMB % Calc 6.3 % (<4) 02/05/22 01:08 Troponin I High Sens 5.5 ng/L (4.0-60.0) 02/05/22 01:08 Total Protein 7.2 g/dL (6.4-8.2) 02/05/22 06:12 Albumin 2.7 g/dL (3.4-5.0) L 02/05/22 06:12 Globulin 4.5 g/dL (2.5-4.5) 02/05/22 06:12 Albumin/Globulin Ratio 0.6 Ratio (1.1-2.1) L 02/05/22 06:12 Specimen Type Clean catch urine 02/04/22 12:34 Urine Color Dark yellow (YELLOW) 02/04/22 12:34 Urine Appearance Cloudy (CLEAR) 02/04/22 12:34 Urine pH 5.0 (5.0 - 8.0) 02/04/22 12:34 Ur Specific [place] 1.020 (1.000-1.030) 02/04/22 12:34 Urine Protein 1+ (NEGATIVE) 02/04/22 12:34 Urine Glucose (UA) Negative (NEGATIVE) 02/04/22 12:34 Urine Ketones Negative (NEGATIVE) 02/04/22 12:34 Urine Blood 1+ (NEGATIVE) 02/04/22 12:34 Urine Nitrite Negative (NEGATIVE) 02/04/22 12:34 Urine Bilirubin Negative (NEGATIVE) 02/04/22 12:34 Urine Urobilinogen Normal (NORMAL) 02/04/22 12:34 Ur Leukocyte Esterase 3+ (NEGATIVE) 02/04/22 12:34 Urine RBC 5-10 /HPF (0-3) A 02/04/22 12:34 Urine WBC 10-20 /HPF (0-5) A 02/04/22 12:34 Ur Squamous Epith Cells Moderate /HPF (NEGATIVE) 02/04/22 12:34 Urine Bacteria 3+ /HPF (NEGATIVE) 02/04/22 12:34 Urine Yeast Few /HPF (NEGATIVE) 02/04/22 12:34 Ur Culture Indicated? Yes/culture set up 02/04/22 12:34 SARS-CoV-2 (PCR) Negative (NEGATIVE) 02/04/22 15:15 - Assessment and Plan 1: tense ascites . liver cirrhosis .auto immune disease , s/p renal transplant. s/p paracentesis . to drain more fluid today and continue medical management . - Problem Patient Problems: Patient Problems Tense ascites (Acute) R18.8 History of kidney transplant (Acute) Z94.0 Acute hyponatremia (Acute) E87.1 Acute liver failure (Acute) K72.00 UTI (urinary tract infection) (Acute) N39.0
--- NOTE | 2022-02-05 19:31 | DR.H&P ---
H&P - History & Physical for Day of: H&P Date: 02/04/22 - Chief Complaint Chief Complaint: ABDOMINAL PAIN, ABDOMINAL SWELLING, SOB, WEAKNESS, FATIGUE - History of Present Illness History of Present Illness: IS A 52 YEAR OLD PATIENT OF OURS. SHE PRESENTED TO THE ER WITH COMPLAINTS OF ABDOMINAL PAIN, ABDOMINAL SWELLING, SHORTNESS OF BREATH, WEAKNESS, AND FATIGUE. SHE DESCRIBES ABDOMINAL PAIN DULL, TIGHTNESS, CONSTANT, AND RATES IT A 8/10. SHE ADMITS TO INCREASING OXYGEN DEMANDS AT HOME. SYMPTOMS HAVE BEEN WORSE FOR THE PAST WEEK. SHE HAD SIMILAR SYMPTOMS IN NOVEMBER AND ENDED UP HAVING A PARACENTESIS. SHE HAS A PMH OF AUTOIMM UNE HEPATITIS, HTN, CHF, GERD, LIVER DISEASE, SLEEP APNEA, RENAL FAILURE, AND IS S/P RENAL TRANSPLANT. EXAMINATION DID REVEAL SWELLING OF THE ABDOMEN AND LOWER EXTREMITIES. ON ARRIVAL TO THE HOSPITAL, VITALS WERE: 97.6-118-20-95%-119/63. LABS WERE OBTAINED. WBC 19.4, RBC 3.59, HGB 10.5, HCT 31.7, INR 1.29, PT 15.7, PTT 30.1, SODIUM 128, POTASSIUM 5.7, CHLORIDE 96, BUN 33, CREATININE 1.94, GLUCOSE 152, CALCIUM 11.2, ALK PHOS 584, TOTAL PROTEIN 8.4, ALBUMIN 3.3, GLOBULIN 5.1. URINALYSIS OBTAINED AND REVEALED: WBC 30-50, RBC 3-5, BACTERIA 4+, LEUKOCYTES 3+, PROTEIN 1+. CARDIAC ENZYMES WERE NORMAL WITH THE EXCEPTION OF CREATINE KINASE BEING SLIGHTLY ELEVATED AT 8. RAPID COVID NEGATIVE. URINE AND BLOOD CULTURES WERE SET UP. AN ABDOMEN/PELVIS CT WITHOUT CONTRAST WAS RESUMED AND REVEALED: Lungs markedly hypoinflated but free of acute infiltrates. AN EKG WAS OBTAINED AND REVEALED: SINUS TACHYCARDIA WITH HR 121. SHE WAS ADMITTED TO THE HOSPITAL FOR FURTHER EVAUATION AND TREATMENT OF ABDOMINAL PAIN, ASCITES, HYPONATREMIA, UTI, AND END STAGE LIVER DISEASE. SHE WAS STARTED ON NORMAL SALINE AT 75 ML/HR, ROCEPHIN 1G IV DAILY, ALBUMIN 25% IV DAILY, FOLIC ACID 1MG PO DAILY, NEURONTIN 400MG PO HS, CHRONULAC 30MG PO DAILY, MAGNESIUM 1G IV PRN, NIFEDIPINE 30MG PO BID, ZOFRAN 4MG PO Q8H PRN, PROTONIX 40MG PO BID, PREDNISONE 5MG PO DAILY, XIFAXAN 550MG PO BID, ZOLOFT 100MG PO DAILY, TACROLIMUS 1MG PO BID, AND ZINC SULFATE 220MG PO DAILY. WE CONSULTED , GENERAL SURGEON, WHO PERFORMED A BEDSIDE PARACENTESIS AND GRAVITY DRAINAGE OF TENSE ASCITES. APPROXIMATELY 500 ML OF CLEAR-YELLOWISH FLUID RECOVERED IN BAG. SHE DID WELL WITHOUT ANY COMPLICATIONS. OTHERWISE, WE PLAN TO FOLLOW UP WITH AM LABS AND CONTINUE TO MONITOR. TIME SPENT ON CLINICAL ASSESSMENT, REVIEWING LABS AND IMAGING, DECISION MAKING, AND DOCUMENTATION GREATER THAN 75 MINUTES. - Past Medical History Past Medical History: Hypertension, Renal Disease, Liver Disease, Depression, GERD, Kidney Stones, Migraines, Sleep Apnea, CHF Additional Medical History: AUTOIMMUNE HEPATITIS, IBS, DIALYSIS [id number], URETER REPAIR, ENDOMETRIOSIS, OSTEOARTHRITIS - Past Surgical History Surgical History: Appendectomy, Cholecystectomy, Hysterectomy, Organ Transplant Additional Surgical History: URETER REPAIR, DIALYSIS SHURNT PLACEMENT AND REMOVAL, KIDNEY TRANSPLANT - Family History Family Medical History: Coronary Artery Disease - Social History Does patient currently use any type of tobacco product: No Have you used tobacco products in the last 12 months: No Type of Tobacco Use: None Does any household member use tobacco: No Alcohol Use: None Drug Use: None - Medications Home Medications: levofloxacin [From Levaquin] Allergy (Verified 09/29/20 15:06) metronidazole [From Flagyl] Allergy (Verified 11/12/21 13:11) adhesive tape Adverse Reaction (Verified 09/29/20 15:06) ciprofloxacin [From Cipro] Adverse Reaction (Verified 09/29/20 15:06) phenazopyridine [From Pyridium] Adverse Reaction (Verified 09/29/20 15:06) Sulfa (Sulfonamide Antibiotics) [SULFA] Adverse Reaction (Verified 09/29/20 15:06) CONTINUE taking the following medications folic acid 1 mg PO DAILY 02/04/22 [History] gabapentin 02/04/22 [History] nifedipine 30 mg PO BID 02/04/22 [History] nortriptyline 02/04/22 [History] pantoprazole 40 mg PO BID 02/04/22 [History] rifaximin 550 mg PO BID 02/04/22 [History] sertraline 100 mg PO DAILY 02/04/22 [History] tacrolimus 1 mg PO BID 02/04/22 [History] zinc 25 mg PO DAILY 02/04/22 [History] - Review of Systems Constitutional: Weakness Eyes: No Symptoms Reported ENT: No Symptoms Reported Respiratory: Shortness of Breath, SOB with Excertion Cardiovascular: No Symptoms Reported Gastrointestinal: See HPI, Abdominal Pain Genitourinary: No Symptoms Reported Musculoskeletal: No Symptoms Reported Skin: No Symptoms Reported Neurological: Weakness - Physical Exam Vital Signs: Temperature 97.8 F Pulse Rate [Left Radial] 112 Pulse Rate 117 Respiratory Rate 18 Blood Pressure [Right Arm] 128/69 Blood Pressure [Left Arm] 130/70 Blood Pressure 119/63 O2 Sat by Pulse Oximetry 98 Oriented: Normal Eyes: Normal Ear: Normal Nose: Normal Throat: Normal Respiratory: Diminished Throughout Cardiovascular: Tachycardia : Normal Auscultation: Bowel Sounds: Normal Palpation: Normal Tenderness: Diffuse, Mild Skin: Decreased [place] Musculoskeletal: Normal Psychiatric: Normal Mood Description: Calm Affect: Normal Speech Pattern: Clear - Assessment/Plan (1) Abdominal ascites Qualifiers: Ascites type: other type Qualified Code(s): R18.8 - Other ascites Status: Acute Plan: NORMAL SALINE AT 75 ML/HR, ROCEPHIN 1G IV DAILY, ALBUMIN 25% IV DAILY, FOLIC ACID 1MG PO DAILY, NEURONTIN 400MG PO HS, CHRONULAC 30MG PO DAILY, MAGNESIUM 1G IV PRN, NIFEDIPINE 30MG PO BID, ZOFRAN 4MG PO Q8H PRN, PROTONIX 40MG PO BID, PREDNISONE 5MG PO DAILY, XIFAXAN 550MG PO BID, ZOLOFT 100MG PO DAILY, TACROLIMUS 1MG PO BID, AND ZINC SULFATE 220MG PO DAILY. (2) Abdominal pain Qualifiers: Abdominal location: generalized Qualified Code(s): R10.84 - Generalized abdominal pain Status: Acute (3) UTI (urinary tract infection) Qualifiers: Urinary tract infection type: acute cystitis Hematuria presence: with hematuria Qualified Code(s): N30.01 - Acute cystitis with hematuria Status: Acute (4) Acute on chronic renal failure Status: Acute (5) S/P abdominal paracentesis Status: Acute (6) Hyponatremia Status: Acute (7) Liver disease Status: Chronic (8) Status post kidney transplant Status: Chronic (9) Autoimmune hepatitis Status: Chronic (10) HTN (hypertension) Qualifiers: Hypertension type: primary hypertension Qualified Code(s): I10 - Essential (primary) hypertension Status: Chronic - Allergies Allergies/Adverse Reactions: Allergies Allergy/AdvReac Type Severity Reaction Status Date / Time levofloxacin [From Levaquin] Allergy Verified 09/29/20 15:06 metronidazole [From Flagyl] Allergy Verified 11/12/21 13:11 adhesive tape AdvReac Verified 09/29/20 15:06 ciprofloxacin [From Cipro] AdvReac Verified 09/29/20 15:06 phenazopyridine AdvReac Verified 09/29/20 15:06 [From Pyridium] Sulfa (Sulfonamide AdvReac Verified 09/29/20 15:06 Antibiotics) [SULFA]
[2022-02-05] MEDS: NORTRIPTYLINE 75 MG PO SCH (20:20)
[2022-02-05] MEDS: NEURONTIN CAP 400 MG PO SCH (20:20)
[2022-02-06] MEDS ORDERED: MORPHINE SULFATE INJ 2 MG INJ IVP ONE (03:33)
[2022-02-06 06:14] LABS: BASOPHILS # (AUTO) 0.1 X10^3/uL (0.0-0.1); EOSINOPHILS % (AUTO) 0.1 % (0.9-2.9); HEMOGLOBIN 9.9 g/dL (12.0-16.0); LYMPHOCYTES # (AUTO) 0.7 X10^3/uL (1.3-2.9); LYMPHOCYTES % (AUTO) 5.5 % (21.0-51.0); MEAN CORPUSCULAR HEMOGLOBIN 30.1 pg (27.0-34.0); MEAN CORPUSCULAR VOLUME 88.7 fL (80.0-100.0); MEAN PLATELET VOLUME 9.4 fL (7.4-11.0); MONOCYTES % (AUTO) 14.9 % (0.0-13.0); NEUTROPHILS # (AUTO) 10.5 x10^3/uL (2.2-4.8); NEUTROPHILS % (AUTO) 78.5 % (42.0-75.0); RED BLOOD COUNT 3.28 X10^6/uL (3.5-5.4); RED CELL DISTRIBUTION WIDTH 27.1 % (11.6-16.5); WHITE BLOOD COUNT 13.3 X10^3/uL (3.6-10.0)
[2022-02-06 06:30] LABS: AMMONIA 23 umol/L (11-32)
[2022-02-06 06:39] LABS: ALANINE AMINOTRANSFERASE 27 Units/L (12-78); ALBUMIN 3.4 g/dL (3.4-5.0); ALKALINE PHOSPHATASE 626 Units/L (46-116); ASPARTATE AMINO TRANSFERASE 45 Units/L (15-37); BLOOD UREA NITROGEN 32 mg/dL (7-18); CALCIUM 9.8 mg/dL (8.5-10.1); CARBON DIOXIDE 19.9 mmol/L (21-32); CHLORIDE 99 mmol/L (98-107); COR NA(FOR HYPERGLY) 130 mmol/L (136-145); CREATININE 1.64 mg/dL (0.55-1.02); MAGNESIUM 2.3 mg/dL (1.7-2.9); SODIUM 129 mmol/L (136-145); TOTAL PROTEIN 8.1 g/dL (6.4-8.2); eGFR NON BLACK RACES 35 (>60)
[2022-02-06 06:45] LABS: BASOPHILS % (MANUAL) 2 % (0-1); METAMYELOCYTES % 2; MYELOCYTES % 2; PLATELET MORPHOLOGY COMMENT NORMAL (NORMAL)
[2022-02-06 06:46] LABS: ANISOCYTOSIS 3+
[2022-02-06] MEDS: NS 1,000 ML IV 1,000 ML IV SCH ×2 (08:30→21:51)
[2022-02-06] MEDS ORDERED: ZOLOFT ONE (08:52)
[2022-02-06] MEDS: ALBUMIN HUMAN 25%- 100 ML 100 ML IV SCH (09:01)
[2022-02-06] MEDS: ZINC SULFATE PO SCH (09:03)
[2022-02-06] MEDS: XIFAXAN PO SCH ×2 (09:04→21:51)
[2022-02-06] MEDS: PROTONIX TAB 40 MG PO SCH ×2 (09:05→21:51)
[2022-02-06] MEDS: PREDNISONE TAB 5 MG PO SCH (09:05)
[2022-02-06] MEDS: FOLIC ACID TAB 1 MG PO SCH (09:05)
[2022-02-06] MEDS: PROCARDIA XL PO SCH ×2 (09:05→21:51)
[2022-02-06] MEDS: ZOLOFT PO SCH (09:06)
[2022-02-06] MEDS: CHRONULAC PO SCH (09:06)
[2022-02-06] MEDS: INVanz INJ 1 GRAM VIAL 1 G in NS 100 ML IV 100 ML IV SCH (10:14)
[2022-02-06] MEDS: TACROLIMUS PO SCH ×2 (10:14→21:51)
[2022-02-06] MEDS: ZOFRAN TAB 4 MG PO PRN (14:08)
[2022-02-06] MEDS ORDERED: MORPHINE SULFATE INJ 2 MG INJ ONE (15:33)
[2022-02-06] MEDS: MORPHINE SULFATE INJ 2 MG INJ IVP PRN ×2 (15:42→21:40)
--- NOTE | 2022-02-06 16:41 | DR.PROGNOT ---
Hospital Progress Notes - Progress Note for Day of: Progress Note Date: 02/06/22 - Chief Complaint Chief Complaint: feeling better after paracentesis .. drained 5 more L of clear ascites .. moderate abdominal pain .. no N/V . urine output was poor last night .. Albumin 3.4 .. Hgb 9.2.. BUN/Creat 32/1.6. Alk Phos 626 - Past Medical Family Social History Past Med/Fam/Surg Hx: No changes since H&P Allergies: Allergies levofloxacin [From Levaquin] Allergy (Verified 09/29/20 15:06) metronidazole [From Flagyl] Allergy (Verified 11/12/21 13:11) adhesive tape Adverse Reaction (Verified 09/29/20 15:06) ciprofloxacin [From Cipro] Adverse Reaction (Verified 09/29/20 15:06) phenazopyridine [From Pyridium] Adverse Reaction (Verified 09/29/20 15:06) Sulfa (Sulfonamide Antibiotics) [SULFA] Adverse Reaction (Verified 09/29/20 15:06) - Review Of Systems ROS: No change since H&P - Vital Signs Vital Signs: Temperature 97.6 F Pulse Rate [Left Radial] 118 Pulse Rate 117 Respiratory Rate 18 Blood Pressure [Right Arm] 132/72 Blood Pressure [Left Arm] 130/70 Blood Pressure 119/63 O2 Sat by Pulse Oximetry 96 - Physical Exam Oriented: Normal Eyes: Normal Ear: Normal Nose: Normal Throat: Normal Respiratory: Normal Cardiovascular: Tachycardia : Normal GI:Auscultation: Normal GI:Palpation: Normal GI: Tenderness: Diffuse (soft abdomen with moderate distention .. non tender ..BS hypoactive ..), Mild Skin: Decreased [place]urgur Musculoskeletal: Normal Psychiatric: Normal Mood Description: Calm Affect: Normal Speech Pattern: Clear, Appropriate - Laboratory and Diagnostics Result Diagrams: 02/06/22 05:42 02/06/22 05:42 Labs: 02/04/22 12:20 Blood Blood Culture - Preliminary 02/05/22 05:15 Urine,Catheterized Urine Culture - Preliminary 02/04/22 12:34 Urine,Clean Catch Urine Culture - Final Klebsiella Pneumoniae [facility] WBC 13.3 X10^3/uL (3.6-10.0) H 02/06/22 05:42 RBC 3.28 X10^6/uL (3.5-5.4) L 02/06/22 05:42 Hgb 9.9 g/dL (12.0-16.0) L 02/06/22 05:42 Hct 29.0 % (36.0-47.0) L 02/06/22 05:42 MCV 88.7 fL (80.0-100.0) 02/06/22 05:42 MCH 30.1 pg (27.0-34.0) 02/06/22 05:42 MCHC 34.0 g/dL (33.0-35.0) 02/06/22 05:42 RDW 27.1 % (11.6-16.5) H 02/06/22 05:42 Plt Count 158 X10^3/uL (150.0-450.0) 02/06/22 05:42 Plt Count Comment Adequate (ADEQUATE) 02/06/22 05:42 MPV 9.4 fL (7.4-11.0) 02/06/22 05:42 Neut % (Auto) 78.5 % (42.0-75.0) H 02/06/22 05:42 Lymph % (Auto) 5.5 % (21.0-51.0) L 02/06/22 05:42 [place] % (Auto) 14.9 % (0.0-13.0) H 02/06/22 05:42 Eos % (Auto) 0.1 % (0.9-2.9) L 02/06/22 05:42 Baso % (Auto) 1.0 % (0.2-1.0) 02/06/22 05:42 Neut # (Auto) 10.5 x10^3/uL (2.2-4.8) H 02/06/22 05:42 Lymph # (Auto) 0.7 X10^3/uL (1.3-2.9) L 02/06/22 05:42 [place] # (Auto) 2.0 x10^3/uL (0.3-0.8) H 02/06/22 05:42 Eos # (Auto) 0.0 x10^3/uL (0.0-0.2) 02/06/22 05:42 Baso # (Auto) 0.1 X10^3/uL (0.0-0.1) 02/06/22 05:42 Absolute Nucleated RBC 0.1 /100WBC 02/06/22 05:42 Total Counted 100 02/06/22 05:42 Neutrophils % (Manual) 70 % (39-76) 02/06/22 05:42 Band Neutrophils % 2 % (0-10) 02/05/22 06:12 Lymphocytes % (Manual) 12 % (13-43) L 02/06/22 05:42 Monocytes % (Manual) 12 % (4-9) H 02/06/22 05:42 Basophils % (Manual) 2 % (0-1) H 02/06/22 05:42 Metamyelocytes % 2 02/06/22 05:42 Myelocytes % 2 02/06/22 05:42 Nucleated RBCs 1 02/06/22 05:42 Plt Morphology Comment Normal (NORMAL) 02/06/22 05:42 RBC Morphology Abnormal (NORMAL) A 02/06/22 05:42 Dimorphic RBCs Slight 02/04/22 12:20 Anisocytosis 3+ A 02/06/22 05:42 PT 16.1 SECONDS (11.8-14.3) 02/05/22 06:12 INR Target Range - 02/05/22 06:12 INR 1.33 (0.8-1.3) H 02/05/22 06:12 APTT 37.1 SECONDS (22.9-36.5) H 02/05/22 06:12 PTT Comment - 02/05/22 06:12 Sodium 129 mmol/L (136-145) L 02/06/22 05:42 Corrected Sodium 130 mmol/L (136-145) L 02/06/22 05:42 Potassium 4.9 mmol/L (3.5-5.1) 02/06/22 05:42 Chloride 99 mmol/L (98-107) 02/06/22 05:42 Carbon Dioxide 19.9 mmol/L (21-32) L 02/06/22 05:42 BUN 32 mg/dL (7-18) H 02/06/22 05:42 Creatinine 1.64 mg/dL (0.55-1.02) H 02/06/22 05:42 Est GFR (MDRD) Af Amer 42 (>60) L 02/06/22 05:42 Est GFR (MDRD) Non-Af 35 (>60) L 02/06/22 05:42 Glucose 144 mg/dL (65-99) H 02/06/22 05:42 Lactic Acid 1.4 mmol/L (0.4-2.0) 02/04/22 12:20 Calcium 9.8 mg/dL (8.5-10.1) 02/06/22 05:42 Corrected Calcium TNP 02/06/22 05:42 Magnesium 2.3 mg/dL (1.7-2.9) 02/06/22 05:42 Total Bilirubin 0.60 mg/dL (0.2-1.0) 02/06/22 05:42 AST 45 Units/L (15-37) H 02/06/22 05:42 ALT 27 Units/L (12-78) 02/06/22 05:42 Alkaline Phosphatase 626 Units/L (46-116) H 02/06/22 05:42 Ammonia 23 umol/L (11-32) 02/06/22 05:42 Creatine Kinase 16 Units/L (26-192) L 02/05/22 01:08 CK-MB (CK-2) < 1.0 ng/mL (0-4.0) 02/05/22 01:08 CK/CKMB % Calc 6.3 % (<4) 02/05/22 01:08 Troponin I High Sens 5.5 ng/L (4.0-60.0) 02/05/22 01:08 Total Protein 8.1 g/dL (6.4-8.2) 02/06/22 05:42 Albumin 3.4 g/dL (3.4-5.0) 02/06/22 05:42 Globulin 4.7 g/dL (2.5-4.5) H 02/06/22 05:42 Albumin/Globulin Ratio 0.7 Ratio (1.1-2.1) L 02/06/22 05:42 Specimen Type Clean catch urine 02/04/22 12:34 Urine Color Dark yellow (YELLOW) 02/04/22 12:34 Urine Appearance Cloudy (CLEAR) 02/04/22 12:34 Urine pH 5.0 (5.0 - 8.0) 02/04/22 12:34 Ur Specific [place] 1.020 (1.000-1.030) 02/04/22 12:34 Urine Protein 1+ (NEGATIVE) 02/04/22 12:34 Urine Glucose (UA) Negative (NEGATIVE) 02/04/22 12:34 Urine Ketones Negative (NEGATIVE) 02/04/22 12:34 Urine Blood 1+ (NEGATIVE) 02/04/22 12:34 Urine Nitrite Negative (NEGATIVE) 02/04/22 12:34 Urine Bilirubin Negative (NEGATIVE) 02/04/22 12:34 Urine Urobilinogen Normal (NORMAL) 02/04/22 12:34 Ur Leukocyte Esterase 3+ (NEGATIVE) 02/04/22 12:34 Urine RBC 5-10 /HPF (0-3) A 02/04/22 12:34 Urine WBC 10-20 /HPF (0-5) A 02/04/22 12:34 Ur Squamous Epith Cells Moderate /HPF (NEGATIVE) 02/04/22 12:34 Urine Bacteria 3+ /HPF (NEGATIVE) 02/04/22 12:34 Urine Yeast Few /HPF (NEGATIVE) 02/04/22 12:34 Ur Culture Indicated? Yes/culture set up 02/04/22 12:34 SARS-CoV-2 (PCR) Negative (NEGATIVE) 02/04/22 15:15 - Assessment and Plan 1: tense ascites . liver cirrhosis 2nd to auto immune disease ,. s/p paracentesis . to drain more fluid today and continue medical management . - Problem Patient Problems: Patient Problems Abdominal pain (Acute) R10.9 Abdominal ascites (Acute) R18.8 Liver disease (Chronic) K76.9 Status post kidney transplant (Chronic) Z94.0 Tense ascites (Acute) R18.8 History of kidney transplant (Acute) Z94.0 Acute hyponatremia (Acute) E87.1 Acute liver failure (Acute) K72.00 UTI (urinary tract infection) (Acute) N39.0 Acute on chronic renal failure (Acute) N17.9, N18.9 Autoimmune hepatitis (Chronic) K75.4 S/P abdominal paracentesis (Acute) Z98.890 Hyponatremia (Acute) E87.1 HTN (hypertension) (Chronic) I10
[2022-02-06 17:46] LABS: CREATININE,URINE 95.46 mg/dL (29-226); TOTAL PROTEIN,URINE 102.9 mg/dl (0-11.9)
[2022-02-06 17:48] LABS: CREATININE 24 HOUR,URINE 0.41 g/24 hr (0.67-1.59)
--- NOTE | 2022-02-06 20:05 | PCM.PROG ---
Progress Note - Progress Note for Day of Date of Exam: 02/05/22 - Subjective Subjective: WAS ADMITTED INPATIENT STATUS FOR TREATMENT OF ABDOMINAL ASCITES DUE TO CIRRHOSIS, ABDOMINAL PAIN, UTI, HYPONATREMIA, ACUTE ON CHRONIC RENAL FAILURE. SHE IS STATUS POST PARACENTESIS. PARACENTESIS WAS PERFORMED ON 02/04/22 BY . SHE HAS A PMH OF AUTOIMMUNE HEPATITIS, HTN, CHF, GERD, LIVER DISEASE, SLEEP APNEA, RENAL FAILURE, AND IS S/P RENAL TRANSPLANT. SHE REPORTS WEAKNESS AND CONTINUES WITH ABDOMINAL PAIN AND SHORTNESS OF BREATH TODAY. ON EXAMINATION, PATIENT LOOKS FRAIL. SHE IS SLIGHTLY TACHYCARDIC WITH HR 110. RHYTHM IS REGULAR. BILATERAL LUNGS NOTED WITH DIMIN ISHED LUNG SOUNDS THROUGHOUT. ABDOMEN IS ROUND, SOFT, AND NOTED WITH DIFFUSE TENDERNESS. DRAINAGE TUBE NOTED TO GRAVITY DRAINAGE. BLAKE CATHETER NOTED TO BEDSIDE DRAINAGE. LOWER EXTREMITY NON-PITTING EDEMA NOTED. SHE HAS HAD A TOTAL OF ABOUT 5 LITERS OF DRAINAGE. SHE HAD DECREASED URINE OUTPUT THROUGHOUT THE NIGHT. HER VITALS THIS MORNING ARE: 97.6-110-18-94%-121/69. LABS WERE OBTAINED. WBC 13.4, RBC 3.09, HGB 9.2, HCT 27.3, PLT COUNT 165, INR 1.33, PT 37.1, SODIUM 131, POTASSIUM 5.0, CHLORIDE 100, BUN 36, CREATININE 1.88, GLUCOSE 130, MAGNESIUM 1.6, ALK PHOS 472, AMMONIA 41, TOTAL PROTEIN 7.2, ALBUMIN 2.7. BLOOD AND URINE CULTURES ARE PENDING. SHE IS CURRENTLY RECEIVING NORMAL SALINE AT 75 ML/HR, ROCEPHIN 1G IV DAILY, ALBUMIN 25% IV DAILY, FOLIC ACID 1MG PO DAILY, NEURONTIN 400MG PO HS, CHRONULAC 30MG PO DAILY, MAGNESIUM 1G IV PRN, NIFEDIPINE 30MG PO BID, ZOFRAN 4MG PO Q8H PRN, PROTONIX 40MG PO BID, PREDNISONE 5MG PO DAILY, XIFAXAN 550MG PO BID, ZOLOFT 100MG PO DAILY, TACROLIMUS 1MG PO BID, AND ZINC SULFATE 220MG PO DAILY. WE WILL CONTINUE WITH CURRENT PLAN OF CARE TODAY. WILL CONTINUE TO MONITOR PATIENT. OTHERWISE, WE WILL FOLLOW-UP WITH AM LABS AND CONTINUE TO MONITOR. TIME SPENT ON CLINICAL ASSESSMENT, REVIEWING LABS AND IMAGING, DECISION MAKING, AND DOCUMENTATION GREATER THAN 45 MINUTES. - Past Medical Family Social History Past Med/Fam/Surg Hx: No changes since H&P Allergies: Allergies levofloxacin [From Levaquin] Allergy (Verified 09/29/20 15:06) metronidazole [From Flagyl] Allergy (Verified 11/12/21 13:11) adhesive tape Adverse Reaction (Verified 09/29/20 15:06) ciprofloxacin [From Cipro] Adverse Reaction (Verified 09/29/20 15:06) phenazopyridine [From Pyridium] Adverse Reaction (Verified 09/29/20 15:06) Sulfa (Sulfonamide Antibiotics) [SULFA] Adverse Reaction (Verified 09/29/20 15:06) - Review of Systems ROS: No change since H&P - Vital Signs and I&O's Vital Signs: Temperature 97.6 F Pulse Rate [Left Radial] 118 Pulse Rate 117 Respiratory Rate 18 Blood Pressure [Right Arm] 132/72 Blood Pressure [Left Arm] 130/70 Blood Pressure 119/63 O2 Sat by Pulse Oximetry 96 Intake and Output: Intake & Output 02/04/22 02/05/22 02/06/22 02/07/22 11:59 11:59 11:59 11:59 Intake Total 1184 / 1184 2713 / 2713 500 / 500 Output Total 7200 / 7200 4750 / 4750 100 / 100 Balance -6016 / -6016 -2037 / -7 400 / 400 - Physical Exam Oriented: Normal Eyes: Normal Ear: Normal Nose: Normal Throat: Normal Respiratory: Normal Cardiovascular: Tachycardia : Normal Auscultation: Bowel Sounds: Normal Palpation: Normal Tenderness: Diffuse (soft abdomen with moderate distention..BS hypoactive ..), Mild Skin: Decreased Turgur Musculoskeletal: Normal Psychiatric: Normal Mood Description: Calm Affect: Normal Speech Pattern: Clear, Appropriate - Laboratory and Diagnostics Result Diagrams: 02/06/22 05:42 02/06/22 05:42 Labs: 02/04/22 12:20 Blood Blood Culture - Preliminary 02/05/22 05:15 Urine,Catheterized Urine Culture - Preliminary 02/04/22 12:34 Urine,Clean Catch Urine Culture - Final Klebsiella Pneumoniae [facility] WBC 13.3 X10^3/uL (3.6-10.0) H 02/06/22 05:42 RBC 3.28 X10^6/uL (3.5-5.4) L 02/06/22 05:42 Hgb 9.9 g/dL (12.0-16.0) L 02/06/22 05:42 Hct 29.0 % (36.0-47.0) L 02/06/22 05:42 MCV 88.7 fL (80.0-100.0) 02/06/22 05:42 MCH 30.1 pg (27.0-34.0) 02/06/22 05:42 MCHC 34.0 g/dL (33.0-35.0) 02/06/22 05:42 RDW 27.1 % (11.6-16.5) H 02/06/22 05:42 Plt Count 158 X10^3/uL (150.0-450.0) 02/06/22 05:42 Plt Count Comment Adequate (ADEQUATE) 02/06/22 05:42 MPV 9.4 fL (7.4-11.0) 02/06/22 05:42 Neut % (Auto) 78.5 % (42.0-75.0) H 02/06/22 05:42 Lymph % (Auto) 5.5 % (21.0-51.0) L 02/06/22 05:42 [place] % (Auto) 14.9 % (0.0-13.0) H 02/06/22 05:42 Eos % (Auto) 0.1 % (0.9-2.9) L 02/06/22 05:42 Baso % (Auto) 1.0 % (0.2-1.0) 02/06/22 05:42 Neut # (Auto) 10.5 x10^3/uL (2.2-4.8) H 02/06/22 05:42 Lymph # (Auto) 0.7 X10^3/uL (1.3-2.9) L 02/06/22 05:42 [place] # (Auto) 2.0 x10^3/uL (0.3-0.8) H 02/06/22 05:42 Eos # (Auto) 0.0 x10^3/uL (0.0-0.2) 02/06/22 05:42 Baso # (Auto) 0.1 X10^3/uL (0.0-0.1) 02/06/22 05:42 Absolute Nucleated RBC 0.1 /100WBC 02/06/22 05:42 Total Counted 100 02/06/22 05:42 Neutrophils % (Manual) 70 % (39-76) 02/06/22 05:42 Band Neutrophils % 2 % (0-10) 02/05/22 06:12 Lymphocytes % (Manual) 12 % (13-43) L 02/06/22 05:42 Monocytes % (Manual) 12 % (4-9) H 02/06/22 05:42 Basophils % (Manual) 2 % (0-1) H 02/06/22 05:42 Metamyelocytes % 2 02/06/22 05:42 Myelocytes % 2 02/06/22 05:42 Nucleated RBCs 1 02/06/22 05:42 Plt Morphology Comment Normal (NORMAL) 02/06/22 05:42 RBC Morphology Abnormal (NORMAL) A 02/06/22 05:42 Dimorphic RBCs Slight 02/04/22 12:20 Anisocytosis 3+ A 02/06/22 05:42 PT 16.1 SECONDS (11.8-14.3) 02/05/22 06:12 INR Target Range - 02/05/22 06:12 INR 1.33 (0.8-1.3) H 02/05/22 06:12 APTT 37.1 SECONDS (22.9-36.5) H 02/05/22 06:12 PTT Comment - 02/05/22 06:12 Sodium 129 mmol/L (136-145) L 02/06/22 05:42 Corrected Sodium 130 mmol/L (136-145) L 02/06/22 05:42 Potassium 4.9 mmol/L (3.5-5.1) 02/06/22 05:42 Chloride 99 mmol/L (98-107) 02/06/22 05:42 Carbon Dioxide 19.9 mmol/L (21-32) L 02/06/22 05:42 BUN 32 mg/dL (7-18) H 02/06/22 05:42 Creatinine 1.64 mg/dL (0.55-1.02) H 02/06/22 05:42 Est GFR (MDRD) Af Amer 42 (>60) L 02/06/22 05:42 Est GFR (MDRD) Non-Af 35 (>60) L 02/06/22 05:42 Glucose 144 mg/dL (65-99) H 02/06/22 05:42 Lactic Acid 1.4 mmol/L (0.4-2.0) 02/04/22 12:20 Calcium 9.8 mg/dL (8.5-10.1) 02/06/22 05:42 Corrected Calcium TNP 02/06/22 05:42 Magnesium 2.3 mg/dL (1.7-2.9) 02/06/22 05:42 Total Bilirubin 0.60 mg/dL (0.2-1.0) 02/06/22 05:42 AST 45 Units/L (15-37) H 02/06/22 05:42 ALT 27 Units/L (12-78) 02/06/22 05:42 Alkaline Phosphatase 626 Units/L (46-116) H 02/06/22 05:42 Ammonia 23 umol/L (11-32) 02/06/22 05:42 Creatine Kinase 16 Units/L (26-192) L 02/05/22 01:08 CK-MB (CK-2) < 1.0 ng/mL (0-4.0) 02/05/22 01:08 CK/CKMB % Calc 6.3 % (<4) 02/05/22 01:08 Troponin I High Sens 5.5 ng/L (4.0-60.0) 02/05/22 01:08 Total Protein 8.1 g/dL (6.4-8.2) 02/06/22 05:42 Albumin 3.4 g/dL (3.4-5.0) 02/06/22 05:42 Globulin 4.7 g/dL (2.5-4.5) H 02/06/22 05:42 Albumin/Globulin Ratio 0.7 Ratio (1.1-2.1) L 02/06/22 05:42 Specimen Type Clean catch urine 02/04/22 12:34 Urine Color Dark yellow (YELLOW) 02/04/22 12:34 Urine Appearance Cloudy (CLEAR) 02/04/22 12:34 Urine pH 5.0 (5.0 - 8.0) 02/04/22 12:34 Ur Specific [place] 1.020 (1.000-1.030) 02/04/22 12:34 Urine Protein 1+ (NEGATIVE) 02/04/22 12:34 Urine Glucose (UA) Negative (NEGATIVE) 02/04/22 12:34 Urine Ketones Negative (NEGATIVE) 02/04/22 12:34 Urine Blood 1+ (NEGATIVE) 02/04/22 12:34 Urine Nitrite Negative (NEGATIVE) 02/04/22 12:34 Urine Bilirubin Negative (NEGATIVE) 02/04/22 12:34 Urine Urobilinogen Normal (NORMAL) 02/04/22 12:34 Ur Leukocyte Esterase 3+ (NEGATIVE) 02/04/22 12:34 Urine RBC 5-10 /HPF (0-3) A 02/04/22 12:34 Urine WBC 10-20 /HPF (0-5) A 02/04/22 12:34 Ur Squamous Epith Cells Moderate /HPF (NEGATIVE) 02/04/22 12:34 Urine Bacteria 3+ /HPF (NEGATIVE) 02/04/22 12:34 Urine Yeast Few /HPF (NEGATIVE) 02/04/22 12:34 Ur Culture Indicated? Yes/culture set up 02/04/22 12:34 Ur 24 Hour Volume 425 ml/24 hr (600-1600) L 02/06/22 17:00 Urine Creatinine 95.46 mg/dL (29-226) 02/06/22 17:00 Ur Creatinine 24 Hour 0.41 g/24 hr (0.67-1.59) L 02/06/22 17:00 Ur Total Protein 24 Hr 437 mg/day (0-165) H 02/06/22 17:00 Urine Total Protein 102.9 mg/dl (0-11.9) H 02/06/22 17:00 SARS-CoV-2 (PCR) Negative (NEGATIVE) 02/04/22 15:15 - Plan (1) Abdominal ascites Status: Acute Qualifiers: Ascites type: other type Qualified Code(s): R18.8 - Other ascites Plan: NORMAL SALINE AT 75 ML/HR, ROCEPHIN 1G IV DAILY, ALBUMIN 25% IV DAILY, FOLIC ACID 1MG PO DAILY, NEURONTIN 400MG PO HS, CHRONULAC 30MG PO DAILY, MAGNESIUM 1G IV PRN, NIFEDIPINE 30MG PO BID, ZOFRAN 4MG PO Q8H PRN, PROTONIX 40MG PO BID, PREDNISONE 5MG PO DAILY, XIFAXAN 550MG PO BID, ZOLOFT 100MG PO DAILY, TACROLIMUS 1MG PO BID, AND ZINC SULFATE 220MG PO DAILY. (2) Abdominal pain Status: Acute Qualifiers: Abdominal location: generalized Qualified Code(s): R10.84 - Generalized abdominal pain (3) UTI (urinary tract infection) Status: Acute Qualifiers: Urinary tract infection type: acute cystitis Hematuria presence: with hematuria Qualified Code(s): N30.01 - Acute cystitis with hematuria (4) Acute on chronic renal failure Status: Acute (5) S/P abdominal paracentesis Status: Acute (6) Hyponatremia Status: Acute (7) Liver disease Status: Chronic (8) Status post kidney transplant Status: Chronic (9) Autoimmune hepatitis Status: Chronic (10) HTN (hypertension) Status: Chronic Qualifiers: Hypertension type: primary hypertension Qualified Code(s): I10 - Essential (primary) hypertension
[2022-02-06] MEDS: NORTRIPTYLINE 75 MG PO SCH (21:50)
[2022-02-06] MEDS: NEURONTIN CAP 400 MG PO SCH (21:50)
[2022-02-07] MEDS: NS 1,000 ML IV 1,000 ML IV SCH ×2 (04:13→11:31)
[2022-02-07 06:02] LABS: AMMONIA 30 umol/L (11-32)
[2022-02-07 06:06] LABS: BASOPHILS # (AUTO) 0.2 X10^3/uL (0.0-0.1); EOSINOPHILS % (AUTO) 0.1 % (0.9-2.9); LYMPHOCYTES # (AUTO) 0.7 X10^3/uL (1.3-2.9); LYMPHOCYTES % (AUTO) 4.3 % (21.0-51.0); MEAN CORPUSCULAR HEMOGLOBIN 29.9 pg (27.0-34.0); MEAN CORPUSCULAR HGB CONC 33.2 g/dL (33.0-35.0); MEAN PLATELET VOLUME 9.3 fL (7.4-11.0); MONOCYTES % (AUTO) 12.1 % (0.0-13.0); NEUTROPHILS # (AUTO) 13.5 x10^3/uL (2.2-4.8); NEUTROPHILS % (AUTO) 82.5 % (42.0-75.0); RED BLOOD COUNT 3.67 X10^6/uL (3.5-5.4); RED CELL DISTRIBUTION WIDTH 27.8 % (11.6-16.5); WHITE BLOOD COUNT 16.4 X10^3/uL (3.6-10.0)
[2022-02-07 06:19] LABS: ALANINE AMINOTRANSFERASE 80 Units/L (12-78); ALBUMIN 3.7 g/dL (3.4-5.0); ASPARTATE AMINO TRANSFERASE 186 Units/L (15-37); BLOOD UREA NITROGEN 34 mg/dL (7-18); CALCIUM 10.2 mg/dL (8.5-10.1); CARBON DIOXIDE 18.7 mmol/L (21-32); CHLORIDE 100 mmol/L (98-107); COR NA(FOR HYPERGLY) 132 mmol/L (136-145); CREATININE 2.15 mg/dL (0.55-1.02); SODIUM 131 mmol/L (136-145); TOTAL PROTEIN 8.2 g/dL (6.4-8.2); eGFR NON BLACK RACES 26 (>60)
[2022-02-07 06:23] LABS: ALKALINE PHOSPHATASE 1627 Units/L (46-116)
[2022-02-07 06:57] LABS: ANISOCYTOSIS 3+; PLATELET MORPHOLOGY COMMENT NORMAL (NORMAL)
--- NOTE | 2022-02-07 09:01 | DR.PROGNOT ---
Hospital Progress Notes - Progress Note for Day of: Progress Note Date: 02/07/22 - Chief Complaint Chief Complaint: feeling better after paracentesis .. drained one more Liter of clear ascites .. moderate abdominal pain .. no N/V . urine output was poor last night .. Albumin 3.7 .. BUN/Creat ...Alk Roselia 1622 - Past Medical Family Social History Past Med/Fam/Surg Hx: No changes since H&P Allergies: Allergies levofloxacin [From Levaquin] Allergy (Verified 09/29/20 15:06) metronidazole [From Flagyl] Allergy (Verified 11/12/21 13:11) adhesive tape Adverse Reaction (Verified 09/29/20 15:06) ciprofloxacin [From Cipro] Adverse Reaction (Verified 09/29/20 15:06) phenazopyridine [From Pyridium] Adverse Reaction (Verified 09/29/20 15:06) Sulfa (Sulfonamide Antibiotics) [SULFA] Adverse Reaction (Verified 09/29/20 15:06) - Review Of Systems ROS: No change since H&P - Vital Signs Vital Signs: Temperature 97.5 F Pulse Rate [Left Radial] 110 Pulse Rate 117 Respiratory Rate 18 Blood Pressure [Right Arm] 123/56 Blood Pressure [Left Arm] 130/70 Blood Pressure 119/63 O2 Sat by Pulse Oximetry 97 - Physical Exam Oriented: Normal Eyes: Normal Ear: Normal Nose: Normal Throat: Normal Respiratory: Normal Cardiovascular: Tachycardia : Normal GI:Auscultation: Normal GI:Palpation: Normal GI: Tenderness: Diffuse (soft abdomen with moderate distention..BS hypoactive ..), Mild Skin: Decreased Turgur Musculoskeletal: Normal Psychiatric: Normal Mood Description: Calm Affect: Normal Speech Pattern: Clear, Appropriate - Laboratory and Diagnostics Result Diagrams: 02/07/22 05:27 02/07/22 05:27 Labs: 02/05/22 05:15 Urine,Catheterized Urine Culture - Final Enterococcus Faecalis 02/04/22 12:20 Blood Blood Culture - Preliminary 02/04/22 12:34 Urine,Clean Catch Urine Culture - Final Klebsiella Pneumoniae [facility] WBC 16.4 X10^3/uL (3.6-10.0) H 02/07/22 05:27 RBC 3.67 X10^6/uL (3.5-5.4) 02/07/22 05:27 Hgb 11.0 g/dL (12.0-16.0) L 02/07/22 05:27 Hct 33.0 % (36.0-47.0) L 02/07/22 05:27 MCV 90.0 fL (80.0-100.0) 02/07/22 05:27 MCH 29.9 pg (27.0-34.0) 02/07/22 05:27 MCHC 33.2 g/dL (33.0-35.0) 02/07/22 05:27 RDW 27.8 % (11.6-16.5) H 02/07/22 05:27 Plt Count 179 X10^3/uL (150.0-450.0) 02/07/22 05:27 Plt Count Comment Adequate (ADEQUATE) 02/07/22 05:27 MPV 9.3 fL (7.4-11.0) 02/07/22 05:27 Neut % (Auto) 82.5 % (42.0-75.0) H 02/07/22 05:27 Lymph % (Auto) 4.3 % (21.0-51.0) L 02/07/22 05:27 [place] % (Auto) 12.1 % (0.0-13.0) 02/07/22 05:27 Eos % (Auto) 0.1 % (0.9-2.9) L 02/07/22 05:27 Baso % (Auto) 1.0 % (0.2-1.0) 02/07/22 05:27 Neut # (Auto) 13.5 x10^3/uL (2.2-4.8) H 02/07/22 05:27 Lymph # (Auto) 0.7 X10^3/uL (1.3-2.9) L 02/07/22 05:27 [place] # (Auto) 2.0 x10^3/uL (0.3-0.8) H 02/07/22 05:27 Eos # (Auto) 0.0 x10^3/uL (0.0-0.2) 02/07/22 05:27 Baso # (Auto) 0.2 X10^3/uL (0.0-0.1) H 02/07/22 05:27 Absolute Nucleated RBC 0.2 /100WBC 02/07/22 05:27 Total Counted 100 02/07/22 05:27 Neutrophils % (Manual) 77 % (39-76) H 02/07/22 05:27 Band Neutrophils % 2 % (0-10) 02/05/22 06:12 Lymphocytes % (Manual) 16 % (13-43) 02/07/22 05:27 Monocytes % (Manual) 7 % (4-9) 02/07/22 05:27 Basophils % (Manual) 2 % (0-1) H 02/06/22 05:42 Metamyelocytes % 2 02/06/22 05:42 Myelocytes % 2 02/06/22 05:42 Nucleated RBCs 1 02/06/22 05:42 Plt Morphology Comment Normal (NORMAL) 02/07/22 05:27 RBC Morphology Abnormal (NORMAL) A 02/07/22 05:27 Dimorphic RBCs Slight 02/04/22 12:20 Anisocytosis 3+ A 02/07/22 05:27 PT 16.1 SECONDS (11.8-14.3) 02/05/22 06:12 INR Target Range - 02/05/22 06:12 INR 1.33 (0.8-1.3) H 02/05/22 06:12 APTT 37.1 SECONDS (22.9-36.5) H 02/05/22 06:12 PTT Comment - 02/05/22 06:12 Sodium 131 mmol/L (136-145) L 02/07/22 05:27 Corrected Sodium 132 mmol/L (136-145) L 02/07/22 05:27 Potassium 5.3 mmol/L (3.5-5.1) H 02/07/22 05:27 Chloride 100 mmol/L (98-107) 02/07/22 05:27 Carbon Dioxide 18.7 mmol/L (21-32) L 02/07/22 05:27 BUN 34 mg/dL (7-18) H 02/07/22 05:27 Creatinine 2.15 mg/dL (0.55-1.02) H 02/07/22 05:27 Est GFR (MDRD) Af Amer 31 (>60) L 02/07/22 05:27 Est GFR (MDRD) Non-Af 26 (>60) L 02/07/22 05:27 Glucose 126 mg/dL (65-99) H 02/07/22 05:27 Lactic Acid 1.4 mmol/L (0.4-2.0) 02/04/22 12:20 Calcium 10.2 mg/dL (8.5-10.1) H 02/07/22 05:27 Corrected Calcium TNP 02/07/22 05:27 Magnesium 2.3 mg/dL (1.7-2.9) 02/06/22 05:42 Total Bilirubin 1.90 mg/dL (0.2-1.0) H 02/07/22 05:27 AST 186 Units/L (15-37) H 02/07/22 05:27 ALT 80 Units/L (12-78) H 02/07/22 05:27 Alkaline Phosphatase 1627 Units/L (46-116) H 02/07/22 05:27 Ammonia 30 umol/L (11-32) 02/07/22 05:27 Creatine Kinase 16 Units/L (26-192) L 02/05/22 01:08 CK-MB (CK-2) < 1.0 ng/mL (0-4.0) 02/05/22 01:08 CK/CKMB % Calc 6.3 % (<4) 02/05/22 01:08 Troponin I High Sens 5.5 ng/L (4.0-60.0) 02/05/22 01:08 Total Protein 8.2 g/dL (6.4-8.2) 02/07/22 05:27 Albumin 3.7 g/dL (3.4-5.0) 02/07/22 05:27 Globulin 4.5 g/dL (2.5-4.5) 02/07/22 05:27 Albumin/Globulin Ratio 0.8 Ratio (1.1-2.1) L 02/07/22 05:27 Specimen Type Clean catch urine 02/04/22 12:34 Urine Color Dark yellow (YELLOW) 02/04/22 12:34 Urine Appearance Cloudy (CLEAR) 02/04/22 12:34 Urine pH 5.0 (5.0 - 8.0) 02/04/22 12:34 Ur Specific [place] 1.020 (1.000-1.030) 02/04/22 12:34 Urine Protein 1+ (NEGATIVE) 02/04/22 12:34 Urine Glucose (UA) Negative (NEGATIVE) 02/04/22 12:34 Urine Ketones Negative (NEGATIVE) 02/04/22 12:34 Urine Blood 1+ (NEGATIVE) 02/04/22 12:34 Urine Nitrite Negative (NEGATIVE) 02/04/22 12:34 Urine Bilirubin Negative (NEGATIVE) 02/04/22 12:34 Urine Urobilinogen Normal (NORMAL) 02/04/22 12:34 Ur Leukocyte Esterase 3+ (NEGATIVE) 02/04/22 12:34 Urine RBC 5-10 /HPF (0-3) A 02/04/22 12:34 Urine WBC 10-20 /HPF (0-5) A 02/04/22 12:34 Ur Squamous Epith Cells Moderate /HPF (NEGATIVE) 02/04/22 12:34 Urine Bacteria 3+ /HPF (NEGATIVE) 02/04/22 12:34 Urine Yeast Few /HPF (NEGATIVE) 02/04/22 12:34 Ur Culture Indicated? Yes/culture set up 02/04/22 12:34 Ur 24 Hour Volume 425 ml/24 hr (600-1600) L 02/06/22 17:00 Urine Creatinine 95.46 mg/dL (29-226) 02/06/22 17:00 Ur Creatinine 24 Hour 0.41 g/24 hr (0.67-1.59) L 02/06/22 17:00 Ur Total Protein 24 Hr 437 mg/day (0-165) H 02/06/22 17:00 Urine Total Protein 102.9 mg/dl (0-11.9) H 02/06/22 17:00 SARS-CoV-2 (PCR) Negative (NEGATIVE) 02/04/22 15:15 - Assessment and Plan 1: s/p paracentesis for tense ascites... liver cirrhosis 2nd to auto immune disease ,. UTI. CKD. ( transplant Pt ..). to remove the drainage catheter and follow as needed .. - Problem Patient Problems: Patient Problems Abdominal pain (Acute) R10.9 Abdominal ascites (Acute) R18.8 Liver disease (Chronic) K76.9 Status post kidney transplant (Chronic) Z94.0 Tense ascites (Acute) R18.8 History of kidney transplant (Acute) Z94.0 Acute hyponatremia (Acute) E87.1 Acute liver failure (Acute) K72.00 UTI (urinary tract infection) (Acute) N39.0 Acute on chronic renal failure (Acute) N17.9, N18.9 Autoimmune hepatitis (Chronic) K75.4 S/P abdominal paracentesis (Acute) Z98.890 Hyponatremia (Acute) E87.1 HTN (hypertension) (Chronic) I10
[2022-02-07] MEDS ORDERED: ZOLOFT ONE (09:35)
[2022-02-07] MEDS: CHRONULAC PO SCH (10:21)
[2022-02-07] MEDS: FOLIC ACID TAB 1 MG PO SCH (10:23)
[2022-02-07] MEDS: INVanz INJ 1 GRAM VIAL 1 G in NS 100 ML IV 100 ML IV SCH (10:23)
[2022-02-07] MEDS: PREDNISONE TAB 5 MG PO SCH (10:23)
[2022-02-07] MEDS: PROCARDIA XL PO SCH ×2 (10:24→21:16)
[2022-02-07] MEDS: PROTONIX TAB 40 MG PO SCH ×2 (10:24→21:16)
[2022-02-07] MEDS: ZINC SULFATE PO SCH (10:25)
[2022-02-07] MEDS: ZOLOFT PO SCH (10:25)
[2022-02-07] MEDS: MORPHINE SULFATE INJ 2 MG INJ IVP PRN ×2 (10:33→20:41)
[2022-02-07] MEDS: TACROLIMUS PO SCH ×2 (10:39→21:16)
[2022-02-07] MEDS: XIFAXAN PO SCH ×2 (11:31→21:16)
--- NOTE | 2022-02-07 13:28 | PCM.PROG ---
Progress Note - Progress Note for Day of Date of Exam: 02/06/22 - Subjective Subjective: WAS ADMITTED INPATIENT STATUS FOR TREATMENT OF ABDOMINAL ASCITES DUE TO CIRRHOSIS, ABDOMINAL PAIN, UTI, HYPONATREMIA, ACUTE ON CHRONIC RENAL FAILURE. SHE IS STATUS POST PARACENTESIS. PARACENTESIS WAS PERFORMED ON 02/04/22 BY . SHE HAS A PMH OF AUTOIMMUNE HEPATITIS, HTN, CHF, GERD, LIVER DISEASE, SLEEP APNEA, RENAL FAILURE, AND HX OF RENAL TRANSPLANT. TODAY, PATIENT IS LYING IN BED WITH EYES CLOSED ON MORNING ROUNDS. SHE IS DIFFICULT TO AROUSE. ON EXAMINATION, SHE LOOKS FRAIL. SHE IS TACHYCARDIC WITH HR 110. RHYTHM IS REGULAR. BILATERAL LUNGS NOTED WITH DIMINISHED LUNG SOUNDS THROUGHOUT. ABDOMEN IS ROUND, SOFT, AND NOTED WITH DIFFUSE TENDERNESS. DRAINAGE TUBE NOTED TO GRAVITY DRAINAGE. BLAKE CATHETER NOTED TO BEDSIDE DRAINAGE. LOWER EXTREMITY NON-PITTING EDEMA NOTED. SHE HAS HAD A SIGNIFICANT AMOUNT OF DRAINAGE SINCE DRAIN WAS PLACED. SHE HAD DECREASED URINE OUTPUT THROUGHOUT THE NIGHT. HER VITALS THIS MORNING ARE: 97.9-669-08-100%-130/66. LABS WERE OBTAINED. WBC 13.3, RBC 3.28, HGB 9.9, HCT 29.0, SODIUM 129, POTASSIUM 4.9, CARBON DIOXIDE 19.9, BUN 32, CREATININE 1.64, GLUCOSE 144, AST 45, ALT 27, ALK PHOS 626, TOTAL PROTEIN 8.1, ALBUMIN 3.4, GLOBULIN 4.7. BLOOD AND URINE CULTURES ARE PENDING. SHE IS CURRENTLY RECEIVING NORMAL SALINE AT 75 ML/HR, ROCEPHIN 1G IV DAILY, ALBUMIN 25% IV DAILY, FOLIC ACID 1MG PO DAILY, NEURONTIN 400MG PO HS, CHRONULAC 30MG PO DAILY, MAGNESIUM 1G IV PRN, NIFEDIPINE 30MG PO BID, ZOFRAN 4MG PO Q8H PRN, PROTONIX 40MG PO BID, PREDNISONE 5MG PO DAILY, XIFAXAN 550MG PO BID, ZOLOFT 100MG PO DAILY, TACROLIMUS 1MG PO BID, AND ZINC SULFATE 220MG PO DAILY. WE WILL CONTINUE WITH CURRENT PLAN OF CARE TODAY. WILL CONTINUE TO MONITOR PATIENT. OTHERWISE, WE WILL FOLLOW-UP WITH AM LABS AND CONTINUE TO MONITOR. TIME SPENT ON CLINICAL ASSESSMENT, REVIEWING LABS AND IMAGING, DECISION MAKING, AND DOCUMENTATION GREATER THAN 45 MINUTES. - Past Medical Family Social History Past Med/Fam/Surg Hx: No changes since H&P Allergies: Allergies levofloxacin [From Levaquin] Allergy (Verified 09/29/20 15:06) metronidazole [From Flagyl] Allergy (Verified 11/12/21 13:11) adhesive tape Adverse Reaction (Verified 09/29/20 15:06) ciprofloxacin [From Cipro] Adverse Reaction (Verified 09/29/20 15:06) phenazopyridine [From Pyridium] Adverse Reaction (Verified 09/29/20 15:06) Sulfa (Sulfonamide Antibiotics) [SULFA] Adverse Reaction (Verified 09/29/20 15:0 6) - Review of Systems ROS: No change since H&P - Vital Signs and I&O's Vital Signs: Temperature 97.4 F Pulse Rate [Left Radial] 115 Pulse Rate 117 Respiratory Rate 18 Blood Pressure [Right Arm] 119/59 Blood Pressure [Left Arm] 130/70 Blood Pressure 119/63 O2 Sat by Pulse Oximetry 100 Intake and Output: Intake & Output 02/05/22 02/06/22 02/07/22 02/08/22 11:59 11:59 11:59 11:59 Intake Total 1184 / 1184 2713 / 2713 4100 / 4100 Output Total 7200 / 7200 4750 / 4750 3800 / 3800 Balance -6016 / -6016 -2037 / -7 300 / 300 - Physical Exam Oriented: Normal Eyes: Normal Ear: Normal Nose: Normal Throat: Normal Respiratory: Normal Cardiovascular: Tachycardia : Normal Auscultation: Bowel Sounds: Normal Palpation: Normal Tenderness: Diffuse (soft abdomen with moderate distention..BS hypoactive ..), Mild Skin: Decreased Turgur Musculoskeletal: Normal Psychiatric: Normal Mood Description: Calm Affect: Normal Speech Pattern: Clear, Appropriate - Laboratory and Diagnostics Result Diagrams: 02/07/22 05:27 02/07/22 05:27 Labs: 02/05/22 05:15 Urine,Catheterized Urine Culture - Final Enterococcus Faecalis 02/04/22 12:20 Blood Blood Culture - Preliminary 02/04/22 12:34 Urine,Clean Catch Urine Culture - Final Klebsiella Pneumoniae [facility] WBC 16.4 X10^3/uL (3.6-10.0) H 02/07/22 05:27 RBC 3.67 X10^6/uL (3.5-5.4) 02/07/22 05:27 Hgb 11.0 g/dL (12.0-16.0) L 02/07/22 05:27 Hct 33.0 % (36.0-47.0) L 02/07/22 05:27 MCV 90.0 fL (80.0-100.0) 02/07/22 05:27 MCH 29.9 pg (27.0-34.0) 02/07/22 05:27 MCHC 33.2 g/dL (33.0-35.0) 02/07/22 05:27 RDW 27.8 % (11.6-16.5) H 02/07/22 05:27 Plt Count 179 X10^3/uL (150.0-450.0) 02/07/22 05:27 Plt Count Comment Adequate (ADEQUATE) 02/07/22 05:27 MPV 9.3 fL (7.4-11.0) 02/07/22 05:27 Neut % (Auto) 82.5 % (42.0-75.0) H 02/07/22 05:27 Lymph % (Auto) 4.3 % (21.0-51.0) L 02/07/22 05:27 [place] % (Auto) 12.1 % (0.0-13.0) 02/07/22 05:27 Eos % (Auto) 0.1 % (0.9-2.9) L 02/07/22 05:27 Baso % (Auto) 1.0 % (0.2-1.0) 02/07/22 05:27 Neut # (Auto) 13.5 x10^3/uL (2.2-4.8) H 02/07/22 05:27 Lymph # (Auto) 0.7 X10^3/uL (1.3-2.9) L 02/07/22 05:27 [place] # (Auto) 2.0 x10^3/uL (0.3-0.8) H 02/07/22 05:27 Eos # (Auto) 0.0 x10^3/uL (0.0-0.2) 02/07/22 05:27 Baso # (Auto) 0.2 X10^3/uL (0.0-0.1) H 02/07/22 05:27 Absolute Nucleated RBC 0.2 /100WBC 02/07/22 05:27 Total Counted 100 02/07/22 05:27 Neutrophils % (Manual) 77 % (39-76) H 02/07/22 05:27 Band Neutrophils % 2 % (0-10) 02/05/22 06:12 Lymphocytes % (Manual) 16 % (13-43) 02/07/22 05:27 Monocytes % (Manual) 7 % (4-9) 02/07/22 05:27 Basophils % (Manual) 2 % (0-1) H 02/06/22 05:42 Metamyelocytes % 2 02/06/22 05:42 Myelocytes % 2 02/06/22 05:42 Nucleated RBCs 1 02/06/22 05:42 Plt Morphology Comment Normal (NORMAL) 02/07/22 05:27 RBC Morphology Abnormal (NORMAL) A 02/07/22 05:27 Dimorphic RBCs Slight 02/04/22 12:20 Anisocytosis 3+ A 02/07/22 05:27 PT 16.1 SECONDS (11.8-14.3) 02/05/22 06:12 INR Target Range - 02/05/22 06:12 INR 1.33 (0.8-1.3) H 02/05/22 06:12 APTT 37.1 SECONDS (22.9-36.5) H 02/05/22 06:12 PTT Comment - 02/05/22 06:12 Sodium 131 mmol/L (136-145) L 02/07/22 05:27 Corrected Sodium 132 mmol/L (136-145) L 02/07/22 05:27 Potassium 5.3 mmol/L (3.5-5.1) H 02/07/22 05:27 Chloride 100 mmol/L (98-107) 02/07/22 05:27 Carbon Dioxide 18.7 mmol/L (21-32) L 02/07/22 05:27 BUN 34 mg/dL (7-18) H 02/07/22 05:27 Creatinine 2.15 mg/dL (0.55-1.02) H 02/07/22 05:27 Est GFR (MDRD) Af Amer 31 (>60) L 02/07/22 05:27 Est GFR (MDRD) Non-Af 26 (>60) L 02/07/22 05:27 Glucose 126 mg/dL (65-99) H 02/07/22 05:27 Lactic Acid 1.4 mmol/L (0.4-2.0) 02/04/22 12:20 Calcium 10.2 mg/dL (8.5-10.1) H 02/07/22 05:27 Corrected Calcium TNP 02/07/22 05:27 Magnesium 2.3 mg/dL (1.7-2.9) 02/06/22 05:42 Total Bilirubin 1.90 mg/dL (0.2-1.0) H 02/07/22 05:27 AST 186 Units/L (15-37) H 02/07/22 05:27 ALT 80 Units/L (12-78) H 02/07/22 05:27 Alkaline Phosphatase 1627 Units/L (46-116) H 02/07/22 05:27 Ammonia 30 umol/L (11-32) 02/07/22 05:27 Creatine Kinase 16 Units/L (26-192) L 02/05/22 01:08 CK-MB (CK-2) < 1.0 ng/mL (0-4.0) 02/05/22 01:08 CK/CKMB % Calc 6.3 % (<4) 02/05/22 01:08 Troponin I High Sens 5.5 ng/L (4.0-60.0) 02/05/22 01:08 Total Protein 8.2 g/dL (6.4-8.2) 02/07/22 05:27 Albumin 3.7 g/dL (3.4-5.0) 02/07/22 05:27 Globulin 4.5 g/dL (2.5-4.5) 02/07/22 05:27 Albumin/Globulin Ratio 0.8 Ratio (1.1-2.1) L 02/07/22 05:27 Specimen Type Clean catch urine 02/04/22 12:34 Urine Color Dark yellow (YELLOW) 02/04/22 12:34 Urine Appearance Cloudy (CLEAR) 02/04/22 12:34 Urine pH 5.0 (5.0 - 8.0) 02/04/22 12:34 Ur Specific [place] 1.020 (1.000-1.030) 02/04/22 12:34 Urine Protein 1+ (NEGATIVE) 02/04/22 12:34 Urine Glucose (UA) Negative (NEGATIVE) 02/04/22 12:34 Urine Ketones Negative (NEGATIVE) 02/04/22 12:34 Urine Blood 1+ (NEGATIVE) 02/04/22 12:34 Urine Nitrite Negative (NEGATIVE) 02/04/22 12:34 Urine Bilirubin Negative (NEGATIVE) 02/04/22 12:34 Urine Urobilinogen Normal (NORMAL) 02/04/22 12:34 Ur Leukocyte Esterase 3+ (NEGATIVE) 02/04/22 12:34 Urine RBC 5-10 /HPF (0-3) A 02/04/22 12:34 Urine WBC 10-20 /HPF (0-5) A 02/04/22 12:34 Ur Squamous Epith Cells Moderate /HPF (NEGATIVE) 02/04/22 12:34 Urine Bacteria 3+ /HPF (NEGATIVE) 02/04/22 12:34 Urine Yeast Few /HPF (NEGATIVE) 02/04/22 12:34 Ur Culture Indicated? Yes/culture set up 02/04/22 12:34 Ur 24 Hour Volume 425 ml/24 hr (600-1600) L 02/06/22 17:00 Urine Creatinine 95.46 mg/dL (29-226) 02/06/22 17:00 Ur Creatinine 24 Hour 0.41 g/24 hr (0.67-1.59) L 02/06/22 17:00 Ur Total Protein 24 Hr 437 mg/day (0-165) H 02/06/22 17:00 Urine Total Protein 102.9 mg/dl (0-11.9) H 02/06/22 17:00 SARS-CoV-2 (PCR) Negative (NEGATIVE) 02/04/22 15:15 - Plan (1) Abdominal ascites Status: Acute Qualifiers: Ascites type: other type Qualified Code(s): R18.8 - Other ascites Plan: NORMAL SALINE AT 75 ML/HR, ROCEPHIN 1G IV DAILY, ALBUMIN 25% IV DAILY, FOLIC ACID 1MG PO DAILY, NEURONTIN 400MG PO HS, CHRONULAC 30MG PO DAILY, MAGNESIUM 1G IV PRN, NIFEDIPINE 30MG PO BID, ZOFRAN 4MG PO Q8H PRN, PROTONIX 40MG PO BID, PREDNISONE 5MG PO DAILY, XIFAXAN 550MG PO BID, ZOLOFT 100MG PO DAILY, TACROLIMUS 1MG PO BID, AND ZINC SULFATE 220MG PO DAILY. (2) Abdominal pain Status: Acute Qualifiers: Abdominal location: generalized Qualified Code(s): R10.84 - Generalized abdominal pain (3) UTI (urinary tract infection) Status: Acute Qualifiers: Urinary tract infection type: acute cystitis Hematuria presence: with hematuria Qualified Code(s): N30.01 - Acute cystitis with hematuria (4) Acute on chronic renal failure Status: Acute (5) S/P abdominal paracentesis Status: Acute (6) Hyponatremia Status: Acute (7) Liver disease Status: Chronic (8) Status post kidney transplant Status: Chronic (9) Autoimmune hepatitis Status: Chronic (10) HTN (hypertension) Status: Chronic Qualifiers: Hypertension type: primary hypertension Qualified Code(s): I10 - Essential (primary) hypertension
[2022-02-07] MEDS: ZOFRAN TAB 4 MG PO PRN (18:20)
[2022-02-07] MEDS: NORTRIPTYLINE 75 MG PO SCH (21:16)
[2022-02-07] MEDS: NEURONTIN CAP 400 MG PO SCH (21:16)
[2022-02-08] MEDS: NS 1,000 ML IV 1,000 ML IV SCH ×3 (02:37→20:28)
[2022-02-08 05:47] LABS: BASOPHILS # (AUTO) 0.2 X10^3/uL (0.0-0.1); BASOPHILS % (AUTO) 0.9 % (0.2-1.0); EOSINOPHILS % (AUTO) 0.1 % (0.9-2.9); HEMATOCRIT 36.2 % (36.0-47.0); HEMOGLOBIN 11.9 g/dL (12.0-16.0); LYMPHOCYTES # (AUTO) 0.7 X10^3/uL (1.3-2.9); LYMPHOCYTES % (AUTO) 2.6 % (21.0-51.0); MEAN CORPUSCULAR HGB CONC 32.9 g/dL (33.0-35.0); MEAN CORPUSCULAR VOLUME 91.1 fL (80.0-100.0); MEAN PLATELET VOLUME 9.5 fL (7.4-11.0); MONOCYTES # (AUTO) 2.4 x10^3/uL (0.3-0.8); MONOCYTES % (AUTO) 8.8 % (0.0-13.0); NEUTROPHILS # (AUTO) 23.6 x10^3/uL (2.2-4.8); NEUTROPHILS % (AUTO) 87.6 % (42.0-75.0); RED BLOOD COUNT 3.97 X10^6/uL (3.5-5.4)
[2022-02-08 05:51] LABS: AMMONIA 16 umol/L (11-32)
[2022-02-08 06:03] LABS: ALANINE AMINOTRANSFERASE 81 Units/L (12-78); ALBUMIN 3.4 g/dL (3.4-5.0); ASPARTATE AMINO TRANSFERASE 136 Units/L (15-37); BLOOD UREA NITROGEN 43 mg/dL (7-18); CHLORIDE 98 mmol/L (98-107); CREATININE 2.69 mg/dL (0.55-1.02); SODIUM 129 mmol/L (136-145); TOTAL PROTEIN 8.1 g/dL (6.4-8.2); eGFR NON BLACK RACES 20 (>60)
[2022-02-08 06:22] LABS: ALKALINE PHOSPHATASE 1797 Units/L (46-116)
[2022-02-08 06:41] LABS: BAND NEUTROPHILS % 1 % (0-10)
[2022-02-08 06:42] LABS: ANISOCYTOSIS 3+; PLATELET MORPHOLOGY COMMENT NORMAL (NORMAL)
[2022-02-08] MEDS ORDERED: ZOLOFT ONE (07:07)
[2022-02-08] MEDS: FOLIC ACID TAB 1 MG PO SCH (08:52)
[2022-02-08] MEDS: CHRONULAC PO SCH (08:52)
[2022-02-08] MEDS: PREDNISONE TAB 5 MG PO SCH (08:53)
[2022-02-08] MEDS: XIFAXAN PO SCH ×2 (08:53→21:06)
[2022-02-08] MEDS: INVanz INJ 1 GRAM VIAL 0.5 G in NS 100 ML IV 100 ML IV SCH (08:53)
[2022-02-08] MEDS: PROTONIX TAB 40 MG PO SCH ×2 (08:53→21:10)
[2022-02-08] MEDS: PROCARDIA XL PO SCH ×2 (08:53→21:06)
[2022-02-08] MEDS: TACROLIMUS PO SCH ×2 (08:53→21:08)
[2022-02-08] MEDS: ZOLOFT PO SCH (08:54)
[2022-02-08] MEDS: ZINC SULFATE PO SCH (08:54)
[2022-02-08] MEDS: VANCOMYCIN IV *PREMIX 1 G/200 ML BAG 1 G/200 ML PIGGYBACK IV SCH (09:53)
[2022-02-08] MEDS ORDERED: PHARMACY CONSULT - VANCOMYCIN XX SCH (10:00)
[2022-02-08] MEDS ORDERED: ZOFRAN INJ 4 MG VIAL ONE (10:03)
[2022-02-08] MEDS: ZOFRAN INJ 4 MG VIAL IVP PRN (10:03)
--- NOTE | 2022-02-08 11:58 | DR.PROGNOT ---
Hospital Progress Notes - Progress Note for Day of: Progress Note Date: 02/08/22 - Chief Complaint Chief Complaint: was nauseated and vomited moderate amount of bile .. drainage catheter was removed .. BUN/Creat 43/2.69... Alk Phos 1797.. afebrile .. BP 112/60 - Past Medical Family Social History Past Med/Fam/Surg Hx: No changes since H&P Allergies: Allergies levofloxacin [From Levaquin] Allergy (Verified 09/29/20 15:06) metronidazole [From Flagyl] Allergy (Verified 11/12/21 13:11) adhesive tape Adverse Reaction (Verified 09/29/20 15:06) ciprofloxacin [From Cipro] Adverse Reaction (Verified 09/29/20 15:06) phenazopyridine [From Pyridium] Adverse Reaction (Verified 09/29/20 15:06) Sulfa (Sulfonamide Antibiotics) [SULFA] Adverse Reaction (Verified 09/29/20 15:06) - Review Of Systems ROS: No change since H&P - Vital Signs Vital Signs: Temperature 97.6 F Pulse Rate [Left Radial] 107 Pulse Rate 117 Respiratory Rate 20 Blood Pressure [Right Arm] 112/57 Blood Pressure [Left Arm] 130/70 Blood Pressure 119/63 O2 Sat by Pulse Oximetry 99 - Physical Exam Oriented: Normal Eyes: Normal Ear: Normal Nose: Normal Throat: Normal Respiratory: Normal Cardiovascular: Tachycardia : Normal GI:Auscultation: Normal, Decreased (soft abdomen with only mild tenderness .. BS present but hypoactive .. ) GI:Palpation: Normal GI: Tenderness: Diffuse (soft abdomen with moderate distention..BS hypoactive . .), Mild Skin: Decreased Turgur Musculoskeletal: Normal Psychiatric: Normal Mood Description: Calm Affect: Normal Speech Pattern: Clear, Delayed - Laboratory and Diagnostics Result Diagrams: 02/08/22 05:28 02/08/22 05:28 Labs: 02/05/22 05:15 Urine,Catheterized Urine Culture - Final Enterococcus Faecalis 02/04/22 12:20 Blood Blood Culture - Preliminary 02/04/22 12:34 Urine,Clean Catch Urine Culture - Final Klebsiella Pneumoniae [facility] WBC 27.0 X10^3/uL (3.6-10.0) H D 02/08/22 05:28 RBC 3.97 X10^6/uL (3.5-5.4) 02/08/22 05:28 Hgb 11.9 g/dL (12.0-16.0) L 02/08/22 05:28 Hct 36.2 % (36.0-47.0) 02/08/22 05:28 MCV 91.1 fL (80.0-100.0) 02/08/22 05:28 MCH 30.0 pg (27.0-34.0) 02/08/22 05:28 MCHC 32.9 g/dL (33.0-35.0) L 02/08/22 05:28 RDW 28.0 % (11.6-16.5) H 02/08/22 05:28 Plt Count 192 X10^3/uL (150.0-450.0) 02/08/22 05:28 Plt Count Comment Adequate (ADEQUATE) 02/08/22 05:28 MPV 9.5 fL (7.4-11.0) 02/08/22 05:28 Neut % (Auto) 87.6 % (42.0-75.0) H 02/08/22 05:28 Lymph % (Auto) 2.6 % (21.0-51.0) L 02/08/22 05:28 [facility] % (Auto) 8.8 % (0.0-13.0) 02/08/22 05:28 Eos % (Auto) 0.1 % (0.9-2.9) L 02/08/22 05:28 Baso % (Auto) 0.9 % (0.2-1.0) 02/08/22 05:28 Neut # (Auto) 23.6 x10^3/uL (2.2-4.8) H 02/08/22 05:28 Lymph # (Auto) 0.7 X10^3/uL (1.3-2.9) L 02/08/22 05:28 [facility] # (Auto) 2.4 x10^3/uL (0.3-0.8) H 02/08/22 05:28 Eos # (Auto) 0.0 x10^3/uL (0.0-0.2) 02/08/22 05:28 Baso # (Auto) 0.2 X10^3/uL (0.0-0.1) H 02/08/22 05:28 Absolute Nucleated RBC 0.1 /100WBC 02/08/22 05:28 Total Counted 100 02/08/22 05:28 Neutrophils % (Manual) 87 % (39-76) H 02/08/22 05:28 Band Neutrophils % 1 % (0-10) 02/08/22 05:28 Lymphocytes % (Manual) 7 % (13-43) L 02/08/22 05:28 Monocytes % (Manual) 5 % (4-9) 02/08/22 05:28 Basophils % (Manual) 2 % (0-1) H 02/06/22 05:42 Metamyelocytes % 2 02/06/22 05:42 Myelocytes % 2 02/06/22 05:42 Nucleated RBCs 1 02/06/22 05:42 Plt Morphology Comment Normal (NORMAL) 02/08/22 05:28 RBC Morphology Abnormal (NORMAL) A 02/08/22 05:28 Dimorphic RBCs Slight 02/04/22 12:20 Anisocytosis 3+ A 02/08/22 05:28 PT 16.1 SECONDS (11.8-14.3) 02/05/22 06:12 INR Target Range - 02/05/22 06:12 INR 1.33 (0.8-1.3) H 02/05/22 06:12 APTT 37.1 SECONDS (22.9-36.5) H 02/05/22 06:12 PTT Comment - 02/05/22 06:12 Sodium 129 mmol/L (136-145) L 02/08/22 05:28 Corrected Sodium TNP 02/08/22 05:28 Potassium 5.6 mmol/L (3.5-5.1) H 02/08/22 05:28 Chloride 98 mmol/L (98-107) 02/08/22 05:28 Carbon Dioxide 17.0 mmol/L (21-32) L 02/08/22 05:28 BUN 43 mg/dL (7-18) H 02/08/22 05:28 Creatinine 2.69 mg/dL (0.55-1.02) H 02/08/22 05:28 Est GFR (MDRD) Af Amer 24 (>60) L 02/08/22 05:28 Est GFR (MDRD) Non-Af 20 (>60) L 02/08/22 05:28 Glucose 103 mg/dL (65-99) H 02/08/22 05:28 Lactic Acid 1.4 mmol/L (0.4-2.0) 02/04/22 12:20 Calcium 10.0 mg/dL (8.5-10.1) 02/08/22 05:28 Corrected Calcium TNP 02/08/22 05:28 Magnesium 2.3 mg/dL (1.7-2.9) 02/06/22 05:42 Total Bilirubin 0.80 mg/dL (0.2-1.0) 02/08/22 05:28 AST 136 Units/L (15-37) H 02/08/22 05:28 ALT 81 Units/L (12-78) H 02/08/22 05:28 Alkaline Phosphatase 1797 Units/L (46-116) H 02/08/22 05:28 Ammonia 16 umol/L (11-32) 02/08/22 05:28 Creatine Kinase 16 Units/L (26-192) L 02/05/22 01:08 CK-MB (CK-2) < 1.0 ng/mL (0-4.0) 02/05/22 01:08 CK/CKMB % Calc 6.3 % (<4) 02/05/22 01:08 Troponin I High Sens 5.5 ng/L (4.0-60.0) 02/05/22 01:08 Total Protein 8.1 g/dL (6.4-8.2) 02/08/22 05:28 Albumin 3.4 g/dL (3.4-5.0) 02/08/22 05:28 Globulin 4.7 g/dL (2.5-4.5) H 02/08/22 05:28 Albumin/Globulin Ratio 0.7 Ratio (1.1-2.1) L 02/08/22 05:28 Specimen Type Clean catch urine 02/04/22 12:34 Urine Color Dark yellow (YELLOW) 02/04/22 12:34 Urine Appearance Cloudy (CLEAR) 02/04/22 12:34 Urine pH 5.0 (5.0 - 8.0) 02/04/22 12:34 Ur Specific [place] 1.020 (1.000-1.030) 02/04/22 12:34 Urine Protein 1+ (NEGATIVE) 02/04/22 12:34 Urine Glucose (UA) Negative (NEGATIVE) 02/04/22 12:34 Urine Ketones Negative (NEGATIVE) 02/04/22 12:34 Urine Blood 1+ (NEGATIVE) 02/04/22 12:34 Urine Nitrite Negative (NEGATIVE) 02/04/22 12:34 Urine Bilirubin Negative (NEGATIVE) 02/04/22 12:34 Urine Urobilinogen Normal (NORMAL) 02/04/22 12:34 Ur Leukocyte Esterase 3+ (NEGATIVE) 02/04/22 12:34 Urine RBC 5-10 /HPF (0-3) A 02/04/22 12:34 Urine WBC 10-20 /HPF (0-5) A 02/04/22 12:34 Ur Squamous Epith Cells Moderate /HPF (NEGATIVE) 02/04/22 12:34 Urine Bacteria 3+ /HPF (NEGATIVE) 02/04/22 12:34 Urine Yeast Few /HPF (NEGATIVE) 02/04/22 12:34 Ur Culture Indicated? Yes/culture set up 02/04/22 12:34 Ur 24 Hour Volume 425 ml/24 hr (600-1600) L 02/06/22 17:00 Urine Creatinine 95.46 mg/dL (29-226) 02/06/22 17:00 Ur Creatinine 24 Hour 0.41 g/24 hr (0.67-1.59) L 02/06/22 17:00 Ur Total Protein 24 Hr 437 mg/day (0-165) H 02/06/22 17:00 Urine Total Protein 102.9 mg/dl (0-11.9) H 02/06/22 17:00 SARS-CoV-2 (PCR) Negative (NEGATIVE) 02/04/22 15:15 - Assessment and Plan 1: s/p paracentesis for tense ascites... liver cirrhosis 2nd to auto immune disease ,. UTI. CKD. ( transplant Pt ..)and dehydration aggravated by the paracenthesis - Problem Patient Problems: Patient Problems Abdominal pain (Acute) R10.9 Abdominal ascites (Acute) R18.8 Liver disease (Chronic) K76.9 Status post kidney transplant (Chronic) Z94.0 Tense ascites (Acute) R18.8 History of kidney transplant (Acute) Z94.0 Acute hyponatremia (Acute) E87.1 Acute liver failure (Acute) K72.00 UTI (urinary tract infection) (Acute) N39.0 Acute on chronic renal failure (Acute) N17.9, N18.9 Autoimmune hepatitis (Chronic) K75.4 S/P abdominal paracentesis (Acute) Z98.890 Hyponatremia (Acute) E87.1 HTN (hypertension) (Chronic) I10
[2022-02-08] MEDS: MORPHINE SULFATE INJ 2 MG INJ IVP PRN ×2 (12:42→21:10)
[2022-02-08] MEDS: NEURONTIN CAP 400 MG PO SCH (21:06)
[2022-02-08] MEDS: NORTRIPTYLINE 75 MG PO SCH (21:07)
--- NOTE | 2022-02-09 00:31 | PCM.PROG ---
Progress Note - Progress Note for Day of Date of Exam: 02/07/22 - Subjective Subjective: WAS ADMITTED INPATIENT STATUS FOR TREATMENT OF ABDOMINAL ASCITES DUE TO CIRRHOSIS, ABDOMINAL PAIN, UTI, HYPONATREMIA, ACUTE ON CHRONIC RENAL FAILURE. SHE IS STATUS POST PARACENTESIS. PARACENTESIS WAS PERFORMED ON 02/04/22 BY . SHE HAS A PMH OF AUTOIMMUNE HEPATITIS, HTN, CHF, GERD, LIVER DISEASE, SLEEP APNEA, RENAL FAILURE, AND HX OF RENAL TRANSPLANT. TODAY, PATIENT IS LYING IN BED WITH EYES CLOSED ON MORNING ROUNDS. SHE IS DIFFICULT TO AROUSE. SHE DOES EVENTUALLY OPEN EYES, BUT QUICKLY FALLS BACK TO SLEEP. ON EXAMINATION, SHE LOOKS FRAIL. SHE IS TACHYCARDIC WITH HR 110. RHYTHM IS REGULAR. BILATERAL LUNGS NOTED WITH DIMINISHED LUNG SOUNDS THROUGHOUT. ABDOMEN IS ROUND, SOFT, AND NOTED WITH DIFFUSE TENDERNESS. DRAINAGE TUBE NOTED TO GRAVITY DRAINAGE. BLAKE CATHETER NOTED TO BEDSIDE DRAINAGE. LOWER EXTREMITY NON-PITTING EDEMA NOTED. THERE HAS APPARTENTLY BEEN ABOUT ANOTHER LITER OF FLUID DRAINED FROM ABDOMEN SINCE YESTERDAY. SHE HAD DECREASED URINE OUTPUT TH ROUGHOUT THE NIGHT. HER VITALS THIS MORNING ARE: 97.6-524-25-100%-119/59. LABS WERE OBTAINED. WBC 16.4, RBC 3.67, HGB 11.0, HCT 29.0, PLT COUNT 158, SODIUM 131, POTASSIUM 5.3, CARBON DIOXIDE 18.7, BUN 34, CREATININE 2.15, GLUCOSE 126, TOTAL BILI 1.90, AST 186, ALT 80, ALK PHOS 1627, TOTAL PROTEIN 8.2, ALBUMIN 3.7. URINE CULTURE IS POSITIVE FOR GROWTH OF KLEBSIELLA PNEUMONIAE AND HAFNIA ALVEI. SHE IS CURRENTLY RECEIVING NORMAL SALINE AT 75 ML/HR, ROCEPHIN 1G IV DAILY, ALBUMIN 25% IV DAILY, FOLIC ACID 1MG PO DAILY, NEURONTIN 400MG PO HS, CHRONULAC 30MG PO DAILY, MAGNESIUM 1G IV PRN, NIFEDIPINE 30MG PO BID, ZOFRAN 4MG PO Q8H PRN, PROTONIX 40MG PO BID, PREDNISONE 5MG PO DAILY, XIFAXAN 550MG PO BID, ZOLOFT 100MG PO DAILY, TACROLIMUS 1MG PO BID, AND ZINC SULFATE 220MG PO DAILY. TODAY, WE WILL DISCONTINUE THE ROCEPHIN AND ADD INVANZ. OTHERWISE, WE WILL CONTINUE WITH CURRENT PLAN OF CARE TODAY. WILL CONTINUE TO MONITOR PATIENT. WE WILL FOLLOW-UP WITH AM LABS AND CONTINUE TO MONITOR. TIME SPENT ON CLINICAL ASSESSMENT, REVIEWING LABS AND IMAGING, DECISION MAKING, AND DOCUMENTATION G REATER THAN 45 MINUTES. - Past Medical Family Social History Past Med/Fam/Surg Hx: No changes since H&P Allergies: Allergies levofloxacin [From Levaquin] Allergy (Verified 09/29/20 15:06) metronidazole [From Flagyl] Allergy (Verified 11/12/21 13:11) adhesive tape Adverse Reaction (Verified 09/29/20 15:06) ciprofloxacin [From Cipro] Adverse Reaction (Verified 09/29/20 15:06) phenazopyridine [From Pyridium] Adverse Reaction (Verified 09/29/20 15:06) Sulfa (Sulfonamide Antibiotics) [SULFA] Adverse Reaction (Verified 09/29/20 15:06) - Review of Systems ROS: No change since H&P - Vital Signs and I&O's Vital Signs: Temperature 97.7 F Pulse Rate [Left Radial] 116 Pulse Rate 117 Respiratory Rate 18 Blood Pressure [Right Arm] 133/64 Blood Pressure [Left Arm] 130/70 Blood Pressure 119/63 O2 Sat by Pulse Oximetry 97 Intake and Output: Intake & Output 02/06/22 02/07/22 02/08/22 02/09/22 11:59 11:59 11:59 11:59 Intake Total 2713 / 2713 4100 / 4100 3669 / 3669 1020 / 1020 Output Total 4750 / 4750 3800 / 3800 385 / 385 190 / 190 Balance -7 / -7 300 / 300 3284 / 3284 830 / 830 - Physical Exam Oriented: Normal Eyes: Normal Ear: Normal Nose: Normal Throat: Normal Respiratory: Normal Cardiovascular: Tachycardia : Normal Auscultation: Bowel Sounds: Normal, Decreased (soft abdomen with only mild tenderness .. BS present but hypoactive .. ) Palpation: Normal Tenderness: Diffuse (soft abdomen with moderate distention..BS hypoactive ..), Mild Skin: Decreased Turgur Musculoskeletal: Normal Psychiatric: Normal Mood Description: Calm Affect: Normal Speech Pattern: Clear, Delayed - Laboratory and Diagnostics Result Diagrams: 02/08/22 05:28 02/08/22 05:28 Labs: 02/05/22 05:15 Urine,Catheterized Urine Culture - Final Enterococcus Faecalis 02/04/22 12:20 Blood Blood Culture - Preliminary 02/04/22 12:34 Urine,Clean Catch Urine Culture - Final Klebsiella Pneumoniae [facility] WBC 27.0 X10^3/uL (3.6-10.0) H D 02/08/22 05:28 RBC 3.97 X10^6/uL (3.5-5.4) 02/08/22 05:28 Hgb 11.9 g/dL (12.0-16.0) L 02/08/22 05:28 Hct 36.2 % (36.0-47.0) 02/08/22 05:28 MCV 91.1 fL (80.0-100.0) 02/08/22 05:28 MCH 30.0 pg (27.0-34.0) 02/08/22 05:28 MCHC 32.9 g/dL (33.0-35.0) L 02/08/22 05:28 RDW 28.0 % (11.6-16.5) H 02/08/22 05:28 Plt Count 192 X10^3/uL (150.0-450.0) 02/08/22 05:28 Plt Count Comment Adequate (ADEQUATE) 02/08/22 05:28 MPV 9.5 fL (7.4-11.0) 02/08/22 05:28 Neut % (Auto) 87.6 % (42.0-75.0) H 02/08/22 05:28 Lymph % (Auto) 2.6 % (21.0-51.0) L 02/08/22 05:28 [place] % (Auto) 8.8 % (0.0-13.0) 02/08/22 05:28 Eos % (Auto) 0.1 % (0.9-2.9) L 02/08/22 05:28 Baso % (Auto) 0.9 % (0.2-1.0) 02/08/22 05:28 Neut # (Auto) 23.6 x10^3/uL (2.2-4.8) H 02/08/22 05:28 Lymph # (Auto) 0.7 X10^3/uL (1.3-2.9) L 02/08/22 05:28 [place] # (Auto) 2.4 x10^3/uL (0.3-0.8) H 02/08/22 05:28 Eos # (Auto) 0.0 x10^3/uL (0.0-0.2) 02/08/22 05:28 Baso # (Auto) 0.2 X10^3/uL (0.0-0.1) H 02/08/22 05:28 Absolute Nucleated RBC 0.1 /100WBC 02/08/22 05:28 Total Counted 100 02/08/22 05:28 Neutrophils % (Manual) 87 % (39-76) H 02/08/22 05:28 Band Neutrophils % 1 % (0-10) 02/08/22 05:28 Lymphocytes % (Manual) 7 % (13-43) L 02/08/22 05:28 Monocytes % (Manual) 5 % (4-9) 02/08/22 05:28 Basophils % (Manual) 2 % (0-1) H 02/06/22 05:42 Metamyelocytes % 2 02/06/22 05:42 Myelocytes % 2 02/06/22 05:42 Nucleated RBCs 1 02/06/22 05:42 Plt Morphology Comment Normal (NORMAL) 02/08/22 05:28 RBC Morphology Abnormal (NORMAL) A 02/08/22 05:28 Dimorphic RBCs Slight 02/04/22 12:20 Anisocytosis 3+ A 02/08/22 05:28 PT 16.1 SECONDS (11.8-14.3) 02/05/22 06:12 INR Target Range - 02/05/22 06:12 INR 1.33 (0.8-1.3) H 02/05/22 06:12 APTT 37.1 SECONDS (22.9-36.5) H 02/05/22 06:12 PTT Comment - 02/05/22 06:12 Sodium 129 mmol/L (136-145) L 02/08/22 05:28 Corrected Sodium TNP 02/08/22 05:28 Potassium 5.6 mmol/L (3.5-5.1) H 02/08/22 05:28 Chloride 98 mmol/L (98-107) 02/08/22 05:28 Carbon Dioxide 17.0 mmol/L (21-32) L 02/08/22 05:28 BUN 43 mg/dL (7-18) H 02/08/22 05:28 Creatinine 2.69 mg/dL (0.55-1.02) H 02/08/22 05:28 Est GFR (MDRD) Af Amer 24 (>60) L 02/08/22 05:28 Est GFR (MDRD) Non-Af 20 (>60) L 02/08/22 05:28 Glucose 103 mg/dL (65-99) H 02/08/22 05:28 Lactic Acid 1.4 mmol/L (0.4-2.0) 02/04/22 12:20 Calcium 10.0 mg/dL (8.5-10.1) 02/08/22 05:28 Corrected Calcium TNP 02/08/22 05:28 Magnesium 2.3 mg/dL (1.7-2.9) 02/06/22 05:42 Total Bilirubin 0.80 mg/dL (0.2-1.0) 02/08/22 05:28 AST 136 Units/L (15-37) H 02/08/22 05:28 ALT 81 Units/L (12-78) H 02/08/22 05:28 Alkaline Phosphatase 1797 Units/L (46-116) H 02/08/22 05:28 Ammonia 16 umol/L (11-32) 02/08/22 05:28 Creatine Kinase 16 Units/L (26-192) L 02/05/22 01:08 CK-MB (CK-2) < 1.0 ng/mL (0-4.0) 02/05/22 01:08 CK/CKMB % Calc 6.3 % (<4) 02/05/22 01:08 Troponin I High Sens 5.5 ng/L (4.0-60.0) 02/05/22 01:08 Total Protein 8.1 g/dL (6.4-8.2) 02/08/22 05:28 Albumin 3.4 g/dL (3.4-5.0) 02/08/22 05:28 Globulin 4.7 g/dL (2.5-4.5) H 02/08/22 05:28 Albumin/Globulin Ratio 0.7 Ratio (1.1-2.1) L 02/08/22 05:28 Specimen Type Clean catch urine 02/04/22 12:34 Urine Color Dark yellow (YELLOW) 02/04/22 12:34 Urine Appearance Cloudy (CLEAR) 02/04/22 12:34 Urine pH 5.0 (5.0 - 8.0) 02/04/22 12:34 Ur Specific [place] 1.020 (1.000-1.030) 02/04/22 12:34 Urine Protein 1+ (NEGATIVE) 02/04/22 12:34 Urine Glucose (UA) Negative (NEGATIVE) 02/04/22 12:34 Urine Ketones Negative (NEGATIVE) 02/04/22 12:34 Urine Blood 1+ (NEGATIVE) 02/04/22 12:34 Urine Nitrite Negative (NEGATIVE) 02/04/22 12:34 Urine Bilirubin Negative (NEGATIVE) 02/04/22 12:34 Urine Urobilinogen Normal (NORMAL) 02/04/22 12:34 Ur Leukocyte Esterase 3+ (NEGATIVE) 02/04/22 12:34 Urine RBC 5-10 /HPF (0-3) A 02/04/22 12:34 Urine WBC 10-20 /HPF (0-5) A 02/04/22 12:34 Ur Squamous Epith Cells Moderate /HPF (NEGATIVE) 02/04/22 12:34 Urine Bacteria 3+ /HPF (NEGATIVE) 02/04/22 12:34 Urine Yeast Few /HPF (NEGATIVE) 02/04/22 12:34 Ur Culture Indicated? Yes/culture set up 02/04/22 12:34 Ur 24 Hour Volume 425 ml/24 hr (600-1600) L 02/06/22 17:00 Urine Creatinine 95.46 mg/dL (29-226) 02/06/22 17:00 Ur Creatinine 24 Hour 0.41 g/24 hr (0.67-1.59) L 02/06/22 17:00 Ur Total Protein 24 Hr 437 mg/day (0-165) H 02/06/22 17:00 Urine Total Protein 102.9 mg/dl (0-11.9) H 02/06/22 17:00 SARS-CoV-2 (PCR) Negative (NEGATIVE) 02/04/22 15:15 - Plan (1) Abdominal ascites Status: Acute Qualifiers: Ascites type: other type Qualified Code(s): R18.8 - Other ascites Plan: NORMAL SALINE AT 75 ML/HR, INVANZ 0.5G IV DAILY, ALBUMIN 25% IV DAILY, F OLIC ACID 1MG PO DAILY, NEURONTIN 400MG PO HS, CHRONULAC 30MG PO DAILY, MAGNESIUM 1G IV PRN, NIFEDIPINE 30MG PO BID, ZOFRAN 4MG PO Q8H PRN, PROTONIX 40MG PO BID, PREDNISONE 5MG PO DAILY, XIFAXAN 550MG PO BID, ZOLOFT 100MG PO DAILY, TACROLIMUS 1MG PO BID, AND ZINC SULFATE 220MG PO DAILY. (2) Abdominal pain Status: Acute Qualifiers: Abdominal location: generalized Qualified Code(s): R10.84 - Generalized abdominal pain (3) UTI (urinary tract infection) Status: Acute Qualifiers: Urinary tract infection type: acute cystitis Hematuria presence: with hematuria Qualified Code(s): N30.01 - Acute cystitis with hematuria (4) Acute on chronic renal failure Status: Acute Qualifiers: Acute renal failure type: unspecified Chronic kidney disease stage: unspecified stage Qualified Code(s): N17.9 - Acute kidney failure, unspecified; N18.9 - Chronic kidney disease, unspecified (5) S/P abdominal paracentesis Status: Acute (6) Hyponatremia Status: Acute (7) Liver disease Status: Chronic (8) Status post kidney transplant Status: Chronic (9) Autoimmune hepatitis Status: Chronic (10) HTN (hypertension) Status: Chronic Qualifiers: Hypertension type: primary hypertension Qualified Code(s): I10 - Essential (primary) hypertension
--- NOTE | 2022-02-09 00:42 | PCM.PROG ---
Progress Note - Progress Note for Day of Date of Exam: 02/08/22 - Subjective Subjective: WAS ADMITTED INPATIENT STATUS FOR TREATMENT OF ABDOMINAL ASCITES DUE TO CIRRHOSIS, ABDOMINAL PAIN, UTI, HYPONATREMIA, ACUTE ON CHRONIC RENAL FAILURE. SHE IS STATUS POST PARACENTESIS. PARACENTESIS WAS PERFORMED ON 02/04/22 BY . SHE HAS HAD A SIGNIFICANT AMOUNT OF DRAINAGE SINCE DRAIN WAS PLACED. SHE HAS A PMH OF AUTOIMMUNE HEPATITIS, HTN, CHF, GERD, LIVER DISEASE, SLEEP APNEA, RENAL FAILURE, AND HX OF RENAL TRANSPLANT. TODAY, PATIENT IS LYING IN BED WITH EYES CLOSED ON MORNING ROUNDS. SHE AWAKENS EASILY TO VERBAL STIMULI. ON EXAMINATION, SHE LOOKS FRAIL. SHE IS TACHYCARDIC WITH HR 116. RHYTHM IS REGULAR. BILATERAL LUNGS NOTED WITH DIMINISHED LUNG SOUNDS THROUGHOUT. ABDOMEN IS ROUND, SOFT, AND NOTED WITH DIFFUSE TENDERNESS. DRAINAGE TUBE NOTED TO GRAVITY DRAINAGE. BLAKE CATHETER NOTED TO BEDSIDE DRAINAGE. LOWER EXTREMITY NON-PITTING EDEMA NOTED. DECREASED DRAINAGE FROM ABDOMINAL DRAINA TODAY. SHE HAD DECREASED URINE OUTPUT THROUGHOUT THE NIGHT. HER VITALS THIS MORNING ARE: 98.1-116-20-99%-123/86 LABS WERE OBTAINED. WBC INCREASED TO 27.0, RBC 3.97, HGB 11.9, HCT 36.2, SODIUM 129, POTASSIUM 5.6, CHLORIDE 98, CARBON DIOXIDE 17, BUN 43, CREATININE 2.69, GLUCOSE 103, AST 136, ALT 81, ALK PHOS 1797, TOTAL PROTEIN 8.1, ALBUMIN 3.4. URINE CULTURE IS POSITIVE FOR GROWTH OF KLEBSIELLA PNEUMONIAE, HAFNIA ALVEI, AND ENTEROCOCCUS FAECALIS. SHE IS CURRENTLY RECEIVING NORMAL SALINE AT 75 ML/HR, INVANZ 0.5G IV DAILY, ALBUMIN 25% IV DAILY, FOLIC ACID 1MG PO DAILY, NEURONTIN 400MG PO HS, CHRONULAC 30MG PO DAILY, MAGNESIUM 1G IV PRN, NIFEDIPINE 30MG PO BID, ZOFRAN 4MG PO Q8H PRN, PROTONIX 40MG PO BID, PREDNISONE 5MG PO DAILY, XIFAXAN 550MG PO BID, ZOLOFT 100MG PO DAILY, TACROLIMUS 1MG PO BID, AND ZINC SULFATE 220MG PO DAILY. WE WILL ADD VANCOMYCIN 1G IV DAILY TODAY. OTHERWISE, WE WILL CONTINUE WITH CURRENT PLAN OF CARE. WE WILL TOUCH BASE WITH THE [facility]PLANT [facility]. TRANSFER TO [place] MAY BE CONSIDERED. WILL CONTINUE TO MONITOR PATIENT WELL. TIME SPENT ON CLINICAL ASSESSMENT, REVIEWING LABS AND IMAGING, DECISION MAKING, AND DOCUMENTATION GREATER THAN 45 MINUTES. - Past Medical Family Social History Past Med/Fam/Surg Hx: No changes since H&P Allergies: Allergies levofloxacin [From Levaquin] Allergy (Verified 09/29/20 15:06) metronidazole [From Flagyl] Allergy (Verified 11/12/21 13:11) adhesive tape Adverse Reaction (Verified 09/29/20 15:06) ciprofloxacin [From Cipro] Adverse Reaction (Verified 09/29/20 15:06) phenazopyridine [From Pyridium] Adverse Reaction (Verified 09/29/20 15:06) Sulfa (Sulfonamide Antibiotics) [SULFA] Adverse Reaction (Verified 09/29/20 15:06) - Review of Systems ROS: No change since H&P - Vital Signs and I&O's Vital Signs: Temperature 97.7 F Pulse Rate [Left Radial] 116 Pulse Rate 117 Respiratory Rate 18 Blood Pressure [Right Arm] 133/64 Blood Pressure [Left Arm] 130/70 Blood Pressure 119/63 O2 Sat by Pulse Oximetry 97 Intake and Output: Intake & Output 02/06/22 02/07/22 02/08/22 02/09/22 11:59 11:59 11:59 11:59 Intake Total 2713 / 2713 4100 / 4100 3669 / 3669 1020 / 1020 Output Total 4750 / 4750 3800 / 3800 385 / 385 190 / 190 Balance -7 / -2037 300 / 300 3284 / 3284 830 / 830 - Physical Exam Oriented: Normal Eyes: Normal Ear: Normal Nose: Normal Throat: Normal Respiratory: Normal Cardiovascular: Tachycardia : Normal Auscultation: Bowel Sounds: Normal, Decreased (soft abdomen with only mild tenderness .. BS present but hypoactive .. ) Tenderness: Diffuse (soft abdomen with moderate distention..BS hypoactive ..), Mild Skin: Decreased Turgur Musculoskeletal: Normal Psychiatric: Normal Mood Description: Calm Affect: Normal Speech Pattern: Clear, Delayed - Laboratory and Diagnostics Result Diagrams: 02/08/22 05:28 02/08/22 05:28 Labs: 02/05/22 05:15 Urine,Catheterized Urine Culture - Final Enterococcus Faecalis 02/04/22 12:20 Blood Blood Culture - Preliminary 02/04/22 12:34 Urine,Clean Catch Urine Culture - Final Klebsiella Pneumoniae [facility] WBC 27.0 X10^3/uL (3.6-10.0) H D 02/08/22 05:28 RBC 3.97 X10^6/uL (3.5-5.4) 02/08/22 05:28 Hgb 11.9 g/dL (12.0-16.0) L 02/08/22 05:28 Hct 36.2 % (36.0-47.0) 02/08/22 05:28 MCV 91.1 fL (80.0-100.0) 02/08/22 05:28 MCH 30.0 pg (27.0-34.0) 02/08/22 05:28 MCHC 32.9 g/dL (33.0-35.0) L 02/08/22 05:28 RDW 28.0 % (11.6-16.5) H 02/08/22 05:28 Plt Count 192 X10^3/uL (150.0-450.0) 02/08/22 05:28 Plt Count Comment Adequate (ADEQUATE) 02/08/22 05:28 MPV 9.5 fL (7.4-11.0) 02/08/22 05:28 Neut % (Auto) 87.6 % (42.0-75.0) H 02/08/22 05:28 Lymph % (Auto) 2.6 % (21.0-51.0) L 02/08/22 05:28 [place] % (Auto) 8.8 % (0.0-13.0) 02/08/22 05:28 Eos % (Auto) 0.1 % (0.9-2.9) L 02/08/22 05:28 Baso % (Auto) 0.9 % (0.2-1.0) 02/08/22 05:28 Neut # (Auto) 23.6 x10^3/uL (2.2-4.8) H 02/08/22 05:28 Lymph # (Auto) 0.7 X10^3/uL (1.3-2.9) L 02/08/22 05:28 [place] # (Auto) 2.4 x10^3/uL (0.3-0.8) H 02/08/22 05:28 Eos # (Auto) 0.0 x10^3/uL (0.0-0.2) 02/08/22 05:28 Baso # (Auto) 0.2 X10^3/uL (0.0-0.1) H 02/08/22 05:28 Absolute Nucleated RBC 0.1 /100WBC 02/08/22 05:28 Total Counted 100 02/08/22 05:28 Neutrophils % (Manual) 87 % (39-76) H 02/08/22 05:28 Band Neutrophils % 1 % (0-10) 02/08/22 05:28 Lymphocytes % (Manual) 7 % (13-43) L 02/08/22 05:28 Monocytes % (Manual) 5 % (4-9) 02/08/22 05:28 Basophils % (Manual) 2 % (0-1) H 02/06/22 05:42 Metamyelocytes % 2 02/06/22 05:42 Myelocytes % 2 02/06/22 05:42 Nucleated RBCs 1 02/06/22 05:42 Plt Morphology Comment Normal (NORMAL) 02/08/22 05:28 RBC Morphology Abnormal (NORMAL) A 02/08/22 05:28 Dimorphic RBCs Slight 02/04/22 12:20 Anisocytosis 3+ A 02/08/22 05:28 PT 16.1 SECONDS (11.8-14.3) 02/05/22 06:12 INR Target Range - 02/05/22 06:12 INR 1.33 (0.8-1.3) H 02/05/22 06:12 APTT 37.1 SECONDS (22.9-36.5) H 02/05/22 06:12 PTT Comment - 02/05/22 06:12 Sodium 129 mmol/L (136-145) L 02/08/22 05:28 Corrected Sodium TNP 02/08/22 05:28 Potassium 5.6 mmol/L (3.5-5.1) H 02/08/22 05:28 Chloride 98 mmol/L (98-107) 02/08/22 05:28 Carbon Dioxide 17.0 mmol/L (21-32) L 02/08/22 05:28 BUN 43 mg/dL (7-18) H 02/08/22 05:28 Creatinine 2.69 mg/dL (0.55-1.02) H 02/08/22 05:28 Est GFR (MDRD) Af Amer 24 (>60) L 02/08/22 05:28 Est GFR (MDRD) Non-Af 20 (>60) L 02/08/22 05:28 Glucose 103 mg/dL (65-99) H 02/08/22 05:28 Lactic Acid 1.4 mmol/L (0.4-2.0) 02/04/22 12:20 Calcium 10.0 mg/dL (8.5-10.1) 02/08/22 05:28 Corrected Calcium TNP 02/08/22 05:28 Magnesium 2.3 mg/dL (1.7-2.9) 02/06/22 05:42 Total Bilirubin 0.80 mg/dL (0.2-1.0) 02/08/22 05:28 AST 136 Units/L (15-37) H 02/08/22 05:28 ALT 81 Units/L (12-78) H 02/08/22 05:28 Alkaline Phosphatase 1797 Units/L (46-116) H 02/08/22 05:28 Ammonia 16 umol/L (11-32) 02/08/22 05:28 Creatine Kinase 16 Units/L (26-192) L 02/05/22 01:08 CK-MB (CK-2) < 1.0 ng/mL (0-4.0) 02/05/22 01:08 CK/CKMB % Calc 6.3 % (<4) 02/05/22 01:08 Troponin I High Sens 5.5 ng/L (4.0-60.0) 02/05/22 01:08 Total Protein 8.1 g/dL (6.4-8.2) 02/08/22 05:28 Albumin 3.4 g/dL (3.4-5.0) 02/08/22 05:28 Globulin 4.7 g/dL (2.5-4.5) H 02/08/22 05:28 Albumin/Globulin Ratio 0.7 Ratio (1.1-2.1) L 02/08/22 05:28 Specimen Type Clean catch urine 02/04/22 12:34 Urine Color Dark yellow (YELLOW) 02/04/22 12:34 Urine Appearance Cloudy (CLEAR) 02/04/22 12:34 Urine pH 5.0 (5.0 - 8.0) 02/04/22 12:34 Ur Specific [place] 1.020 (1.000-1.030) 02/04/22 12:34 Urine Protein 1+ (NEGATIVE) 02/04/22 12:34 Urine Glucose (UA) Negative (NEGATIVE) 02/04/22 12:34 Urine Ketones Negative (NEGATIVE) 02/04/22 12:34 Urine Blood 1+ (NEGATIVE) 02/04/22 12:34 Urine Nitrite Negative (NEGATIVE) 02/04/22 12:34 Urine Bilirubin Negative (NEGATIVE) 02/04/22 12:34 Urine Urobilinogen Normal (NORMAL) 02/04/22 12:34 Ur Leukocyte Esterase 3+ (NEGATIVE) 02/04/22 12:34 Urine RBC 5-10 /HPF (0-3) A 02/04/22 12:34 Urine WBC 10-20 /HPF (0-5) A 02/04/22 12:34 Ur Squamous Epith Cells Moderate /HPF (NEGATIVE) 02/04/22 12:34 Urine Bacteria 3+ /HPF (NEGATIVE) 02/04/22 12:34 Urine Yeast Few /HPF (NEGATIVE) 02/04/22 12:34 Ur Culture Indicated? Yes/culture set up 02/04/22 12:34 Ur 24 Hour Volume 425 ml/24 hr (600-1600) L 02/06/22 17:00 Urine Creatinine 95.46 mg/dL (29-226) 02/06/22 17:00 Ur Creatinine 24 Hour 0.41 g/24 hr (0.67-1.59) L 02/06/22 17:00 Ur Total Protein 24 Hr 437 mg/day (0-165) H 02/06/22 17:00 Urine Total Protein 102.9 mg/dl (0-11.9) H 02/06/22 17:00 SARS-CoV-2 (PCR) Negative (NEGATIVE) 02/04/22 15:15 - Plan (1) Abdominal ascites Status: Acute Qualifiers: Ascites type: other type Qualified Code(s): R18.8 - Other ascites Plan: NORMAL SALINE AT 75 ML/HR, INVANZ 0.5G IV DAILY, VANCOMYCIN 1G IV DAILY, ALBUMIN 25% IV DAILY, FOLIC ACID 1MG PO DAILY, NEURONTIN 400MG PO HS, CHRONULAC 30MG PO DAILY, MAGNESIUM 1G IV PRN, NIFEDIPINE 30MG PO BID, ZOFRAN 4MG PO Q8H PRN, PROTONIX 40MG PO BID, PREDNISONE 5MG PO DAILY, XIFAXAN 550MG PO BID, ZOLOFT 100MG PO DAILY, TACROLIMUS 1MG PO BID, AND ZINC SULFATE 220MG PO DAILY. (2) Abdominal pain Status: Acute Qualifiers: Abdominal location: generalized Qualified Code(s): R10.84 - Generalized abdominal pain (3) UTI (urinary tract infection) Status: Acute Qualifiers: Urinary tract infection type: acute cystitis Hematuria presence: with hematuria Qualified Code(s): N30.01 - Acute cystitis with hematuria (4) Acute on chronic renal failure Status: Acute Qualifiers: Acute renal failure type: unspecified Chronic kidney disease stage: unspecified stage Qualified Code(s): N17.9 - Acute kidney failure, unspecified; N18.9 - Chronic kidney disease, unspecified (5) S/P abdominal paracentesis Status: Acute (6) Hyponatremia Status: Acute (7) Liver disease Status: Chronic (8) Status post kidney transplant Status: Chronic (9) Autoimmune hepatitis Status: Chronic (10) HTN (hypertension) Status: Chronic Qualifiers: Hypertension type: primary hypertension Qualified Code(s): I10 - Essential (primary) hypertension
[2022-02-09] MEDS: NS 1,000 ML IV 1,000 ML IV SCH ×3 (01:03→23:18)
[2022-02-09 04:56] LABS: AMMONIA 10 umol/L (11-32)
[2022-02-09 05:08] LABS: BASOPHILS # (AUTO) 0.1 X10^3/uL (0.0-0.1); BASOPHILS % (AUTO) 0.2 % (0.2-1.0); EOSINOPHILS % (AUTO) 0.1 % (0.9-2.9); HEMATOCRIT 35.1 % (36.0-47.0); HEMOGLOBIN 11.5 g/dL (12.0-16.0); LYMPHOCYTES # (AUTO) 0.6 X10^3/uL (1.3-2.9); LYMPHOCYTES % (AUTO) 1.5 % (21.0-51.0); MEAN CORPUSCULAR HEMOGLOBIN 29.6 pg (27.0-34.0); MEAN CORPUSCULAR HGB CONC 32.8 g/dL (33.0-35.0); MEAN CORPUSCULAR VOLUME 90.3 fL (80.0-100.0); MEAN PLATELET VOLUME 9.6 fL (7.4-11.0); MONOCYTES # (AUTO) 1.9 x10^3/uL (0.3-0.8); MONOCYTES % (AUTO) 4.3 % (0.0-13.0); NEUTROPHILS % (AUTO) 93.9 % (42.0-75.0); RED BLOOD COUNT 3.89 X10^6/uL (3.5-5.4); RED CELL DISTRIBUTION WIDTH 27.4 % (11.6-16.5)
[2022-02-09 05:16] LABS: WHITE BLOOD COUNT 43.7 X10^3/uL (3.6-10.0)
[2022-02-09 05:26] LABS: ALANINE AMINOTRANSFERASE 56 Units/L (12-78); ALBUMIN 3.1 g/dL (3.4-5.0); ASPARTATE AMINO TRANSFERASE 71 Units/L (15-37); BLOOD UREA NITROGEN 47 mg/dL (7-18); CALCIUM 9.9 mg/dL (8.5-10.1); CARBON DIOXIDE 15.1 mmol/L (21-32); CHLORIDE 100 mmol/L (98-107); COR CA(FOR HYPOALB) 10.6 mg/dL (8.5-10.1); CREATININE 2.17 mg/dL (0.55-1.02); SODIUM 130 mmol/L (136-145); TOTAL PROTEIN 7.9 g/dL (6.4-8.2); eGFR NON BLACK RACES 25 (>60)
[2022-02-09 05:31] LABS: ALKALINE PHOSPHATASE 1487 Units/L (46-116)
[2022-02-09 05:48] LABS: BAND NEUTROPHILS % 5 % (0-10); METAMYELOCYTES % 2; MYELOCYTES % 1
[2022-02-09 05:49] LABS: ANISOCYTOSIS 3+; PLATELET MORPHOLOGY COMMENT NORMAL (NORMAL); POIKILOCYTOSIS 1+; SCHISTOCYTES PRESENT; TEAR DROP CELLS PRESENT
[2022-02-09] MEDS: NYSTATIN POWDER TOP SCH ×3 (05:55→22:03)
[2022-02-09] MEDS ORDERED: ZOLOFT ONE (07:40)
[2022-02-09] MEDS: FOLIC ACID TAB 1 MG PO SCH (08:05)
[2022-02-09] MEDS: PROCARDIA XL PO SCH ×2 (08:06→22:03)
[2022-02-09] MEDS: PREDNISONE TAB 5 MG PO SCH (08:06)
[2022-02-09] MEDS: CHRONULAC PO SCH (08:06)
[2022-02-09] MEDS: ZINC SULFATE PO SCH (08:06)
[2022-02-09] MEDS: ZOLOFT PO SCH (08:06)
[2022-02-09] MEDS: XIFAXAN PO SCH ×2 (08:07→22:02)
[2022-02-09] MEDS: INVanz INJ 1 GRAM VIAL 0.5 G in NS 100 ML IV 100 ML IV SCH (08:08)
[2022-02-09] MEDS: PROTONIX TAB 40 MG PO SCH ×2 (08:08→22:03)
[2022-02-09] MEDS: VANCOMYCIN IV *PREMIX 1 G/200 ML BAG 1 G/200 ML PIGGYBACK IV SCH ×2 (08:09→10:57)
[2022-02-09] MEDS: ZOFRAN INJ 4 MG VIAL IVP PRN ×2 (08:24→20:08)
[2022-02-09] MEDS: MORPHINE SULFATE INJ 2 MG INJ IVP PRN ×2 (08:29→20:08)
--- NOTE | 2022-02-09 10:55 | PCM.PROG ---
Progress Note Progress Note for Day of Date of Exam: 02/09/22 Subjective Subjective: Patient seen at bedside, no acute events overnight. Ms Smith is being treated for ascites due to cirrhosis, UTI, hyponatremia, VINICIO on CKD and dehydration. Patient has a hx of renal transplant in [place] done in 2010. Dr Nieto has also been following her, had paracentesis done on 02/04/22. Patient has a colostomy bag at the site of the paracentesis to collect any drainage. There's been 300 cc overnight. She has also had decreased UOP. Patient is tolerating some liquids like water and sprite. [facility] was contacted yesterday for transfer but no beds available at this time. Labs reviewed: WBC elevated 43.7 from 27k Hgb 11.5 K 5.5 Na 130 Cr:2.17 Plan: continue current care with IV antibiotics for E.faecalis UTI, continue Invanz and Vancomycin. Monitor output from colostomy and UOP. Continue gentle hydration. Follow surgery recommendations. Monitor AM labs/imaging. Await update from [facility] regarding bed availability. Time spent for clinical assessment, reviewing labs/imaging, physical exam, decision making and documentation greater than 45 mins. Past Medical Family Social History Past Med/Fam/Surg Hx: No changes since H&P Allergies: Allergies levofloxacin [From Levaquin] Allergy (Verified 09/29/20 15:06) metronidazole [From Flagyl] Allergy (Verified 11/12/21 13:11) adhesive tape Adverse Reaction (Verified 09/29/20 15:06) ciprofloxacin [From Cipro] Adverse Reaction (Verified 09/29/20 15:06) phenazopyridine [From Pyridium] Adverse Reaction (Verified 09/29/20 15:06) Sulfa (Sulfonamide Antibiotics) [SULFA] Adverse Reaction (Verified 09/29/20 15:06) Review of Systems ROS: No change since H&P Vital Signs and I&O's Vital Signs: Temperature 97.5 F Pulse Rate [Left Radial] 114 Pulse Rate 117 Respiratory Rate 18 Blood Pressure [Right Arm] 114/62 Blood Pressure [Left Arm] 130/70 Blood Pressure 119/63 O2 Sat by Pulse Oximetry 98 Intake and Output: Intake & Output 02/06/22 02/07/22 02/08/22 02/09/22 23:59 23:59 23:59 23:59 Intake Total 2655 / 2655 5219 / 5219 1470 / 1470 750 / 750 Output Total 6400 / 6400 1430 / 1430 245 / 245 560 / 560 Balance -3745 / -3745 3789 / 3789 1225 / 1225 190 / 190 Physical Exam Oriented: Normal Eyes: Normal Ear: Normal Nose: Normal Throat: Normal Respiratory: Normal Cardiovascular: Normal Auscultation: Bowel Sounds: Normal and Decreased (soft abdomen with only mild tenderness .. BS present but hypoactive .. ) Tenderness: Normal Skin: Decreased Turgur Musculoskeletal: Normal Psychiatric: Normal Mood Description: Calm Affect: Normal Speech Pattern: Clear and Delayed Laboratory and Diagnostics Result Diagrams: 02/09/22 04:17 02/09/22 04:17 Labs: 02/05/22 05:15 Urine,Catheterized Urine Culture - Final Enterococcus Faecalis 02/04/22 12:20 Blood Blood Culture - Preliminary 02/04/22 12:34 Urine,Clean Catch Urine Culture - Final Klebsiella Pneumoniae [facility] WBC 43.7 X10^3/uL (3.6-10.0) H* D 02/09/22 04:17 RBC 3.89 X10^6/uL (3.5-5.4) 02/09/22 04:17 Hgb 11.5 g/dL (12.0-16.0) L 02/09/22 04:17 Hct 35.1 % (36.0-47.0) L 02/09/22 04:17 MCV 90.3 fL (80.0-100.0) 02/09/22 04:17 MCH 29.6 pg (27.0-34.0) 02/09/22 04:17 MCHC 32.8 g/dL (33.0-35.0) L 02/09/22 04:17 RDW 27.4 % (11.6-16.5) H 02/09/22 04:17 Plt Count 189 X10^3/uL (150.0-450.0) 02/09/22 04:17 Plt Count Comment Adequate (ADEQUATE) 02/09/22 04:17 MPV 9.6 fL (7.4-11.0) 02/09/22 04:17 Neut % (Auto) 93.9 % (42.0-75.0) H 02/09/22 04:17 Lymph % (Auto) 1.5 % (21.0-51.0) L 02/09/22 04:17 [place] % (Auto) 4.3 % (0.0-13.0) 02/09/22 04:17 Eos % (Auto) 0.1 % (0.9-2.9) L 02/09/22 04:17 Baso % (Auto) 0.2 % (0.2-1.0) 02/09/22 04:17 Neut # (Auto) 41.0 x10^3/uL (2.2-4.8) H 02/09/22 04:17 Lymph # (Auto) 0.6 X10^3/uL (1.3-2.9) L 02/09/22 04:17 [place] # (Auto) 1.9 x10^3/uL (0.3-0.8) H 02/09/22 04:17 Eos # (Auto) 0.0 x10^3/uL (0.0-0.2) 02/09/22 04:17 Baso # (Auto) 0.1 X10^3/uL (0.0-0.1) 02/09/22 04:17 Absolute Nucleated RBC 0.0 /100WBC 02/09/22 04:17 Total Counted 100 02/09/22 04:17 Neutrophils % (Manual) 84 % (39-76) H 02/09/22 04:17 Band Neutrophils % 5 % (0-10) 02/09/22 04:17 Lymphocytes % (Manual) 3 % (13-43) L 02/09/22 04:17 Monocytes % (Manual) 5 % (4-9) 02/09/22 04:17 Basophils % (Manual) 2 % (0-1) H 02/06/22 05:42 Metamyelocytes % 2 02/09/22 04:17 Myelocytes % 1 02/09/22 04:17 Nucleated RBCs 1 02/06/22 05:42 Plt Morphology Comment Normal (NORMAL) 02/09/22 04:17 RBC Morphology Abnormal (NORMAL) A 02/09/22 04:17 Dimorphic RBCs Slight 02/04/22 12:20 Poikilocytosis 1+ A 02/09/22 04:17 Anisocytosis 3+ A 02/09/22 04:17 Tear Drop Cells Present 02/09/22 04:17 Schistocytes Present 02/09/22 04:17 PT 16.1 SECONDS (11.8-14.3) 02/05/22 06:12 INR Target Range - 02/05/22 06:12 INR 1.33 (0.8-1.3) H 02/05/22 06:12 APTT 37.1 SECONDS (22.9-36.5) H 02/05/22 06:12 PTT Comment - 02/05/22 06:12 Sodium 130 mmol/L (136-145) L 02/09/22 04:17 Corrected Sodium TNP 02/09/22 04:17 Potassium 5.5 mmol/L (3.5-5.1) H 02/09/22 04:17 Chloride 100 mmol/L (98-107) 02/09/22 04:17 Carbon Dioxide 15.1 mmol/L (21-32) L 02/09/22 04:17 BUN 47 mg/dL (7-18) H 02/09/22 04:17 Creatinine 2.17 mg/dL (0.55-1.02) H 02/09/22 04:17 Est GFR (MDRD) Af Amer 31 (>60) L 02/09/22 04:17 Est GFR (MDRD) Non-Af 25 (>60) L 02/09/22 04:17 Glucose 98 mg/dL (65-99) 02/09/22 04:17 Lactic Acid 1.4 mmol/L (0.4-2.0) 02/04/22 12:20 Calcium 9.9 mg/dL (8.5-10.1) 02/09/22 04:17 Corrected Calcium 10.6 mg/dL (8.5-10.1) H 02/09/22 04:17 Magnesium 2.3 mg/dL (1.7-2.9) 02/06/22 05:42 Total Bilirubin 0.60 mg/dL (0.2-1.0) 02/09/22 04:17 AST 71 Units/L (15-37) H 02/09/22 04:17 ALT 56 Units/L (12-78) 02/09/22 04:17 Alkaline Phosphatase 1487 Units/L (46-116) H 02/09/22 04:17 Ammonia 10 umol/L (11-32) L 02/09/22 04:17 Creatine Kinase 16 Units/L (26-192) L 02/05/22 01:08 CK-MB (CK-2) < 1.0 ng/mL (0-4.0) 02/05/22 01:08 CK/CKMB % Calc 6.3 % (<4) 02/05/22 01:08 Troponin I High Sens 5.5 ng/L (4.0-60.0) 02/05/22 01:08 Total Protein 7.9 g/dL (6.4-8.2) 02/09/22 04:17 Albumin 3.1 g/dL (3.4-5.0) L 02/09/22 04:17 Globulin 4.8 g/dL (2.5-4.5) H 02/09/22 04:17 Albumin/Globulin Ratio 0.6 Ratio (1.1-2.1) L 02/09/22 04:17 Specimen Type Clean catch urine 02/04/22 12:34 Urine Color Dark yellow (YELLOW) 02/04/22 12:34 Urine Appearance Cloudy (CLEAR) 02/04/22 12:34 Urine pH 5.0 (5.0 - 8.0) 02/04/22 12:34 Ur Specific [place] 1.020 (1.000-1.030) 02/04/22 12:34 Urine Protein 1+ (NEGATIVE) 02/04/22 12:34 Urine Glucose (UA) Negative (NEGATIVE) 02/04/22 12:34 Urine Ketones Negative (NEGATIVE) 02/04/22 12:34 Urine Blood 1+ (NEGATIVE) 02/04/22 12:34 Urine Nitrite Negative (NEGATIVE) 02/04/22 12:34 Urine Bilirubin Negative (NEGATIVE) 02/04/22 12:34 Urine Urobilinogen Normal (NORMAL) 02/04/22 12:34 Ur Leukocyte Esterase 3+ (NEGATIVE) 02/04/22 12:34 Urine RBC 5-10 /HPF (0-3) A 02/04/22 12:34 Urine WBC 10-20 /HPF (0-5) A 02/04/22 12:34 Ur Squamous Epith Cells Moderate /HPF (NEGATIVE) 02/04/22 12:34 Urine Bacteria 3+ /HPF (NEGATIVE) 02/04/22 12:34 Urine Yeast Few /HPF (NEGATIVE) 02/04/22 12:34 Ur Culture Indicated? Yes/culture set up 02/04/22 12:34 Ur 24 Hour Volume 425 ml/24 hr (600-1600) L 02/06/22 17:00 Urine Creatinine 95.46 mg/dL (29-226) 02/06/22 17:00 Ur Creatinine 24 Hour 0.41 g/24 hr (0.67-1.59) L 02/06/22 17:00 Ur Total Protein 24 Hr 437 mg/day (0-165) H 02/06/22 17:00 Urine Total Protein 102.9 mg/dl (0-11.9) H 02/06/22 17:00 SARS-CoV-2 (PCR) Negative (NEGATIVE) 02/04/22 15:15 Plan (1) Abdominal ascites: Status: Acute Qualifiers: Ascites type: other type Qualified Code(s): R18.8 - Other ascites (2) Abdominal pain: Status: Acute Qualifiers: Abdominal location: generalized Qualified Code(s): R10.84 - Generalized abdominal pain (3) UTI (urinary tract infection): Status: Acute Qualifiers: Hematuria presence: with hematuria Urinary tract infection type: acute cystitis Qualified Code(s): N30.01 - Acute cystitis with hematuria (4) Acute on chronic renal failure: Status: Acute Qualifiers: Acute renal failure type: unspecified Chronic kidney disease stage: unspecified stage Qualified Code(s): N17.9 - Acute kidney failure, unspecified; N18.9 - Chronic kidney disease, unspecified (5) S/P abdominal paracentesis: Status: Acute (6) Hyponatremia: Status: Acute (7) Liver disease: Status: Chronic (8) Status post kidney transplant: Status: Chronic (9) Autoimmune hepatitis: Status: Chronic (10) HTN (hypertension): Status: Chronic Qualifiers: Hypertension type: primary hypertension Qualified Code(s): I10 - Essential (primary) hypertension
[2022-02-09] MEDS: TACROLIMUS PO SCH ×2 (11:12→22:02)
[2022-02-09] MEDS: NEURONTIN CAP 400 MG PO SCH (21:30)
[2022-02-09] MEDS: NORTRIPTYLINE 75 MG PO SCH (22:02)
[2022-02-10 05:16] LABS: AMMONIA 36 umol/L (11-32)
[2022-02-10 05:30] LABS: BASOPHILS # (AUTO) 0.5 X10^3/uL (0.0-0.1); BASOPHILS % (AUTO) 0.8 % (0.2-1.0); HEMATOCRIT 32.4 % (36.0-47.0); HEMOGLOBIN 10.4 g/dL (12.0-16.0); LYMPHOCYTES # (AUTO) 0.5 X10^3/uL (1.3-2.9); LYMPHOCYTES % (AUTO) 0.9 % (21.0-51.0); MEAN CORPUSCULAR HEMOGLOBIN 29.5 pg (27.0-34.0); MEAN CORPUSCULAR HGB CONC 32.2 g/dL (33.0-35.0); MEAN CORPUSCULAR VOLUME 91.7 fL (80.0-100.0); MEAN PLATELET VOLUME 9.8 fL (7.4-11.0); MONOCYTES # (AUTO) 2.2 x10^3/uL (0.3-0.8); MONOCYTES % (AUTO) 3.6 % (0.0-13.0); NEUTROPHILS # (AUTO) 57.3 x10^3/uL (2.2-4.8); NEUTROPHILS % (AUTO) 94.7 % (42.0-75.0); RED BLOOD COUNT 3.53 X10^6/uL (3.5-5.4); RED CELL DISTRIBUTION WIDTH 27.6 % (11.6-16.5)
[2022-02-10 05:42] LABS: ALANINE AMINOTRANSFERASE 39 Units/L (12-78); ALBUMIN 2.6 g/dL (3.4-5.0); ASPARTATE AMINO TRANSFERASE 50 Units/L (15-37); BLOOD UREA NITROGEN 56 mg/dL (7-18); CALCIUM 10.2 mg/dL (8.5-10.1); CHLORIDE 102 mmol/L (98-107); COR CA(FOR HYPOALB) 11.3 mg/dL (8.5-10.1); CREATININE 1.89 mg/dL (0.55-1.02); SODIUM 132 mmol/L (136-145); TOTAL PROTEIN 7.6 g/dL (6.4-8.2); eGFR NON BLACK RACES 30 (>60)
[2022-02-10 05:44] LABS: WHITE BLOOD COUNT 60.6 X10^3/uL (3.6-10.0)
[2022-02-10 05:47] LABS: CARBON DIOXIDE 11.2 mmol/L (21-32)
[2022-02-10 05:48] LABS: ALKALINE PHOSPHATASE 1185 Units/L (46-116)
[2022-02-10 06:11] LABS: ANISOCYTOSIS 3+; BAND NEUTROPHILS % 5 % (0-10); METAMYELOCYTES % 1; PLATELET MORPHOLOGY COMMENT NORMAL (NORMAL); POIKILOCYTOSIS 1+; SCHISTOCYTES PRESENT
[2022-02-10 06:12] LABS: TEAR DROP CELLS PRESENT
[2022-02-10] MEDS ORDERED: ZOLOFT ONE (08:07)
[2022-02-10] MEDS: XIFAXAN PO SCH ×2 (09:07→20:56)
[2022-02-10] MEDS: CHRONULAC PO SCH (09:07)
[2022-02-10] MEDS: PROCARDIA XL PO SCH ×2 (09:07→20:56)
[2022-02-10] MEDS: ZINC SULFATE PO SCH (09:08)
[2022-02-10] MEDS: ZOLOFT PO SCH (09:08)
[2022-02-10] MEDS: FOLIC ACID TAB 1 MG PO SCH (09:09)
[2022-02-10] MEDS: PREDNISONE TAB 5 MG PO SCH (09:09)
[2022-02-10] MEDS: TACROLIMUS PO SCH ×2 (09:10→20:56)
[2022-02-10] MEDS: PROTONIX TAB 40 MG PO SCH ×2 (09:10→20:56)
[2022-02-10] MEDS: NYSTATIN POWDER TOP SCH ×2 (09:10→20:55)
[2022-02-10] MEDS: INVanz INJ 1 GRAM VIAL 0.5 G in NS 100 ML IV 100 ML IV SCH (09:10)
[2022-02-10 10:49] LABS: VANCOMYCIN,TROUGH 29.4 ug/mL (15-20)
[2022-02-10] MEDS: VANCOMYCIN IV *PREMIX 1 G/200 ML BAG 1 G/200 ML PIGGYBACK IV SCH (11:20)
--- NOTE | 2022-02-10 11:46 | PCM.PROG ---
Progress Note Progress Note for Day of Date of Exam: 02/10/22 Subjective Subjective: Patient seen at bedside, no acute events overnight. Patient seems to be less alert today and not talking as much as yesterday. Family member at bedside states she has been sleeping more and not able to tolerate anything PO. Patient has decided to change her status to DNR. She was able to understand and wanted no resuscitation as per her wishes. DNR order signed by patient and physician and placed in chart. Ms Smith is being treated for ascites due to cirrhosis, UTI, hyponatremia, VINICIO on CKD and dehydration. Patient has a hx of renal transplant in [place] done in 2010. Dr Nieto has also been following her, had paracentesis done on 02/04/22. Patient has a colostomy bag at the site of the paracentesis to collect any drainage. [place] was contacted for transfer but no beds available at this time. Family member at bedside does not want her transferred as she is declining and wants to respect patient's wishes. She denies N/V/D, does complain of mild abdominal pain. Labs reviewed: WBC elevated 60.6 from 43.7 Hgb 10.4 K 5.5 Na 132 Cr: 1.89 Plan: continue current care with IV antibiotics for E.faecalis UTI, continue Invanz and Vancomycin. Will order CTAP without contrast. Monitor output from colostomy and UOP. Continue gentle hydration. Follow surgery recommendations. Monitor AM labs/imaging. Time spent for clinical assessment, reviewing labs/imaging, physical exam, decis ion making and documentation greater than 45 mins. Past Medical Family Social History Past Med/Fam/Surg Hx: No changes since H&P Allergies: Allergies levofloxacin [From Levaquin] Allergy (Verified 09/29/20 15:06) metronidazole [From Flagyl] Allergy (Verified 11/12/21 13:11) adhesive tape Adverse Reaction (Verified 09/29/20 15:06) ciprofloxacin [From Cipro] Adverse Reaction (Verified 09/29/20 15:06) phenazopyridine [From Pyridium] Adverse Reaction (Verified 09/29/20 15:06) Sulfa (Sulfonamide Antibiotics) [SULFA] Adverse Reaction (Verified 09/29/20 15:06) Review of Systems ROS: No change since H&P Vital Signs and I&O's Vital Signs: Temperature 97.5 F Pulse Rate [Right Brachial] 126 Pulse Rate [Left Radial] 114 Pulse Rate 117 Respiratory Rate 24 Blood Pressure [Right Arm] 111/60 Blood Pressure [Left Arm] 130/70 Blood Pressure 119/63 O2 Sat by Pulse Oximetry 94 Intake and Output: Intake & Output 02/07/22 02/08/22 02/09/22 02/10/22 23:59 23:59 23:59 23:59 Intake Total 5219 / 5219 1470 / 1470 1406 / 1406 600 / 600 Output Total 1430 / 1430 245 / 245 1010 / 1010 625 / 625 Balance 3789 / 3789 1225 / 1225 396 / 396 -25 / -25 Physical Exam Oriented: Unable to test Eyes: Normal Ear: Normal Nose: Normal Throat: Normal Respiratory: Generalized and Diminished Cardiovascular: Normal Auscultation: Bowel Sounds: Normal and Decreased (soft abdomen with only mild tenderness .. BS present but hypoactive .. ) Tenderness: Normal Skin: Decreased Turgur Musculoskeletal: Normal Psychiatric: Normal Mood Description: Calm Affect: Normal Speech Pattern: Clear and Delayed Laboratory and Diagnostics Result Diagrams: 02/10/22 04:24 02/10/22 10:16 Labs: 02/04/22 12:20 Blood Blood Culture - Final 02/05/22 05:15 Urine,Catheterized Urine Culture - Final Enterococcus Faecalis 02/04/22 12:34 Urine,Clean Catch Urine Culture - Final Klebsiella Pneumoniae [facility] WBC 60.6 X10^3/uL (3.6-10.0) H* D 02/10/22 04:24 RBC 3.53 X10^6/uL (3.5-5.4) 02/10/22 04:24 Hgb 10.4 g/dL (12.0-16.0) L 02/10/22 04:24 Hct 32.4 % (36.0-47.0) L 02/10/22 04:24 MCV 91.7 fL (80.0-100.0) 02/10/22 04:24 MCH 29.5 pg (27.0-34.0) 02/10/22 04:24 MCHC 32.2 g/dL (33.0-35.0) L 02/10/22 04:24 RDW 27.6 % (11.6-16.5) H 02/10/22 04:24 Plt Count 198 X10^3/uL (150.0-450.0) 02/10/22 04:24 Plt Count Comment Adequate (ADEQUATE) 02/10/22 04:24 MPV 9.8 fL (7.4-11.0) 02/10/22 04:24 Neut % (Auto) 94.7 % (42.0-75.0) H 02/10/22 04:24 Lymph % (Auto) 0.9 % (21.0-51.0) L 02/10/22 04:24 [place] % (Auto) 3.6 % (0.0-13.0) 02/10/22 04:24 Eos % (Auto) 0.0 % (0.9-2.9) L 02/10/22 04:24 Baso % (Auto) 0.8 % (0.2-1.0) 02/10/22 04:24 Neut # (Auto) 57.3 x10^3/uL (2.2-4.8) H 02/10/22 04:24 Lymph # (Auto) 0.5 X10^3/uL (1.3-2.9) L 02/10/22 04:24 [place] # (Auto) 2.2 x10^3/uL (0.3-0.8) H 02/10/22 04:24 Eos # (Auto) 0.0 x10^3/uL (0.0-0.2) 02/10/22 04:24 Baso # (Auto) 0.5 X10^3/uL (0.0-0.1) H 02/10/22 04:24 Absolute Nucleated RBC 0.0 /100WBC 02/10/22 04:24 Total Counted 100 02/10/22 04:24 Neutrophils % (Manual) 84 % (39-76) H 02/10/22 04:24 Band Neutrophils % 5 % (0-10) 02/10/22 04:24 Lymphocytes % (Manual) 3 % (13-43) L 02/10/22 04:24 Monocytes % (Manual) 7 % (4-9) 02/10/22 04:24 Basophils % (Manual) 2 % (0-1) H 02/06/22 05:42 Metamyelocytes % 1 02/10/22 04:24 Myelocytes % 1 02/09/22 04:17 Nucleated RBCs 1 02/06/22 05:42 Plt Morphology Comment Normal (NORMAL) 02/10/22 04:24 RBC Morphology Abnormal (NORMAL) A 02/10/22 04:24 Dimorphic RBCs Slight 02/04/22 12:20 Poikilocytosis 1+ A 02/10/22 04:24 Anisocytosis 3+ A 02/10/22 04:24 Tear Drop Cells Present 02/10/22 04:24 Acanthocytes (Spur) Present 02/10/22 04:24 Schistocytes Present 02/10/22 04:24 PT 16.1 SECONDS (11.8-14.3) 02/05/22 06:12 INR Target Range - 02/05/22 06:12 INR 1.33 (0.8-1.3) H 02/05/22 06:12 APTT 37.1 SECONDS (22.9-36.5) H 02/05/22 06:12 PTT Comment - 02/05/22 06:12 Sodium 132 mmol/L (136-145) L 02/10/22 04:24 Corrected Sodium TNP 02/10/22 04:24 Potassium 5.5 mmol/L (3.5-5.1) H 02/10/22 04:24 Chloride 102 mmol/L (98-107) 02/10/22 04:24 Carbon Dioxide 11.2 mmol/L (21-32) L* 02/10/22 04:24 BUN 56 mg/dL (7-18) H 02/10/22 04:24 Creatinine 2.00 mg/dL (0.55-1.02) H 02/10/22 10:16 Est GFR (MDRD) Af Amer 36 (>60) L 02/10/22 04:24 Est GFR (MDRD) Non-Af 30 (>60) L 02/10/22 04:24 Glucose 93 mg/dL (65-99) 02/10/22 04:24 Lactic Acid 1.4 mmol/L (0.4-2.0) 02/04/22 12:20 Calcium 10.2 mg/dL (8.5-10.1) H 02/10/22 04:24 Corrected Calcium 11.3 mg/dL (8.5-10.1) H 02/10/22 04:24 Magnesium 2.3 mg/dL (1.7-2.9) 02/06/22 05:42 Total Bilirubin 0.70 mg/dL (0.2-1.0) 02/10/22 04:24 AST 50 Units/L (15-37) H 02/10/22 04:24 ALT 39 Units/L (12-78) 02/10/22 04:24 Alkaline Phosphatase 1185 Units/L (46-116) H 02/10/22 04:24 Ammonia 36 umol/L (11-32) H 02/10/22 04:24 Creatine Kinase 16 Units/L (26-192) L 02/05/22 01:08 CK-MB (CK-2) < 1.0 ng/mL (0-4.0) 02/05/22 01:08 CK/CKMB % Calc 6.3 % (<4) 02/05/22 01:08 Troponin I High Sens 5.5 ng/L (4.0-60.0) 02/05/22 01:08 Total Protein 7.6 g/dL (6.4-8.2) 02/10/22 04:24 Albumin 2.6 g/dL (3.4-5.0) L 02/10/22 04:24 Globulin 5.0 g/dL (2.5-4.5) H 02/10/22 04:24 Albumin/Globulin Ratio 0.5 Ratio (1.1-2.1) L 02/10/22 04:24 Specimen Type Clean catch urine 02/04/22 12:34 Urine Color Dark yellow (YELLOW) 02/04/22 12:34 Urine Appearance Cloudy (CLEAR) 02/04/22 12:34 Urine pH 5.0 (5.0 - 8.0) 02/04/22 12:34 Ur Specific [place] 1.020 (1.000-1.030) 02/04/22 12:34 Urine Protein 1+ (NEGATIVE) 02/04/22 12:34 Urine Glucose (UA) Negative (NEGATIVE) 02/04/22 12:34 Urine Ketones Negative (NEGATIVE) 02/04/22 12:34 Urine Blood 1+ (NEGATIVE) 02/04/22 12:34 Urine Nitrite Negative (NEGATIVE) 02/04/22 12:34 Urine Bilirubin Negative (NEGATIVE) 02/04/22 12:34 Urine Urobilinogen Normal (NORMAL) 02/04/22 12:34 Ur Leukocyte Esterase 3+ (NEGATIVE) 02/04/22 12:34 Urine RBC 5-10 /HPF (0-3) A 02/04/22 12:34 Urine WBC 10-20 /HPF (0-5) A 02/04/22 12:34 Ur Squamous Epith Cells Moderate /HPF (NEGATIVE) 02/04/22 12:34 Urine Bacteria 3+ /HPF (NEGATIVE) 02/04/22 12:34 Urine Yeast Few /HPF (NEGATIVE) 02/04/22 12:34 Ur Culture Indicated? Yes/culture set up 02/04/22 12:34 Ur 24 Hour Volume 425 ml/24 hr (600-1600) L 02/06/22 17:00 Urine Creatinine 95.46 mg/dL (29-226) 02/06/22 17:00 Ur Creatinine 24 Hour 0.41 g/24 hr (0.67-1.59) L 02/06/22 17:00 Ur Total Protein 24 Hr 437 mg/day (0-165) H 02/06/22 17:00 Urine Total Protein 102.9 mg/dl (0-11.9) H 02/06/22 17:00 Vancomycin Trough 29.4 ug/mL (15-20) H* 02/10/22 10:16 SARS-CoV-2 (PCR) Negative (NEGATIVE) 02/04/22 15:15 Plan (1) Abdominal ascites: Status: Acute Qualifiers: Ascites type: other type Qualified Code(s): R18.8 - Other ascites (2) Abdominal pain: Status: Acute Qualifiers: Abdominal location: generalized Qualified Code(s): R10.84 - Generalized abdominal pain (3) UTI (urinary tract infection): Status: Acute Qualifiers: Hematuria presence: with hematuria Urinary tract infection type: acute cystitis Qualified Code(s): N30.01 - Acute cystitis with hematuria (4) Acute on chronic renal failure: Status: Acute Qualifiers: Acute renal failure type: unspecified Chronic kidney disease stage: unspecified stage Qualified Code(s): N17.9 - Acute kidney failure, unspecified; N18.9 - Chronic kidney disease, unspecified (5) S/P abdominal paracentesis: Status: Acute (6) Hyponatremia: Status: Acute (7) Liver disease: Status: Chronic (8) Status post kidney transplant: Status: Chronic (9) Autoimmune hepatitis: Status: Chronic (10) HTN (hypertension): Status: Chronic Qualifiers: Hypertension type: primary hypertension Qualified Code(s): I10 - Essential (primary) hypertension
[2022-02-10] MEDS: MORPHINE SULFATE INJ 2 MG INJ IVP PRN ×3 (12:39→22:34)
[2022-02-10] MEDS: ZOFRAN INJ 4 MG VIAL IVP PRN (12:40)
--- NOTE | 2022-02-10 13:04 | CT ---
HISTORYelevated WBC, ascitiesSTUDYABDOMEN/PELVIS W/O [id number]/2022.TECHNIQUEMultipl e axial images of the abdomen and pelvis were obtained from the lung bases to the pubic symphysis without the administration of IV contrast. Dose reduction techniques including Automated Exposure Control (AEC) and adjustment of mA and kV were utilized.FINDINGSDependent bilateral lower lobe opacity suggestive of atelectasis. There is a trace pleural effusion on the left side. The heart size is normal. There is atherosclerosis in the LAD. The stomach is fluid-filled and distended and there is fluid in the distal esophagus indicating gastroesophageal reflux. The liver is small and shrunken raising concern for cirrhosis. The gallbladder has been removed. Pancreas is somewhat atrophic. The spleen is normal. The adrenal glands are normal. The [place] kidneys are severely atrophic. There is moderate atherosclerosis in the abdominal aorta and other vessels. There is a transplant kidney in the right iliac fossa which contains gas in the collecting system. There is a Vargas catheter in the urinary bladder which is half filled with gas and half filled with fluid. There is abnormal prominence of the small bowel with air-fluid levels throughout and diameter of small bowel measuring up to 4.0 centimeter in diameter. The terminal ileum is collapsed. There are some small bowel loops in the pelvis which are also collapsed. The transition point is not identified. The colon is relatively collapsed. There is some nonspecific opacity in the mesenteric fat in the left upper quadrant of uncertain etiology. There is moderate to large volume ascites in the abdomen. No worrisome bone marrow lesion.IMPRESSION1. Abnormal dilation of stomach and small bowel with collapsed distal small bowel suggesting a distal small bowel obstruction. The transition point is not defined. 2. Moderate volume ascites. 3. Nonspecific soft tissue density in the omentum in the left upper quadrant. 4. Gas in the urinary bladder and in the transplant kidney in the right pelvis.Electronically signed by: Tera Rosas (February 10, 2022 13:03:07)
[2022-02-10] MEDS ORDERED: ATIVAN INJ 2 MG VIAL IVP PRN (15:19)
[2022-02-10] MEDS: NS 1,000 ML IV 1,000 ML IV SCH (17:35)
[2022-02-10 20:44] VITALS: BP 85/51
[2022-02-10] MEDS: NEURONTIN CAP 400 MG PO SCH (20:54)
[2022-02-10] MEDS: NORTRIPTYLINE 75 MG PO SCH (20:55)
[2022-02-11] MEDS: NS 1,000 ML IV 1,000 ML IV SCH ×2 (04:14→07:08)
[2022-02-11] MEDS ORDERED: PHARMACY COMMENT IV NR (09:00)
[2022-02-11] MEDS: PREDNISONE TAB 5 MG PO SCH (09:00)
[2022-02-11] MEDS: CHRONULAC PO SCH (09:00)
[2022-02-11] MEDS: FOLIC ACID TAB 1 MG PO SCH (09:00)
[2022-02-11] MEDS: ZINC SULFATE PO SCH (09:00)
[2022-02-11] MEDS: PROCARDIA XL PO SCH (09:01)
[2022-02-11] MEDS: PROTONIX TAB 40 MG PO SCH (09:01)
[2022-02-11] MEDS: TACROLIMUS PO SCH (09:01)
[2022-02-11] MEDS: XIFAXAN PO SCH (09:02)
[2022-02-11] MEDS: ZOLOFT PO SCH (09:02)
[2022-02-11] MEDS: INVanz INJ 1 GRAM VIAL 0.5 G in NS 100 ML IV 100 ML IV SCH ×2 (09:03→09:06)
[2022-02-11] MEDS: NYSTATIN POWDER TOP SCH ×2 (09:05→09:08)
[2022-02-11] MEDS: MORPHINE SULFATE INJ 2 MG INJ IVP PRN (10:26)
[2022-02-11] MEDS ORDERED: VERSED IV PREMIX IV PRN (10:33)
[2022-02-11] MEDS ORDERED: VERSED IV PREMIX IV SCH (10:46)
[2022-02-11] MEDS ORDERED: MORPHINE SULFATE PCA 30 MG IVP SCH (11:00)
--- NOTE | 2022-02-11 12:35 | PCM.PROG ---
Progress Note Progress Note for Day of Date of Exam: 02/11/22 Subjective Subjective: Patient seen at bedside, no acute events overnight. Ms Smith was admitted for ascites due to cirrhosis, UTI, hyponatremia, VINICIO on CKD and dehydration. Patient has a hx of renal transplant in [place] done in 2010. Dr Nieto has also been following her, had paracentesis done on 02/04/22. Patient has declined significantly in the last couple days. Patient decided to sign DNR yesterday and expressed comfort care. Patient's family also expressed to do comfort care only. Patient has been lethargic since yesterday. She was started on comfort care measures with IV morphine. Family refused labs, IV antibiotics and PO medications. Patient has some moments where she appears to be in distress. Plan: continue with comfort care measures, will switch to IV protocol for morphine and versed for comfort care. Stop all oral medications and IV medications. Discontinue blood draws. Past Medical Family Social History Past Med/Fam/Surg Hx: No changes since H&P Allergies: Allergies levofloxacin [From Levaquin] Allergy (Verified 09/29/20 15:06) metronidazole [From Flagyl] Allergy (Verified 11/12/21 13:11) adhesive tape Adverse Reaction (Verified 09/29/20 15:06) ciprofloxacin [From Cipro] Adverse Reaction (Verified 09/29/20 15:06) phenazopyridine [From Pyridium] Adverse Reaction (Verified 09/29/20 15:06) Sulfa (Sulfonamide Antibiotics) [SULFA] Adverse Reaction (Verified 09/29/20 15 :06) Review of Systems ROS: No change since H&P Vital Signs and I&O's Vital Signs: Temperature 98.2 F Pulse Rate [Right Brachial] 127 Pulse Rate [Left Radial] 114 Pulse Rate 117 Respiratory Rate 26 Blood Pressure [Right Arm] 85/51 Blood Pressure [Left Arm] 130/70 Blood Pressure 119/63 O2 Sat by Pulse Oximetry 98 Intake and Output: Intake & Output 02/08/22 02/09/22 02/10/22 02/11/22 23:59 23:59 23:59 23:59 Intake Total 1470 / 1470 1406 / 1406 2170 / 2170 600 / 600 Output Total 245 / 245 1010 / 1010 1025 / 1025 100 / 100 Balance 1225 / 1225 396 / 396 1145 / 1145 500 / 500 Physical Exam Oriented: Unable to test Eyes: Other (closed) Ear: Normal Nose: Normal Throat: Dry Respiratory: Generalized and Diminished Cardiovascular: Tachycardia Auscultation: Bowel Sounds: Normal Tenderness: Normal Skin: Decreased Turgur Psychiatric: Normal Mood Description: Calm Affect: Normal Speech Pattern: Aphasic Laboratory and Diagnostics Result Diagrams: 02/10/22 04:24 02/10/22 10:16 Labs: 02/04/22 12:20 Blood Blood Culture - Final 02/05/22 05:15 Urine,Catheterized Urine Culture - Final Enterococcus Faecalis 02/04/22 12:34 Urine,Clean Catch Urine Culture - Final Klebsiella Pneumoniae [facility] WBC 60.6 X10^3/uL (3.6-10.0) H* D 02/10/22 04:24 RBC 3.53 X10^6/uL (3.5-5.4) 02/10/22 04:24 Hgb 10.4 g/dL (12.0-16.0) L 02/10/22 04:24 Hct 32.4 % (36.0-47.0) L 02/10/22 04:24 MCV 91.7 fL (80.0-100.0) 02/10/22 04:24 MCH 29.5 pg (27.0-34.0) 02/10/22 04:24 MCHC 32.2 g/dL (33.0-35.0) L 02/10/22 04:24 RDW 27.6 % (11.6-16.5) H 02/10/22 04:24 Plt Count 198 X10^3/uL (150.0-450.0) 02/10/22 04:24 Plt Count Comment Adequate (ADEQUATE) 02/10/22 04:24 MPV 9.8 fL (7.4-11.0) 02/10/22 04:24 Neut % (Auto) 94.7 % (42.0-75.0) H 02/10/22 04:24 Lymph % (Auto) 0.9 % (21.0-51.0) L 02/10/22 04:24 [place] % (Auto) 3.6 % (0.0-13.0) 02/10/22 04:24 Eos % (Auto) 0.0 % (0.9-2.9) L 02/10/22 04:24 Baso % (Auto) 0.8 % (0.2-1.0) 02/10/22 04:24 Neut # (Auto) 57.3 x10^3/uL (2.2-4.8) H 02/10/22 04:24 Lymph # (Auto) 0.5 X10^3/uL (1.3-2.9) L 02/10/22 04:24 [place] # (Auto) 2.2 x10^3/uL (0.3-0.8) H 02/10/22 04:24 Eos # (Auto) 0.0 x10^3/uL (0.0-0.2) 02/10/22 04:24 Baso # (Auto) 0.5 X10^3/uL (0.0-0.1) H 02/10/22 04:24 Absolute Nucleated RBC 0.0 /100WBC 02/10/22 04:24 Total Counted 100 02/10/22 04:24 Neutrophils % (Manual) 84 % (39-76) H 02/10/22 04:24 Band Neutrophils % 5 % (0-10) 02/10/22 04:24 Lymphocytes % (Manual) 3 % (13-43) L 02/10/22 04:24 Monocytes % (Manual) 7 % (4-9) 02/10/22 04:24 Basophils % (Manual) 2 % (0-1) H 02/06/22 05:42 Metamyelocytes % 1 02/10/22 04:24 Myelocytes % 1 02/09/22 04:17 Nucleated RBCs 1 02/06/22 05:42 Plt Morphology Comment Normal (NORMAL) 02/10/22 04:24 RBC Morphology Abnormal (NORMAL) A 02/10/22 04:24 Dimorphic RBCs Slight 02/04/22 12:20 Poikilocytosis 1+ A 02/10/22 04:24 Anisocytosis 3+ A 02/10/22 04:24 Tear Drop Cells Present 02/10/22 04:24 Acanthocytes (Spur) Present 02/10/22 04:24 Schistocytes Present 02/10/22 04:24 PT 16.1 SECONDS (11.8-14.3) 02/05/22 06:12 INR Target Range - 02/05/22 06:12 INR 1.33 (0.8-1.3) H 02/05/22 06:12 APTT 37.1 SECONDS (22.9-36.5) H 02/05/22 06:12 PTT Comment - 02/05/22 06:12 Sodium 132 mmol/L (136-145) L 02/10/22 04:24 Corrected Sodium TNP 02/10/22 04:24 Potassium 5.5 mmol/L (3.5-5.1) H 02/10/22 04:24 Chloride 102 mmol/L (98-107) 02/10/22 04:24 Carbon Dioxide 11.2 mmol/L (21-32) L* 02/10/22 04:24 BUN 56 mg/dL (7-18) H 02/10/22 04:24 Creatinine 2.00 mg/dL (0.55-1.02) H 02/10/22 10:16 Est GFR (MDRD) Af Amer 36 (>60) L 02/10/22 04:24 Est GFR (MDRD) Non-Af 30 (>60) L 02/10/22 04:24 Glucose 93 mg/dL (65-99) 02/10/22 04:24 Lactic Acid 1.4 mmol/L (0.4-2.0) 02/04/22 12:20 Calcium 10.2 mg/dL (8.5-10.1) H 02/10/22 04:24 Corrected Calcium 11.3 mg/dL (8.5-10.1) H 02/10/22 04:24 Magnesium 2.3 mg/dL (1.7-2.9) 02/06/22 05:42 Total Bilirubin 0.70 mg/dL (0.2-1.0) 02/10/22 04:24 AST 50 Units/L (15-37) H 02/10/22 04:24 ALT 39 Units/L (12-78) 02/10/22 04:24 Alkaline Phosphatase 1185 Units/L (46-116) H 02/10/22 04:24 Ammonia 36 umol/L (11-32) H 02/10/22 04:24 Creatine Kinase 16 Units/L (26-192) L 02/05/22 01:08 CK-MB (CK-2) < 1.0 ng/mL (0-4.0) 02/05/22 01:08 CK/CKMB % Calc 6.3 % (<4) 02/05/22 01:08 Troponin I High Sens 5.5 ng/L (4.0-60.0) 02/05/22 01:08 Total Protein 7.6 g/dL (6.4-8.2) 02/10/22 04:24 Albumin 2.6 g/dL (3.4-5.0) L 02/10/22 04:24 Globulin 5.0 g/dL (2.5-4.5) H 02/10/22 04:24 Albumin/Globulin Ratio 0.5 Ratio (1.1-2.1) L 02/10/22 04:24 Specimen Type Clean catch urine 02/04/22 12:34 Urine Color Dark yellow (YELLOW) 02/04/22 12:34 Urine Appearance Cloudy (CLEAR) 02/04/22 12:34 Urine pH 5.0 (5.0 - 8.0) 02/04/22 12:34 Ur Specific [place] 1.020 (1.000-1.030) 02/04/22 12:34 Urine Protein 1+ (NEGATIVE) 02/04/22 12:34 Urine Glucose (UA) Negative (NEGATIVE) 02/04/22 12:34 Urine Ketones Negative (NEGATIVE) 02/04/22 12:34 Urine Blood 1+ (NEGATIVE) 02/04/22 12:34 Urine Nitrite Negative (NEGATIVE) 02/04/22 12:34 Urine Bilirubin Negative (NEGATIVE) 02/04/22 12:34 Urine Urobilinogen Normal (NORMAL) 02/04/22 12:34 Ur Leukocyte Esterase 3+ (NEGATIVE) 02/04/22 12:34 Urine RBC 5-10 /HPF (0-3) A 02/04/22 12:34 Urine WBC 10-20 /HPF (0-5) A 02/04/22 12:34 Ur Squamous Epith Cells Moderate /HPF (NEGATIVE) 02/04/22 12:34 Urine Bacteria 3+ /HPF (NEGATIVE) 02/04/22 12:34 Urine Yeast Few /HPF (NEGATIVE) 02/04/22 12:34 Ur Culture Indicated? Yes/culture set up 02/04/22 12:34 Ur 24 Hour Volume 425 ml/24 hr (600-1600) L 02/06/22 17:00 Urine Creatinine 95.46 mg/dL (29-226) 02/06/22 17:00 Ur Creatinine 24 Hour 0.41 g/24 hr (0.67-1.59) L 02/06/22 17:00 Ur Total Protein 24 Hr 437 mg/day (0-165) H 02/06/22 17:00 Urine Total Protein 102.9 mg/dl (0-11.9) H 02/06/22 17:00 Vancomycin Trough 29.4 ug/mL (15-20) H* 02/10/22 10:16 SARS-CoV-2 (PCR) Negative (NEGATIVE) 02/04/22 15:15 Plan (1) Hospice care: Status: Acute (2) Comfort measures only status: Status: Acute (3) Abdominal ascites: Status: Acute Qualifiers: Ascites type: other type Qualified Code(s): R18.8 - Other ascites (4) Abdominal pain: Status: Acute Qualifiers: Abdominal location: generalized Qualified Code(s): R10.84 - Generalized abdominal pain (5) UTI (urinary tract infection): Status: Acute Qualifiers: Hematuria presence: with hematuria Urinary tract infection type: acute cystitis Qualified Code(s): N30.01 - Acute cystitis with hematuria (6) Acute on chronic renal failure: Status: Acute Qualifiers: Acute renal failure type: unspecified Chronic kidney disease stage: unspecified stage Qualified Code(s): N17.9 - Acute kidney failure, unspecified; N18.9 - Chronic kidney disease, unspecified (7) S/P abdominal paracentesis: Status: Acute (8) Hyponatremia: Status: Acute (9) Liver disease: Status: Chronic (10) Status post kidney transplant: Status: Chronic (11) Autoimmune hepatitis: Status: Chronic (12) HTN (hypertension): Status: Chronic Qualifiers: Hypertension type: primary hypertension Qualified Code(s): I10 - Essential (primary) hypertension
== END 2022-02-11 16:55 | disposition expired | DRG 947 ==
LOC: ER 11:10 → MED/SURG 11:10
PROVIDERS: ADMIT Internal Medicine; ATTEND Internal Medicine
DX: Z20.822 Contact with and (suspected) exposure to COVID-19; Z66 Do not resuscitate; N18.6 End stage renal disease; Z94.0 Kidney transplant status; B96.1 Klebsiella pneumoniae [K. pneumoniae] as the cause of diseases classified elsewhere; K75.4 Autoimmune hepatitis; K74.69 Other cirrhosis of liver; K72.10 Chronic hepatic failure without coma; B96.89 Other specified bacterial agents as the cause of diseases classified elsewhere; R10.84 Generalized abdominal pain; Z51.5 Encounter for palliative care; I46.8 Cardiac arrest due to other underlying condition; R79.1 Abnormal coagulation profile; N30.01 Acute cystitis with hematuria; R06.02 Shortness of breath; E87.1 Hypo-osmolality and hyponatremia; R18.8 Other ascites; I13.0 Hypertensive heart and chronic kidney disease with heart failure and stage 1 through stage 4 chronic kidney disease, or unspecified chronic kidney disease; N17.8 Other acute kidney failure